=== PATIENT | male | born 1940 | race Caucasian/White ===

== ENCOUNTER → 2016-02-29 | Outpatient (CLI) | payer MEDICARE, BC ==
--- NOTE | 2016-02-29 13:14 | CT ---
EXAMINATION TYPE: CT chest wo con DATE OF EXAM: 02/29/2016 12:52 PM COMPARISON: NONE HISTORY: Patient complains of shortness of breath and unproductive cough. CT DLP: 473.5 mGycm. Automated Exposure Control for Dose Reduction was Utilized. TECHNIQUE: CT scan of the thorax is performed without IV contrast. Comparison: Chest CT February 03, 2012. FINDINGS: LUNGS: There is persistent eventration probable diaphragmatic hernia containing liver and the right l dana. Lungs are grossly clear. No suspicious groundglass opacity or consolidation is seen. No signific ant fibrosis is present. No pleural effusion or pneumothorax is seen. Minimal scarring and/or atelect atic change in both lung bases near diaphragm since still present. There is small punctate nodules 2 mm left mid lung laterally on image 27 felt stable. No concerning greater than 4 mm parenchymal nodul e or mass is present. MEDIASTINUM: Lack of IV contrast is noted to limit evaluation for mediastinal and especially hilar ad enopathy. There are no definitive greater than 1 cm hilar or mediastinal lymph nodes. No cardiomega ly or pericardial effusion is seen. Main pulmonary artery measures 3.3 cm in diameter on axial image 26. CT findings suggesting underlying pulmonary artery hypertension. Findings stable from prior. Stab le mild cardiomegaly is seen. Mild coronary artery calcification is redemonstrated. OTHER: Some bilateral gynecomastia, left worse than right is redemonstrated. Liver is diffusely low d ense consistent with fatty infiltration. Some diverticula are seen in visualized colon. Slight nodula r thickening to left adrenal gland may reflect hyperplasia. Spine is straightened with prominent mult ilevel anterior and lateral spurring redemonstrated. IMPRESSION: No significant acute or chronic pulmonary process identified to account for patient's sym ptoms.
== END | disposition home or self-care (01) ==
LOC: RADCTMAIN 12:34
PROVIDERS: ATTEND Internal Medicine
DX: R06.02 Shortness of breath (principal); R05 Cough
CPT/HCPCS: 71250

== ENCOUNTER → 2016-04-28 | Outpatient (CLI) | payer MEDICARE, BC ==
[2016-04-28 17:18] LABS: CHCM 32.3; HCT 47.4 % (39.0-53.0); HDW 2.72; HGB 15.1 gm/dL (13.0-17.5); MCH 29.6 pg (25.0-35.0); MCHC 31.8 g/dL (31.0-37.0); MCV 93.3 fL (80.0-100.0); RBC 5.09 m/uL (4.30-5.90); RDW 14.1 % (11.5-15.5); WBC 7.6 k/uL (3.8-10.6)
[2016-04-28 17:54] LABS: Calcium 9.8 mg/dL (8.4-10.2); Potassium 4.5 mmol/L (3.5-5.1); Total Bilirubin 0.6 mg/dL (0.2-1.3); Total Protein 7.9 g/dL (6.3-8.2)
== END | disposition home or self-care (01) ==
LOC: LABWHC1 16:38
PROVIDERS: ATTEND Internal Medicine Interventional Cardiology
DX: I10 Essential (primary) hypertension (principal); I48.3 Typical atrial flutter
CPT/HCPCS: 36415; 80053; 84443; 85027

== ENCOUNTER → 2016-05-04 | Outpatient (CLI) | payer MEDICARE, BC ==
--- NOTE | 2016-05-04 22:28 | CT ---
EXAMINATION TYPE: CT abdomen pelvis wo con DATE OF EXAM: 05/04/2016 7:30 PM COMPARISON: 08/08/2013 HISTORY: 75-year-old male abdominal pain and bloating CT DLP: 1223 mGycm. Automated exposure control for dose reduction was used. TECHNIQUE: Contiguous axial scanning of the abdomen and pelvis without IV contrast. Coronal and sagit hawa reconstructions performed. FINDINGS: Heart remains borderline enlarged. There is some mosaic attenuation within the visualized lower lungs that could reflect small airways disease. There is trace right pleural effusion which is new. Slightly diminished attenuation of the hepatic parenchyma and borderline to mild hepatomegaly at 18.2 cm craniocaudal. Noncontrast appearance of the gallbladder, right adrenal gland, kidneys, spleen, and pancreas show no gross abnormality. Mild diffuse thickening of the left adrenal gland increased from prior exam. No d iscrete nodularity. Numerous tiny retroperitoneal lymph nodes. There is a mildly enlarged 1 cm peripancreatic lymph node near the ricardo hepatis and a prominent but not enlarged 1.3 cm portacaval lymph node. Otherwise, no m esenteric lymphadenopathy. Mild diffuse strandy densities throughout the intra-abdominal fat especially in the retroperitoneum t racking down both iliac chains. There is additional dependent edema within the subcutaneous tissues o f the back and mild subcutaneous soft tissue edema along the lower flanks. Focal soft tissue thickening located within the subcutaneous fat of the periumbilical regions probabl y relating to subcutaneous injections. Redemonstrated small fat-containing umbilical hernia. Circumferential bladder wall thickening. Prostate gland enlargement 4.9 cm wide. Redundant sigmoid colon with diffuse colonic diverticulosis. Normal appendix. Mild overall stool robe ining. No abnormal fluid collection in the pelvis. Bones: Mild degenerative changes at the hips. Postsurgical changes of mid to lower lumbar laminectomi es and degenerative changes throughout the lumbar spine. No osseous destructive process. IMPRESSION: 1. Correlate with patient's fluid status as there appears to be mild diffuse anasarca type change an d a new trace right pleural effusion. 2. Mildly enlarged 1 cm ricardo hepatic lymph node probably reactive/post inflammatory. A six-month fo llow-up exam can be considered to reassess. 3. Mild hepatomegaly and slight decreased attenuation of the liver. Findings could reflect mild hepa tic steatosis or hepatitis. Correlate with LFTs, lipid profile, and patient risk factors. 4. Diffuse colonic diverticulosis without acute diverticulitis. 5. Prostatomegaly (4.9 cm wide). Mild circumferential bladder wall thickening could reflect cystitis or bladder wall hypertrophy. 6. Redemonstrated small fatty umbilical hernia.
== END | disposition home or self-care (01) ==
LOC: RADCTMAIN 18:57
PROVIDERS: ATTEND Family Medicine
DX: K42.9 Umbilical hernia without obstruction or gangrene (principal); N40.0 Benign prostatic hyperplasia without lower urinary tract symptoms; K57.30 Diverticulosis of large intestine without perforation or abscess without bleeding; R16.0 Hepatomegaly, not elsewhere classified; R59.0 Localized enlarged lymph nodes; N32.89 Other specified disorders of bladder
CPT/HCPCS: 74176

== ENCOUNTER 2016-07-21 18:04 | Inpatient (IN) | payer MEDICARE, BC ==
--- NOTE | 2016-07-21 18:32 | ED ---
General Adult HPI - General Source: patient, family, RN notes reviewed Mode of arrival: wheelchair Limitations: no limitations <Romulo Ferro - Last Filed: 07/21/16 18:38> <Romulo Yung - Last Filed: 07/21/16 21:06> - General Chief complaint: Shortness of Breath Stated complaint: CHF Time Seen by Provider: 07/21/16 18:10 - History of Present Illness Initial comments: This is a 75-year-old male who presents emergency Department complaining of difficulty breathing. Patient has past medical history significant for congestive heart failure and atrial fibrillation. Patient states difficult to breathing started getting worse over the last few days. 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 Patient denies any chest pain or palpitations. Patient denies any fever chills or cough. Patient states he notes that his abdomen appears to be bigger but his legs aren't any more edematous than normal. Patient states his legs normally don't get any bigger when he has congestive heart failure. Patient denies any lightheadedness or dizziness. Patient denies headache patient denies numbness weakness. (Romulo Ferro) - Related Data Home Medications Medication Instructions Recorded Confirmed Diltiazem HCl 30 mg PO TID 11/19/13 07/21/16 Ferrous Gluconate 325 mg PO DAILY 11/19/13 07/21/16 Furosemide [Lasix] 40 mg PO DAILY 11/19/13 07/21/16 Hydrocodone/Acetaminophen 1 tab PO TID PRN 11/19/13 07/21/16 [Hydrocodon-Acetaminoph 7.5-325] Insulin Aspart [NovoLOG] See Protocol SQ AC-TID 11/19/13 07/21/16 Insulin Glargine [Lantus] 80 unit SQ HS 11/19/13 07/21/16 Levothyroxine Sodium [Synthroid] 100 mcg PO DAILY 11/19/13 07/21/16 Metoprolol Tartrate [Lopressor] 50 mg PO HS 11/19/13 07/21/16 Warfarin [Coumadin] 5 mg PO HS 11/19/13 07/21/16 Atorvastatin [Lipitor] 40 mg PO HS 10/23/15 07/21/16 Digoxin [Lanoxin] 250 mcg PO DAILY 10/23/15 07/21/16 Ergocalciferol (Vitamin D2) 50,000 unit PO AGOSTO 10/23/15 07/21/16 [Drisdol] Magnesium Oxide [Mag-Ox] 500 mg PO BID 10/23/15 07/21/16 [place]-3 Fatty Acids [[place]-3] 2,000 cap PO BID 10/23/15 07/21/16 Allopurinol [Zyloprim] 100 mg PO TID 07/21/16 07/21/16 Aspirin [Children's Aspirin] 81 mg PO DAILY 07/21/16 07/21/16 Enalapril [Vasotec] 10 mg PO DAILY 07/21/16 07/21/16 Flecainide Acetate [Tambocor] 100 mg PO Q12HR 07/21/16 07/21/16 Allergies Allergy/AdvReac Type Severity Reaction Status Date / Time No Known Allergies Allergy Verified 07/21/16 19:00 Review of Systems ROS Other: All systems not noted in ROS Statement are negative. <Romulo Ferro - Last Filed: 07/21/16 18:38> ROS Other: All systems not noted in ROS Statement are negative. <Romulo Yung - Last Filed: 07/21/16 21:06> ROS Statement: Those systems with pertinent positive or pertinent negative responses have been documented in the HPI. 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 ago, occasional cigar smoker only Past Drug Use History: None Reported - Past Family History Father Family Medical History: Congestive Heart Failure (CHF) Mother Family Medical History: Cancer, Hypertension <Romulo Ferro - Last Filed: 07/21/16 18:38> General Exam Limitations: no limitations <Romulo Ferro - Last Filed: 07/21/16 18:38> General appearance: alert, in no apparent distress, anxious Head exam: Present: atraumatic, normocephalic, normal inspection Eye exam: Present: normal appearance, PERRL, EOMI. Absent: scleral icterus, conjunctival injection, periorbital swelling ENT exam: Present: normal exam, mucous membranes moist Neck exam: Present: normal inspection. Absent: tenderness, meningismus, lymphadenopathy Respiratory exam: Present: normal lung sounds bilaterally. Absent: respiratory distress, wheezes, rales, rhonchi, stridor Cardiovascular Exam: Present: regular rate, normal rhythm, normal heart sounds. Absent: systolic murmur, diastolic murmur, rubs, gallop, clicks GI/Abdominal exam: Present: soft, normal bowel sounds. Absent: distended, tenderness, guarding, rebound, rigid Extremities exam: Present: normal inspection, full ROM, normal capillary refill. Absent: tenderness, pedal edema, joint swelling, calf tenderness Back exam: Present: normal inspection Neurological exam: Present: alert, oriented X3, CN II-XII intact Psychiatric exam: Present: normal affect, normal mood Skin exam: Present: warm, dry, intact, normal color. Absent: rash <MerejenaFaviomarge Marx - Last Filed: 07/21/16 21:06> - General Exam Comments Initial Comments: GENERAL: Patient is well-developed and well-nourished. Patient is nontoxic and well- hydrated and is in mild distress. ENT: Neck is soft and supple. No significant lymphadenopathy is noted. Oropharynx is clear. Moist mucous membranes. Neck has full range of motion without eliciting any pain. EYES: The sclera were anicteric and conjunctiva were pink and moist. Extraocular movements were intact and pupils were equal round and reactive to light. Eyelids were unremarkable. PULMONARY: Crackles left base CARDIOVASCULAR: There is a regular rate and rhythm without any murmurs gallops or rubs. ABDOMEN: Soft and nontender with normal bowel sounds. No palpable organomegaly was noted. There is no palpable pulsatile mass. SKIN: Skin is clear with no lesions or rashes and otherwise unremarkable. NEUROLOGIC: Patient is alert and oriented x3. Cranial nerves II through XII are grossly intact. Motor and sensory are also intact. Normal speech, volume and content. Symmetrical smile. MUSCULOSKELETAL: Normal extremities with adequate strength and full range of motion. No lower extremity swelling or edema. No calf tenderness. LYMPHATICS: No significant lymphadenopathy is noted PSYCHIATRIC: Normal psychiatric evaluation. Normal interpersonal interactions appears functionally intact in deals appropriately with others. No signs of depression. No signs of anxiety. (Romulo Ferro) Course <Romulo Ferro - Last Filed: 07/21/16 18:38> <Romulo Yung - Last Filed: 07/21/16 21:06> Vital Signs 07/21/16 07/21/16 07/21/16 18:08 18:50 20:27 Temperature 96.5 F L Pulse Rate 96 72 85 Respiratory 20 20 20 Rate Blood Pressure 129/82 124/74 117/71 O2 Sat by Pulse 94 L 94 L 94 L Oximetry - Reevaluation(s) Reevaluation #1: 07/21/16 21:05 Patient resting, lethargic (Romulo Yung) Medical Decision Making <Romulo Ferro - Last Filed: 07/21/16 18:38> - Lab Data Result diagrams: 07/21/16 18:35 07/21/16 18:35 - Radiology Data Radiology results: report reviewed (Chest x-ray is negative for acute disease), image reviewed <Romulo Yung - Last Filed: 07/21/16 21:06> - Medical Decision Making EKG shows undetermined rhythm at a rate of 91 bpm QRS is 150 QT intervals 454 QTC is 558. Patient appears to the right bundle branch block which was not seen on his previous EKG. Dr. Yung will be taking over the care of this patient at 7 PM (Romulo Ferro) 75 male with documented COPD and CHF exacerbation. Patient coming in with shortness of breath, weight gain. Patient on Lasix with worsening symptoms. Patient will be admitted for neuro nephrology and cardiology evaluation (Romulo Yung) - Lab Data Lab Results 07/21/16 07/21/16 07/21/16 Range/Units 18:35 18:35 18:35 WBC 9.3 (3.8-10.6) k/uL RBC 4.82 (4.30-5.90) m/uL Hgb 14.8 (13.0-17.5) gm/dL Hct 45.9 (39.0-53.0) % MCV 95.1 (80.0-100.0) fL MCH 30.6 (25.0-35.0) pg MCHC 32.2 (31.0-37.0) g/dL RDW 14.6 (11.5-15.5) % Plt Count 249 (150-450) k/uL Neutrophils % 79 % Lymphocytes % 11 % Monocytes % 7 % Eosinophils % 1 % Basophils % 0 % Neutrophils # 7.4 (1.3-7.7) k/uL Lymphocytes # 1.0 (1.0-4.8) k/uL Monocytes # 0.6 (0-1.0) k/uL Eosinophils # 0.1 (0-0.7) k/uL Basophils # 0.0 (0-0.2) k/uL PT (9.0-12.0) sec INR (<1.1) APTT (22.0-30.0) sec Sodium 144 (137-145) mmol/L Potassium 4.0 (3.5-5.1) mmol/L Chloride 96 L (98-107) mmol/L Carbon Dioxide 38 H (22-30) mmol/L Anion Gap 10 mmol/L BUN 71 H (9-20) mg/dL Creatinine 2.26 H (0.66-1.25) mg/dL Est GFR (MDRD) Af Amer 34 (>60 ml/min/1.73 sqM) Est GFR (MDRD) Non-Af 28 (>60 ml/min/1.73 sqM) Glucose 83 (74-99) mg/dL POC Glucose (mg/dL) (75-99) mg/dL POC Glu Field Operations Manager ID Calcium 9.9 (8.4-10.2) mg/dL Magnesium 2.1 (1.6-2.3) mg/dL Total Bilirubin 0.8 (0.2-1.3) mg/dL AST 173 H (17-59) U/L ALT 152 H (21-72) U/L Alkaline Phosphatase 48 (38-126) U/L Total Creatine Kinase 491 H (55-170) U/L CK-MB (CK-2) 4.0 H* (0.0-2.4) ng/mL CK-MB (CK-2) Rel Index 0.8 Troponin I 0.258 H* (0.000-0.034) ng/mL NT-Pro-B Natriuret Pep pg/mL Total Protein 7.8 (6.3-8.2) g/dL Albumin 4.5 (3.5-5.0) g/dL 07/21/16 07/21/16 07/21/16 Range/Units 18:35 18:35 18:41 WBC (3.8-10.6) k/uL RBC (4.30-5.90) m/uL Hgb (13.0-17.5) gm/dL Hct (39.0-53.0) % MCV (80.0-100.0) fL MCH (25.0-35.0) pg MCHC (31.0-37.0) g/dL RDW (11.5-15.5) % Plt Count (150-450) k/uL Neutrophils % % Lymphocytes % % Monocytes % % Eosinophils % % Basophils % % Neutrophils # (1.3-7.7) k/uL Lymphocytes # (1.0-4.8) k/uL Monocytes # (0-1.0) k/uL Eosinophils # (0-0.7) k/uL Basophils # (0-0.2) k/uL PT 43.0 H (9.0-12.0) sec INR 4.4 (<1.1) APTT 30.2 H (22.0-30.0) sec Sodium (137-145) mmol/L Potassium (3.5-5.1) mmol/L Chloride (98-107) mmol/L Carbon Dioxide (22-30) mmol/L Anion Gap mmol/L BUN (9-20) mg/dL Creatinine (0.66-1.25) mg/dL Est GFR (MDRD) Af Amer (>60 ml/min/1.73 sqM) Est GFR (MDRD) Non-Af (>60 ml/min/1.73 sqM) Glucose (74-99) mg/dL POC Glucose (mg/dL) 99 (75-99) mg/dL POC Glu Field Operations Manager ID Laura Ann Calcium (8.4-10.2) mg/dL Magnesium (1.6-2.3) mg/dL Total Bilirubin (0.2-1.3) mg/dL AST (17-59) U/L ALT (21-72) U/L Alkaline Phosphatase (38-126) U/L Total Creatine Kinase (55-170) U/L CK-MB (CK-2) (0.0-2.4) ng/mL CK-MB (CK-2) Rel Index Troponin I (0.000-0.034) ng/mL NT-Pro-B Natriuret Pep 6940 pg/mL Total Protein (6.3-8.2) g/dL Albumin (3.5-5.0) g/dL Disposition <Romulo Ferro - Last Filed: 07/21/16 18:38> <Romulo Yung - Last Filed: 07/21/16 21:06> Clinical Impression: Congestive heart failure, Anasarca, ARF (acute renal failure) Disposition: ADMITTED IP TO THIS HOSP Condition: Fair Referrals: Toshia Bui DO [Primary Care Provider] - 1-2 days
[2016-07-21 18:47] LABS: Basophils % (A) 0 %; CH 30.2; CHCM 31.9; Eosinophils # (A) 0.1 k/uL (0-0.7); Eosinophils % (A) 1 %; HCT 45.9 % (39.0-53.0); HDW 2.45; HGB 14.8 gm/dL (13.0-17.5); Luc # (Auto) 0.22; Luc % (Auto) 2; Lymphocytes % (A) 11 %; MCH 30.6 pg (25.0-35.0); MCHC 32.2 g/dL (31.0-37.0); MCV 95.1 fL (80.0-100.0); Mean Platelet Volume 7.3; Monocytes # (A) 0.6 k/uL (0-1.0); Monocytes % (A) 7 %; Neutrophils # (A) 7.4 k/uL (1.3-7.7); Neutrophils % (A) 79 %; RBC 4.82 m/uL (4.30-5.90); RDW 14.6 % (11.5-15.5); WBC 9.3 k/uL (3.8-10.6); WBC (Perox) 9.44
[2016-07-21 18:49] LABS: Glucose,Whole Blood 99 mg/dL (75-99)
[2016-07-21 18:57] LABS: INR 4.4 (<1.1); Partial Thromboplastin Time 30.2 sec (22.0-30.0)
[2016-07-21 19:00] LABS: Calcium 9.9 mg/dL (8.4-10.2); Magnesium 2.1 mg/dL (1.6-2.3); Total Bilirubin 0.8 mg/dL (0.2-1.3); Total Protein 7.8 g/dL (6.3-8.2)
[2016-07-21 19:21] LABS: Troponin I 0.258 ng/mL (0.000-0.034)
--- NOTE | 2016-07-21 20:02 | XR ---
EXAMINATION TYPE: XR chest 2V DATE OF EXAM: 07/21/2016 COMPARISON: NONE HISTORY: Shortness of breath and abdominal pain . History of CHF. TECHNIQUE: Frontal and lateral views of the chest are obtained. FINDINGS: There is no focal air space opacity, pleural effusion, or pneumothorax seen. Right hemidia phragm demonstrates chronic elevation. The cardiac silhouette size is within normal limits. The os seous structures are intact. Left arthroplasty is noted. IMPRESSION: No acute cardiopulmonary process.
[2016-07-21] MEDS: FUROSEMIDE 10 MG/ML 4 ML VIAL IV SCH (21:22)
[2016-07-21 22:39] LABS: Glucose,Whole Blood 198 mg/dL (75-99)
[2016-07-22 06:26] LABS: Glucose,Whole Blood 140 mg/dL (75-99)
[2016-07-22] MEDS ORDERED: HYDROcodone/APAP 7.5-325MG 1 EACH TAB PO PRN (07:49)
[2016-07-22] MEDS: DILTIAZEM ORAL 30 MG TAB PO SCH ×3 (08:52→21:03)
[2016-07-22] MEDS: FLECAINIDE 50 MG TAB PO SCH (08:52)
[2016-07-22] MEDS: LISINOPRIL 20 MG TAB PO SCH ×2 (08:52→08:58)
[2016-07-22] MEDS: DIGOXIN 250 MCG TAB PO SCH (08:53)
[2016-07-22] MEDS: FUROSEMIDE 10 MG/ML 4 ML VIAL IV SCH ×2 (08:54→21:07)
[2016-07-22 08:55] LABS: INR 3.8 (<1.1); Prothrombin Time 36.7 sec (9.0-12.0)
[2016-07-22] MEDS ORDERED: ALLOPURINOL 100 MG TAB PO SCH (09:00)
[2016-07-22 09:48] LABS: Calcium 9.5 mg/dL (8.4-10.2); Potassium 4.1 mmol/L (3.5-5.1); Total Protein 7.2 g/dL (6.3-8.2)
--- NOTE | 2016-07-22 09:58 | CONS ---
DATE OF CONSULTATION: CHIEF COMPLAINT: Shortness of breath. Jose G is a 75-year-old gentleman with complex medical history including paroxysmal atrial fibrillation, cardiomyopathy, prior systolic heart failure, hypothyroidism, insulin-requiring diabetes who had an appointment at the [place] and complained of abdomen being distended. Came to the ER and subsequently got admitted. He does not have any shortness of breath. There is no leg edema, paroxysmal nocturnal dyspnea or orthopnea. He was found to have renal failure on this admission with BUN 71, creatinine of 2.2. Troponin is in the clarke zone at 0.2, probably related to the renal failure. BNP is elevated at 6940. His EKG shows sinus rhythm with right bundle branch block and left anterior fascicular block and there is intraventricular conduction delay, QRS is 150 ms, it was 92 on a prior EKG. He does not have any sustained palpitations nor did he have any episodes of atrial fibrillation with rapid ventricular rate. The patient had a cardiac catheterization in October of last year that revealed mild nonobstructive CAD. In view of the changes noted on the EKG, I am going to hold the flecainide at this time. I am also going to hold the dig because of the renal failure. The patient's INR is 3.8. We will hold Coumadin and resume Coumadin once the INR comes close to 2.5. I agree with treating the patient for acute exacerbation of chronic systolic heart failure with IV Lasix. Past medical history is significant for chronic systolic heart failure, paroxysmal atrial fibrillation, hypothyroidism, diabetes, dyslipidemia. Current medications include Tambocor 100 b.i.d., digoxin 250 q. daily, Lipitor 40 q. daily, aspirin, Zyloprim, Lasix, iron, Vasotec, Synthroid, insulin, Coumadin, metoprolol and magnesium oxide. ALLERGIES: There are no known drug allergies. Family history is negative for premature coronary artery disease. Social history is negative for smoking, EtOH abuse, or drug abuse. REVIEW OF SYSTEMS: HEENT: Unremarkable. CARDIAC: As described above. RESPIRATORY: Negative. GI: Negative. GENITOURINARY: Negative. SKIN: Negative. MUSCULOSKELETAL: Significant for arthritis. PSYCHOSOCIAL: Negative. ENDOCRINE: Negative. HEMATOLOGIC: Negative. DERMATOLOGY: Negative. CONSTITUTIONAL: Negative. ONCOLOGICAL: Negative. The rest of the system review is not relevant. On exam, patient is comfortable at rest. Vital signs are stable. There is no jugular venous distention. Carotid upstroke is normal. There is no bruit. Chest exam reveals diminished air entry at the bases. Heart exam reveals first and second heart sounds. No gallop. Abdomen is soft, appears somewhat distended. Exam of the extremities did not reveal edema. Peripheral pulses are felt. Labs show a BNP of 6970. Troponin is 0.2. Potassium of 4. Hemoglobin of 14.8. ASSESSMENT: 1. Acute exacerbation of chronic systolic heart failure. 2. Chronic renal failure. 3. Paroxysmal atrial fibrillation. PLAN: We will hold the Lanoxin and flecainide at this time. I reviewed his old records. I will obtain a 2-D echo on him. Hopefully we can discharge him over the next 24 to 48 hours and he will keep his appointment with Dr. Barros, which he was going to for possible A. fib ablation.
--- NOTE | 2016-07-22 11:32 | ECHOF ---
Referral Reason:chf MEASUREMENTS -------- HEIGHT: 180.3 cm WEIGHT: 114.3 kg BP: 125/68 RVIDd: 2.6 cm (< 3.3) IVSd: 1.6 cm (0.6 - 1.1) LVIDd: 5.6 cm (3.9 - 5.3) LVPWd: 1.8 cm (0.6 - 1.1) IVSs: 2.2 cm LVIDs: 4.7 cm LVPWs: 1.9 cm LAESV Index (A-L): 26.19 ml/m IVSd: 1.6 cm (0.6 - 1.1) LVIDd: 5.5 cm (3.9 - 5.3) LVPWd: 1.5 cm (0.6 - 1.1) IVSs: 1.7 cm LVIDs: 4.8 cm LVPWs: 1.7 cm EDV(Teich): 149 ml ESV(Teich): 109 ml EF(Teich): 27 % %FS: 13 % SV(Teich): 40 ml Ao Diam: 3.1 cm (2.0 - 3.7) AV Cusp: 1.2 cm (1.5 - 2.6) LA Diam: 3.5 cm (2.7 - 3.8) MV EXCURSION: 15.662 mm (> 18.000) MV EF SLOPE: 78 mm/s (70 - 150) EPSS: 1.1 cm RAP: 5.00 mmHg RVSP: 19.91 mmHg FINDINGS -------- Atrial fibrillation. This was a technically difficult study with suboptimal views. Unable to use definity due to no IV There is severe concentric left ventricular hypertrophy. Overall left ventricular systolic function is severely impaired with, an EF between 20 - 25 %. The right ventricle is normal in size and function. Normal LA size by volume 22+/-6 ml/m2. The right atrium is normal in size. There is moderate aortic valve sclerosis. There is no evidence of aortic regurgitation. There is no evidence of aortic stenosis. The mitral valve leaflets are mildly thickened. There is trace to mild mitral regurgitation. Trace tricuspid regurgitation present. There is no evidence of pulmonary hypertension. The right ventricular systolic pressure, as measured by Doppler, is 19.91mmHg. The pulmonic valve was not well visualized. The aortic root size is normal. Normal inferior vena cava with normal inspiratory collapse consistent with estimated right atrial pressure of 5 mmHg. There is no pericardial effusion. CONCLUSIONS -------- 1. Atrial fibrillation. 2. Trace tricuspid regurgitation present. 3. There is no evidence of pulmonary hypertension. 4. The right ventricular systolic pressure, as measured by Doppler, is 19.91mmHg. 5. The pulmonic valve was not well visualized. 6. The aortic root size is normal. 7. There is no pericardial effusion. 8. This was a technically difficult study with suboptimal views. 9. Unable to use definity due to no IV 10. There is severe concentric left ventricular hypertrophy. 11. Overall left ventricular systolic function is severely impaired with, an EF between 20 - 25 %. 12. Normal LA size by volume 22+/-6 ml/m2. 13. There is moderate aortic valve sclerosis. 14. The mitral valve leaflets are mildly thickened. 15. There is trace to mild mitral regurgitation. DIPPING MACHINE OPERATOR: Crispin Calderon RDCS
[2016-07-22] MEDS: INSULIN LISPRO (humaLOG) 300 UNIT/3 ML VIAL SQ SCH ×3 (12:22→21:01)
[2016-07-22 12:40] LABS: Glucose,Whole Blood 161 mg/dL (75-99)
--- NOTE | 2016-07-22 12:53 | P.HPIM ---
History of Present Illness H&P Date: 07/22/16 Chief Complaint: Worsening shortness of breath This is a 75-year-old male, patient of Dr. Bui. He has a known past medical history of congestive heart failure, atrial fibrillation, diabetes, chronic kidney disease, hyperlipidemia, hypertension, obstructive sleep apnea and hypothyroidism. Patient presents to emergency room with worsening shortness of breath over the last few days. Patient is unable to lay flat. is at bedside chair reporting that every time patient lays down just for a few minutes he would pop right back up having some shortness of breath. Patient is also noted more distention in his abdomen which she gets when he becomes fluid overloaded. He's had no edema in the legs. He was just seen by Dr. 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 He presented to the emergency room because of the worsening shortness of breath. He was found to have a BNP level elevated at 6940. Chest x-ray was negative. EKG had shown sinus rhythm with sinus arrhythmia with first-degree AV block, a left bundle branch block, left anterior fascicular block. Due to these EKG changes cardiology did discontinue the flecainide. He also discontinued the digoxin due to worsening renal function. Creatinine was at 2.26 and nephrology has been consulted. Patient was started on IV Lasix for an acute CHF exacerbation. Patient denies any chest pain, cough, nausea or vomiting, bowel movement changes, fever, chills or sweats. Patient did reports having a low urine output yesterday. He was able to urinate in the morning they had drove to the [facility] and back to [place] without any urination. This morning patient is urinating appropriately. Nephrology consulted. 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 ago, occasional cigar smoker only Past Drug Use History: None Reported - Past Family History Father Family Medical History: Congestive Heart Failure (CHF) Mother Family Medical History: Cancer, Hypertension Medications and Allergies Home Medications Medication Instructions Recorded Confirmed Type Diltiazem HCl 30 mg PO TID 11/19/13 07/21/16 History Ferrous Gluconate 325 mg PO DAILY 11/19/13 07/21/16 History Furosemide [Lasix] 40 mg PO DAILY 11/19/13 07/21/16 History Hydrocodone/Acetaminophen 1 tab PO TID PRN 11/19/13 07/21/16 History [Hydrocodon-Acetaminoph 7.5-325] Insulin Aspart [NovoLOG] See Protocol SQ AC-TID 11/19/13 07/21/16 History Insulin Glargine [Lantus] 80 unit SQ HS 11/19/13 07/21/16 History Levothyroxine Sodium [Synthroid] 100 mcg PO DAILY 11/19/13 07/21/16 History Metoprolol Tartrate [Lopressor] 50 mg PO HS 11/19/13 07/21/16 History Warfarin [Coumadin] 5 mg PO HS 11/19/13 07/21/16 History Atorvastatin [Lipitor] 40 mg PO HS 10/23/15 07/21/16 History Digoxin [Lanoxin] 250 mcg PO DAILY 10/23/15 07/21/16 History Ergocalciferol (Vitamin D2) 50,000 unit PO AGOSTO 10/23/15 07/21/16 History [Drisdol] Magnesium Oxide [Mag-Ox] 500 mg PO BID 10/23/15 07/21/16 History [place]-3 Fatty Acids [[place]-3] 2,000 cap PO BID 10/23/15 07/21/16 History Allopurinol [Zyloprim] 100 mg PO TID 07/21/16 07/21/16 History Aspirin [Children's Aspirin] 81 mg PO DAILY 07/21/16 07/21/16 History Enalapril [Vasotec] 10 mg PO DAILY 07/21/16 07/21/16 History Flecainide Acetate [Tambocor] 100 mg PO Q12HR 07/21/16 07/21/16 History Allergies Allergy/AdvReac Type Severity Reaction Status Date / Time No Known Allergies Allergy Verified 07/21/16 19:00 Physical Exam Vitals: Vital Signs Temp Pulse Pulse Resp BP BP Pulse Ox 07/22/16 08:15 113/84 07/22/16 08:10 97.2 F L 98 18 91/52 96 07/22/16 04:00 86 18 125/68 91 L 07/22/16 00:00 98.3 F 73 18 143/88 97 07/21/16 20:27 85 20 117/71 94 L 07/21/16 18:50 72 20 124/74 94 L 07/21/16 18:08 96.5 F L 96 20 129/82 94 L Intake and Output 07/21/16 07/22/16 07/22/16 22:59 06:59 14:59 Intake Total 0 0 480 Output Total 600 750 Balance -600 -750 480 Intake: IV 0 0 NS 0 0 Oral 480 Output: Urine 600 750 Other: # Voids 1 1 Weight 114.305 kg 114.5 kg Head normocephalic Neck supple Lungs crackles at bases bilaterally Heart regular rate and rhythm S1-S2, no rub or gallop Abdomen is soft nontender distended positive bowel sounds Extremities no edema Neuro alert and orientated to 3 Results CBC & Chem 7: 07/21/16 18:35 07/22/16 08:04 Labs: Abnormal Lab Results - Last 24 Hours (Table) 07/21/16 07/21/16 07/21/16 Range/Units 18:35 18:35 18:35 PT 43.0 H (9.0-12.0) sec APTT 30.2 H (22.0-30.0) sec Chloride 96 L (98-107) mmol/L Carbon Dioxide 38 H (22-30) mmol/L BUN 71 H (9-20) mg/dL Creatinine 2.26 H (0.66-1.25) mg/dL Glucose (74-99) mg/dL POC Glucose (mg/dL) (75-99) mg/dL AST 173 H (17-59) U/L ALT 152 H (21-72) U/L Total Creatine Kinase 491 H (55-170) U/L CK-MB (CK-2) 4.0 H* (0.0-2.4) ng/mL Troponin I 0.258 H* (0.000-0.034) ng/mL 07/21/16 07/22/16 07/22/16 Range/Units 22:26 06:24 08:04 PT 36.7 H (9.0-12.0) sec APTT (22.0-30.0) sec Chloride (98-107) mmol/L Carbon Dioxide (22-30) mmol/L BUN (9-20) mg/dL Creatinine (0.66-1.25) mg/dL Glucose (74-99) mg/dL POC Glucose (mg/dL) 198 H 140 H (75-99) mg/dL AST (17-59) U/L ALT (21-72) U/L Total Creatine Kinase (55-170) U/L CK-MB (CK-2) (0.0-2.4) ng/mL Troponin I (0.000-0.034) ng/mL 07/22/16 07/22/16 Range/Units 08:04 12:14 PT (9.0-12.0) sec APTT (22.0-30.0) sec Chloride 97 L (98-107) mmol/L Carbon Dioxide 34 H (22-30) mmol/L BUN 71 H (9-20) mg/dL Creatinine 2.07 H (0.66-1.25) mg/dL Glucose 150 H (74-99) mg/dL POC Glucose (mg/dL) 161 H (75-99) mg/dL AST 130 H (17-59) U/L ALT 126 H (21-72) U/L Total Creatine Kinase (55-170) U/L CK-MB (CK-2) (0.0-2.4) ng/mL Troponin I (0.000-0.034) ng/mL Thrombosis Risk Factor Assmnt - Choose All That Apply Any of the Below Risk Factors Present?: Yes Each Factor Represents 1 point: Obesity (BMI >25), Swollen legs (current) Other Risk Factors: Yes Each Risk Factor Represents 3 Points: Age 75 years or older Other congenital or acquired thrombophilia - If yes, enter type in comment: No Thrombosis Risk Factor Assessment Total Risk Factor Score: 5 Thrombosis Risk Factor Assessment Level: High Risk Assessment and Plan Plan: 1. Acute on chronic systolic CHF exacerbation: Echo shows an EF of 20-25%. Patient is currently on IV Lasix 40 every 12 hours. Cardiology consulted and following. BNP level elevated at 6940 2. Paroxysmal atrial fibrillation: Cardiology has adjusted medications held the flecainide due to EKG changes and held the digoxin due to the patient's renal failure. Patient is on Coumadin at home. INR elevated at 3.8. Coumadin will remain on hold. Monitor daily PT INRs. 3. Acute on chronic kidney disease stage IIIB colon nephrology consulted. It appears patient may have had some low urine output yesterday prior to admission. We'll check postvoid residual. Allopurinol discontinued for now 4. Elevated LFTs: No abdominal pain. Possibly related to liver congestion. Liver numbers are trending down. We will hold the statin for now. Repeat labs in a.m. 5. Elevated troponin: Evaluated by cardiology. Likely related to patient's renal failure. 6. Diabetes mellitus: Continue Lantus and sliding scale coverage 7. Essential hypertension: Blood pressures are stable 8. Hypothyroidism continue with the Synthroid GI prophylaxis Pepcid and DVT prophylaxis Coumadin, which is currently held due to INR 3.8 Time with Patient: Greater than 30 (Greater than 50% of the total time spent in counseling and coordination of care.I performed an examination of the patient and discussed their management with the physician Subscription Crew Leader. I have reviewed the Physician Subscription Crew Leader's notes and agree with the documented findings and plan of care)
[2016-07-22 14:02] LABS: Hemoglobin A1C 7.2 % (4.2-6.1)
[2016-07-22 14:38] VITALS: BMI 35.2
[2016-07-22 15:17] LABS: Digoxin <0.4 ng/mL
[2016-07-22 16:45] LABS: Hepatitis B Surface Ag Index 0.06
[2016-07-22 16:50] LABS: Hepatitis B Core IgM Index 0.02
[2016-07-22 16:53] LABS: Glucose,Whole Blood 174 mg/dL (75-99)
[2016-07-22 17:02] LABS: Hepatitis C Virus IgG Ab Negative (Negative); Hepatitis C Virus IgG Index 0.08
--- NOTE | 2016-07-22 18:20 | CONS ---
DATE OF CONSULTATION: 07/22/2016 REASON FOR CONSULTATION: Renal failure. HISTORY OF PRESENT ILLNESS: Patient is a 75-year-old male with a history of coronary artery disease, type 2 diabetes, chronic atrial fibrillation, hypertension, chronic kidney disease, NKF stage III, with baseline creatinine about 1.7 mg/dL as of October of 2015. Patient was admitted to the hospital with complaints of shortness of breath. He had increased lower extremity edema and is currently maintained on IV Lasix. He states he is feeling better. His serum creatinine on admission was 2.2 mg/dL. This morning it is 2.07. Lasix is at 40 mg IV q.12 hours. PAST MEDICAL HISTORY: 1. Type 2 diabetes. 2. Hypertension. 3. Atrial fibrillation. 4. COPD. 5. Obstructive sleep apnea. 6. Hypothyroidism. 7. Hyperlipidemia. 8. 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 PAST SURGICAL HISTORY: 1. Cardiac catheterization. 2. Tonsillectomy. 3. Left shoulder replacement. 4. Bilateral total knee arthroplasty. 5. Colonoscopy. SOCIAL HISTORY: Negative for smoking, drug abuse or alcohol abuse. Medications at home prior to admission included: 1. Diltiazem. 2. Lasix. 3. Iron. 4. Vicodin. 5. Insulin. 6. Synthroid. 7. Lopressor. 8. Coumadin. 9. Lanoxin. 10. Lipitor. 11. Zyloprim. 12. Vasotec. 13. Magnesium oxide. ALLERGIES: NONE. REVIEW OF SYSTEMS: As per HPI. Other systems negative. On examination, patient is comfortable, awake, alert, oriented x3, not in any acute distress. Blood pressure was 91/52 earlier. Today repeat blood pressure was 113/84. Patient is afebrile. EXAMINATION OF THE HEART: S1 and S2. EXAMINATION OF THE LUNGS: Bilateral breath sounds are heard. Basal crackles are heard bilaterally. ABDOMEN: Soft, nontender. Examination of lower extremities shows edema 1+ bilaterally with chronic skin changes. Labs show sodium 142, potassium 4.1, BUN 71, serum creatinine 2.07. Albumin 4.1. UA is not available. Echocardiogram from today shows ejection fraction of only 20% to 25% with moderate aortic valve sclerosis and severe concentric LVH. ASSESSMENT: 1. Chronic kidney disease, NKF stage IIIB, with baseline creatinine of around 1.7 mg/dL as of October of 2015. Will check office records as well. 2. Acute kidney injury, possibly cardiorenal, currently improved slightly. Continue with current dose of Lasix. 3. Hypotension. Hold off on CAROLINA inhibitors. 4. History of gout/hyperuricemia. Decrease Allopurinol to 100 mg daily instead of t.i.d. Patient takes 100 mg daily at home. PLAN: Discontinue lisinopril for now due to hypotension. Repeat labs in a.m. Continue with Lasix. Check urinalysis. Thank you for this consultation. Will continue to follow the patient with you during his hospitalization.
[2016-07-22 20:26] LABS: Glucose,Whole Blood 192 mg/dL (75-99)
[2016-07-22] MEDS: INSULIN GLARGINE 100 UNIT/ML 10 ML VIAL SQ SCH (21:01)
[2016-07-22] MEDS: MAGNESIUM OXIDE 400 MG TAB PO SCH (21:03)
[2016-07-22] MEDS: METOPROLOL TARTRATE 50 MG TAB PO SCH ×2 (21:03→21:07)
[2016-07-23 06:36] LABS: Glucose,Whole Blood 73 mg/dL (75-99)
[2016-07-23] MEDS: INSULIN LISPRO (humaLOG) 300 UNIT/3 ML VIAL SQ SCH ×4 (06:41→20:41)
[2016-07-23] MEDS: LEVOTHYROXINE 100 MCG TAB PO SCH (06:42)
[2016-07-23 06:53] LABS: Basophils % (A) 1 %; CH 30.1; Eosinophils # (A) 0.2 k/uL (0-0.7); Eosinophils % (A) 2 %; HCT 48.6 % (39.0-53.0); HDW 2.49; HGB 15.2 gm/dL (13.0-17.5); Luc # (Auto) 0.27; Luc % (Auto) 4; Lymphocytes # (A) 1.9 k/uL (1.0-4.8); Lymphocytes % (A) 25 %; MCH 29.5 pg (25.0-35.0); MCHC 31.3 g/dL (31.0-37.0); MCV 94.4 fL (80.0-100.0); Mean Platelet Volume 7.4; Monocytes # (A) 0.7 k/uL (0-1.0); Monocytes % (A) 10 %; Neutrophils # (A) 4.5 k/uL (1.3-7.7); Neutrophils % (A) 60 %; RBC 5.15 m/uL (4.30-5.90); RDW 14.4 % (11.5-15.5); WBC 7.6 k/uL (3.8-10.6); WBC (Perox) 7.49
[2016-07-23 07:08] LABS: INR 2.8 (<1.1); Prothrombin Time 26.9 sec (9.0-12.0)
[2016-07-23 07:17] LABS: Calcium 9.5 mg/dL (8.4-10.2); Potassium 3.9 mmol/L (3.5-5.1); Total Protein 7.6 g/dL (6.3-8.2)
--- NOTE | 2016-07-23 08:50 | US ---
EXAMINATION TYPE: US liver DATE OF EXAM: 07/23/2016 COMPARISON: CLINICAL HISTORY: elevated LFTs, possible ascites. Bloating, NPO EXAM MEASUREMENTS: Liver Length: 15.0 cm Gallbladder Wall: 0.3 cm CHD: 0.4 cm Right Kidney: 11.2 x 4.8 x 4.7 cm Pancreas: Echogenic. Enlarged. Possible hypoechoic lesion seen - 0.4 x 0.5 x 0.4 cm. Main pancrea tic duct - 1.5 mm Liver: wnl Gallbladder: wnl Evidence for sonographic Breen's sign: neg CHD: wnl Right Kidney: wnl All four quadrants scanned, no free fluid seen IMPRESSION: 1. Enlarged pancreas with possible lesion. Severe contrast-enhanced CT.
[2016-07-23] MEDS: DILTIAZEM ORAL 30 MG TAB PO SCH ×3 (09:04→20:30)
[2016-07-23] MEDS: ALLOPURINOL 100 MG TAB PO SCH (09:04)
[2016-07-23] MEDS: FUROSEMIDE 10 MG/ML 4 ML VIAL IV SCH ×2 (09:05→20:30)
[2016-07-23] MEDS: MAGNESIUM OXIDE 400 MG TAB PO SCH ×2 (09:05→20:30)
[2016-07-23] MEDS: FAMOTIDINE 20 MG TAB PO SCH (09:05)
--- NOTE | 2016-07-23 11:26 | P.PN ---
Subjective Principal diagnosis: This is a 75-year-old old male seen in consultation because of acute kidney injury secondary to possibly cardiorenal syndrome. Lasix was increased because of worsening edema as an outpatient but did not work therefore he was admitted. He is lost significant amount of weight supposedly per patient since coming in and is subjectively much better. He is less short of breath no dizziness is able to walk with a walker. Edema significantly improved. Appetite is fair and had difficulty sleeping therefore is somewhat tired. No dizziness though. No nausea vomiting diarrhea abdominal pain. Objective - Vital Signs Vital signs: Vital Signs Temp 96.8 F L 07/23/16 08:00 Pulse 49 L 07/23/16 08:00 Resp 17 07/23/16 04:00 BP 101/83 07/23/16 08:00 Pulse Ox 92 L 07/23/16 08:00 Intake & Output 07/22/16 07/23/16 07/23/16 18:59 06:59 18:59 Intake Total 1160 500 0 Output Total 450 500 Balance 710 0 0 Weight 114.5 kg 113.8 kg Intake: IV 20 0 NS 20 0 Oral 1160 480 Output: Urine 450 500 Other: Voiding Method Toilet # Voids 1 On examination is awake alert oriented. HEENT exam JVP is elevated supine. Neck is supple no facial asymmetry Lungs are clear to auscultation percussion good air entry bilaterally. Heart sounds are unremarkable for any murmur rub gallop. Abdomen soft nontender no organomegaly status masses Extremity exam reveals mild edema Neurologically awake alert oriented no focal motor deficit - Labs CBC & Chem 7: 07/23/16 05:46 07/23/16 05:46 Labs: Abnormal Lab Results - Last 24 Hours (Table) 07/22/16 07/22/16 07/22/16 Range/Units 08:04 12:14 16:31 PT (9.0-12.0) sec Chloride (98-107) mmol/L Carbon Dioxide (22-30) mmol/L BUN (9-20) mg/dL Creatinine (0.66-1.25) mg/dL Glucose (74-99) mg/dL POC Glucose (mg/dL) 161 H 174 H (75-99) mg/dL Hemoglobin A1c 7.2 H (4.2-6.1) % AST (17-59) U/L ALT (21-72) U/L 07/22/16 07/23/16 07/23/16 Range/Units 20:16 05:46 05:46 PT 26.9 H (9.0-12.0) sec Chloride 96 L (98-107) mmol/L Carbon Dioxide 38 H (22-30) mmol/L BUN 74 H (9-20) mg/dL Creatinine 2.23 H (0.66-1.25) mg/dL Glucose 69 L (74-99) mg/dL POC Glucose (mg/dL) 192 H (75-99) mg/dL Hemoglobin A1c (4.2-6.1) % AST 107 H (17-59) U/L ALT 111 H (21-72) U/L 07/23/16 Range/Units 06:29 PT (9.0-12.0) sec Chloride (98-107) mmol/L Carbon Dioxide (22-30) mmol/L BUN (9-20) mg/dL Creatinine (0.66-1.25) mg/dL Glucose (74-99) mg/dL POC Glucose (mg/dL) 73 L (75-99) mg/dL Hemoglobin A1c (4.2-6.1) % AST (17-59) U/L ALT (21-72) U/L Assessment and Plan Plan: Impression. 1. Chronic kidney disease with a creatinine of about 1.7. Possibly nephrosclerosis. 2. Acute kidney injury from cardiorenal syndrome. Creatinine is up to 2.23 with diuresis. Off of CAROLINA inhibitor 3. History of atrial fibrillation. Controlled. 4. History of COPD, 5. 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 6. Mild degree of metabolic alkalosis secondary to diuretics bicarb is 38. Recommendation. 1. Check orthostatic changes. 2. Maintain Lasix 40 mg every 12. Readjust based on orthostatic changes. 3. Obtain urinalysis rule out diabetic nephropathy rule out diabetic nephropathy
[2016-07-23 11:47] LABS: Glucose,Whole Blood 249 mg/dL (75-99)
--- NOTE | 2016-07-23 11:57 | P.PN ---
Subjective Principal diagnosis: Worsening shortness of breath This is a 75-year-old male, patient of Dr. Bui. He has a known past medical history of congestive heart failure, atrial fibrillation, diabetes, chronic kidney disease, hyperlipidemia, hypertension, obstructive sleep apnea and hypothyroidism. Patient presents to emergency room with worsening shortness of breath over the last few days. Patient is unable to lay flat. is at bedside chair reporting that every time patient lays down just for a few minutes he would pop right back up having some shortness of breath. Patient is also noted more distention in his abdomen which she gets when he becomes fluid overloaded. He's had no edema in the legs. Ultrasound of the abdomen done and was suspicious for pancreatic lesion. GI consult requested. Objective - Vital Signs Vital signs: Vital Signs Temp 96.8 F L 07/23/16 08:00 Pulse 49 L 07/23/16 08:00 Resp 17 07/23/16 04:00 BP 101/83 07/23/16 08:00 Pulse Ox 92 L 07/23/16 08:00 Intake & Output 07/22/16 07/23/16 07/23/16 18:59 06:59 18:59 Intake Total 1160 500 0 Output Total 450 500 Balance 710 0 0 Weight 114.5 kg 113.8 kg Intake: IV 20 0 NS 20 0 Oral 1160 480 Output: Urine 450 500 Other: Voiding Method Toilet # Voids 1 - Exam In general patient is alert and oriented 3 in no apparent distress HEENT head normocephalic and atraumatic Neck is supple no JVD no goiter no lymphadenopathy Chest exam reveals bilateral coarse crackles no wheezing Cardiac exam reveals regular heart sounds no gallops no murmurs Abdomen is soft distended with mild diffuse tenderness, no organomegaly, with normal bowel sounds Extremity exam reveals no edema no cyanosis or clubbing - Labs CBC & Chem 7: 07/23/16 05:46 07/23/16 05:46 Labs: Abnormal Lab Results - Last 24 Hours (Table) 07/22/16 07/22/16 07/22/16 Range/Units 08:04 12:14 16:31 PT (9.0-12.0) sec Chloride (98-107) mmol/L Carbon Dioxide (22-30) mmol/L BUN (9-20) mg/dL Creatinine (0.66-1.25) mg/dL Glucose (74-99) mg/dL POC Glucose (mg/dL) 161 H 174 H (75-99) mg/dL Hemoglobin A1c 7.2 H (4.2-6.1) % AST (17-59) U/L ALT (21-72) U/L 07/22/16 07/23/16 07/23/16 Range/Units 20:16 05:46 05:46 PT 26.9 H (9.0-12.0) sec Chloride 96 L (98-107) mmol/L Carbon Dioxide 38 H (22-30) mmol/L BUN 74 H (9-20) mg/dL Creatinine 2.23 H (0.66-1.25) mg/dL Glucose 69 L (74-99) mg/dL POC Glucose (mg/dL) 192 H (75-99) mg/dL Hemoglobin A1c (4.2-6.1) % AST 107 H (17-59) U/L ALT 111 H (21-72) U/L 07/23/16 07/23/16 Range/Units 06:29 11:32 PT (9.0-12.0) sec Chloride (98-107) mmol/L Carbon Dioxide (22-30) mmol/L BUN (9-20) mg/dL Creatinine (0.66-1.25) mg/dL Glucose (74-99) mg/dL POC Glucose (mg/dL) 73 L 249 H (75-99) mg/dL Hemoglobin A1c (4.2-6.1) % AST (17-59) U/L ALT (21-72) U/L Assessment and Plan Plan: 1. Acute on chronic systolic CHF exacerbation: Echo shows an EF of 20-25%. Patient is currently on IV Lasix 40 every 12 hours. Cardiology consulted and following. BNP level elevated at 6940 2. Paroxysmal atrial fibrillation: Cardiology has adjusted medications held the flecainide due to EKG changes and held the digoxin due to the patient's renal failure. Patient is on Coumadin at home. INR elevated at 3.8. Coumadin will remain on hold. Monitor daily PT INRs. 3. Acute on chronic kidney disease stage IIIB colon nephrology consulted. It appears patient may have had some low urine output yesterday prior to admission. We'll check postvoid residual. Allopurinol discontinued for now 4. Elevated LFTs: No abdominal pain. Possibly related to liver congestion. Liver numbers are trending down. We will hold the statin for now. Repeat labs in a.m. 5. Elevated troponin: Evaluated by cardiology. Likely related to patient's renal failure. 6. Diabetes mellitus: Continue Lantus and sliding scale coverage 7. Essential hypertension: Blood pressures are stable 8. Hypothyroidism continue with the Synthroid 9. Abnormal abdomen ultrasound with possible pancreatic lesion, GI consult requested
[2016-07-23 12:25] LABS: Amylase 110 U/L (30-110)
[2016-07-23] MEDS: FERROUS SULFATE 325 MG TAB PO SCH (12:44)
--- NOTE | 2016-07-23 13:21 | P.PN ---
Subjective Sleep pleasant 75-year-old gentleman who follows with Dr. Olmstead in the office. He has a complex medical history including paroxysmal atrial fibrillation, cardiomyopathy, chronic systolic heart failure, hypothyroidism, diabetes. He was admitted appointment at the [place] in complaining of abdominal distention and edema. Came to the ER was subsequently admitted and placed on IV diuretics. He has been diuresing well and his weight is down 1 kg. She was also found to be in renal failure. Abdominal ultrasound showed questionable pancreatic lesion and GI has been consulted by primary. Patient's BNP was elevated at 6970. The patient couple days prior to this event he had been eating bologna at home quite frequently. The patient does have an appointment set up to see Dr. Barros in consultation for possible ablation and/or device implant on August 19. Objective - Vital Signs Vital signs: Vital Signs Temp 96.8 F L 07/23/16 08:00 Pulse 49 L 07/23/16 08:00 Resp 17 07/23/16 04:00 BP 101/83 07/23/16 08:00 Pulse Ox 92 L 07/23/16 08:00 Intake & Output 07/22/16 07/23/16 07/23/16 18:59 06:59 18:59 Intake Total 1160 500 0 Output Total 450 500 Balance 710 0 0 Weight 114.5 kg 113.8 kg Intake: IV 20 0 NS 20 0 Oral 1160 480 Output: Urine 450 500 Other: Voiding Method Toilet # Voids 1 - Exam PHYSICAL EXAMINATION: HEENT: Head is atraumatic, normocephalic. Pupils equal, round. Neck is supple. There is no elevated jugular venous pressure. HEART EXAMINATION: Heart sounds regular, S1 and S2 normal. No murmur or gallop heard. CHEST EXAMINATION: Lungs reveal diminished air entry at the bases. No chest wall tenderness is noted on palpation or with deep breathing. ABDOMEN: Soft, nontender, somewhat distended. Bowel sounds are heard. No organomegaly noted. EXTREMITIES: 2+ peripheral pulses with no evidence of peripheral edema and no calf tenderness noted. NEUROLOGIC patient is awake, alert and oriented x3. . - Labs CBC & Chem 7: 07/23/16 05:46 07/23/16 05:46 Labs: Abnormal Lab Results - Last 24 Hours (Table) 07/22/16 07/22/16 07/22/16 Range/Units 08:04 16:31 20:16 PT (9.0-12.0) sec Chloride (98-107) mmol/L Carbon Dioxide (22-30) mmol/L BUN (9-20) mg/dL Creatinine (0.66-1.25) mg/dL Glucose (74-99) mg/dL POC Glucose (mg/dL) 174 H 192 H (75-99) mg/dL Hemoglobin A1c 7.2 H (4.2-6.1) % AST (17-59) U/L ALT (21-72) U/L Lipase (23-300) U/L 07/23/16 07/23/16 07/23/16 Range/Units 05:46 05:46 05:46 PT 26.9 H (9.0-12.0) sec Chloride 96 L (98-107) mmol/L Carbon Dioxide 38 H (22-30) mmol/L BUN 74 H (9-20) mg/dL Creatinine 2.23 H (0.66-1.25) mg/dL Glucose 69 L (74-99) mg/dL POC Glucose (mg/dL) (75-99) mg/dL Hemoglobin A1c (4.2-6.1) % AST 107 H (17-59) U/L ALT 111 H (21-72) U/L Lipase 422 H (23-300) U/L 07/23/16 07/23/16 Range/Units 06:29 11:32 PT (9.0-12.0) sec Chloride (98-107) mmol/L Carbon Dioxide (22-30) mmol/L BUN (9-20) mg/dL Creatinine (0.66-1.25) mg/dL Glucose (74-99) mg/dL POC Glucose (mg/dL) 73 L 249 H (75-99) mg/dL Hemoglobin A1c (4.2-6.1) % AST (17-59) U/L ALT (21-72) U/L Lipase (23-300) U/L Assessment and Plan Plan: Assessment and plan #1 Acute on chronic systolic congestive heart failure, ejection fraction 20-25% #2 chronic renal failure #3 paroxysmal atrial fibrillation From cardiology standpoint, medications were reviewed and will continue the same at this time. Will continue to follow the patient at further recommendations accordingly. The patient will keep the appointment with Dr. Barros on August 19. The above dictated assessment and findings were discussed with signing physician. The impression and plan of care have been directed as dictated. Chary Anaya, Nurse Practitioner, acting as scribe for signing physician.
[2016-07-23 17:32] LABS: Glucose,Whole Blood 131 mg/dL (75-99)
[2016-07-23] MEDS: METOPROLOL TARTRATE 50 MG TAB PO SCH (20:41)
[2016-07-23] MEDS: INSULIN GLARGINE 100 UNIT/ML 10 ML VIAL SQ SCH (20:41)
[2016-07-23 20:48] VITALS: RESP 18
[2016-07-23 20:50] LABS: Glucose,Whole Blood 148 mg/dL (75-99)
[2016-07-24 05:01] LABS: Glucose,Whole Blood 85 mg/dL (75-99)
[2016-07-24 05:27] LABS: Glucose,Whole Blood 125 mg/dL (75-99)
[2016-07-24] MEDS: INSULIN LISPRO (humaLOG) 300 UNIT/3 ML VIAL SQ SCH ×4 (06:14→21:02)
[2016-07-24 06:22] LABS: Calcium 9.8 mg/dL (8.4-10.2); Potassium 3.9 mmol/L (3.5-5.1); Total Bilirubin 0.9 mg/dL (0.2-1.3); Total Protein 7.4 g/dL (6.3-8.2)
[2016-07-24] MEDS: LEVOTHYROXINE 100 MCG TAB PO SCH (06:22)
[2016-07-24 06:23] LABS: INR 2.2 (<1.1); Prothrombin Time 21.2 sec (9.0-12.0)
[2016-07-24 06:24] LABS: Basophils % (A) 0 %; CH 30.5; CHCM 33.2; Eosinophils # (A) 0.2 k/uL (0-0.7); Eosinophils % (A) 2 %; HCT 48.6 % (39.0-53.0); HDW 2.65; Luc # (Auto) 0.31; Luc % (Auto) 4; Lymphocytes # (A) 2.4 k/uL (1.0-4.8); Lymphocytes % (A) 28 %; MCH 30.2 pg (25.0-35.0); MCHC 32.8 g/dL (31.0-37.0); MCV 92.1 fL (80.0-100.0); Mean Platelet Volume 7.1; Monocytes # (A) 0.8 k/uL (0-1.0); Monocytes % (A) 9 %; Neutrophils % (A) 57 %; RBC 5.28 m/uL (4.30-5.90); RDW 14.2 % (11.5-15.5); WBC 8.7 k/uL (3.8-10.6); WBC (Perox) 8.67
[2016-07-24] MEDS: ALLOPURINOL 100 MG TAB PO SCH (09:05)
[2016-07-24] MEDS: MAGNESIUM OXIDE 400 MG TAB PO SCH ×2 (09:05→21:02)
[2016-07-24] MEDS: FAMOTIDINE 20 MG TAB PO SCH (09:05)
[2016-07-24] MEDS: DILTIAZEM ORAL 30 MG TAB PO SCH ×3 (09:05→21:02)
[2016-07-24] MEDS: FUROSEMIDE 10 MG/ML 4 ML VIAL IV SCH (09:05)
--- NOTE | 2016-07-24 09:44 | P.PN ---
Subjective Principal diagnosis: Worsening shortness of breath This is a 75-year-old male, patient of Dr. Bui. He has a known past medical history of congestive heart failure, atrial fibrillation, diabetes, chronic kidney disease, hyperlipidemia, hypertension, obstructive sleep apnea and hypothyroidism. Patient presents to emergency room with worsening shortness of breath over the last few days. Patient is unable to lay flat. is at bedside chair reporting that every time patient lays down just for a few minutes he would pop right back up having some shortness of breath. Patient is also noted more distention in his abdomen which she gets when he becomes fluid overloaded. He's had no edema in the legs. Ultrasound of the abdomen done and was suspicious for pancreatic lesion. GI consult requested. Objective - Vital Signs Vital signs: Vital Signs Temp 97.4 F L 07/24/16 08:00 Pulse 92 07/24/16 08:00 Resp 18 07/24/16 04:00 BP 99/63 07/24/16 08:00 Pulse Ox 94 L 07/24/16 08:00 Intake & Output 07/23/16 07/24/16 07/24/16 18:59 06:59 18:59 Intake Total 400 10 Output Total 950 2 Balance -550 8 Weight 108.7 kg Intake: IV 0 10 NS 0 10 Oral 400 Output: Urine 950 2 Other: Voiding Method Toilet # Voids 1 - Exam In general patient is alert and oriented 3 in no apparent distress HEENT head normocephalic and atraumatic Neck is supple no JVD no goiter no lymphadenopathy Chest exam reveals bilateral coarse crackles no wheezing Cardiac exam reveals regular heart sounds no gallops no murmurs Abdomen is soft distended with mild diffuse tenderness, no organomegaly, with normal bowel sounds Extremity exam reveals no edema no cyanosis or clubbing - Labs CBC & Chem 7: 07/24/16 05:27 07/24/16 05:27 Labs: Abnormal Lab Results - Last 24 Hours (Table) 07/23/16 07/23/16 07/23/16 Range/Units 05:46 11:32 17:17 PT (9.0-12.0) sec Chloride (98-107) mmol/L Carbon Dioxide (22-30) mmol/L BUN (9-20) mg/dL Creatinine (0.66-1.25) mg/dL Glucose (74-99) mg/dL POC Glucose (mg/dL) 249 H 131 H (75-99) mg/dL AST (17-59) U/L ALT (21-72) U/L Lipase 422 H (23-300) U/L 07/23/16 07/24/16 07/24/16 Range/Units 20:32 05:15 05:27 PT 21.2 H (9.0-12.0) sec Chloride (98-107) mmol/L Carbon Dioxide (22-30) mmol/L BUN (9-20) mg/dL Creatinine (0.66-1.25) mg/dL Glucose (74-99) mg/dL POC Glucose (mg/dL) 148 H 125 H (75-99) mg/dL AST (17-59) U/L ALT (21-72) U/L Lipase (23-300) U/L 07/24/16 Range/Units 05:27 PT (9.0-12.0) sec Chloride 95 L (98-107) mmol/L Carbon Dioxide 34 H (22-30) mmol/L BUN 74 H (9-20) mg/dL Creatinine 2.30 H (0.66-1.25) mg/dL Glucose 125 H (74-99) mg/dL POC Glucose (mg/dL) (75-99) mg/dL AST 84 H (17-59) U/L ALT 90 H (21-72) U/L Lipase (23-300) U/L Assessment and Plan Plan: 1. Acute on chronic systolic CHF exacerbation: Echo shows an EF of 20-25%. Patient is currently on IV Lasix 40 every 12 hours. Cardiology consulted and following. BNP level elevated at 6940 2. Paroxysmal atrial fibrillation: Cardiology has adjusted medications held the flecainide due to EKG changes and held the digoxin due to the patient's renal failure. Patient is on Coumadin at home. INR elevated at 3.8. Coumadin will remain on hold. Monitor daily PT INRs. 3. Acute on chronic kidney disease stage IIIB colon nephrology consulted. It appears patient may have had some low urine output yesterday prior to admission. We'll check postvoid residual. Allopurinol discontinued for now 4. Elevated LFTs: No abdominal pain. Possibly related to liver congestion. Liver numbers are trending down. We will hold the statin for now. Repeat labs in a.m. 5. Elevated troponin: Evaluated by cardiology. Likely related to patient's renal failure. 6. Diabetes mellitus: Continue Lantus and sliding scale coverage 7. Essential hypertension: Blood pressures are stable 8. Hypothyroidism continue with the Synthroid 9. Abnormal abdomen ultrasound with possible pancreatic lesion, GI consult requested, oncology consult requested, CT scan of abdomen and pelvis without IV contrast ordered
[2016-07-24] MEDS: IOHEXOL 350 MG/ML 25 ML BOTTLE (ORAL USE) PO PRN ×2 (10:00→11:12)
--- NOTE | 2016-07-24 10:45 | PN ---
Jose G is a 75-year-old gentleman who is admitted to hospital with acute exacerbation of chronic systolic heart failure, paroxysmal atrial fibrillation. He is awaiting A. fib ablation by Dr. Barros. He is doing well, lost weight. Leg edema has resolved, shortness of breath has resolved. During his work-up he was found to have a questionable pancreatic mass for which he is going to stay here for another day or 2. On exam today he is comfortable at rest. Vital signs are stable. There is no jugular venous distention. Carotid upstroke is normal. There is no bruit. Chest exam reveals good air entry bilaterally. Heart exam reveals first and second heart sounds. Systolic murmur at the apex. Abdomen is soft. Exam of the extremities did not reveal edema. Peripheral pulses are felt. Labs show a hemoglobin of 16, platelet count is 221. INR is 2. BUN and creatinine are elevated at 74 and 2.3. ASSESSMENT: 1. Paroxysmal atrial fibrillation. 2. Acute exacerbation of chronic systolic heart failure. 3. Chronic renal insufficiency. 4. Pancreatic mass. The patient is doing very well. I am going to switch his Lasix to p.o. and hopefully be discharged home first thing tomorrow morning.
[2016-07-24] MEDS: FERROUS SULFATE 325 MG TAB PO SCH (11:12)
--- NOTE | 2016-07-24 11:55 | CT ---
EXAMINATION TYPE: CT abdomen pelvis wo con DATE OF EXAM: 07/24/2016 COMPARISON: 05/04/2016 HISTORY: Possible pancreatic lesion CT DLP: 999.70 mGycm Examination of the solid and hollow viscera is limited given the lack of contrast. Unenhanced CT of t he abdomen and pelvis was performed. GI contrast was administered. FINDINGS: LUNG BASES: No evidence for nodule. No evidence for infiltrate. LIVER/GB: The gallbladder is unremarkable. No space-occupying hepatic lesion. PANCREAS: No pancreatic mass identified although the lack of contrast does limit evaluation. No infl ammatory process seen. SPLEEN: No evidence for splenomegaly. No intrasplenic lesions seen. ADRENALS: No adrenal nodules identified. No evidence for thickening. KIDNEYS: No evidence for renal mass. No nephrolithiasis. No hydronephrosis. BOWEL: Appendix has a normal appearance. No evidence of bowel obstruction. No inflammatory process. Lymph nodes: No evidence for adenopathy greater than 1 cm. Abdominal aorta: Atheromatous changes seen. No evidence for aneurysm. Genital organs: No significant abnormality. Other: Fat-containing inguinal hernias. IMPRESSION: 1. NO ACUTE PROCESS SEEN. 2. No discrete pancreatic lesion identified.
--- NOTE | 2016-07-24 11:58 | P.PN ---
Subjective Principal diagnosis: This is a 75-year-old old male seen in consultation because of acute kidney injury secondary to possibly cardiorenal syndrome. Lasix was increased because of worsening edema as an outpatient but did not work therefore he was admitted. He was started on IV Lasix. He is lost significant amount of weight supposedly per patient since coming in and is subjectively much better. He is less short of breath no dizziness is able to walk with a walker. Edema significantly improved and today has no edema at all. Appetite is fair No nausea vomiting diarrhea abdominal pain. He had no postural hypotension, I checked the blood pressures myself 136/81 with a heart rate of 77 sitting in a chair and on standing up was 142/76 with a heart rate of 77. No dizziness was experienced. Patient is feeling much better and has lost supposedly 13 pounds since admission Objective - Vital Signs Vital signs: Vital Signs Temp 97.4 F L 07/24/16 08:00 Pulse 92 07/24/16 08:00 Resp 18 07/24/16 04:00 BP 99/63 07/24/16 08:00 Pulse Ox 94 L 07/24/16 08:00 Intake & Output 07/23/16 07/24/16 07/24/16 18:59 06:59 18:59 Intake Total 400 10 0 Output Total 950 2 Balance -550 8 0 Weight 108.7 kg Intake: IV 0 10 0 NS 0 10 0 Oral 400 Output: Urine 950 2 Other: Voiding Method Toilet # Voids 1 On examination is awake alert oriented comfortable HEENT exam no JVP neck is supple no facial asymmetry Lungs are clear to auscultation percussion good air entry bilaterally Heart sounds are unremarkable no murmur rub gallop Abdomen soft nontender obese protuberant Extremity exam was no edema Neurologically awake alert oriented. Stand up without any difficulty. - Labs CBC & Chem 7: 07/24/16 05:27 07/24/16 05:27 Labs: Abnormal Lab Results - Last 24 Hours (Table) 07/23/16 07/23/16 07/23/16 Range/Units 05:46 17:17 20:32 PT (9.0-12.0) sec Chloride (98-107) mmol/L Carbon Dioxide (22-30) mmol/L BUN (9-20) mg/dL Creatinine (0.66-1.25) mg/dL Glucose (74-99) mg/dL POC Glucose (mg/dL) 131 H 148 H (75-99) mg/dL AST (17-59) U/L ALT (21-72) U/L Lipase 422 H (23-300) U/L 07/24/16 07/24/16 07/24/16 Range/Units 05:15 05:27 05:27 PT 21.2 H (9.0-12.0) sec Chloride 95 L (98-107) mmol/L Carbon Dioxide 34 H (22-30) mmol/L BUN 74 H (9-20) mg/dL Creatinine 2.30 H (0.66-1.25) mg/dL Glucose 125 H (74-99) mg/dL POC Glucose (mg/dL) 125 H (75-99) mg/dL AST 84 H (17-59) U/L ALT 90 H (21-72) U/L Lipase (23-300) U/L Assessment and Plan Plan: Impression. 1. Chronic kidney disease with a creatinine of about 1.7. Possibly nephrosclerosis. 2. Acute kidney injury from cardiorenal syndrome. Creatinine is up to 2.23 with diuresis. Off of CAROLINA inhibitor,Current creatinine is 2.3 today and was 2.07 on 07/22/2016 and was 2.26 prior to that on 07/21/2016 so overall stable 3. History of atrial fibrillation. Controlled. 4. History of COPD, 5. 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 6. Mild degree of metabolic alkalosis secondary to diuretics bicarb is 38. Recommendation. 1. Check orthostatic changes daily. 2. Reduce from Lasix 40 mg every 12, to 40 mg by mouth twice a day. Readjust based on orthostatic changes. 3. Obtain urinalysis rule out diabetic nephropathy rule out diabetic nephropathy
[2016-07-24] MEDS ORDERED: ERGOCALCIFEROL 50,000 UNIT CAP PO SCH (12:00)
[2016-07-24 12:09] LABS: Glucose,Whole Blood 196 mg/dL (75-99)
[2016-07-24 17:16] LABS: Glucose,Whole Blood 167 mg/dL (75-99)
[2016-07-24] MEDS: FUROSEMIDE 40 MG TAB PO SCH (17:25)
--- NOTE | 2016-07-24 18:27 | P.PN ---
Progress Note - Text Medical Oncology Chart reviewed U/S of abdomen revealed possible Pancreatic lesion > CT Scan (More sensitive study) Did not reveal any pancreatic abnormality No formal consult done Discussed negative CT for pancreatic abnormalities with patient > No further imaging studies needed No Oncology follow up needed Thank you
[2016-07-24] MEDS: INSULIN GLARGINE 100 UNIT/ML 10 ML VIAL SQ SCH (21:02)
[2016-07-24 21:09] LABS: Glucose,Whole Blood 151 mg/dL (75-99)
[2016-07-24] MEDS: METOPROLOL TARTRATE 50 MG TAB PO SCH (22:39)
--- NOTE | 2016-07-24 23:46 | P.CONS ---
History of Present Illness - Reason for Consult Consult date: 07/24/16 - History of Present Illness This is a 75-year-old male who presents emergency Department complaining of difficulty breathing. Patient has past medical history significant for congestive heart failure and atrial fibrillation. Patient states difficult to breathing started getting worse over the last few days. 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 Patient denies any chest pain or palpitations. Patient denies any fever chills or cough. Patient states he notes that his abdomen appears to be bigger but his legs aren't any more edematous than normal. Patient states his legs normally don't get any bigger when he has congestive heart failure. Patient denies any lightheadedness or dizziness. Patient denies headache patient denies numbness weakness. An US was performed and raised possibility of pancreatic mass. We were asked to see him. CT was subsequently performed and revealed no mass. Oncology evaluation noted. Did not recommend any further workup or oncology treatment. 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 ago, occasional cigar smoker only Past Drug Use History: None Reported - Past Family History Father Family Medical History: Congestive Heart Failure (CHF) Mother Family Medical History: Cancer, Hypertension Medications and Allergies Home Medications Medication Instructions Recorded Confirmed Type Diltiazem HCl 30 mg PO TID 11/19/13 07/21/16 History Ferrous Gluconate 325 mg PO DAILY 11/19/13 07/21/16 History Furosemide [Lasix] 40 mg PO DAILY 11/19/13 07/21/16 History Hydrocodone/Acetaminophen 1 tab PO TID PRN 11/19/13 07/21/16 History [Hydrocodon-Acetaminoph 7.5-325] Insulin Aspart [NovoLOG] See Protocol SQ AC-TID 11/19/13 07/21/16 History Insulin Glargine [Lantus] 80 unit SQ HS 11/19/13 07/21/16 History Levothyroxine Sodium [Synthroid] 100 mcg PO DAILY 11/19/13 07/21/16 History Metoprolol Tartrate [Lopressor] 50 mg PO HS 11/19/13 07/21/16 History Warfarin [Coumadin] 5 mg PO HS 11/19/13 07/21/16 History Atorvastatin [Lipitor] 40 mg PO HS 10/23/15 07/21/16 History Digoxin [Lanoxin] 250 mcg PO DAILY 10/23/15 07/21/16 History Ergocalciferol (Vitamin D2) 50,000 unit PO AGOSTO 10/23/15 07/21/16 History [Drisdol] Magnesium Oxide [Mag-Ox] 500 mg PO BID 10/23/15 07/21/16 History Lerna-3 Fatty Acids [Lerna-3] 2,000 cap PO BID 10/23/15 07/21/16 History Allopurinol [Zyloprim] 100 mg PO TID 07/21/16 07/21/16 History Aspirin [Children's Aspirin] 81 mg PO DAILY 07/21/16 07/21/16 History Enalapril [Vasotec] 10 mg PO DAILY 07/21/16 07/21/16 History Flecainide Acetate [Tambocor] 100 mg PO Q12HR 07/21/16 07/21/16 History Allergies Allergy/AdvReac Type Severity Reaction Status Date / Time No Known Allergies Allergy Verified 07/21/16 19:00 Physical Exam Vitals: Vital Signs Temp Pulse Resp BP Pulse Ox 07/24/16 20:00 98.1 F 138 H 18 117/81 94 L 07/24/16 16:00 83 116/85 94 L 07/24/16 12:00 89 134/69 93 L 07/24/16 08:00 97.4 F L 92 99/63 94 L 07/24/16 04:00 97.7 F 85 16 132/69 94 L 07/24/16 00:00 98.2 F 84 18 141/85 94 L Intake and Output 06/04/17 06/04/17 06/05/17 14:59 22:59 06:59 Intake Total 380 240 Output Total 1000 600 Balance -620 -360 Intake: IV 0 0 NS 0 0 Oral 380 240 Output: Urine 1000 600 Other: Voiding Method Toilet Results CBC & Chem 7: 07/24/16 05:27 07/24/16 05:27 Labs: Abnormal Lab Results - Last 24 Hours (Table) 07/24/16 07/24/16 07/24/16 Range/Units 05:15 05:27 05:27 PT 21.2 H (9.0-12.0) sec Chloride 95 L (98-107) mmol/L Carbon Dioxide 34 H (22-30) mmol/L BUN 74 H (9-20) mg/dL Creatinine 2.30 H (0.66-1.25) mg/dL Glucose 125 H (74-99) mg/dL POC Glucose (mg/dL) 125 H (75-99) mg/dL AST 84 H (17-59) U/L ALT 90 H (21-72) U/L 07/24/16 07/24/16 07/24/16 Range/Units 11:55 17:07 20:36 PT (9.0-12.0) sec Chloride (98-107) mmol/L Carbon Dioxide (22-30) mmol/L BUN (9-20) mg/dL Creatinine (0.66-1.25) mg/dL Glucose (74-99) mg/dL POC Glucose (mg/dL) 196 H 167 H 151 H (75-99) mg/dL AST (17-59) U/L ALT (21-72) U/L Assessment and Plan Plan: 75-yeaar old male with abnormal finding on US not confirmed on CT. Agree with oncology assessment. No indication for MRI or EUS at this time. Will keep as a contingency based on his course.
[2016-07-25 06:23] LABS: Basophils # (A) 0.1 k/uL (0-0.2); Basophils % (A) 1 %; CH 30.1; CHCM 31.8; Eosinophils # (A) 0.1 k/uL (0-0.7); Eosinophils % (A) 2 %; HCT 52.3 % (39.0-53.0); HDW 2.48; Luc # (Auto) 0.31; Luc % (Auto) 4; Lymphocytes # (A) 1.9 k/uL (1.0-4.8); Lymphocytes % (A) 26 %; MCH 30.8 pg (25.0-35.0); MCHC 32.4 g/dL (31.0-37.0); MCV 95.1 fL (80.0-100.0); Mean Platelet Volume 7.2; Monocytes # (A) 0.7 k/uL (0-1.0); Monocytes % (A) 10 %; Neutrophils # (A) 4.1 k/uL (1.3-7.7); Neutrophils % (A) 57 %; RDW 14.3 % (11.5-15.5); WBC 7.1 k/uL (3.8-10.6)
[2016-07-25 06:26] LABS: Glucose,Whole Blood 87 mg/dL (75-99)
[2016-07-25 06:30] LABS: INR 1.8 (<1.1); Prothrombin Time 17.4 sec (9.0-12.0)
[2016-07-25] MEDS: LEVOTHYROXINE 100 MCG TAB PO SCH (06:39)
[2016-07-25] MEDS: INSULIN LISPRO (humaLOG) 300 UNIT/3 ML VIAL SQ SCH ×2 (06:39→12:14)
[2016-07-25 06:50] LABS: Calcium 9.6 mg/dL (8.4-10.2); Potassium 3.9 mmol/L (3.5-5.1); Total Bilirubin 1.1 mg/dL (0.2-1.3); Total Protein 7.7 g/dL (6.3-8.2)
[2016-07-25] MEDS: DIGOXIN 250 MCG TAB PO SCH (10:02)
[2016-07-25] MEDS: ALLOPURINOL 100 MG TAB PO SCH (10:03)
[2016-07-25] MEDS: DILTIAZEM ORAL 30 MG TAB PO SCH (10:03)
[2016-07-25] MEDS: FUROSEMIDE 40 MG TAB PO SCH (10:03)
[2016-07-25] MEDS: MAGNESIUM OXIDE 400 MG TAB PO SCH (10:04)
[2016-07-25] MEDS: FAMOTIDINE 20 MG TAB PO SCH (10:04)
[2016-07-25] MEDS: FERROUS SULFATE 325 MG TAB PO SCH (10:04)
[2016-07-25] MEDS: FLECAINIDE 50 MG TAB PO SCH (10:08)
[2016-07-25 11:53] LABS: Glucose,Whole Blood 115 mg/dL (75-99)
[2016-07-25 12:51] VITALS: BP 112/68; PULSE 94; TEMP 97.9
--- NOTE | 2016-07-25 13:43 | P.DS ---
Providers Date of admission: 07/21/16 20:56 Expected date of discharge: 07/25/16 Attending physician: Renan Cobb Consults: 07/21/16 20:56 Consult Physician Routine Consulting Provider: Deandre Humphrey Consult Reason/Comments: chf Do you want consulting provider notified?: Yes Consult Physician Routine Consulting Provider: Catalina Lagunas Consult Reason/Comments: chf Do you want consulting provider notified?: Yes 07/23/16 11:43 Consult Physician Routine Consulting Provider: Zahra Mooney Consult Reason/Comments: abnormal ultrasound Do you want consulting provider notified?: Yes 07/24/16 09:45 Consult Physician Routine Consulting Provider: Ryan Pablo Consult Reason/Comments: possible pancreatic lesion Do you want consulting provider notified?: Yes Primary care physician: Toshia Bui [facility] Course: Discharge diagnosis 1. Acute on chronic systolic CHF exacerbation: Echo shows an EF of 20-25%. Patient is currently on IV Lasix 40 every 12 hours. Cardiology consulted and following. BNP level elevated at 6940 2. Paroxysmal atrial fibrillation: Cardiology has adjusted medications held the flecainide due to EKG changes and held the digoxin due to the patient's renal failure. Patient is on Coumadin at home. 3. Acute on chronic kidney disease stage IIIB nephrology consulted. 4. Elevated LFTs: No abdominal pain. Possibly related to liver congestion. Liver numbers are trending down. We will hold the statin for now. Repeat labs in a.m. 5. Elevated troponin: Evaluated by cardiology. Likely related to patient's renal failure. 6. Diabetes mellitus: Continue Lantus and sliding scale coverage 7. Essential hypertension: Blood pressures are stable 8. Hypothyroidism continue with the Synthroid 9. Abnormal abdomen ultrasound with possible pancreatic lesion. Patient had a noncontrast computed tomography scan of the abdomen which did not reveal any pancreatic lesion. Case discussed with oncology they are recommending an MRI of the liver to be completed with contrast Hospital course This is a 75-year-old male, patient of Dr. Bui. He has a known past medical history of congestive heart failure, atrial fibrillation, diabetes, chronic kidney disease, hyperlipidemia, hypertension, obstructive sleep apnea and hypothyroidism. Patient presents to emergency room with worsening shortness of breath over the last few days. Patient is unable to lay flat. is at bedside chair reporting that every time patient lays down just for a few minutes he would pop right back up having some shortness of breath. Patient is also noted more distention in his abdomen which she gets when he becomes fluid overloaded. He's had no edema in the legs. Ultrasound of the abdomen done and was suspicious for pancreatic lesion. GI and oncology consult requested. Patient had a computed tomography scan of the abdomen completed with no IV contrast did not reveal a pancreatic lesion. However after discussion with Dr. Pablo he is recommending an MRI with contrast when patient's kidney functions improved. This will be done outpatient. We'll have patient follow-up with Dr. Pablo in 1 week. Patient was given IV Lasix for CHF exacerbation he lost about 12 pounds. He had improvement in his shortness of breath and distention in his abdomen. His acute kidney injury is being followed by nephrology. They have cleared him for discharge. Patient will follow up with nephrology outpatient. Case discussed with Dr. Lagunas and she agreed with the Lasix 40 mg by mouth twice a day. Recommended that the allopurinol only be at 100 mg daily. She recommended discontinuing the CAROLINA inhibitor until she sees him in the office. Also due to the elevated LFTs the statin will remain on hold the patient sees his PCP and has repeat blood work drawn. Patient's symptoms have improved he is medically stable for discharge. He'll follow up with consulting physicians in the office. INR on admission was elevated. We'll decrease his Coumadin dose to 3 mg by mouth daily. Patient Condition at Discharge: Stable Plan - Discharge Summary New Discharge Prescriptions: New Furosemide [Lasix] 40 mg PO BID@0900,1600 #60 tab Warfarin Sodium [Coumadin] 3 mg PO DAILY #30 tab Continue Levothyroxine Sodium [Synthroid] 100 mcg PO DAILY Metoprolol Tartrate [Lopressor] 50 mg PO HS Insulin Glargine [Lantus] 80 unit SQ HS Insulin Aspart [NovoLOG] See Protocol SQ AC-TID Hydrocodone/Acetaminophen [Hydrocodon-Acetaminoph 7.5-325] 1 tab PO TID PRN PRN Reason: Pain Ferrous Gluconate 325 mg PO DAILY Diltiazem HCl 30 mg PO TID Magnesium Oxide [Mag-Ox] 500 mg PO BID Ergocalciferol (Vitamin D2) [Drisdol] 50,000 unit PO AGOSTO Digoxin [Lanoxin] 250 mcg PO DAILY Flecainide Acetate [Tambocor] 100 mg PO Q12HR Aspirin [Children's Aspirin] 81 mg PO DAILY Allopurinol [Zyloprim] 100 mg PO DAILY Discontinued Warfarin [Coumadin] 5 mg PO HS Furosemide [Lasix] 40 mg PO DAILY Waterman-3 Fatty Acids [Waterman-3] 2,000 cap PO BID Atorvastatin [Lipitor] 40 mg PO HS Enalapril [Vasotec] 10 mg PO DAILY Discharge Medication List Diltiazem HCl 30 mg PO TID 11/19/13 [History] Ferrous Gluconate 325 mg PO DAILY 11/19/13 [History] Hydrocodone/Acetaminophen [Hydrocodon-Acetaminoph 7.5-325] 1 tab PO TID PRN [History] Insulin Aspart [NovoLOG] See Protocol SQ AC-TID 11/19/13 [History] Insulin Glargine [Lantus] 80 unit SQ HS 11/19/13 [History] Levothyroxine Sodium [Synthroid] 100 mcg PO DAILY 11/19/13 [History] Metoprolol Tartrate [Lopressor] 50 mg PO HS 11/19/13 [History] Digoxin [Lanoxin] 250 mcg PO DAILY 10/23/15 [History] Ergocalciferol (Vitamin D2) [Drisdol] 50,000 unit PO AGOSTO 10/23/15 [History] Magnesium Oxide [Mag-Ox] 500 mg PO BID 10/23/15 [History] Allopurinol [Zyloprim] 100 mg PO DAILY 07/21/16 [History] Aspirin [Children's Aspirin] 81 mg PO DAILY 07/21/16 [History] Flecainide Acetate [Tambocor] 100 mg PO Q12HR 07/21/16 [History] Furosemide [Lasix] 40 mg PO BID@0900,1600 #60 tab 07/25/16 [Rx] Warfarin Sodium [Coumadin] 3 mg PO DAILY #30 tab 07/25/16 [Rx] Follow up Appointment(s)/Referral(s): Toshia Bui DO [Primary Care Provider] - 1 Week Catalina Lagunas MD [STAFF PHYSICIAN] - 1 Week Dar Mooney MD [STAFF PHYSICIAN] - 1 Week Ryan Pablo MD [STAFF PHYSICIAN] - 1 Week Activity/Diet/Wound Care/Special Instructions: [facility] [phone] Diet: cardiac Activity: as tolerated Discharge Disposition: HOME WITH HOME HEALTH SERVICES
--- NOTE | 2016-07-25 14:20 | P.PN ---
Subjective Principal diagnosis: CHF This 75-year-old gentleman admitted to the hospital with acute exacerbation of chronic systolic congestive heart failure, patient also has known history of paroxysmal atrial fibrillation and is awaiting an ablation by Dr. Barros. He diuresed well on IV Lasix, leg edema has resolved, denies any shortness of breath or palpitations today. Echocardiogram with Doppler study revealed an ejection fraction of 20-25%. The patient is currently on by mouth Lasix 40 mg by mouth twice a day. BUN today 75, creatinine 2.2. Potassium 3.9. INR 1.8. Objective - Vital Signs Vital signs: Vital Signs Temp 97.9 F 07/25/16 12:00 Pulse 94 07/25/16 12:00 Resp 18 07/25/16 12:00 BP 112/68 07/25/16 12:00 Pulse Ox 96 07/25/16 12:00 Intake & Output 07/24/16 07/25/16 07/25/16 18:59 06:59 18:59 Intake Total 620 500 Output Total 1600 Balance -980 500 Weight 109 kg Intake: IV 0 20 NS 0 20 Oral 620 480 Output: Urine 1600 Other: Voiding Method Toilet # Voids 2 - Exam PHYSICAL EXAMINATION: HEENT: Head is atraumatic, normocephalic. Pupils equal, round. Neck is supple. There is no elevated jugular venous pressure. HEART EXAMINATION: Heart sounds regular, S1 and S2 normal. No murmur or gallop heard. CHEST EXAMINATION: Lungs reveal diminished air entry at the bases. No chest wall tenderness is noted on palpation or with deep breathing. ABDOMEN: Soft, nontender, somewhat distended. Bowel sounds are heard. No organomegaly noted. EXTREMITIES: 2+ peripheral pulses with no evidence of peripheral edema and no calf tenderness noted. NEUROLOGIC patient is awake, alert and oriented x3. - Labs CBC & Chem 7: 07/25/16 05:33 07/25/16 05:33 Labs: Abnormal Lab Results - Last 24 Hours (Table) 07/24/16 07/24/16 07/25/16 Range/Units 17:07 20:36 05:33 PT 17.4 H (9.0-12.0) sec Chloride (98-107) mmol/L Carbon Dioxide (22-30) mmol/L BUN (9-20) mg/dL Creatinine (0.66-1.25) mg/dL Glucose (74-99) mg/dL POC Glucose (mg/dL) 167 H 151 H (75-99) mg/dL AST (17-59) U/L ALT (21-72) U/L 07/25/16 07/25/16 Range/Units 05:33 11:49 PT (9.0-12.0) sec Chloride 96 L (98-107) mmol/L Carbon Dioxide 35 H (22-30) mmol/L BUN 75 H (9-20) mg/dL Creatinine 2.29 H (0.66-1.25) mg/dL Glucose 108 H (74-99) mg/dL POC Glucose (mg/dL) 115 H (75-99) mg/dL AST 82 H (17-59) U/L ALT 78 H (21-72) U/L Assessment and Plan (1) Systolic and diastolic CHF, acute on chronic Status: Acute (2) Chronic renal failure Status: Acute (3) Paroxysmal a-fib Status: Acute (4) Diabetes Status: Acute (5) HTN (hypertension) Status: Acute (6) Hypothyroid Status: Acute Plan: Patient may be able to be discharged home from cardiology's perspective. We will make him a follow-up appointment with Dr. Olmstead in the office. Check lytes BUN creatinine PT INR on Monday. DNP note has been reviewed, I agree with a documented findings and plan of care. Patient was seen and examined.
[2016-07-25] MEDS ORDERED: DILTIAZEM ORAL 60 MG TAB PO SCH (16:00)
[2016-07-25] MEDS ORDERED: WARFARIN 5 MG TAB PO ONE (18:00)
== END 2016-07-25 18:19 | disposition home health service (06) | DRG 291 ==
LOC: EC 18:04 → 6SEL 20:56
PROVIDERS: ADMIT Internal Medicine; ATTEND Internal Medicine
DX: I13.0 Hypertensive heart and chronic kidney disease with heart failure and stage 1 through stage 4 chronic kidney disease, or unspecified chronic kidney disease (principal); I50.23 Acute on chronic systolic (congestive) heart failure; N17.9 Acute kidney failure, unspecified; E87.3 Alkalosis; I42.9 Cardiomyopathy, unspecified; I45.2 Bifascicular block; E11.22 Type 2 diabetes mellitus with diabetic chronic kidney disease; J44.9 Chronic obstructive pulmonary disease, unspecified; I48.0 Paroxysmal atrial fibrillation; I35.0 Nonrheumatic aortic (valve) stenosis; I44.7 Left bundle-branch block, unspecified; N18.3 Chronic kidney disease, stage 3 (moderate); I69.398 Other sequelae of cerebral infarction; E03.9 Hypothyroidism, unspecified; G47.33 Obstructive sleep apnea (adult) (pediatric); E78.5 Hyperlipidemia, unspecified; I44.0 Atrioventricular block, first degree; I25.10 Atherosclerotic heart disease of native coronary artery without angina pectoris; M19.91 Primary osteoarthritis, unspecified site; H53.9 Unspecified visual disturbance; Z96.653 Presence of artificial knee joint, bilateral; Z96.612 Presence of left artificial shoulder joint; Z82.49 Family history of ischemic heart disease and other diseases of the circulatory system; M10.9 Gout, unspecified; K86.9 Disease of pancreas, unspecified; Z79.01 Long term (current) use of anticoagulants; Z79.4 Long term (current) use of insulin; Z79.82 Long term (current) use of aspirin; Z79.899 Other long term (current) drug therapy
CPT/HCPCS: 36415; 71020; 74176; 76705; 80053; 80074; 80162; 82150; 82550; 82553; 83036; 83690; 83735; 83880; 84484; 85025; 85610; 85730; 93005; 93306; 96374; 99285

== ENCOUNTER 2016-12-28 09:31 | Inpatient (IN) | payer MEDICARE, BC ==
[2016-12-28] MEDS ORDERED: MORPHINE SULFATE 10 MG/ML SYRINGE IV STA (10:04)
[2016-12-28] MEDS ORDERED: ONDANSETRON 4 MG/2 ML VIAL IVP STA (10:04)
--- NOTE | 2016-12-28 10:07 | ED ---
General Adult HPI - General Source: patient, RN notes reviewed Mode of arrival: wheelchair Limitations: physical limitation <Jass Barron - Last Filed: 12/28/16 11:48> <Denis Brady - Last Filed: 12/28/16 12:13> - General Chief complaint: Fall Stated complaint: Fell/ chest/shoulder injury Time Seen by Provider: 12/28/16 09:57 - History of Present Illness Initial comments: Patient 76-year-old male who presents emergency room today with a chief complaint of a fall that occurred 4 days ago. Patient does admit that he tripped while getting the mail fallen forward onto our stretcher. He states he had pain in his chest radiograph round to the left side of the back. Patient does admit that the pain seems to be worse over the last few days. It is worse with certain movements when he tries to down to sit up. He feels like he needs to hold his breath. Patient does admit that the pain was more severe this morning. He did take some of medication [place] at home as helped currently a . Patient denies any other complaints or symptoms. Patient denies any recent fever, chills, shortness of breath, abdominal pain, nausea or vomiting, numbness or tingling, dysuria or hematuria, constipation or diarrhea, headaches or visual changes, or any other complaints. (Jass Barron) - Related Data Home Medications Medication Instructions Recorded Confirmed Hydrocodone/Acetaminophen 1 tab PO TID PRN 11/19/13 12/28/16 [Hydrocodon-Acetaminoph 7.5-325] Insulin Aspart [NovoLOG] See Protocol SQ AC-TID 11/19/13 12/28/16 Insulin Glargine [Lantus] 80 unit SQ HS 11/19/13 12/28/16 Levothyroxine Sodium [Synthroid] 100 mcg PO DAILY 11/19/13 12/28/16 Ergocalciferol (Vitamin D2) 50,000 unit PO AGOSTO 10/23/15 12/28/16 [Drisdol] Magnesium Oxide [Mag-Ox] 250 mg PO BID 10/23/15 12/28/16 Allopurinol [Zyloprim] 100 mg PO DAILY 07/21/16 12/28/16 Amiodarone [Cordarone] 400 mg PO DAILY 12/16/16 12/28/16 Metolazone [Zaroxolyn] 5 mg PO MO 12/16/16 12/28/16 Warfarin Sodium [Coumadin] 5 mg PO SUTUWETHFRSA 12/16/16 12/28/16 Warfarin [Coumadin] 7.5 mg PO MO 12/16/16 12/28/16 Potassium Chloride ER [K-Dur 10] 10 meq PO BID 12/28/16 12/28/16 Previous Rx's Medication Instructions Recorded Furosemide [Lasix] 40 mg PO BID@0900,1600 #60 tab 07/25/16 Allergies Allergy/AdvReac Type Severity Reaction Status Date / Time No Known Allergies Allergy Verified 12/28/16 10:40 Review of Systems ROS Other: All systems not noted in ROS Statement are negative. <Jass Barron - Last Filed: 12/28/16 11:48> ROS Other: All systems not noted in ROS Statement are negative. <Denis Brady - Last Filed: 12/28/16 12:13> ROS Statement: Those systems with pertinent positive or pertinent negative responses have been documented in the HPI. 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,skin cancer -left ear History of Any Multi-Drug Resistant Organisms: None Reported Past Surgical History: Back Surgery, Heart Catheterization, Joint Replacement, Tonsillectomy Additional Past Surgical History / Comment(s): BILATERAL TOTAL KNEE , LT SHOULDER REPLACEMENT, COLONOSCOPY Past Anesthesia/Blood Transfusion Reactions: No Reported Reaction Past Psychological History: No Psychological Hx Reported Smoking Status: Never smoker Past Alcohol Use History: None Reported Past Drug Use History: None Reported - Past Family History Father Family Medical History: Congestive Heart Failure (CHF) Mother Family Medical History: Cancer, Hypertension <Jass Barron - Last Filed: 12/28/16 11:48> General Exam Limitations: physical limitation <Jass Barron - Last Filed: 12/28/16 11:48> <Denis Brady - Last Filed: 12/28/16 12:13> - General Exam Comments Initial Comments: General: The patient is awake and alert, in no distress, and does not appear acutely ill. Eye: Pupils are equal, round and reactive to light, extra-ocular movements are intact. No nystagmus. There is normal conjunctiva bilaterally. No signs of icterus. Ears, nose, mouth and throat: There are moist mucous membranes and no oral lesions. Neck: The neck is supple, there is no tenderness or JVD. Cardiovascular: There is a regular rate and rhythm. No murmur, rub or gallop is appreciated. Respiratory: Lungs are clear to auscultation, respirations are non-labored, breath sounds are equal. No wheezes, stridor, rales, or rhonchi. Gastrointestinal: Soft, non-distended, non-tender abdomen without masses or organomegaly noted. There is no rebound or guarding present. No CVA tenderness. Bowel sounds are unremarkable. Musculoskeletal: Normal ROM. Mild tenderness to left side of the chest wall and lateral ribs. No step-offs or deformities. No tenderness in cervical, thoracic, lumbar spine. There is some paravertebral tenderness to the left side of the thoracic spine approximately T3 to T5. Strength 5/5. Sensation intact. Pulses equal bilaterally 2+. Neurological: A&O x 3. CN II-XII intact, There are no obvious motor or sensory deficits. Coordination appears grossly intact. Speech is normal. Skin: Skin is warm and dry and no rashes or lesions are noted. Psychiatric: Cooperative, appropriate mood & affect, normal judgment. (Jass Barron) Course <Jass Barron - Last Filed: 12/28/16 11:48> <Denis Brady - Last Filed: 12/28/16 12:13> Vital Signs 12/28/16 12/28/16 09:40 11:53 Temperature 97.5 F L 97.3 F L Pulse Rate 74 89 Respiratory 20 17 Rate Blood Pressure 117/73 131/60 O2 Sat by Pulse 98 94 L Oximetry - Reevaluation(s) Reevaluation #1: 12/28/16 12:12 Patient reexamined and resting comfortably in bed. Patient updated on results and plan. Cause of elevated troponin is unclear at this time. Patient is anticoagulated with an INR 3.5. Patient will need more evaluation by cardiology and echo. It is unclear if troponin elevation is related with renal failure versus trauma versus cardiac event. Case was discussed in detail with Dr. Cobb, who will admit for Dr. Mack. (Denis Brady) EKG Findings - EKG Comments: EKG Findings:: EKG performed at 1041: Shows A. fib with RVR at 102 bpm. QRS 148. QT/QTc 460/599. No acute ST changes. <Jass Barron - Last Filed: 12/28/16 11:48> Medical Decision Making - Lab Data Result diagrams: 12/28/16 10:20 12/28/16 10:20 <Jass Barron - Last Filed: 12/28/16 11:48> - Lab Data Result diagrams: 12/28/16 10:20 12/28/16 10:20 <Denis Brady - Last Filed: 12/28/16 12:13> - Medical Decision Making Patient's labs been reviewed. Does show elevation of his troponin. Patient's INR 3.5. Patient's. Creatinine show mild elevation from previous. Patient does admit to some improvement after pain medication given here in the emergency room. Patient will be admitted with consult to cardiology and nephrology. Case discussed and seen byl with attending physician Dr. Brady. X- rays reviewed and are negative for any acute abnormality. (Jass Barron) - Lab Data Lab Results 12/28/16 12/28/16 12/28/16 Range/Units 10:20 10:20 10:20 WBC 7.3 (3.8-10.6) k/uL RBC 5.03 (4.30-5.90) m/uL Hgb 15.4 (13.0-17.5) gm/dL Hct 45.7 (39.0-53.0) % MCV 90.9 (80.0-100.0) fL MCH 30.7 (25.0-35.0) pg MCHC 33.8 (31.0-37.0) g/dL RDW 15.6 H (11.5-15.5) % Plt Count 194 (150-450) k/uL Neutrophils % 71 % Lymphocytes % 15 % Monocytes % 8 % Eosinophils % 2 % Basophils % 1 % Neutrophils # 5.2 (1.3-7.7) k/uL Lymphocytes # 1.1 (1.0-4.8) k/uL Monocytes # 0.6 (0-1.0) k/uL Eosinophils # 0.1 (0-0.7) k/uL Basophils # 0.0 (0-0.2) k/uL PT (9.0-12.0) sec INR (<1.2) APTT (22.0-30.0) sec Sodium 136 L (137-145) mmol/L Potassium 3.7 (3.5-5.1) mmol/L Chloride 87 L (98-107) mmol/L Carbon Dioxide 34 H (22-30) mmol/L Anion Gap 15 mmol/L BUN 112 H* (9-20) mg/dL Creatinine 2.70 H (0.66-1.25) mg/dL Est GFR (MDRD) Af Amer 28 (>60 ml/min/1.73 sqM) Est GFR (MDRD) Non-Af 23 (>60 ml/min/1.73 sqM) Glucose 136 H (74-99) mg/dL Calcium 9.8 (8.4-10.2) mg/dL Magnesium 2.2 (1.6-2.3) mg/dL Total Bilirubin 0.8 (0.2-1.3) mg/dL AST 58 (17-59) U/L ALT 55 (21-72) U/L Alkaline Phosphatase 61 (38-126) U/L Total Creatine Kinase 232 H (55-170) U/L CK-MB (CK-2) 3.3 H* (0.0-2.4) ng/mL CK-MB (CK-2) Rel Index 1.4 Troponin I 0.219 H* (0.000-0.034) ng/mL Total Protein 8.0 (6.3-8.2) g/dL Albumin 4.5 (3.5-5.0) g/dL 12/28/16 Range/Units 10:20 WBC (3.8-10.6) k/uL RBC (4.30-5.90) m/uL Hgb (13.0-17.5) gm/dL Hct (39.0-53.0) % MCV (80.0-100.0) fL MCH (25.0-35.0) pg MCHC (31.0-37.0) g/dL RDW (11.5-15.5) % Plt Count (150-450) k/uL Neutrophils % % Lymphocytes % % Monocytes % % Eosinophils % % Basophils % % Neutrophils # (1.3-7.7) k/uL Lymphocytes # (1.0-4.8) k/uL Monocytes # (0-1.0) k/uL Eosinophils # (0-0.7) k/uL Basophils # (0-0.2) k/uL PT 34.3 H (9.0-12.0) sec INR 3.5 H (<1.2) APTT 32.3 H (22.0-30.0) sec Sodium (137-145) mmol/L Potassium (3.5-5.1) mmol/L Chloride (98-107) mmol/L Carbon Dioxide (22-30) mmol/L Anion Gap mmol/L BUN (9-20) mg/dL Creatinine (0.66-1.25) mg/dL Est GFR (MDRD) Af Amer (>60 ml/min/1.73 sqM) Est GFR (MDRD) Non-Af (>60 ml/min/1.73 sqM) Glucose (74-99) mg/dL Calcium (8.4-10.2) mg/dL Magnesium (1.6-2.3) mg/dL Total Bilirubin (0.2-1.3) mg/dL AST (17-59) U/L ALT (21-72) U/L Alkaline Phosphatase (38-126) U/L Total Creatine Kinase (55-170) U/L CK-MB (CK-2) (0.0-2.4) ng/mL CK-MB (CK-2) Rel Index Troponin I (0.000-0.034) ng/mL Total Protein (6.3-8.2) g/dL Albumin (3.5-5.0) g/dL Disposition Time of Disposition: 11:51 <Jass Barron - Last Filed: 12/28/16 11:48> <Denis Brady - Last Filed: 12/28/16 12:13> Clinical Impression: Fall, Elevated troponin, 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 Disposition: ADMITTED IP TO THIS [facility] Condition: Stable Referrals: Arpita Mack DO [Primary Care Provider] - 1-2 days
[2016-12-28 10:37] LABS: Basophils % (A) 1 %; CH 29.9; CHCM 33.1; Eosinophils # (A) 0.1 k/uL (0-0.7); Eosinophils % (A) 2 %; HCT 45.7 % (39.0-53.0); HDW 2.44; HGB 15.4 gm/dL (13.0-17.5); Luc # (Auto) 0.22; Luc % (Auto) 3; Lymphocytes # (A) 1.1 k/uL (1.0-4.8); Lymphocytes % (A) 15 %; MCH 30.7 pg (25.0-35.0); MCHC 33.8 g/dL (31.0-37.0); MCV 90.9 fL (80.0-100.0); Mean Platelet Volume 8.1; Monocytes # (A) 0.6 k/uL (0-1.0); Monocytes % (A) 8 %; Neutrophils # (A) 5.2 k/uL (1.3-7.7); Neutrophils % (A) 71 %; RBC 5.03 m/uL (4.30-5.90); RDW 15.6 % (11.5-15.5); WBC 7.3 k/uL (3.8-10.6); WBC (Perox) 7.34
[2016-12-28 10:47] LABS: INR 3.5 (<1.2); Partial Thromboplastin Time 32.3 sec (22.0-30.0); Prothrombin Time 34.3 sec (9.0-12.0)
[2016-12-28 10:55] LABS: Calcium 9.8 mg/dL (8.4-10.2); Magnesium 2.2 mg/dL (1.6-2.3); Potassium 3.7 mmol/L (3.5-5.1); Total Bilirubin 0.8 mg/dL (0.2-1.3)
--- NOTE | 2016-12-28 11:04 | XR ---
EXAMINATION TYPE: XR chest 2V DATE OF EXAM: 12/28/2016 COMPARISON: NONE HISTORY: Shortness of breath TECHNIQUE: Frontal and lateral views of the chest are obtained. FINDINGS: Scattered senescent parenchymal changes noted. Hyperinflation compatible with COPD. No evidence for infiltrate. No evidence for atelectasis. Heart size is stable. Mediastinal structures are stable and grossly unremarkable. No evidence for hilar prominence. Degenerative changes dorsal spine. IMPRESSION: 1. No evidence for acute pulmonary disease.
--- NOTE | 2016-12-28 11:05 | XR ---
EXAMINATION TYPE: XR ribs LT DATE OF EXAM: 12/28/2016 COMPARISON: NONE HISTORY: Pain from fall 4 days ago TECHNIQUE: Frontal and lateral radiograph of the left ribs were obtained. FINDINGS: Left humeral arthroplasty with extensive surrounding heterotopic ossification of the humeru s and glenoid are seen and large ossific body in the subcoracoid recess. Severe left acromio clavicul ar arthropathy is also identified. Visual is portion of the left lung are clear without evidence of pneumothorax. No acute or displaced rib fracture is identified of the left ribs. IMPRESSION: No displaced left rib fracture.
[2016-12-28 11:41] LABS: Creatine Kinase MB 3.3 ng/mL (0.0-2.4); Troponin I 0.219 ng/mL (0.000-0.034)
[2016-12-28] MEDS ORDERED: SODIUM CHLORIDE 0.9% 1,000 ML IV ONE (12:04)
[2016-12-28] MEDS ORDERED: NITROGLYCERIN SL TABS 0.4 MG TAB SUBLINGUAL PRN (12:04)
[2016-12-28 16:32] LABS: Glucose,Whole Blood 237 mg/dL (75-99)
[2016-12-28] MEDS: FUROSEMIDE 40 MG TAB PO SCH (16:52)
[2016-12-28] MEDS: INSULIN ASPART 100 UNIT/ML 1 ML 10 ML VIAL SQ SCH ×2 (17:03→21:14)
[2016-12-28 17:52] LABS: Creatine Kinase MB 3.1 ng/mL (0.0-2.4)
[2016-12-28 17:53] LABS: Troponin I 0.219 ng/mL (0.000-0.034)
[2016-12-28 20:59] LABS: Glucose,Whole Blood 174 mg/dL (75-99)
[2016-12-28] MEDS: MAGNESIUM OXIDE 400 MG TAB PO SCH (21:15)
[2016-12-28] MEDS: INSULIN DETEMIR 100 UNIT/ML 10 ML VIAL SQ SCH (21:15)
[2016-12-28] MEDS: POTASSIUM CHLORIDE ER 10 MEQ TAB.ER.PRT PO SCH (21:15)
[2016-12-28 22:27] LABS: Cholesterol 238 mg/dL (<200); HDL Cholesterol 49 mg/dL (40-60)
[2016-12-28 23:16] LABS: Troponin I 0.217 ng/mL (0.000-0.034)
[2016-12-29] MEDS: HYDROcodone/APAP 7.5-325MG 1 EACH TAB PO PRN ×3 (02:01→19:08)
[2016-12-29 06:05] LABS: Glucose,Whole Blood 160 mg/dL (75-99)
[2016-12-29] MEDS: INSULIN ASPART 100 UNIT/ML 1 ML 10 ML VIAL SQ SCH ×4 (06:20→21:49)
[2016-12-29] MEDS: LEVOTHYROXINE 100 MCG TAB PO SCH (06:20)
[2016-12-29] MEDS: AMIODARONE 200 MG TAB PO SCH (08:08)
[2016-12-29] MEDS: ASPIRIN 325 MG TAB PO SCH (08:08)
[2016-12-29] MEDS: MAGNESIUM OXIDE 400 MG TAB PO SCH ×2 (08:08→21:50)
[2016-12-29] MEDS: ALLOPURINOL 100 MG TAB PO SCH (08:08)
[2016-12-29] MEDS: FUROSEMIDE 40 MG TAB PO SCH (08:08)
[2016-12-29] MEDS: POTASSIUM CHLORIDE ER 10 MEQ TAB.ER.PRT PO SCH ×2 (08:08→21:49)
[2016-12-29 09:09] LABS: Basophils % (A) 0 %; CH 30.8; CHCM 32.7; Eosinophils # (A) 0.1 k/uL (0-0.7); Eosinophils % (A) 2 %; HCT 45.2 % (39.0-53.0); HDW 2.52; HGB 14.4 gm/dL (13.0-17.5); INR 3.5 (<1.2); Luc # (Auto) 0.25; Luc % (Auto) 4; Lymphocytes % (A) 17 %; MCH 30.1 pg (25.0-35.0); MCHC 31.8 g/dL (31.0-37.0); MCV 94.6 fL (80.0-100.0); Mean Platelet Volume 7.8; Monocytes # (A) 0.6 k/uL (0-1.0); Monocytes % (A) 10 %; Neutrophils # (A) 3.9 k/uL (1.3-7.7); Neutrophils % (A) 66 %; Prothrombin Time 34.4 sec (9.0-12.0); RBC 4.78 m/uL (4.30-5.90); RDW 14.3 % (11.5-15.5); WBC 5.9 k/uL (3.8-10.6); WBC (Perox) 5.75
[2016-12-29 09:17] LABS: Calcium 9.5 mg/dL (8.4-10.2); Potassium 3.5 mmol/L (3.5-5.1); Total Bilirubin 0.7 mg/dL (0.2-1.3); Total Protein 7.8 g/dL (6.3-8.2)
--- NOTE | 2016-12-29 09:49 | P.HPIM ---
History of Present Illness H&P Date: 12/29/16 Chief Complaint: Chest pain This is a 76-year-old male, patient of [facility]. He has a known past medical history of chronic systolic congestive heart failure with an EF of 20-25%, atrial fibrillation, diabetes mellitus, hyperlipidemia, hypertension, hypothyroidism, shortness of Anemia and chronic kidney disease. Patient is anticoagulated with Coumadin for his atrial fibrillation. Patient reports about 4 days ago he was walking out to his mailbox when he tripped and fell. He fell with outstretched arms. Neighbors came out to help him. Patient reports no loss of consciousness or hitting his head. He was able to walk back home. However, he reports that his made him come into the hospital for evaluation because of chest pains. Patient reports that there is been pain on the left side of his chest that wraps around to his back. In the pains were sharp at times. In the emergency room he was found to have atrial fibrillation with a heart rate of 102. He was also found have troponins elevated at 0.219, 0.219 and 0.217. INR was therapeutic at 3.5. Cardiology has been consulted for further evaluation of these troponins. Nephrology is also been consulted for the chronic kidney disease. Creatinine is slightly more elevated than his baseline. Creatinine on admission 2.70. Chest x-ray was negative. Rib x-ray shows no evidence of fractures. Patient is tender with palpation of the left side of the thoracic vertebral muscles. Patient denies any nausea or vomiting. Denies any shortness of breath. Denies any cough fever chills or sweats. Denies any bowel movement changes or urinary symptoms. Patient reports last stress test was about a year ago and was told it was negative. Results aren't available to me. In the computer does show a heart catheterization in November 2015 which revealed mild obstructive disease involving the first diagonal branch. Cardiology recommended medical therapy at that time. Review of Systems Please refer to HPI otherwise unremarkable Past Medical History Past Medical History: Atrial Fibrillation, Asthma, Coronary Artery Disease (CAD) , Cancer, Heart Failure, Diabetes Mellitus, Eye Disorder, Hyperlipidemia, Hypertension, Osteoarthritis (OA), Prostate Disorder, Renal Disease, Sleep Apnea /CPAP/BIPAP, Thyroid Disorder Additional Past Medical History / Comment(s): IDDM type II, cardiomyopathy, bronchitis, O2 2l/nc prn, SOB with exertion, CKD , anemia, L ocular stroke- vision affected, chronic back pain, spinal stenosis, BPH, umbilical hernia. History of Any Multi-Drug Resistant Organisms: None Reported Past Surgical History: Back Surgery, Heart Catheterization, Joint Replacement, Orthopedic Surgery, Tonsillectomy Additional Past Surgical History / Comment(s): BILATERAL TOTAL KNEE , LT SHOULDER REPLACEMENT, COLONOSCOPY,SKIN CANCER REMOVALS, COLONOSCOPY, BILATERAL CARPAL TUNNEL RELEASES, CARDIAC CATHS X2, 12/21/16 [place]-BLOOD CLOT IN HEART. Past Anesthesia/Blood Transfusion Reactions: No Reported Reaction Smoking Status: Former smoker - Past Family History Father Family Medical History: Congestive Heart Failure (CHF) Mother Family Medical History: Cancer, Hypertension Additional Family Medical History / Comment(s): Mother had esophageal cancer. Medications and Allergies Home Medications Medication Instructions Recorded Confirmed Type Hydrocodone/Acetaminophen 1 tab PO TID PRN 11/19/13 12/28/16 History [Hydrocodon-Acetaminoph 7.5-325] Insulin Aspart [NovoLOG] See Protocol SQ AC-TID 11/19/13 12/28/16 History Insulin Glargine [Lantus] 80 unit SQ HS 11/19/13 12/28/16 History Levothyroxine Sodium [Synthroid] 100 mcg PO DAILY 11/19/13 12/28/16 History Ergocalciferol (Vitamin D2) 50,000 unit PO AGOSTO 10/23/15 12/28/16 History [Drisdol] Magnesium Oxide [Mag-Ox] 250 mg PO BID 10/23/15 12/28/16 History Allopurinol [Zyloprim] 100 mg PO DAILY 07/21/16 12/28/16 History Furosemide [Lasix] 40 mg PO BID@0900,1600 #60 tab 07/25/16 12/28/16 Rx Amiodarone [Cordarone] 400 mg PO DAILY 12/16/16 12/28/16 History Metolazone [Zaroxolyn] 5 mg PO MO 12/16/16 12/28/16 History Warfarin Sodium [Coumadin] 5 mg PO SUTUWETHFRSA 12/16/16 12/28/16 History Warfarin [Coumadin] 7.5 mg PO MO 12/16/16 12/28/16 History Potassium Chloride ER [K-Dur 10] 10 meq PO BID 12/28/16 12/28/16 History Allergies Allergy/AdvReac Type Severity Reaction Status Date / Time No Known Allergies Allergy Verified 12/28/16 10:40 Physical Exam Vitals: Vital Signs Temp Pulse Pulse Resp BP BP Pulse Ox 12/29/16 08:00 97 F L 88 18 114/75 99 12/29/16 04:00 97.6 F 74 18 104/67 100 12/28/16 23:19 97.1 F L 78 16 98/60 97 12/28/16 20:00 98.1 F 97 16 111/68 97 12/28/16 16:17 98.2 F 102 H 16 124/86 92 L 12/28/16 14:13 97.0 F L 65 16 114/78 12/28/16 13:35 97 F L 65 18 114/78 92 L 12/28/16 13:21 97.6 F 78 17 107/64 93 L 12/28/16 12:59 97.6 F 78 17 107/64 93 L 12/28/16 11:53 97.3 F L 89 17 131/60 94 L 12/28/16 09:40 97.5 F L 74 20 117/73 98 Intake and Output 12/28/16 12/29/16 12/29/16 22:59 06:59 14:59 Intake Total 600 Balance 600 Intake: Oral 600 Other: Voiding Method Toilet # Voids 1 2 # Bowel Movements 0 Weight 109.5 kg Head normocephalic Neck supple Lungs clear to auscultation bilaterally no wheezing or crackles Heart regular rate and rhythm S1-S2, no rub or gallop Abdomen is soft nontender nondistended positive bowel sounds no hepatosplenomegaly Extremities no edema Neuro alert and orientated to 3 Musculoskeletal tenderness with palpation of the left thoracic paravertebral muscles. No bruising, skin abrasions or lesion noted. No tenderness to palpation of the spine Results CBC & Chem 7: 12/29/16 08:43 12/28/16 10:20 Labs: Abnormal Lab Results - Last 24 Hours (Table) 12/28/16 12/28/16 12/28/16 Range/Units 10:20 10:20 10:20 RDW 15.6 H (11.5-15.5) % PT (9.0-12.0) sec INR (<1.2) APTT (22.0-30.0) sec Sodium 136 L (137-145) mmol/L Chloride 87 L (98-107) mmol/L Carbon Dioxide 34 H (22-30) mmol/L BUN 112 H* (9-20) mg/dL Creatinine 2.70 H (0.66-1.25) mg/dL Glucose 136 H (74-99) mg/dL POC Glucose (mg/dL) (75-99) mg/dL Total Creatine Kinase 232 H (55-170) U/L CK-MB (CK-2) 3.3 H* (0.0-2.4) ng/mL Troponin I 0.219 H* (0.000-0.034) ng/mL Triglycerides (<150) mg/dL Cholesterol (<200) mg/dL LDL Cholesterol, Calc (0-99) mg/dL 12/28/16 12/28/16 12/28/16 Range/Units 10:20 10:20 16:29 RDW (11.5-15.5) % PT 34.3 H (9.0-12.0) sec INR 3.5 H (<1.2) APTT 32.3 H (22.0-30.0) sec Sodium (137-145) mmol/L Chloride (98-107) mmol/L Carbon Dioxide (22-30) mmol/L BUN (9-20) mg/dL Creatinine (0.66-1.25) mg/dL Glucose (74-99) mg/dL POC Glucose (mg/dL) 237 H (75-99) mg/dL Total Creatine Kinase (55-170) U/L CK-MB (CK-2) (0.0-2.4) ng/mL Troponin I (0.000-0.034) ng/mL Triglycerides 226 H (<150) mg/dL Cholesterol 238 H (<200) mg/dL LDL Cholesterol, Calc 144 H (0-99) mg/dL 12/28/16 12/28/16 12/28/16 Range/Units 16:49 20:56 22:22 RDW (11.5-15.5) % PT (9.0-12.0) sec INR (<1.2) APTT (22.0-30.0) sec Sodium (137-145) mmol/L Chloride (98-107) mmol/L Carbon Dioxide (22-30) mmol/L BUN (9-20) mg/dL Creatinine (0.66-1.25) mg/dL Glucose (74-99) mg/dL POC Glucose (mg/dL) 174 H (75-99) mg/dL Total Creatine Kinase 232 H 225 H (55-170) U/L CK-MB (CK-2) 3.1 H* 3.0 H* (0.0-2.4) ng/mL Troponin I 0.219 H* 0.217 H* (0.000-0.034) ng/mL Triglycerides (<150) mg/dL Cholesterol (<200) mg/dL LDL Cholesterol, Calc (0-99) mg/dL 12/29/16 12/29/16 Range/Units 06:03 08:43 RDW (11.5-15.5) % PT 34.4 H (9.0-12.0) sec INR 3.5 H (<1.2) APTT (22.0-30.0) sec Sodium (137-145) mmol/L Chloride (98-107) mmol/L Carbon Dioxide (22-30) mmol/L BUN (9-20) mg/dL Creatinine (0.66-1.25) mg/dL Glucose (74-99) mg/dL POC Glucose (mg/dL) 160 H (75-99) mg/dL Total Creatine Kinase (55-170) U/L CK-MB (CK-2) (0.0-2.4) ng/mL Troponin I (0.000-0.034) ng/mL Triglycerides (<150) mg/dL Cholesterol (<200) mg/dL LDL Cholesterol, Calc (0-99) mg/dL Thrombosis Risk Factor Assmnt - Choose All That Apply Any of the Below Risk Factors Present?: Yes Each Factor Represents 1 point: Obesity (BMI >25) Other Risk Factors: Yes Each Risk Factor Represents 2 Points: Malignancy Each Risk Factor Represents 3 Points: Age 75 years or older Other congenital or acquired thrombophilia - If yes, enter type in comment: No Thrombosis Risk Factor Assessment Total Risk Factor Score: 6 Thrombosis Risk Factor Assessment Level: High Risk Assessment and Plan Assessment: 1. Chest pain and back pain after a fall. Possibly all musculoskeletal related. Continue with pain medication. However, troponins are elevated. This may be related to patient's kidney disease. Patient will be seen evaluated by cardiology. EKG shows atrial fibrillation with rapid ventricular response with a heart rate of 102. Patient has been on telemetry A. fib with heart rate in the 90s. Chest x-ray negative. Rib x-ray negative for fractures 2. Acute on chronic kidney disease stage IIIB. Patient will be seen evaluated by nephrology. Patient did receive IV fluids in the emergency room. Repeated BUN and creatinine. Awaiting results. Creatinine on admission 2.70 3. History of cardiomyopathy with an EF of 20 to 25% noted on echo in July 2016 4. Chronic atrial fibrillation: Patient on Coumadin for anticoagulation. INR 3.5. Hold Coumadin today. Check PT/INR in a.m. Continue the amiodarone 5. Chronic systolic congestive heart failure. No evidence of exacerbation 6. Diabetes mellitus, insulin-dependent: Continue Levemir and sliding scale coverage. Check hemoglobin A1c 7. Hyperlipidemia 8. Hypothyroidism continue Synthroid 100 g daily GI prophylaxis Pepcid and DVT prophylaxis Coumadin Time with Patient: Greater than 30 (Greater than 50% of the total time spent in counseling and coordination of care. I performed an examination of the patient and discussed their management with the physician Technical Information Specialist. I have reviewed the Physician Technical Information Specialist's notes and agree with the documented findings and plan of care)
--- NOTE | 2016-12-29 10:19 | P.NPCON ---
History of Present Illness - Reason for Consult acute renal failure, chronic renal failure - History of Present Illness Reason for consultation: Acute kidney injury on chronic kidney disease History of present illness: Patient is a 76-year-old male seen in renal consultation for acute kidney injury on chronic kidney disease. Patient has chronic kidney disease stage IV with creatinine recently in the range of 2-2.5. Etiology is nephrosclerosis and cardiorenal syndrome. Patient does have systolic CHF with ejection fraction of 25%. Patient states he's been taking Lasix 40 mg twice daily. Patient presented to the hospital after sustaining a fall 4 days ago. Patient denies hitting his head. Patient's denies losing any consciousness. States he tripped and sustained a fall. Denies use of NSAIDs. Denies any vomiting or diarrhea. Oral intake is fair. Blood pressures have been on the lower side in the systolic 90s to low 100s. He admits to good urine output. Denies any hematuria or dysuria. According to the nurse his mentation waxes and wanes at times and he tends to get confused. Vital signs are stable. General: The patient appeared well nourished and normally developed. HEENT: Head exam is unremarkable. Neck is without jugular venous distension. LUNGS: Lungs are clear to auscultation and percussion. Breath sounds decreased. HEART: Rate and Rhythm are regular. First and second heart sounds normal. No murmurs, rubs or gallops. ABDOMEN: Abdominal exam reveals normal bowel sounds. Non-tender and non- distended. No evidence of peritonitis. EXTREMITITES: No clubbing, cyanosis, or edema. Past Medical History Past Medical History: Atrial Fibrillation, Asthma, Coronary Artery Disease (CAD) , Cancer, Heart Failure, Diabetes Mellitus, Eye Disorder, Hyperlipidemia, Hypertension, Osteoarthritis (OA), Prostate Disorder, Renal Disease, Sleep Apnea /CPAP/BIPAP, Thyroid Disorder Additional Past Medical History / Comment(s): IDDM type II, cardiomyopathy, bronchitis, O2 2l/nc prn, SOB with exertion, CKD , anemia, L ocular stroke- vision affected, chronic back pain, spinal stenosis, BPH, umbilical hernia. History of Any Multi-Drug Resistant Organisms: None Reported Past Surgical History: Back Surgery, Heart Catheterization, Joint Replacement, Orthopedic Surgery, Tonsillectomy Additional Past Surgical History / Comment(s): BILATERAL TOTAL KNEE , LT SHOULDER REPLACEMENT, COLONOSCOPY,SKIN CANCER REMOVALS, COLONOSCOPY, BILATERAL CARPAL TUNNEL RELEASES, CARDIAC CATHS X2, 12/21/16 KAYLEY-BLOOD CLOT IN HEART. Past Anesthesia/Blood Transfusion Reactions: No Reported Reaction Smoking Status: Former smoker - Past Family History Father Family Medical History: Congestive Heart Failure (CHF) Mother Family Medical History: Cancer, Hypertension Additional Family Medical History / Comment(s): Mother had esophageal cancer. Medications and Allergies Home Medications Medication Instructions Recorded Confirmed Type Hydrocodone/Acetaminophen 1 tab PO TID PRN 11/19/13 12/28/16 History [Hydrocodon-Acetaminoph 7.5-325] Insulin Aspart [NovoLOG] See Protocol SQ AC-TID 11/19/13 12/28/16 History Insulin Glargine [Lantus] 80 unit SQ HS 11/19/13 12/28/16 History Levothyroxine Sodium [Synthroid] 100 mcg PO DAILY 11/19/13 12/28/16 History Ergocalciferol (Vitamin D2) 50,000 unit PO AGOSTO 10/23/15 12/28/16 History [Drisdol] Magnesium Oxide [Mag-Ox] 250 mg PO BID 10/23/15 12/28/16 History Allopurinol [Zyloprim] 100 mg PO DAILY 07/21/16 12/28/16 History Furosemide [Lasix] 40 mg PO BID@0900,1600 #60 tab 07/25/16 12/28/16 Rx Amiodarone [Cordarone] 400 mg PO DAILY 12/16/16 12/28/16 History Metolazone [Zaroxolyn] 5 mg PO MO 12/16/16 12/28/16 History Warfarin Sodium [Coumadin] 5 mg PO SUTUWETHFRSA 12/16/16 12/28/16 History Warfarin [Coumadin] 7.5 mg PO MO 12/16/16 12/28/16 History Potassium Chloride ER [K-Dur 10] 10 meq PO BID 12/28/16 12/28/16 History Allergies Allergy/AdvReac Type Severity Reaction Status Date / Time No Known Allergies Allergy Verified 12/28/16 10:40 Physical Exam Vitals: Vital Signs Temp Pulse Pulse Resp BP BP Pulse Ox 12/29/16 08:00 97 F L 88 18 114/75 99 12/29/16 04:00 97.6 F 74 18 104/67 100 12/28/16 23:19 97.1 F L 78 16 98/60 97 12/28/16 20:00 98.1 F 97 16 111/68 97 12/28/16 16:17 98.2 F 102 H 16 124/86 92 L 12/28/16 14:13 97.0 F L 65 16 114/78 12/28/16 13:35 97 F L 65 18 114/78 92 L 12/28/16 13:21 97.6 F 78 17 107/64 93 L 12/28/16 12:59 97.6 F 78 17 107/64 93 L 12/28/16 11:53 97.3 F L 89 17 131/60 94 L Intake and Output 12/28/16 12/29/16 12/29/16 22:59 06:59 14:59 Intake Total 600 Balance 600 Intake: Oral 600 Other: Voiding Method Toilet # Voids 1 2 0 # Bowel Movements 0 Weight 109.5 kg Results - Lab Results Most recent lab results Calcium 9.5 mg/dL (8.4-10.2) 12/29/16 08:43 Magnesium 2.2 mg/dL (1.6-2.3) 12/28/16 10:20 12/29/16 08:43 12/29/16 08:43 Assessment and Plan Plan: Assessment: #1. Nonoliguric acute kidney injury secondary to ischemic ATN secondary to hemodynamic instability and diuresis. Creatinine up to 2.83 today. Rule out urinary retention. BUN disproportionately elevated which again is likely due to prerenal state. There is no evidence of GI bleed. He is not on any steroids. #2. Chronic kidney disease stage IV secondary to nephrosclerosis and cardiorenal syndrome with baseline creatinine in the range of 2-2.5. His prior UA has been benign. #3. Systolic CHF with ejection fraction of 25%. Compensated. #4. Status post fall. #5. Diabetes mellitus. Plan: Hold diuretics for now. Check urinalysis. Check renal ultrasound. Check postvoid residual to rule out urinary retention. Check CT of the brain due to intermittent confusion according to the nurse. Avoid nephrotoxic agents and hypotensive episodes. Repeat electrolytes in the morning. No urgent need for renal replacement therapy at this time. Continue to monitor his mentation closely. Electrolytes stable. Thank you for the consultation. I will continue to follow the patient with you during his hospital stay.
[2016-12-29 10:34] LABS: Glucose,Whole Blood 198 mg/dL (75-99)
--- NOTE | 2016-12-29 10:46 | CT ---
EXAMINATION TYPE: CT brain wo con DATE OF EXAM: 12/29/2016 COMPARISON: NONE HISTORY: 76-year-old male with mild confusion TECHNIQUE: Examination was done in axial plane without intravenous contrast. Coronal and sagittal r econstructions performed. CT DLP: 1075.20 mGycm Automated exposure control for dose reduction was used. FINDINGS: There is no evidence of acute intracranial hemorrhage, acute ischemic changes, mass, mass-effect, or extra-axial fluid collection. There is no effacement of cerebral sulci or basal subarachnoid cister ns. There is no hydrocephalus. There is no midline shift. Patrick-white matter distinction is preserv ed. Mild generalized supratentorial volume loss. Mild patchy and confluent white matter hypodensities in both cerebral hemispheres. Paranasal sinuses and mastoid air cells well pneumatized. Slight rightward nasal septal deviation. Pa tient's gaze is divergent suggesting underlying strabismus. IMPRESSION: No acute intracranial abnormality seen. Mild atrophy and changes of chronic small vessel ischemic dis ease.
--- NOTE | 2016-12-29 10:47 | P.CRDCN ---
History of Present Illness Consult date: 12/29/16 Chief complaint: Fall History of present illness: This is a pleasant 76-year-old gentleman who sees Dr. Olmstead in the office as an outpatient with a known history of severe nonischemic cardiomyopathy, mild nonobstructive coronary artery disease on recent heart catheterization in 2016, paroxysmal atrial fibrillation, and chronic kidney disease, presented to the hospital after he fell at home. The patient was in his usual state of health were he was walking to his mailbox when he picked up the pace a bit more than normal and then he felt. The patient did not lose his consciousness. Did not have any symptoms of dizziness or lightheadedness. No chest pain and no chest discomfort. No difficulty breathing. He does have chronic dyspnea it seems to be unchanged compared to before. When he presented to the hospital, the EKG showed atrial fibrillation with heart rate around 100 beats per minutes. He does have nonspecific ST and T wave abnormalities but nothing concerning for ischemia. The cardiac enzymes were checked and came in to be slightly abnormal but the patient creatinine was 2.5. He underwent a heart catheterization in 2016 and that revealed mild nonobstructive coronary artery disease. Clinically the patient seems to be euvolemic. He is able to lay flat in bed without being short of breath. He is not experiencing any chest pain or chest discomfort. Past Medical History Past Medical History: Atrial Fibrillation, Asthma, Coronary Artery Disease (CAD) , Cancer, Heart Failure, Diabetes Mellitus, Eye Disorder, Hyperlipidemia, Hypertension, Osteoarthritis (OA), Prostate Disorder, Renal Disease, Sleep Apnea /CPAP/BIPAP, Thyroid Disorder Additional Past Medical History / Comment(s): IDDM type II, cardiomyopathy, bronchitis, O2 2l/nc prn, SOB with exertion, CKD , anemia, L ocular stroke- vision affected, chronic back pain, spinal stenosis, BPH, umbilical hernia. History of Any Multi-Drug Resistant Organisms: None Reported Past Surgical History: Back Surgery, Heart Catheterization, Joint Replacement, Orthopedic Surgery, Tonsillectomy Additional Past Surgical History / Comment(s): BILATERAL TOTAL KNEE , LT SHOULDER REPLACEMENT, COLONOSCOPY,SKIN CANCER REMOVALS, COLONOSCOPY, BILATERAL CARPAL TUNNEL RELEASES, CARDIAC CATHS X2, 12/21/16 KAYLEY-BLOOD CLOT IN HEART. Past Anesthesia/Blood Transfusion Reactions: No Reported Reaction Smoking Status: Former smoker - Past Family History Father Family Medical History: Congestive Heart Failure (CHF) Mother Family Medical History: Cancer, Hypertension Additional Family Medical History / Comment(s): Mother had esophageal cancer. Medications and Allergies Home Medications Medication Instructions Recorded Confirmed Type Hydrocodone/Acetaminophen 1 tab PO TID PRN 11/19/13 12/28/16 History [Hydrocodon-Acetaminoph 7.5-325] Insulin Aspart [NovoLOG] See Protocol SQ AC-TID 11/19/13 12/28/16 History Insulin Glargine [Lantus] 80 unit SQ HS 11/19/13 12/28/16 History Levothyroxine Sodium [Synthroid] 100 mcg PO DAILY 11/19/13 12/28/16 History Ergocalciferol (Vitamin D2) 50,000 unit PO STUART 10/23/15 12/28/16 History [Drisdol] Magnesium Oxide [Mag-Ox] 250 mg PO BID 10/23/15 12/28/16 History Allopurinol [Zyloprim] 100 mg PO DAILY 07/21/16 12/28/16 History Furosemide [Lasix] 40 mg PO BID@0900,1600 #60 tab 07/25/16 12/28/16 Rx Amiodarone [Cordarone] 400 mg PO DAILY 12/16/16 12/28/16 History Metolazone [Zaroxolyn] 5 mg PO MO 12/16/16 12/28/16 History Warfarin Sodium [Coumadin] 5 mg PO SUTUWETHFRSA 12/16/16 12/28/16 History Warfarin [Coumadin] 7.5 mg PO MO 12/16/16 12/28/16 History Potassium Chloride ER [K-Dur 10] 10 meq PO BID 12/28/16 12/28/16 History Allergies Allergy/AdvReac Type Severity Reaction Status Date / Time No Known Allergies Allergy Verified 12/28/16 10:40 Physical Exam Vitals: Vital Signs Temp Pulse Pulse Resp BP BP Pulse Ox 12/29/16 08:00 97 F L 88 18 114/75 99 12/29/16 04:00 97.6 F 74 18 104/67 100 12/28/16 23:19 97.1 F L 78 16 98/60 97 12/28/16 20:00 98.1 F 97 16 111/68 97 12/28/16 16:17 98.2 F 102 H 16 124/86 92 L 12/28/16 14:13 97.0 F L 65 16 114/78 12/28/16 13:35 97 F L 65 18 114/78 92 L 12/28/16 13:21 97.6 F 78 17 107/64 93 L 12/28/16 12:59 97.6 F 78 17 107/64 93 L 12/28/16 11:53 97.3 F L 89 17 131/60 94 L Intake and Output 12/28/16 12/29/16 12/29/16 22:59 06:59 14:59 Intake Total 600 Balance 600 Intake: Oral 600 Other: Voiding Method Toilet # Voids 1 2 0 # Bowel Movements 0 Weight 109.5 kg - Constitutional General appearance: no acute distress - Respiratory Respiratory: bilateral: CTA - Cardiovascular Rhythm: irregularly irregular Heart sounds: normal: S1, S2 Abnormal Heart Sounds: systolic murmur Results 12/29/16 08:43 12/29/16 08:43 Cardiac Enzymes 12/28/16 12/28/16 12/28/16 Range/Units 10:20 10:20 16:49 AST 58 (17-59) U/L CK-MB (CK-2) 3.3 H* 3.1 H* (0.0-2.4) ng/mL Troponin I 0.219 H* 0.219 H* (0.000-0.034) ng/mL 12/28/16 12/29/16 Range/Units 22:22 08:43 AST 53 (17-59) U/L CK-MB (CK-2) 3.0 H* (0.0-2.4) ng/mL Troponin I 0.217 H* (0.000-0.034) ng/mL Coagulation 12/28/16 12/29/16 Range/Units 10:20 08:43 PT 34.3 H 34.4 H (9.0-12.0) sec APTT 32.3 H (22.0-30.0) sec Lipids 12/28/16 Range/Units 10:20 Triglycerides 226 H (<150) mg/dL Cholesterol 238 H (<200) mg/dL HDL Cholesterol 49 (40-60) mg/dL CBC 12/29/16 Range/Units 08:43 WBC 5.9 (3.8-10.6) k/uL RBC 4.78 (4.30-5.90) m/uL Hgb 14.4 (13.0-17.5) gm/dL Hct 45.2 (39.0-53.0) % Plt Count 169 (150-450) k/uL Comprehensive Metabolic Panel 12/28/16 12/29/16 Range/Units 10:20 08:43 Sodium 136 L 137 (137-145) mmol/L Potassium 3.7 3.5 (3.5-5.1) mmol/L Chloride 87 L 87 L (98-107) mmol/L Carbon Dioxide 34 H 39 H (22-30) mmol/L BUN 112 H* 112 H* (9-20) mg/dL Creatinine 2.70 H 2.83 H (0.66-1.25) mg/dL Glucose 136 H 155 H (74-99) mg/dL Calcium 9.8 9.5 (8.4-10.2) mg/dL AST 58 53 (17-59) U/L ALT 55 48 (21-72) U/L Alkaline Phosphatase 61 59 (38-126) U/L Total Protein 8.0 7.8 (6.3-8.2) g/dL Albumin 4.5 4.2 (3.5-5.0) g/dL Current Medications Generic Name Dose Route Start Last Admin Trade Name Freq PRN Reason Stop Dose Admin Hydrocodone Bitart/Acetaminophen 1 each 12/28/16 14:00 12/29/16 02:01 [place] 7.5-325 PO 1 each TID PRN Administration Pain Allopurinol 100 mg 12/29/16 09:00 12/29/16 08:08 Zyloprim PO 100 mg DAILY [facility] Administration Amiodarone HCl 400 mg 12/29/16 09:00 12/29/16 08:08 Cordarone PO 400 mg DAILY [facility] Administration Aspirin 325 mg 12/29/16 09:00 12/29/16 08:08 Aspirin PO 325 mg DAILY [facility] Administration Ergocalciferol 50,000 unit 01/01/17 12:00 Vitamin D2 PO Stuart@1200 [facility] Famotidine 20 mg 12/30/16 09:00 Pepcid PO DAILY [facility] Sodium Chloride 1,000 mls @ 20 mls/hr 12/28/16 12:04 12/28/16 15:55 Saline 0.9% IV 12/29/16 12:03 Not Given .Q24H ONE Insulin Aspart 0 unit 12/28/16 17:30 12/29/16 06:20 Novolog SQ 1 unit ACHS [facility] Administration Protocol Insulin Detemir 80 unit 12/28/16 21:00 12/28/16 21:15 Levemir SQ 40 unit HS [facility] Administration Levothyroxine Sodium 100 mcg 12/29/16 06:30 12/29/16 06:20 Synthroid PO 100 mcg DAILY@0630 [facility] Administration Magnesium Oxide 400 mg 12/28/16 21:00 12/29/16 08:08 Mag-Ox PO 400 mg BID [facility] Administration Nitroglycerin 0.4 mg 12/28/16 12:04 Nitrostat SUBLINGUAL Q5M PRN Chest Pain Potassium Chloride 10 meq 12/28/16 21:00 12/29/16 08:08 K-Dur 10 PO 10 meq BID [facility] Administration Intake and Output 12/28/16 12/29/16 12/29/16 22:59 06:59 14:59 Intake Total 600 Balance 600 Intake: Oral 600 Other: Voiding Method Toilet # Voids 1 2 0 # Bowel Movements 0 Weight 109.5 kg 12/29/16 08:43 12/29/16 08:43 Assessment and Plan Assessment: This is a pleasant 76-year-old gentleman was known mild CAD, cardiomyopathy which is nonischemic, and paroxysmal A. fib, was admitted to the hospital after he fell. He did not lose his consciousness. He is asymptomatic from the cardiac standpoint at this point. The abnormal cardiac enzymes is related to the chronic kidney disease and cardiomyopathy. The patient is not having any chest pain or discomfort and no ischemic ST changes. At this point we recommend continue the current medical treatment. We'll obtain the previous medical records from the office.
[2016-12-29 11:53] LABS: Glucose,Whole Blood 241 mg/dL (75-99)
--- NOTE | 2016-12-29 13:36 | US ---
EXAMINATION TYPE: US kidneys/renal and bladder DATE OF EXAM: 12/29/2016 COMPARISON: CT 2017 CLINICAL HISTORY: [email or web address]. MALISSA EXAM MEASUREMENTS: Right Kidney: 11.6 x 5.6 x 6.3 cm Left Kidney: 10.7 x 6.2 x 5.8 cm Right Kidney: no hydro or masses seen Left Kidney: no hydro or masses seen Bladder: wnl Bilateral Jets seen: yes Cortical medullary differentiation is maintained bilaterally.. IMPRESSION: No significant abnormalities evident.
[2016-12-29 16:50] LABS: Glucose,Whole Blood 143 mg/dL (75-99)
[2016-12-29 21:07] LABS: Glucose,Whole Blood 172 mg/dL (75-99)
[2016-12-29] MEDS: INSULIN DETEMIR 100 UNIT/ML 10 ML VIAL SQ SCH (21:49)
[2016-12-29 22:04] LABS: Appearance,Urine Clear (Clear); Bilirubin,Urine Negative (Negative); Glucose,Urine (UA) Negative (Negative); Ketones,Urine Negative (Negative); Leukocyte Esterase,Urine Negative (Negative); Nitrite,Urine Negative (Negative); Protein,Urine Negative (Negative); Specific Gravity,Urine 1.009 (1.001-1.035); UA Billing (MACRO vs. MICRO) CHEM; Urobilinogen,Urine <2.0 mg/dL (<2.0)
[2016-12-30] MEDS: HYDROcodone/APAP 7.5-325MG 1 EACH TAB PO PRN ×2 (03:03→12:00)
[2016-12-30 05:37] VITALS: RESP 18
[2016-12-30 06:21] LABS: Glucose,Whole Blood 70 mg/dL (75-99)
[2016-12-30] MEDS: INSULIN ASPART 100 UNIT/ML 1 ML 10 ML VIAL SQ SCH (06:23)
[2016-12-30] MEDS: LEVOTHYROXINE 100 MCG TAB PO SCH (06:23)
[2016-12-30 06:25] LABS: Anisocytosis Slight; Aty Lym Flag Slight; CH 30.5; CHCM 32.3; HCT 46.5 % (39.0-53.0); HDW 2.36; HGB 14.6 gm/dL (13.0-17.5); MCH 29.7 pg (25.0-35.0); MCHC 31.3 g/dL (31.0-37.0); MCV 94.8 fL (80.0-100.0); Mean Platelet Volume 8.2; RBC 4.91 m/uL (4.30-5.90); RDW 16.3 % (11.5-15.5); WBC 5.9 k/uL (3.8-10.6); WBC (Perox) 5.76
[2016-12-30 06:34] LABS: INR 2.8 (<1.2); Prothrombin Time 27.1 sec (9.0-12.0)
[2016-12-30 06:37] LABS: Calcium 9.8 mg/dL (8.4-10.2); Magnesium 2.1 mg/dL (1.6-2.3); Potassium 3.7 mmol/L (3.5-5.1); Total Bilirubin 0.7 mg/dL (0.2-1.3); Total Protein 7.9 g/dL (6.3-8.2)
[2016-12-30 06:50] LABS: Add Differential Manual Differential
[2016-12-30 06:52] LABS: Manual Review Performed; Nucleated Red Blood Cells 0 /100 WBC (0-0); Total Cells Counted 100
[2016-12-30 06:53] LABS: Reactive Lymphocytes Present
[2016-12-30] MEDS: POTASSIUM CHLORIDE ER 10 MEQ TAB.ER.PRT PO SCH (07:54)
[2016-12-30] MEDS: AMIODARONE 200 MG TAB PO SCH (07:55)
[2016-12-30] MEDS: ASPIRIN 325 MG TAB PO SCH (07:55)
[2016-12-30] MEDS: ALLOPURINOL 100 MG TAB PO SCH (07:55)
[2016-12-30] MEDS: MAGNESIUM OXIDE 400 MG TAB PO SCH (07:55)
[2016-12-30] MEDS ORDERED: FAMOTIDINE 20 MG TAB PO SCH (09:00)
[2016-12-30 09:45] VITALS: BP 105/66; PULSE 109; TEMP 97.6
--- NOTE | 2016-12-30 10:18 | P.DS ---
Providers Date of admission: 12/28/16 12:13 Expected date of discharge: 12/30/16 Attending physician: Renan Cobb Consults: 12/28/16 12:04 Consult Physician Stat Consulting Provider: [facility] Consult Reason/Comments: Elevated troponin Do you want consulting provider notified?: Yes Consult Physician Stat Consulting Provider: Catalina Lagunas Consult Reason/Comments: Renal failure Do you want consulting provider notified?: Yes Primary care physician: Arpita [facility] Course: Discharge diagnosis 1. Chest pain and back pain after a fall. Possibly all musculoskeletal related. Continue with pain medication. Patient had elevated troponins on admission and was evaluated by cardiology. They felt that the troponin elevation was related to his chronic kidney disease and cardiomyopathy. EKG shows atrial fibrillation with rapid ventricular response with a heart rate of 102. Patient has been on telemetry A. fib with heart rate in the 90s. Chest x- ray negative. Rib x-ray negative for fractures 2. Acute on chronic kidney disease stage IIIB. Evaluated by nephrology. Acute kidney injury secondary to ischemic ATN due to hemodynamic instability and diuresis. Diuretics placed on hold. Renal ultrasound was negative. No evidence of urinary retention with postvoid check. Urinalysis negative. Case discussed with nephrology. The recommending Lasix 40 mg daily 1 week and then to increase back to 40 mg twice a day. He is to follow up with nephrology in 2 weeks 3. History of nonischemic cardiomyopathy with an EF of 20 to 25% noted on echo in July 2016 4. Chronic atrial fibrillation: Patient on Coumadin for anticoagulation. INR 3.5. Hold Coumadin today. Check PT/INR in a.m. Continue the amiodarone. Cardiology has switched patient over to Eliquis. This will be started on Monday. Coumadin will be discontinued. INR at discharge was 2.8 5. Chronic systolic congestive heart failure. No evidence of exacerbation 6. Diabetes mellitus, insulin-dependent: Continue Levemir and sliding scale coverage. Hemoglobin A1c 6.7 7. Hyperlipidemia 8. Hypothyroidism continue Synthroid 100 g daily 9. Mechanical fall Hospital course This is a 76-year-old male, patient of [facility]. He has a known past medical history of chronic systolic congestive heart failure with an EF of 20-25%, atrial fibrillation, diabetes mellitus, hyperlipidemia, hypertension, hypothyroidism, shortness of Anemia and chronic kidney disease. Patient is anticoagulated with Coumadin for his atrial fibrillation. Patient reports about 4 days ago he was walking out to his mailbox when he tripped and fell. He fell with outstretched arms. Neighbors came out to help him. Patient reports no loss of consciousness or hitting his head. He was able to walk back home. However, he reports that his made him come into the hospital for evaluation because of chest pains. Patient reports that there is been pain on the left side of his chest that wraps around to his back. In the pains were sharp at times. In the emergency room he was found to have atrial fibrillation with a heart rate of 102. He was also found have troponins elevated at 0.219, 0.219 and 0.217. INR was therapeutic at 3.5. Cardiology has been consulted for further evaluation of these troponins. Nephrology is also been consulted for the chronic kidney disease. Creatinine is slightly more elevated than his baseline. Creatinine on admission 2.70. Chest x-ray was negative. Rib x-ray shows no evidence of fractures. Patient is tender with palpation of the left side of the thoracic vertebral muscles. Patient denies any nausea or vomiting. Denies any shortness of breath. Denies any cough fever chills or sweats. Denies any bowel movement changes or urinary symptoms. Patient reports last stress test was about a year ago and was told it was negative. Results aren't available to me. In the computer does show a heart catheterization in November 2015 which revealed mild obstructive disease involving the first diagonal branch. Cardiology recommended medical therapy at that time. Patient's symptoms have improved. It is felt likely that his elevated troponins were related to his chronic kidney disease and cardiomyopathy. Cardiology had no further workup to completed. They did recommend switching patient over to Eliqius for his atrial fibrillation and discontinuing the Coumadin. The Eliquis will be started on Monday. Kidney function has shown improvement with holding the diuretics. Nephrology is recommending discontinuing the Zaroxolyn and decreasing the Lasix to 40 mg by mouth daily x1 week and then increase back to 40mg BID. While patient follow-up with nephrology in 2 weeks and his PCP in 1 week. I performed an examination of the patient and discussed their management with the physician Casting Technician. I have reviewed the Physician Casting Technician's notes and agree with the documented findings and plan of care Patient Condition at Discharge: Stable Plan - Discharge Summary Discharge Rx Participant: No New Discharge Prescriptions: Continue Levothyroxine Sodium [Synthroid] 100 mcg PO DAILY Insulin Glargine [Lantus] 80 unit SQ HS Insulin Aspart [NovoLOG (formulary)] See Protocol SQ AC-TID Hydrocodone/Acetaminophen [Hydrocodon-Acetaminoph 7.5-325] 1 tab PO TID PRN PRN Reason: Pain Magnesium Oxide [Mag-Ox] 250 mg PO BID Ergocalciferol (Vitamin D2) [Drisdol] 50,000 unit PO AGOSTO Allopurinol [Zyloprim] 100 mg PO DAILY Amiodarone [Cordarone] 400 mg PO DAILY Potassium Chloride ER [K-Dur 10] 10 meq PO BID Discontinued Warfarin [Coumadin] 7.5 mg PO MO Warfarin Sodium [Coumadin] 5 mg PO SUTUWETHFRSA Metolazone [Zaroxolyn] 5 mg PO MO No Action Furosemide [Lasix] 40 mg PO BID@0900,1600 #60 tab Discharge Medication List Hydrocodone/Acetaminophen [Hydrocodon-Acetaminoph 7.5-325] 1 tab PO TID PRN [History] Insulin Aspart [NovoLOG (formulary)] See Protocol SQ AC-TID 11/19/13 [History] Insulin Glargine [Lantus] 80 unit SQ HS 11/19/13 [History] Levothyroxine Sodium [Synthroid] 100 mcg PO DAILY 11/19/13 [History] Ergocalciferol (Vitamin D2) [Drisdol] 50,000 unit PO AGOSTO 10/23/15 [History] Magnesium Oxide [Mag-Ox] 250 mg PO BID 10/23/15 [History] Allopurinol [Zyloprim] 100 mg PO DAILY 07/21/16 [History] Furosemide [Lasix] 40 mg PO BID@0900,1600 #60 tab 07/25/16 [Rx] Amiodarone [Cordarone] 400 mg PO DAILY 12/16/16 [History] Potassium Chloride ER [K-Dur 10] 10 meq PO BID 12/28/16 [History] Follow up Appointment(s)/Referral(s): Arpita Mack DO [Primary Care Provider] - 1 Week Activity/Diet/Wound Care/Special Instructions: Diet: cardiac, diabetic Activity: as tolerated Start Eliquis on Monday Discharge Disposition: HOME SELF-CARE
[2016-12-30 11:30] LABS: Glucose,Whole Blood 161 mg/dL (75-99)
--- NOTE | 2016-12-30 11:54 | PN ---
PROGRESS NOTE Patient is seen for followup for acute kidney injury. His renal function has been improving. Patient is sitting up in bed. He is comfortable. He is not in any acute distress. States he wants to go once to go home. His diuretics were decreased on admission. He did have a fall at home prior to admission. PHYSICAL EXAMINATION: Blood pressure is 111/70, heart rate 101 per minute. Patient is afebrile. Examination of the heart S1, S2. Examination lungs, bilateral breath sounds are heard. Abdomen is soft, nontender. Exam of the lower extremities showed no significant edema. LABS: Sodium 137, potassium 3.7, BUN 11, chloride 98, serum creatinine 2.54, hemoglobin 14.6 g/dL. ASSESSMENT: 1. Acute kidney injury, prerenal, currently improved. 2. Chronic kidney disease NKF stage 3B to 4 with the baseline creatinine about 2.3 to 2.2 mg/dL. 3. Cardiomyopathy with ejection fraction of about 25%. PLAN: Patient is stable for discharge. We will decrease the diuretics upon discharge to Lasix 40 mg daily for a week and then resume back to b.i.d. In the meantime, patient can hold off on a Zaroxolyn and follow up as outpatient for evaluation of volume status and adjustment of diuretics. MMODL / IJN: [id number] /
--- NOTE | 2016-12-30 12:38 | P.PN ---
Subjective Progress Note Date: 12/30/16 This is a 76-year-old gentleman who follows with Dr. Olmstead in the office as an outpatient. He has known history of severe nonischemic cardiomyopathy, mild nonobstructive coronary artery disease on recent heart catheterization in 2016, paroxysmal atrial fibrillation, and chronic kidney disease. He presented to the hospital after experiencing a fall at home. When he presented to the emergency room EKG showed atrial fibrillation with heart rate around 100 bpm. He was also noted to have nonspecific ST and T wave abnormalities but nothing concerning for ischemia. Cardiac enzymes were slightly abnormal, not consistent with acute coronary syndrome likely secondary to abnormal renal function. Creatinine was 2.5. Patient continues to be in atrial fibrillation, heart rate in the 80s to 90s today. Arrangements are being made for him to be discharged home. Patient has been changed over to Eliquis for his atrial fibrillation and the Coumadin was discontinued. He will be initiated on Eliquis 2-1/2 mg one tablet by mouth twice a day which will be started on Monday. INR 2.8 today. Nephrology recommended discontinuing the Zaroxolyn and decreasing Lasix to 40 mg by mouth daily for one week then increasing back to 40 twice a day. We will make the patient a follow-up appointment in the office with Dr. Olmstead post discharge. Objective - Vital Signs Vital signs: Vital Signs Temp 97.6 F 12/30/16 08:00 Pulse 109 H 12/30/16 08:00 Resp 18 12/30/16 08:00 BP 105/66 12/30/16 08:00 Pulse Ox 98 12/30/16 08:00 Intake & Output 12/29/16 12/30/16 12/30/16 18:59 06:59 18:59 Intake Total 120 30 240 Output Total 1350 200 Balance 120 -1320 40 Weight 109 kg Intake: Intake, IV Titration 30 Amount Sodium Chloride 0.9% 1, 30 000 ml @ 20 mls/hr IV . Q24H ONE Rx#:[id number] Oral 120 240 Output: Urine 1350 200 Other: Voiding Method Toilet Urinal # Voids 3 2 # Bowel Movements 0 0 - Exam PHYSICAL EXAMINATION: HEENT: Head is atraumatic, normocephalic. Pupils equal, round. Neck is supple. There is no elevated jugular venous pressure. HEART EXAMINATION: Heart S1, S2 normal. No murmur or gallop heard. CHEST EXAMINATION: Lungs are clear to auscultation and precussion. No chest wall tenderness is noted on palpation or with deep breathing. ABDOMEN: Soft, nontender. Bowel sounds are heard. No organomegaly noted. EXTREMITIES: 2+ peripheral pulses with no evidence of peripheral edema and no calf tenderness noted. NEUROLOGIC patient is awake, alert and oriented -3. . - Labs CBC & Chem 7: 12/30/16 06:00 12/30/16 06:00 Labs: Abnormal Lab Results - Last 24 Hours (Table) 12/28/16 12/29/16 12/29/16 Range/Units 10:20 16:48 21:05 RDW (11.5-15.5) % Monocytes # (Manual) (0-1.0) k/uL PT (9.0-12.0) sec INR (<1.2) Chloride (98-107) mmol/L Carbon Dioxide (22-30) mmol/L BUN (9-20) mg/dL Creatinine (0.66-1.25) mg/dL Glucose (74-99) mg/dL POC Glucose (mg/dL) 143 H 172 H (75-99) mg/dL Hemoglobin A1c 6.7 H (4.0-6.0) % 12/30/16 12/30/16 12/30/16 Range/Units 06:00 06:00 06:00 RDW 16.3 H (11.5-15.5) % Monocytes # (Manual) 1.12 H (0-1.0) k/uL PT 27.1 H (9.0-12.0) sec INR 2.8 H (<1.2) Chloride 90 L (98-107) mmol/L Carbon Dioxide 36 H (22-30) mmol/L BUN 107 H* (9-20) mg/dL Creatinine 2.54 H (0.66-1.25) mg/dL Glucose 69 L (74-99) mg/dL POC Glucose (mg/dL) (75-99) mg/dL Hemoglobin A1c (4.0-6.0) % 12/30/16 12/30/16 Range/Units 06:19 11:24 RDW (11.5-15.5) % Monocytes # (Manual) (0-1.0) k/uL PT (9.0-12.0) sec INR (<1.2) Chloride (98-107) mmol/L Carbon Dioxide (22-30) mmol/L BUN (9-20) mg/dL Creatinine (0.66-1.25) mg/dL Glucose (74-99) mg/dL POC Glucose (mg/dL) 70 L 161 H (75-99) mg/dL Hemoglobin A1c (4.0-6.0) % Assessment and Plan Plan: Assessment and plan #1 fall with atypical chest discomfort, cardiac catheterization performed in January of last year revealed mild nonobstructive coronary artery disease #2 acute on chronic kidney disease stage III #3 severe nonischemic cardiomyopathy #4 paroxysmal atrial fibrillation #5 diabetes #6 sleep apnea #7 hypothyroidism Plan Patient will be discharged home today, his Coumadin has been discontinued and he was started on Eliquis 2-1/2 mg one tablet by mouth twice a day for Monday we will make a follow-up appointment the patient to see Dr. Olmstead in the office post discharge. DNP note has been reviewed, I agree with a documented findings and plan of care. Patient was seen and examined.
[2017-01-01] MEDS ORDERED: ERGOCALCIFEROL 50,000 UNIT CAP PO SCH (12:00)
[2017-01-02] MEDS ORDERED: METOLAZONE 5 MG TAB PO SCH (09:00)
== END 2016-12-30 12:07 | disposition home or self-care (01) | DRG 683 ==
LOC: EC 09:31 → 6SEL 12:13
PROVIDERS: ADMIT Internal Medicine; ATTEND Internal Medicine
DX: N17.0 Acute kidney failure with tubular necrosis (principal); I13.0 Hypertensive heart and chronic kidney disease with heart failure and stage 1 through stage 4 chronic kidney disease, or unspecified chronic kidney disease; I42.9 Cardiomyopathy, unspecified; I50.22 Chronic systolic (congestive) heart failure; R07.89 Other chest pain; I25.10 Atherosclerotic heart disease of native coronary artery without angina pectoris; N18.4 Chronic kidney disease, stage 4 (severe); E11.22 Type 2 diabetes mellitus with diabetic chronic kidney disease; D63.1 Anemia in chronic kidney disease; I69.998 Other sequelae following unspecified cerebrovascular disease; I48.0 Paroxysmal atrial fibrillation; I48.2 Chronic atrial fibrillation; H53.8 Other visual disturbances; J45.909 Unspecified asthma, uncomplicated; E03.9 Hypothyroidism, unspecified; E78.5 Hyperlipidemia, unspecified; G47.30 Sleep apnea, unspecified; N40.0 Benign prostatic hyperplasia without lower urinary tract symptoms; G89.29 Other chronic pain; K42.9 Umbilical hernia without obstruction or gangrene; M19.90 Unspecified osteoarthritis, unspecified site; M48.00 Spinal stenosis, site unspecified; R74.8 Abnormal levels of other serum enzymes; M54.9 Dorsalgia, unspecified; Z79.01 Long term (current) use of anticoagulants; Z79.4 Long term (current) use of insulin; Z79.899 Other long term (current) drug therapy; Z96.612 Presence of left artificial shoulder joint; Z87.891 Personal history of nicotine dependence; Z85.828 Personal history of other malignant neoplasm of skin; Z96.653 Presence of artificial knee joint, bilateral; Z82.49 Family history of ischemic heart disease and other diseases of the circulatory system; W01.0XXA Fall on same level from slipping, tripping and stumbling without subsequent striking against object, initial encounter; Y92.009 Unspecified place in unspecified non-institutional (private) residence as the place of occurrence of the external cause; Y93.01 Activity, walking, marching and hiking
CPT/HCPCS: 36415; 70450; 71020; 76770; 80053; 80061; 81003; 82550; 82553; 83036; 83735; 84484; 85025; 85610; 85730; 93005; 96374; 96375; 99284

== ENCOUNTER 2017-04-17 08:04 | Day surgery (SDC) | payer MEDICARE, BC ==
[2017-04-12 15:51] VITALS: BMI 31.4
[~2017-04-17 08:04] MED LIST: LACTATED RINGERS 1,000 ML IV SCH; SODIUM CHLORIDE 0.9% 1,000 ML IV SCH
[2017-04-17 08:29] VITALS: TEMP 98.2
[2017-04-17 08:36] LABS: Glucose,Whole Blood 161 mg/dL (75-99)
[2017-04-17 08:42] LABS: Anisocytosis Slight; HCT 39.7 % (39.0-53.0); HGB 12.7 gm/dL (13.0-17.5); MCH 30.8 pg (25.0-35.0); MCHC 32.1 g/dL (31.0-37.0); MCV 96.1 fL (80.0-100.0); Mean Platelet Volume 7.4; Platelet Count 177 k/uL (150-450); RBC 4.13 m/uL (4.30-5.90); RDW 16.2 % (11.5-15.5); WBC 7.1 k/uL (3.8-10.6)
[2017-04-17 08:53] LABS: Prothrombin Time 26.5 sec (9.0-12.0)
[2017-04-17 08:57] LABS: Potassium 4.5 mmol/L (3.5-5.1)
[2017-04-17] MEDS ORDERED: KETAMINE 10 MG/ML 20 ML VIAL ONE (09:01)
[2017-04-17] MEDS ORDERED: LIDOCAINE 1% INJ 10MG/ML (20 ML MDV) ONE (09:01)
[2017-04-17] MEDS ORDERED: MIDAZOLAM 2 MG/2 ML VIAL ONE (09:01)
[2017-04-17] MEDS ORDERED: BENZOCAINE SPRAY 1 SPRAY CAN MUCOUS MEM ONE (09:01)
[2017-04-17 09:04] LABS: Eosinophils # (M) 0.14 k/uL (0-0.7); Lymphocytes # (M) 1.28 k/uL (1.0-4.8); Monocytes # (M) 0.71 k/uL (0-1.0); Neutrophils # (M) 4.97 k/uL (1.3-7.7); Neutrophils % (M) 70 %; Nucleated Red Blood Cells 0 /100 WBC (0-0); Total Cells Counted 100
[2017-04-17 09:05] LABS: Poikilocytosis (M) Present
[2017-04-17] MEDS ORDERED: ONDANSETRON 4 MG TAB PO PRN (09:19)
[2017-04-17] MEDS ORDERED: HYDROcodone/APAP 7.5-325MG 1 EACH TAB PO PRN (09:19)
[2017-04-17] MEDS ORDERED: WARFARIN 3 MG TAB PO SCH (09:30)
[2017-04-17] MEDS ORDERED: SODIUM CHLORIDE 0.9% 1,000 ML IV SCH (09:30)
--- NOTE | 2017-04-17 09:49 | ECHOT ---
TRANSESOPHAGEAL ECHOCARDIOGRAM INDICATION: Evaluation of left atrial appendage. PROCEDURE: I explained the procedure to the patient, risks and the complications, blood pressure, heart rate, O2 saturation was monitored. The throat was sprayed with Cetacaine. He received sedation per anesthesia department. The probe was reintroduced into the esophagus without difficulty. Images were obtained. Following that, the probe was removed. There was no immediate complications. FINDINGS: Left atrial size is dilated. Spontaneous contrast was noted. Left atrial appendage revealed no evidence of thrombus. The left ventricular size is dilated with severe global hypokinesis. The estimated ejection fraction 20%. 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 Mitral valve and tricuspid valve appears to be normal. Descending thoracic aorta appears to be normal. No pericardial effusion was noted. The wire was noted in the right ventricle. Contrast bubble study revealed no shunting across the interatrial septum. Doppler pulse wave obtained revealed mild to moderate mitral and tricuspid regurgitation. The estimated right ventricular systolic pressure was 40 mmHg. Trace aortic regurgitation was noted. No shunting was noted by color Doppler study. CONCLUSION: 1. Dilated left atrium with spontaneous contrast and normal appearance in left atrial appendage. 2. The left ventricle with severe global hypokinesis. 3. Mild to moderate mitral and tricuspid regurgitation with mild pulmonary hypertension. 4. Mild sclerosis of the aortic valve. 5. No shunting across the interatrial septum. MMODL / IJN: [id number] /
--- NOTE | 2017-04-17 10:34 | CE ---
CARDIAC ELECTROPHYSIOLOGY REPORT CARDIOVERSION PROCEDURE NOTE INDICATION: Atrial fibrillation. PROCEDURE: After explaining the procedure to the patient as well as risks and complications, his blood pressure, heart rate and O2 saturation was monitored after obtaining sedated state per the anesthesia department and performing transesophageal echocardiogram. A synchronized 200 joule, 325 and 300 joule cardioversion was performed without success in restoring sinus mechanism. There was no immediate complication. SVITLANA / EMELYN: [id number] /
[2017-04-17 10:42] VITALS: RESP 18
[2017-04-17 10:55] VITALS: BP 99/58; PULSE 72
[2017-04-17] MEDS ORDERED: ALLOPURINOL 100 MG TAB PO SCH (21:00)
[2017-04-17] MEDS ORDERED: DOCUSATE 100 MG CAP PO SCH (21:00)
[2017-04-17] MEDS ORDERED: METOPROLOL SUCCINATE (ER) 25 MG TAB.ER.24H PO SCH (21:00)
[2017-04-17] MEDS ORDERED: NON-FORMULARY DRUG (Magnesium Oxide 500 MG) PO SCH (21:00)
[2017-04-17] MEDS ORDERED: INSULIN GLARGINE 35 UNIT SQ SCH (21:00)
[2017-04-17] MEDS ORDERED: POTASSIUM CHLORIDE ER 10 MEQ TAB.ER.PRT PO SCH (21:00)
[2017-04-18] MEDS ORDERED: LEVOTHYROXINE 100 MCG TAB PO SCH (09:00)
[2017-04-18] MEDS ORDERED: NON-FORMULARY DRUG (Bumetanide [Bumex] 2 MG) PO SCH (09:00)
[2017-04-18] MEDS ORDERED: METOLAZONE 5 MG TAB PO SCH (09:00)
[2017-04-18] MEDS ORDERED: FERROUS SULFATE 325 MG TAB PO SCH (09:00)
[2017-04-23] MEDS ORDERED: ERGOCALCIFEROL 50,000 UNIT CAP PO SCH (09:19)
== END 2017-04-17 11:07 | disposition home or self-care (01) ==
LOC: CATHCVL 08:04
PROVIDERS: ATTEND Internal Medicine Interventional Cardiology
DX: I48.1 Persistent atrial fibrillation (principal); I08.3 Combined rheumatic disorders of mitral, aortic and tricuspid valves; I27.20 Pulmonary hypertension, unspecified; I13.0 Hypertensive heart and chronic kidney disease with heart failure and stage 1 through stage 4 chronic kidney disease, or unspecified chronic kidney disease; I50.9 Heart failure, unspecified; E11.22 Type 2 diabetes mellitus with diabetic chronic kidney disease; N18.9 Chronic kidney disease, unspecified; I42.9 Cardiomyopathy, unspecified; I25.10 Atherosclerotic heart disease of native coronary artery without angina pectoris; E78.2 Mixed hyperlipidemia; Z95.810 Presence of automatic (implantable) cardiac defibrillator; J44.9 Chronic obstructive pulmonary disease, unspecified; G47.33 Obstructive sleep apnea (adult) (pediatric); E07.9 Disorder of thyroid, unspecified; M10.9 Gout, unspecified; N40.0 Benign prostatic hyperplasia without lower urinary tract symptoms; E66.01 Morbid (severe) obesity due to excess calories; Z68.31 Body mass index [BMI] 31.0-31.9, adult; Z86.73 Personal history of transient ischemic attack (TIA), and cerebral infarction without residual deficits; Z82.49 Family history of ischemic heart disease and other diseases of the circulatory system; Z79.01 Long term (current) use of anticoagulants; Z79.4 Long term (current) use of insulin; Z79.899 Other long term (current) drug therapy; Z79.890 Hormone replacement therapy
CPT/HCPCS: 93312; 93320; 93325; 92960; 80051; 85025; 85610; J2250; J2001; 93005

== ENCOUNTER 2017-05-09 13:04 | Inpatient (IN) | payer MEDICARE, BC ==
--- NOTE | 2017-05-09 13:47 | ED ---
General Adult HPI - General Chief complaint: Arrhythmia/Palpitations Stated complaint: pacemaker/abdominal pain/oxygen Time Seen by Provider: 05/09/17 13:05 Source: patient, RN notes reviewed Mode of arrival: ambulatory Limitations: no limitations - History of Present Illness Initial comments: This a 76-year-old male who presents to the emergency department because early this morning his home health care nurse noted that he was in atrial fibrillation and was tachycardic. According to the patient's understanding he was to come in if he were to go back into A. fib so the patient came in. Patient states he has a little upset stomach but that's gone now other than that he was asymptomatic. Patient denies any chest pain difficulty breathing or shortness of breath. Patient denies any recent fever chills or cough. Patient denies any abdominal pain patient denies any nausea vomiting diarrhea - Related Data Home Medications Medication Instructions Recorded Confirmed Levothyroxine Sodium [Synthroid] 100 mcg PO QAM 11/19/13 05/09/17 Ergocalciferol (Vitamin D2) 50,000 unit PO AGOSTO 10/23/15 05/09/17 [Drisdol] Magnesium Oxide [Mag-Ox] 500 mg PO BID 10/23/15 05/09/17 Allopurinol [Zyloprim] 100 mg PO BID 07/21/16 05/09/17 Bumetanide [BUMEX] 2 mg PO QAM 04/12/17 05/09/17 Ferrous Sulfate [Iron (65 MG 325 mg PO DAILY 04/12/17 05/09/17 Elemental)] Insulin Aspart [NovoLOG] See Protocol SQ ACHS 04/12/17 05/09/17 Insulin Glargine [Lantus] 40 unit SQ HS 04/12/17 05/09/17 Metolazone [Zaroxolyn] 5 mg PO AGOSTO 04/12/17 05/09/17 Metoprolol Succinate (ER) [Toprol 25 mg PO HS 04/12/17 05/09/17 XL] Potassium Chloride ER [K-Dur 10] 10 meq PO BID 04/12/17 05/09/17 Warfarin [Coumadin] 3.75 mg PO W/SUPPER 04/12/17 05/09/17 Allergies Allergy/AdvReac Type Severity Reaction Status Date / Time No Known Allergies Allergy Verified 05/09/17 13:32 Review of Systems ROS Statement: Those systems with pertinent positive or pertinent negative responses have been documented in the HPI. ROS Other: All systems not noted in ROS Statement are negative. Past Medical History Past Medical History: Atrial Fibrillation, Asthma, Coronary Artery Disease (CAD) , Cancer, Heart Failure, Diabetes Mellitus, Eye Disorder, Hyperlipidemia, Hypertension, Osteoarthritis (OA), Prostate Disorder, Pulmonary Embolus (PE), Renal Disease, Thyroid Disorder Additional Past Medical History / Comment(s): cardiomyopathy,O2 2l/nc prn, SOB with exertion, CKD , anemia, L ocular stroke-vision affected, chronic back pain , spinal stenosis, BPH, umbilical hernia,skin cancer ear, PIC line right arm; See Dr Barros's H&P History of Any Multi-Drug Resistant Organisms: None Reported Past Surgical History: Back Surgery, Heart Catheterization, Joint Replacement, Orthopedic Surgery, Pacemaker, Tonsillectomy Additional Past Surgical History / Comment(s): BILATERAL TOTAL KNEE , LT SHOULDER REPLACEMENT, COLONOSCOPY,SKIN CANCER REMOVALS,BILATERAL CARPAL TUNNEL RELEASES, CARDIAC CATHS X2, 12/21/16 KAYLEY-BLOOD CLOT IN HEART. PIC line right arm , pacemaker ( [facility]) 01/2017 Past Anesthesia/Blood Transfusion Reactions: No Reported Reaction Type of Cardiac Device: Permanent Pacemaker Device Placement Date:: 01/2017 Past Psychological History: No Psychological Hx Reported Smoking Status: Former smoker - Past Family History Father Family Medical History: Congestive Heart Failure (CHF) Mother Family Medical History: Cancer, Hypertension Additional Family Medical History / Comment(s): Mother had esophageal cancer. General Exam - General Exam Comments Initial Comments: GENERAL: Patient is well-developed and well-nourished. Patient is nontoxic and well- hydrated and is in no acute distress. ENT: Neck is soft and supple. No significant lymphadenopathy is noted. Oropharynx is clear. Moist mucous membranes. Neck has full range of motion without eliciting any pain. EYES: The sclera were anicteric and conjunctiva were pink and moist. Extraocular movements were intact and pupils were equal round and reactive to light. Eyelids were unremarkable. PULMONARY: Unlabored respirations. Good breath sounds bilaterally. No audible rales rhonchi or wheezing was noted. CARDIOVASCULAR: Patient has a heart rate of about 100 with occasional extrasystole otherwise sounds regular ABDOMEN: Soft and nontender with normal bowel sounds. No palpable organomegaly was noted. There is no palpable pulsatile mass. SKIN: Skin is clear with no lesions or rashes and otherwise unremarkable. NEUROLOGIC: Patient is alert and oriented x3. Cranial nerves II through XII are grossly intact. Motor and sensory are also intact. Normal speech, volume and content. Symmetrical smile. MUSCULOSKELETAL: Normal extremities with adequate strength and full range of motion. No lower extremity swelling or edema. No calf tenderness. LYMPHATICS: No significant lymphadenopathy is noted PSYCHIATRIC: Normal psychiatric evaluation. Limitations: no limitations Course Vital Signs 05/09/17 05/09/17 13:09 14:53 Temperature 97.9 F Pulse Rate 55 L 101 H Respiratory 20 18 Rate Blood Pressure 116/60 135/65 O2 Sat by Pulse 93 L 98 Oximetry Medical Decision Making - Medical Decision Making EKG shows ventricular paced rhythm at 100 bpm QRS 122 QT interval 408 QTC is 526. Patient was in a paced rhythm throughout the ED stay however because he was sent in for being in atrial fibrillation at home we decided to keep the patient because Dr. Rodriguez supposed to be doing some procedure on him in the future according to the family. Chest x-ray is normal. Spoke with Dr. Cobb he agreed to admit the patient admitted the patient I consult to cardiology - Lab Data Result diagrams: 05/09/17 14:00 05/09/17 14:00 Lab Results 05/09/17 05/09/17 05/09/17 Range/Units 14:00 14:00 14:00 WBC 5.7 (3.8-10.6) k/uL RBC 4.22 L (4.30-5.90) m/uL Hgb 12.8 L (13.0-17.5) gm/dL Hct 38.6 L (39.0-53.0) % MCV 91.4 (80.0-100.0) fL MCH 30.4 (25.0-35.0) pg MCHC 33.3 (31.0-37.0) g/dL RDW 15.5 (11.5-15.5) % Plt Count 165 (150-450) k/uL Neutrophils % (Manual) 63 % Lymphocytes % (Manual) 26 % Monocytes % (Manual) 10 % Eosinophils % (Manual) 1 % Neutrophils # (Manual) 3.59 (1.3-7.7) k/uL Lymphocytes # (Manual) 1.48 (1.0-4.8) k/uL Monocytes # (Manual) 0.57 (0-1.0) k/uL Eosinophils # (Manual) 0.06 (0-0.7) k/uL Nucleated RBCs 0 (0-0) /100 WBC Manual Slide Review Performed PT (9.0-12.0) sec INR (<1.2) APTT (22.0-30.0) sec Sodium 137 (137-145) mmol/L Potassium 4.0 (3.5-5.1) mmol/L Chloride 86 L (98-107) mmol/L Carbon Dioxide 40 H* (22-30) mmol/L Anion Gap 11 mmol/L BUN 84 H* (9-20) mg/dL Creatinine 2.71 H (0.66-1.25) mg/dL Est GFR (CKD-EPI)AfAm 25 (>60 ml/min/1.73 sqM) Est GFR (CKD-EPI)NonAf 22 (>60 ml/min/1.73 sqM) Glucose 89 (74-99) mg/dL Calcium 10.0 (8.4-10.2) mg/dL Magnesium 2.3 (1.6-2.3) mg/dL Total Bilirubin 0.8 (0.2-1.3) mg/dL AST 44 (17-59) U/L ALT 36 (21-72) U/L Alkaline Phosphatase 104 (38-126) U/L Total Creatine Kinase 81 (55-170) U/L CK-MB (CK-2) 1.5 (0.0-2.4) ng/mL CK-MB (CK-2) Rel Index 1.9 Troponin I 0.148 H* (0.000-0.034) ng/mL NT-Pro-B Natriuret Pep pg/mL Total Protein 7.3 (6.3-8.2) g/dL Albumin 4.0 (3.5-5.0) g/dL 05/09/17 05/09/17 Range/Units 14:00 14:00 WBC (3.8-10.6) k/uL RBC (4.30-5.90) m/uL Hgb (13.0-17.5) gm/dL Hct (39.0-53.0) % MCV (80.0-100.0) fL MCH (25.0-35.0) pg MCHC (31.0-37.0) g/dL RDW (11.5-15.5) % Plt Count (150-450) k/uL Neutrophils % (Manual) % Lymphocytes % (Manual) % Monocytes % (Manual) % Eosinophils % (Manual) % Neutrophils # (Manual) (1.3-7.7) k/uL Lymphocytes # (Manual) (1.0-4.8) k/uL Monocytes # (Manual) (0-1.0) k/uL Eosinophils # (Manual) (0-0.7) k/uL Nucleated RBCs (0-0) /100 WBC Manual Slide Review PT 18.0 H (9.0-12.0) sec INR 2.0 H (<1.2) APTT 26.9 (22.0-30.0) sec Sodium (137-145) mmol/L Potassium (3.5-5.1) mmol/L Chloride (98-107) mmol/L Carbon Dioxide (22-30) mmol/L Anion Gap mmol/L BUN (9-20) mg/dL Creatinine (0.66-1.25) mg/dL Est GFR (CKD-EPI)AfAm (>60 ml/min/1.73 sqM) Est GFR (CKD-EPI)NonAf (>60 ml/min/1.73 sqM) Glucose (74-99) mg/dL Calcium (8.4-10.2) mg/dL Magnesium (1.6-2.3) mg/dL Total Bilirubin (0.2-1.3) mg/dL AST (17-59) U/L ALT (21-72) U/L Alkaline Phosphatase (38-126) U/L Total Creatine Kinase (55-170) U/L CK-MB (CK-2) (0.0-2.4) ng/mL CK-MB (CK-2) Rel Index Troponin I (0.000-0.034) ng/mL NT-Pro-B Natriuret Pep 7190 pg/mL Total Protein (6.3-8.2) g/dL Albumin (3.5-5.0) g/dL Disposition Clinical Impression: Atrial fibrillation Disposition: ADMITTED IP TO THIS HOSP Referrals: Arpita Mack DO [Primary Care Provider] - 1-2 days Time of Disposition: 15:12
[2017-05-09 14:26] LABS: Magnesium 2.3 mg/dL (1.6-2.3); Total Bilirubin 0.8 mg/dL (0.2-1.3); Total Protein 7.3 g/dL (6.3-8.2)
[2017-05-09 14:29] LABS: HCT 38.6 % (39.0-53.0); HGB 12.8 gm/dL (13.0-17.5); MCH 30.4 pg (25.0-35.0); MCHC 33.3 g/dL (31.0-37.0); MCV 91.4 fL (80.0-100.0); Mean Platelet Volume 7.4; Platelet Count 165 k/uL (150-450); RBC 4.22 m/uL (4.30-5.90); RDW 15.5 % (11.5-15.5); WBC 5.7 k/uL (3.8-10.6)
[2017-05-09 14:32] LABS: Partial Thromboplastin Time 26.9 sec (22.0-30.0)
--- NOTE | 2017-05-09 14:46 | XR ---
EXAMINATION TYPE: XR chest 2V DATE OF EXAM: 05/09/2017 COMPARISON: Chest x-ray February 06, 2017 HISTORY: History of atrial fibrillation presents with tachycardia and chest pain today. TECHNIQUE: Frontal and lateral views of the chest are obtained. FINDINGS: There is new right-sided PICC line with tip in SVC. There is chronic parenchymal change wi thout suspicious new focal air space opacity, pleural effusion, or pneumothorax seen. There is cardio megaly with multi lead pacemaker/AICD redemonstrated. There is minimal visualization of surgical ojeda ge left shoulder. IMPRESSION: Chronic changes and cardiomegaly without suspicious new acute pulmonary process.
[2017-05-09 14:48] LABS: Creatine Kinase MB 1.5 ng/mL (0.0-2.4)
[2017-05-09 14:50] LABS: Troponin I 0.148 ng/mL (0.000-0.034)
[2017-05-09 15:05] LABS: Eosinophils # (M) 0.06 k/uL (0-0.7); Lymphocytes # (M) 1.48 k/uL (1.0-4.8); Monocytes # (M) 0.57 k/uL (0-1.0); Neutrophils # (M) 3.59 k/uL (1.3-7.7); Neutrophils % (M) 63 %; Nucleated Red Blood Cells 0 /100 WBC (0-0); Total Cells Counted 100
[2017-05-09] MEDS ORDERED: NITROGLYCERIN SL TABS 0.4 MG TAB SUBLINGUAL PRN (15:13)
[2017-05-09 17:08] LABS: Glucose,Whole Blood 103 mg/dL (75-99)
[2017-05-09] MEDS ORDERED: WARFARIN 7.5 MG TAB PO SCH ×2 (18:00→21:00)
[2017-05-09] MEDS: MAGNESIUM OXIDE 400 MG TAB PO SCH (20:46)
[2017-05-09] MEDS: ALLOPURINOL 100 MG TAB PO SCH (20:46)
[2017-05-09] MEDS: POTASSIUM CHLORIDE ER 10 MEQ TAB.ER.PRT PO SCH (20:46)
[2017-05-09] MEDS ORDERED: METOPROLOL SUCCINATE (ER) 25 MG TAB.ER.24H PO SCH (21:00)
[2017-05-09] MEDS ORDERED: INSULIN DETEMIR 100 UNIT/ML 10 ML VIAL SQ SCH (21:00)
[2017-05-09 21:03] LABS: Glucose,Whole Blood 218 mg/dL (75-99)
[2017-05-09 21:35] LABS: Creatine Kinase MB 1.6 ng/mL (0.0-2.4)
[2017-05-09 21:36] LABS: Troponin I 0.164 ng/mL (0.000-0.034)
[2017-05-09] MEDS: INSULIN ASPART 100 UNIT/ML 1 ML 10 ML VIAL SQ SCH (21:47)
[2017-05-09 22:03] VITALS: RESP 17
[2017-05-09] MEDS: HYDROcodone/APAP 7.5-325MG 1 EACH TAB PO PRN (22:27)
[2017-05-10 02:11] LABS: Creatine Kinase MB 1.3 ng/mL (0.0-2.4)
[2017-05-10 02:20] LABS: Troponin I 0.157 ng/mL (0.000-0.034)
[2017-05-10 03:07] LABS: Cholesterol 158 mg/dL (<200); HDL Cholesterol 52 mg/dL (40-60); LDL Cholesterol,Calculated 81 mg/dL (0-99); Triglycerides 124 mg/dL (<150)
[2017-05-10 03:48] VITALS: PULSE 89
[2017-05-10 05:56] LABS: Glucose,Whole Blood 123 mg/dL (75-99)
[2017-05-10] MEDS ORDERED: LEVOTHYROXINE 100 MCG TAB PO SCH (06:30)
[2017-05-10] MEDS: INSULIN ASPART 100 UNIT/ML 1 ML 10 ML VIAL SQ SCH (06:33)
[2017-05-10 06:53] LABS: Prothrombin Time 18.1 sec (9.0-12.0)
[2017-05-10 06:58] LABS: HCT 38.2 % (39.0-53.0); HGB 12.7 gm/dL (13.0-17.5); MCH 30.7 pg (25.0-35.0); MCHC 33.3 g/dL (31.0-37.0); MCV 92.1 fL (80.0-100.0); Mean Platelet Volume 7.4; Platelet Count 166 k/uL (150-450); RBC 4.15 m/uL (4.30-5.90); RDW 15.6 % (11.5-15.5); WBC 5.7 k/uL (3.8-10.6)
[2017-05-10 07:06] LABS: Calcium 9.9 mg/dL (8.4-10.2); Potassium 3.7 mmol/L (3.5-5.1)
[2017-05-10] MEDS ORDERED: ASPIRIN 325 MG TAB PO SCH (09:00)
[2017-05-10] MEDS ORDERED: BUMETANIDE 1 MG TAB PO SCH (09:00)
[2017-05-10] MEDS: MAGNESIUM OXIDE 400 MG TAB PO SCH (09:46)
[2017-05-10] MEDS: ALLOPURINOL 100 MG TAB PO SCH (09:46)
[2017-05-10] MEDS: POTASSIUM CHLORIDE ER 10 MEQ TAB.ER.PRT PO SCH (09:46)
[2017-05-10] MEDS: HYDROcodone/APAP 7.5-325MG 1 EACH TAB PO PRN (09:51)
--- NOTE | 2017-05-10 10:45 | CONS ---
CONSULTATION CHIEF COMPLAINT: Irregular heart rhythm. This is a 76-year-old gentleman with history of atrial fibrillation, cardiomyopathy with congestive heart failure, history of a pacemaker, prior cardiac catheterizations, status post prior unsuccessful cardioversion who is currently on Milrinone from [facility]. Presented to [facility] Emergency Room because the visiting nurse felt that he was in atrial fibrillation and somewhat hypotensive. When he came to the ER, he was in paced rhythm and not particularly hypotensive and really does not have any other symptoms. He has a paced rhythm at 104 beats per minute, which is where he was on his prior admissions too. He denies chest pain, difficulty in breathing, palpitations, dizziness or syncope. There is no history of leg edema. PAST MEDICAL HISTORY: Significant for dilated cardiomyopathy, severe LV systolic dysfunction, status post permanent pacemaker, chronic refractory heart failure, dilated cardiomyopathy status post ICD, recent KAYLEY and cardioversion where his ejection fraction was found to be 20%. He underwent cardioversion a month ago, but that was unsuccessful. MEDICATIONS: At home included Coumadin, K-Dur, Toprol, Zaroxolyn, Synthroid, insulin, Bumex, and Zyloprim. ALLERGIES: There are no known drug allergies. FAMILY HISTORY: Negative for premature coronary artery disease. SOCIAL HISTORY: Negative for current smoking, EtOH abuse or drug abuse. REVIEW OF SYSTEMS: HEENT is unremarkable. CARDIAC: As described above. RESPIRATORY: Negative. GI: Negative. GENITOURINARY: Negative. MUSCULOSKELETAL: Significant for arthritis. PSYCHOSOCIAL: Negative. ENDOCRINE: Negative. DERMATOLOGICAL: Negative. CONSTITUTIONAL: Negative. ONCOLOGICAL: Negative. Rest of the systems review is not relevant. On exam, he is comfortable at rest. Heart rate is 69 with a blood pressure 117/80, respiratory rate is 18, O2 sat is 95% on 2 L. There is no jugular venous distention. Carotid upstroke is normal. There is no bruit. Chest exam reveals good air entry bilaterally. Heart exam reveals first and second heart sounds. No gallop. No murmur. No rub. Abdomen is soft, nontender. Exam of the extremities did not reveal edema. Peripheral pulses are felt. LABS: Show that the creatinine is at 0.1, which is where it had been on previous admissions. INR is therapeutic at 2. Potassium is 3.7, BUN is 85, creatinine is 2.7, and his creatinine has been in the same range on previous admissions. If anything, the creatinine is better. His BUN is 85. On previous admissions, it was at 100. ASSESSMENT: 1. Chronic atrial fibrillation. 2. Chronic class 4 congestive heart failure, on Milrinone. 3. Dilated cardiomyopathy, status post AICD. PLAN: Patient is doing well on the current medical therapy. Please continue the Toprol, Coumadin, K-Dur, Zaroxolyn and Bumex that he is currently on. He may be discharged home and outpatient followup arranged through Dr. Olmstead. SVITLANA / URMILA: [id number] /
[2017-05-10 11:16] VITALS: BP 102/65; TEMP 97.6
--- NOTE | 2017-05-10 11:22 | P.HPIM ---
History of Present Illness H&P Date: 05/10/17 Jose G Polk is a 76-year-old male who presents to [facility] emergency department because his visiting nurse noted that he was in atrial fibrillation and was tachycardic. According to the patient's understanding he was to come in if he were to go back into A. fib so the patient came in. Patient states that he had upset [place] otherwise no complaints, there was no fever or chills no headache or dizziness, he denies any chest pain or shortness of breath no palpitation no cough no nausea or vomiting no abdominal pain no diarrhea and no urinary symptoms. Patient has known history of congestive heart failure with cardiomyopathy with history of pacemaker placement and history of unsuccessful cardioversion 1 month ago. currently maintained on milrinone from [facility]. Past Medical History Past Medical History: Atrial Fibrillation, Asthma, Coronary Artery Disease (CAD) , Cancer, Heart Failure, Diabetes Mellitus, Eye Disorder, Hyperlipidemia, Hypertension, Osteoarthritis (OA), Prostate Disorder, Pulmonary Embolus (PE), Renal Disease, Thyroid Disorder Additional Past Medical History / Comment(s): cardiomyopathy,HAS PICC LINE RT ARM AND MEDI PUMP WITH MILRINONE STATED BAG WAS CHANGED TODAY AND BATTERIES ALSO, BUT DRESSING TO PICC LINE DID'NT GET CHANGED TODAY AND WAS DUE FOR CHANGE) .O2 2l/nc prn, SOB with exertion, CKD , anemia, L ocular stroke- vision affected, chronic back pain, spinal stenosis, BPH, umbilical hernia,skin cancer ear, See Dr Barros's H&P History of Any Multi-Drug Resistant Organisms: None Reported Past Surgical History: Back Surgery, Heart Catheterization, Joint Replacement, Orthopedic Surgery, Pacemaker, Tonsillectomy Additional Past Surgical History / Comment(s): BILATERAL TOTAL KNEE , LT SHOULDER REPLACEMENT, COLONOSCOPY,SKIN CANCER REMOVALS,BILATERAL CARPAL TUNNEL RELEASES, CARDIAC CATHS X2, 12/21/16 KAYLEY-BLOOD CLOT IN HEART. PIC line right arm , pacemaker ( [employer]) 01/2017, CARDIOVERSION Past Anesthesia/Blood Transfusion Reactions: No Reported Reaction Type of Cardiac Device: Permanent Pacemaker Device Placement Date:: 01/2017 Smoking Status: Never smoker - Past Family History Father Family Medical History: Congestive Heart Failure (CHF) Mother Family Medical History: Cancer, Hypertension Additional Family Medical History / Comment(s): Mother had esophageal cancer. Medications and Allergies Home Medications Medication Instructions Recorded Confirmed Type Levothyroxine Sodium [Synthroid] 100 mcg PO QAM 11/19/13 05/09/17 History Ergocalciferol (Vitamin D2) 50,000 unit PO AGOSTO 10/23/15 05/09/17 History [Drisdol] Magnesium Oxide [Mag-Ox] 500 mg PO BID 10/23/15 05/09/17 History Allopurinol [Zyloprim] 100 mg PO BID 07/21/16 05/09/17 History Bumetanide [BUMEX] 2 mg PO QAM 04/12/17 05/09/17 History Ferrous Sulfate [Iron (65 MG 325 mg PO DAILY 04/12/17 05/09/17 History Elemental)] Insulin Aspart [NovoLOG] See Protocol SQ ACHS 04/12/17 05/09/17 History Insulin Glargine [Lantus] 40 unit SQ HS 04/12/17 05/09/17 History Metolazone [Zaroxolyn] 5 mg PO AGOSTO 04/12/17 05/09/17 History Metoprolol Succinate (ER) [Toprol 25 mg PO HS 04/12/17 05/09/17 History XL] Potassium Chloride ER [K-Dur 10] 10 meq PO BID 04/12/17 05/09/17 History Warfarin [Coumadin] 3.75 mg PO W/SUPPER 04/12/17 05/09/17 History Allergies Allergy/AdvReac Type Severity Reaction Status Date / Time No Known Allergies Allergy Verified 05/09/17 13:32 Physical Exam Vitals: Vital Signs Temp Pulse Pulse Resp BP BP BP 05/10/17 08:27 97.7 F 69 16 117/80 05/10/17 03:49 89 17 05/10/17 03:46 98.1 F 89 17 110/65 05/09/17 23:56 90 17 05/09/17 23:52 98.1 F 90 17 109/63 05/09/17 20:00 97.4 F L 84 17 118/66 05/09/17 17:48 97.1 F L 60 16 108/57 05/09/17 16:00 97.0 F L 95 20 107/62 05/09/17 14:53 101 H 18 135/65 05/09/17 13:09 97.9 F 55 L 20 116/60 Pulse Ox 05/10/17 08:27 95 05/10/17 03:49 05/10/17 03:46 96 05/09/17 23:56 05/09/17 23:52 97 05/09/17 20:00 95 05/09/17 17:48 96 05/09/17 16:00 96 05/09/17 14:53 98 05/09/17 13:09 93 L Intake and Output 05/09/17 05/10/17 05/10/17 22:59 06:59 14:59 Intake Total 260 200 Output Total 300 Balance -40 200 Intake: Oral 260 200 Output: Urine 300 Other: Voiding Method Toilet Toilet Toilet # Voids 1 Weight 105.1 kg In general patient is alert and oriented 3 in no apparent distress HEENT head normocephalic and atraumatic Neck is supple no JVD no goiter no lymphadenopathy Chest exam reveals a few scattered rhonchi no wheezing Cardiac exam reveals irregular heart sounds no gallops no murmurs Abdomen is soft nontender no organomegaly with normal bowel sounds Extremity exam reveals no edema no cyanosis or clubbing Neurological examination reveals no gross focal deficit Results CBC & Chem 7: 05/10/17 06:20 05/10/17 06:20 Labs: Abnormal Lab Results - Last 24 Hours (Table) 05/09/17 05/09/17 05/09/17 Range/Units 14:00 14:00 14:00 RBC 4.22 L (4.30-5.90) m/uL Hgb 12.8 L (13.0-17.5) gm/dL Hct 38.6 L (39.0-53.0) % RDW (11.5-15.5) % PT (9.0-12.0) sec INR (<1.2) Chloride 86 L (98-107) mmol/L Carbon Dioxide 40 H* (22-30) mmol/L BUN 84 H* (9-20) mg/dL Creatinine 2.71 H (0.66-1.25) mg/dL POC Glucose (mg/dL) (75-99) mg/dL Troponin I 0.148 H* (0.000-0.034) ng/mL 05/09/17 05/09/17 05/09/17 Range/Units 14:00 16:52 20:17 RBC (4.30-5.90) m/uL Hgb (13.0-17.5) gm/dL Hct (39.0-53.0) % RDW (11.5-15.5) % PT 18.0 H (9.0-12.0) sec INR 2.0 H (<1.2) Chloride (98-107) mmol/L Carbon Dioxide (22-30) mmol/L BUN (9-20) mg/dL Creatinine (0.66-1.25) mg/dL POC Glucose (mg/dL) 103 H (75-99) mg/dL Troponin I 0.164 H* (0.000-0.034) ng/mL 05/09/17 05/10/17 05/10/17 Range/Units 20:47 01:16 05:50 RBC (4.30-5.90) m/uL Hgb (13.0-17.5) gm/dL Hct (39.0-53.0) % RDW (11.5-15.5) % PT (9.0-12.0) sec INR (<1.2) Chloride (98-107) mmol/L Carbon Dioxide (22-30) mmol/L BUN (9-20) mg/dL Creatinine (0.66-1.25) mg/dL POC Glucose (mg/dL) 218 H 123 H (75-99) mg/dL Troponin I 0.157 H* (0.000-0.034) ng/mL 05/10/17 05/10/17 05/10/17 Range/Units 06:20 06:20 06:20 RBC 4.15 L (4.30-5.90) m/uL Hgb 12.7 L (13.0-17.5) gm/dL Hct 38.2 L (39.0-53.0) % RDW 15.6 H (11.5-15.5) % PT 18.1 H (9.0-12.0) sec INR 2.0 H (<1.2) Chloride 88 L (98-107) mmol/L Carbon Dioxide 42 H* (22-30) mmol/L BUN 85 H* (9-20) mg/dL Creatinine 2.77 H (0.66-1.25) mg/dL POC Glucose (mg/dL) (75-99) mg/dL Troponin I (0.000-0.034) ng/mL Thrombosis Risk Factor Assmnt - Choose All That Apply Any of the Below Risk Factors Present?: Yes Each Factor Represents 1 point: Obesity (BMI >25) Other Risk Factors: Yes Each Risk Factor Represents 2 Points: Malignancy Each Risk Factor Represents 3 Points: Age 75 years or older, History of DVT/PE Other congenital or acquired thrombophilia - If yes, enter type in comment: No Thrombosis Risk Factor Assessment Total Risk Factor Score: 9 Thrombosis Risk Factor Assessment Level: High Risk Assessment and Plan Plan: #1 atrial fibrillation, chronic with failed cardioversion 1 month ago #2 chronic systolic congestive heart failure stage IV on milrinone #3 underlying history of diabetes mellitus #4 underlying history of hypertension #5 underlying history of hyperlipidemia #6 underlying history of coronary artery disease At this time patient is admitted to telemetry floor he is in atrial fibrillation heart rate and blood pressure are within normal limits Will discuss with cardiology further treatment.
[2017-05-10 11:30] LABS: Eosinophils # (M) 0.11 k/uL (0-0.7); Lymphocytes # (M) 1.54 k/uL (1.0-4.8); Monocytes # (M) 0.91 k/uL (0-1.0); Neutrophils # (M) 3.14 k/uL (1.3-7.7); Neutrophils % (M) 55 %; Nucleated Red Blood Cells 0 /100 WBC (0-0); Total Cells Counted 100
[2017-05-10 11:51] LABS: Glucose,Whole Blood 236 mg/dL (75-99)
[2017-05-10] MEDS ORDERED: FERROUS SULFATE 325 MG TAB PO SCH (12:00)
[2017-05-10] MEDS ORDERED: INSULIN ASPART 100 UNIT/ML 1 ML 10 ML VIAL SQ SCH (21:00)
[2017-05-14] MEDS ORDERED: ERGOCALCIFEROL 50,000 UNIT CAP PO SCH (12:00)
[2017-05-14] MEDS ORDERED: METOLAZONE 5 MG TAB PO SCH (12:00)
== END 2017-05-10 12:15 | disposition home or self-care (01) | DRG 309 ==
LOC: EC 13:04 → 6SEL 15:13
PROVIDERS: ADMIT Internal Medicine; ATTEND Internal Medicine
DX: I48.2 Chronic atrial fibrillation (principal); I13.0 Hypertensive heart and chronic kidney disease with heart failure and stage 1 through stage 4 chronic kidney disease, or unspecified chronic kidney disease; E11.22 Type 2 diabetes mellitus with diabetic chronic kidney disease; I42.0 Dilated cardiomyopathy; I50.22 Chronic systolic (congestive) heart failure; N18.9 Chronic kidney disease, unspecified; E78.5 Hyperlipidemia, unspecified; M19.90 Unspecified osteoarthritis, unspecified site; M48.00 Spinal stenosis, site unspecified; N40.0 Benign prostatic hyperplasia without lower urinary tract symptoms; I25.10 Atherosclerotic heart disease of native coronary artery without angina pectoris; H53.9 Unspecified visual disturbance; R00.0 Tachycardia, unspecified; Z96.612 Presence of left artificial shoulder joint; Z96.653 Presence of artificial knee joint, bilateral; Z79.4 Long term (current) use of insulin; Z79.899 Other long term (current) drug therapy; Z79.01 Long term (current) use of anticoagulants; Z82.49 Family history of ischemic heart disease and other diseases of the circulatory system; Z80.0 Family history of malignant neoplasm of digestive organs; Z85.828 Personal history of other malignant neoplasm of skin; Z90.89 Acquired absence of other organs; Z87.19 Personal history of other diseases of the digestive system; Z86.711 Personal history of pulmonary embolism; Z95.810 Presence of automatic (implantable) cardiac defibrillator; Z86.69 Personal history of other diseases of the nervous system and sense organs; Z87.891 Personal history of nicotine dependence; I69.398 Other sequelae of cerebral infarction
CPT/HCPCS: 36415; 71046; 80048; 80053; 80061; 82550; 82553; 83735; 83880; 84484; 85025; 85610; 85730; 93005; 99285

== ENCOUNTER 2017-05-25 10:52 | Day surgery (SDC) | payer MEDICARE, BC ==
[2017-05-19 09:32] VITALS: BMI 31.4
[2017-05-25 11:28] LABS: Glucose,Whole Blood 178 mg/dL (75-99)
[2017-05-25] MEDS ORDERED: ceFAZolin IN SWFI 2 GM/20 ML SYRINGE IVP ONE (11:45)
[2017-05-25 12:09] LABS: INR 2.5 (<1.2); Prothrombin Time 22.1 sec (9.0-12.0)
[2017-05-25 12:22] LABS: HCT 41.8 % (39.0-53.0); HGB 13.5 gm/dL (13.0-17.5); MCH 30.2 pg (25.0-35.0); MCHC 32.3 g/dL (31.0-37.0); MCV 93.5 fL (80.0-100.0); Mean Platelet Volume 7.8; Platelet Count 165 k/uL (150-450); RBC 4.46 m/uL (4.30-5.90); RDW 15.5 % (11.5-15.5); WBC 7.4 k/uL (3.8-10.6)
[2017-05-25] MEDS ORDERED: MIDAZOLAM 2 MG/2 ML VIAL ONE (12:26)
[2017-05-25] MEDS ORDERED: fentaNYL (PF) 50 MCG/ML 2 ML AMP ONE (12:26)
[2017-05-25] MEDS ORDERED: ATROPINE SULFATE 0.1 MG/ML 10ML SYRINGE ONE (12:26)
[2017-05-25 12:45] LABS: Calcium 10.1 mg/dL (8.4-10.2); Potassium 3.5 mmol/L (3.5-5.1)
[2017-05-25 12:51] LABS: Basophils # (M) 0.07 k/uL (0-0.2); Eosinophils # (M) 0.07 k/uL (0-0.7); Lymphocytes # (M) 1.55 k/uL (1.0-4.8); Monocytes # (M) 1.33 k/uL (0-1.0); Neutrophils # (M) 4.37 k/uL (1.3-7.7); Neutrophils % (M) 59 %; Nucleated Red Blood Cells 0 /100 WBC (0-0); Total Cells Counted 100
[2017-05-25] MEDS ORDERED: LIDOCAINE 2% INJ 20 MG/ML SQ ONE ×2 (12:57→12:59)
[2017-05-25] MEDS ORDERED: MILRINONE IV SCH ×2 (13:45→19:30)
[2017-05-25 13:53] VITALS: TEMP 97.5
--- NOTE | 2017-05-25 13:57 | P.PCN ---
Preoperative Diagnosis: Biventricular ICD interrogation with reprogramming ICD was interrogated. Tachycardia therapies were turned off. Pacing was reprogrammed to VVI 40 BPM AV junction modification IV antibiotics administered Cinefluoroscopy of the leads to document baseline lead position Long sheath placed in the right heart Irrigated tip RF catheter placed His bundle mapped RF ablation applied just proximal and a little inferior to that site resulting in appearance of junctional rhythm narrow QRS at 52 bpm regular Repeat ablation for 30 seconds before resulted in a IVR 48 beats a minute regular IV atropine given Underlying rhythm remains stable with intermittent ventricular pacing After waiting for about 15 minutes the device was reprogrammed Cinefluoroscopy of the leads 1 revealed stable position of the atrial RV and LV leads post ablation Biventricular ICD interrogation with reprogramming, post ablation Atrial sensing 5 mV atrial pacing impedance 460 ohms RV pacing threshold 0.7 V at 0.5 ms, R waves 19.8 mV pacing impedance 510 ohms LV pacing threshold 3 V at 1 ms, M2-RV coil, pacing impedance 610 ohms High-voltage impedance RV to can equals 78 ohms Device reprogrammed to VVT are 90 PPM upgrade 1:30 VT 1 zone detection intervals reprogrammed to 45 beats Tachycardia therapies turned on Patient tolerated the procedure well without any acute complications Plan Next week reduce the basal rate to 80 beats a minute After 2 weeks reduce the rate to 60 bpm If in the next 1-2 months there is improvement in his heart failure status, consideration should be given to reduction in the dose of metoprolol and possibly even turning it off
[2017-05-25] MEDS ORDERED: ACETAMINOPHEN TAB 325 MG TAB PO PRN (14:04)
[2017-05-25] MEDS ORDERED: ACETAMINOPHEN IV (For NPO) 1,000 MG in EMPTY BAG 1 BAG IVPB ONE (14:04)
--- NOTE | 2017-05-25 14:06 | P.DS ---
Providers Attending physician: Kapil Barros Primary care physician: Arpita [facility] Course: Patient underwent AV node modification and Bi V ICD interrogation and reprogramming before and after the procedure. He was monitored for 6 hours and the discharge home no change in medications. We will see him in the office in 3 -4 days. Device is been programmed to the VVTR 90-130 Patient Condition at Discharge: Stable Plan - Discharge Summary Discharge Rx Participant: Yes New Discharge Prescriptions: Continue Magnesium Oxide [Mag-Ox] 500 mg PO QAM Ergocalciferol (Vitamin D2) [Drisdol] 50,000 unit PO AGOSTO Allopurinol [Zyloprim] 100 mg PO BID PRN PRN Reason: gout Potassium Chloride ER [K-Dur 10] 10 meq PO BID Insulin Aspart [NovoLOG] See Protocol SQ ACHS Metolazone [Zaroxolyn] 5 mg PO AGOSTO Ferrous Sulfate [Iron (65 MG Elemental)] 325 mg PO BID Bumetanide [BUMEX] 2 mg PO QAM Insulin Glargine [Lantus] 40 unit SQ HS Nitroglycerin Sl Tabs [Nitrostat] 0.4 mg SUBLINGUAL Q5M PRN tab PRN Reason: Chest Pain Warfarin [Coumadin] 3.75 mg PO HS Levothyroxine Sodium [Synthroid] 88 mcg PO DAILY Milrinone Drip 1 applicate IV DIRECTED Discharge Medication List Ergocalciferol (Vitamin D2) [Drisdol] 50,000 unit PO AGOSTO 10/23/15 [History] Magnesium Oxide [Mag-Ox] 500 mg PO QAM 10/23/15 [History] Allopurinol [Zyloprim] 100 mg PO BID PRN 07/21/16 [History] Bumetanide [BUMEX] 2 mg PO QAM 04/12/17 [History] Ferrous Sulfate [Iron (65 MG Elemental)] 325 mg PO BID 04/12/17 [History] Insulin Aspart [NovoLOG] See Protocol SQ ACHS 04/12/17 [History] Insulin Glargine [Lantus] 40 unit SQ HS 04/12/17 [History] Metolazone [Zaroxolyn] 5 mg PO AGOSTO 04/12/17 [History] Potassium Chloride ER [K-Dur 10] 10 meq PO BID 04/12/17 [History] Nitroglycerin Sl Tabs [Nitrostat] 0.4 mg SUBLINGUAL Q5M PRN tab 05/10/17 [Rx] Levothyroxine Sodium [Synthroid] 88 mcg PO DAILY 05/19/17 [History] Milrinone Drip 1 applicate IV DIRECTED 05/19/17 [History] Warfarin [Coumadin] 3.75 mg PO HS 05/19/17 [History] Follow up Appointment(s)/Referral(s): Hailey Olmstead MD [STAFF PHYSICIAN] - 6 Weeks Activity/Diet/Wound Care/Special Instructions: Post EP study - Ablation instructions 1. Keep access sites dry for 2 days. 2. No heavy lifting or straining for 2 days. 3. Avoid bending the hips repeatedly for 2 days. 4. You may go up and down stairs slowly Call if the following is noted 1. Bleeding, increasing swelling or pain at the access sites. 2. Increasing chest discomfort, especially upon taking a deep breath. 3. Increasing shortness of breath, at rest or with exertion. 4. Undue cough / phlegm 5. Difficulty or pain while swallowing. 6. Pain or change in color in the extremities. 7. Fever, chills, rigors. 8. Increasing headache or neurologic symptoms. 9. Dizziness, fainting, palpitations May go home today no Change in medications Follow-up in the device clinic on Monday Groin check Monday Discharge Disposition: HOME SELF-CARE
[2017-05-25 14:46] LABS: Glucose,Whole Blood 153 mg/dL (75-99)
[2017-05-25 15:32] VITALS: RESP 17
[2017-05-25 19:09] VITALS: BP 115/80; PULSE 59
[2017-05-25] MEDS ORDERED: WARFARIN 7.5 MG TAB PO SCH (21:00)
[2017-05-25] MEDS ORDERED: INSULIN DETEMIR 100 UNIT/ML 10 ML VIAL SQ SCH (21:00)
[2017-05-25] MEDS ORDERED: POTASSIUM CHLORIDE ER 10 MEQ TAB.ER.PRT PO SCH (21:00)
[2017-05-25 21:03] LABS: Glucose,Whole Blood 207 mg/dL (75-99)
[2017-05-26] MEDS ORDERED: LEVOTHYROXINE 88 MCG TAB PO SCH (06:30)
[2017-05-26] MEDS ORDERED: MAGNESIUM OXIDE 400 MG TAB PO SCH (09:00)
[2017-05-26] MEDS ORDERED: BUMETANIDE 1 MG TAB PO SCH (09:00)
[2017-05-28] MEDS ORDERED: METOLAZONE 5 MG TAB PO SCH (09:00)
== END 2017-05-25 21:01 | disposition home or self-care (01) ==
LOC: CATHEP 10:52 → 3OBS 14:56 → CATHEP 19:21
PROVIDERS: ATTEND Internal Medicine Clinical Cardiac Electrophysiology
DX: I42.8 Other cardiomyopathies (principal); Z45.02 Encounter for adjustment and management of automatic implantable cardiac defibrillator; I48.1 Persistent atrial fibrillation; Z79.01 Long term (current) use of anticoagulants; I25.119 Atherosclerotic heart disease of native coronary artery with unspecified angina pectoris; I13.0 Hypertensive heart and chronic kidney disease with heart failure and stage 1 through stage 4 chronic kidney disease, or unspecified chronic kidney disease; E11.22 Type 2 diabetes mellitus with diabetic chronic kidney disease; N18.9 Chronic kidney disease, unspecified; I50.23 Acute on chronic systolic (congestive) heart failure; Z87.891 Personal history of nicotine dependence; Z79.4 Long term (current) use of insulin; E78.2 Mixed hyperlipidemia; Z82.49 Family history of ischemic heart disease and other diseases of the circulatory system; J45.909 Unspecified asthma, uncomplicated; N40.0 Benign prostatic hyperplasia without lower urinary tract symptoms; E07.9 Disorder of thyroid, unspecified; M10.9 Gout, unspecified; M19.90 Unspecified osteoarthritis, unspecified site; Z79.899 Other long term (current) drug therapy
CPT/HCPCS: 93650; 80048; 85025; 85610; C1894; C1769 ×2; C1893; C1732; J2001; J2250; J0461; J3010; J0131; J0690; 93623

== ENCOUNTER 2017-11-15 08:06 | Day surgery (SDC) | payer MEDICARE, BC ==
[2017-11-15 08:30] VITALS: RESP 18; TEMP 98.1
[2017-11-15] MEDS ORDERED: LIDOCAINE 1% INJ 10MG/ML (20 ML MDV) ONE ×2 (09:42→14:18)
[2017-11-15] MEDS ORDERED: SODIUM CHLORIDE 0.9% 500 ML IV ONE (10:30)
--- NOTE | 2017-11-15 13:02 | IR ---
PICC line exchange HISTORY: Malfunctioning PICC line Maximal barrier technique was utilized. Ultrasound was used to sterile technique. Indwelling PICC line was evaluated under real-time fluoroscopy. Catheter was partially withdrawn and cut and cannulated with a 0.018 inch wire. Catheter was exchanged over the wire for a PICC line and t ailored to length. Catheter could not be advanced centrally to the subclavian vein despite being able to pass the 0.018 inch angle Glidewire centrally. Catheter was exchanged for a single lumen catheter and subsequently withdrawn under fluoroscopy but could not be aspirated and flushed until within the basilic vein. Catheter was fixed in place. Hemostasis achieved. No immediate complication. IMPRESSION: There may be central occlusion, stenosis. Patient is not a candidate for a PICC line from the right upper extremity.
[2017-11-15 13:05] LABS: Glucose,Whole Blood 112 mg/dL (75-99)
[2017-11-15] MEDS ORDERED: MIDAZOLAM 2 MG/2 ML VIAL ONE (14:27)
[2017-11-15] MEDS ORDERED: MIDAZOLAM 2 MG/2 ML VIAL IVP ONE (14:33)
[2017-11-15] MEDS ORDERED: LIDOCAINE 1% (PF) 10MG/ML VIAL SQ ONE (14:35)
[2017-11-15 15:09] VITALS: BP 139/70; PULSE 64
--- NOTE | 2017-11-15 15:21 | IR ---
Fluoroscopy HISTORY: PICC line placement 1.6 minutes fluoroscopy time supplied to the referring clinician. 300 intraoperative C-arm images do cument the procedure. See dictated report from vascular surgery.
--- NOTE | 2017-11-15 15:37 | XR ---
EXAMINATION TYPE: XR chest 1V portable DATE OF EXAM: 11/15/2017 COMPARISON: Prior chest x-ray 05/09/2017 HISTORY: Status post sigmoid catheter placement TECHNIQUE: Single frontal view of the chest is obtained. FINDINGS: Right-sided Chiu catheter via jugular approach shows the distal tip overlying superior vena cava. No pneumothorax. Heart is enlarged. Intracardiac defibrillator leads are present in the co ronary sinus, right ventricle. No sizable effusion. Arthropathy noted shoulder on the right, postop c hange the left shoulder. There are overlying cardiac leads. No pleural effusion. IMPRESSION: No evident complication status post venous catheter placement. Cardiomegaly is chronic.
--- NOTE | 2017-11-15 17:03 | CONS ---
DATE OF CONSULTATION: 11/15/2017 This is a 76-year-old gentleman who came for placement of PICC line and could not exchange the PICC line. I was consulted for placement of the long-term Chiu catheter for infusion of medication for his heart. Patient has history of atrial fibrillation, asthma, coronary artery disease, history of congestive heart failure, hyperlipidemia, hypertension, cardiomyopathy. PHYSICAL EXAMINATION: Patient was seen. NECK: Supple. Patient has a pacemaker on the left side. CHEST: Clear on auscultation. ABDOMEN: Soft. Brachial, radial and femoral pulses are present. PLAN: Placement of Medcomp 5-Indian PICC line, ultrasound-guided. MMJAHL / IJN: [id number] / [id number]
--- NOTE | 2017-11-15 19:09 | PCN ---
PROCEDURE NOTE PROCEDURE: Ultrasound-guided 5-English Medcomp dialysis catheter placed, right internal jugular approach. DESCRIPTION OF PROCEDURE: The patient was seen in the laborer/grade check. Right side of the neck and chest was prepped and drapes applied in usual sterile manner. 1% lidocaine was infiltrated in the neck and chest area. Ultrasound-guided micropuncture introduced right jugular vein. Micropuncture guide was passed. Checked under the C-arm, it was in the superior vena cava. After that, a small incision was made in the chest wall and through the tunnel, we brought 5-English Medcomp catheter in the neck incision area. After that, we placed a sheath on the top of the guidewire. Through the sheath, we introduced the catheter. Tip of the catheter in superior vena cava and atrium and flushed with heparin saline. Incision was closed with Vicryl and secured with 3-0 nylon. Dressing applied. Patient tolerated the procedure well. MMODL / IJN: [id number] /
== END 2017-11-15 15:58 | disposition home or self-care (01) ==
LOC: CATHCVL 08:06
PROVIDERS: ATTEND Radiology Diagnostic Radiology
DX: T82.514A Breakdown (mechanical) of infusion catheter, initial encounter (principal); I42.9 Cardiomyopathy, unspecified; I48.91 Unspecified atrial fibrillation; J45.909 Unspecified asthma, uncomplicated; I25.10 Atherosclerotic heart disease of native coronary artery without angina pectoris; I11.0 Hypertensive heart disease with heart failure; I50.9 Heart failure, unspecified; E78.5 Hyperlipidemia, unspecified
CPT/HCPCS: 36558; 36584; 76937; 77001; 71045; C1751 ×3; C1769 ×4; J2250; J2001; 36556; 36569

== ENCOUNTER 2018-08-01 13:04 | Inpatient (IN) | payer MEDICARE, BC ==
--- NOTE | 2018-08-01 13:58 | ED ---
General Adult HPI - General Chief complaint: Shortness of Breath Stated complaint: SOB Time Seen by Provider: 08/01/18 13:11 Source: patient, family, EMS, RN notes reviewed, old records reviewed (Reviewed report from the [facility]) Mode of arrival: EMS Limitations: no limitations - History of Present Illness Initial comments: Patient is a pleasant 77-year-old male transferred from [facility]. Patient went there with complaints of dyspnea. Patient has history of similar symptoms previously associated with congestive heart failure. Patient was diagnosed with congestive heart failure and transferred. Patient does see cardiology here. Patient is on a milrinone drip. Patient states dyspnea is minimal at rest. No chest pain. Dyspnea increases with exertion and lying down. Patient is on Coumadin. - Related Data Home Medications Medication Instructions Recorded Confirmed Ergocalciferol (Vitamin D2) 50,000 unit PO TUTH 10/23/15 08/01/18 [Drisdol] Magnesium Oxide [Mag-Ox] 500 mg PO BID 10/23/15 08/01/18 Allopurinol [Zyloprim] 100 mg PO DAILY 07/21/16 08/01/18 Bumetanide [BUMEX] 2 mg PO DAILY 04/12/17 08/01/18 Ferrous Sulfate [Iron (65 MG 325 mg PO BID 04/12/17 08/01/18 Elemental)] Insulin Aspart [NovoLOG] 30 units SQ ACHS 04/12/17 08/01/18 Insulin Glargine [Lantus] 60 unit SQ HS 04/12/17 08/01/18 Metolazone [Zaroxolyn] 5 mg PO AGOSTO 04/12/17 08/01/18 Levothyroxine Sodium [Synthroid] 88 mcg PO DAILY 05/19/17 08/01/18 Milrinone Drip 1 applicate IV DIRECTED 05/19/17 08/01/18 Warfarin [Coumadin] 5 mg PO HS 11/15/17 08/01/18 Atorvastatin [Lipitor] 80 mg PO HS 08/01/18 08/01/18 Escitalopram [Lexapro] 2.5 mg PO DAILY 08/01/18 08/01/18 Fenofibrate Nanocrystallized 145 mg PO DAILY 08/01/18 08/01/18 [Fenofibrate] Furosemide [Lasix] 40 mg PO DAILY 08/01/18 08/01/18 HYDROcodone/APAP 7.5-325MG [[place] 1 tab PO TID PRN 08/01/18 08/01/18 7.5-325] Potassium Chloride ER [K-Dur 20] 40 meq PO BID 08/01/18 08/01/18 Allergies Allergy/AdvReac Type Severity Reaction Status Date / Time No Known Allergies Allergy Verified 08/01/18 13:50 Review of Systems ROS Statement: Those systems with pertinent positive or pertinent negative responses have been documented in the HPI. ROS Other: All systems not noted in ROS Statement are negative. Constitutional: Denies: fever Eyes: Denies: eye pain ENT: Denies: ear pain Respiratory: Reports: dyspnea. Denies: cough Cardiovascular: Denies: palpitations Endocrine: Reports: fatigue Gastrointestinal: Denies: abdominal pain Genitourinary: Denies: dysuria Musculoskeletal: Denies: back pain Skin: Denies: rash Neurological: Denies: weakness Past Medical History Past Medical History: Atrial Fibrillation, Asthma, Coronary Artery Disease (CAD), Cancer, Heart Failure, Diabetes Mellitus, Eye Disorder, Hyperlipidemia, Hypertension, Osteoarthritis (OA), Prostate Disorder, Pulmonary Embolus (PE), Renal Disease, Thyroid Disorder Additional Past Medical History / Comment(s): cardiomyopathy,HAS PICC LINE RT ARM AND MEDI PUMP WITH MILRINONE STATED BAG WAS CHANGED TODAY AND BATTERIES ALSO, BUT DRESSING TO PICC LINE DID'NT GET CHANGED TODAY AND WAS DUE FOR CHANGE) .O2 2l/nc prn, SOB with exertion, CKD , anemia, L ocular stroke-vision affected, chronic back pain, spinal stenosis, BPH, umbilical hernia,skin cancer ear, See Dr Barros's H&P, Milrione infusion in place History of Any Multi-Drug Resistant Organisms: None Reported Past Surgical History: Back Surgery, Heart Catheterization, Joint Replacement, Orthopedic Surgery, Pacemaker, Tonsillectomy Additional Past Surgical History / Comment(s): BILATERAL TOTAL KNEE , LT SHOULDER REPLACEMENT, COLONOSCOPY,SKIN CANCER REMOVALS,BILATERAL CARPAL TUNNEL RELEASES, CARDIAC CATHS X2, 12/21/16 KAYLEY-BLOOD CLOT IN HEART. PIC line right arm, pacemaker ( [facility] [employer]) 01/2017, CARDIOVERSION Past Anesthesia/Blood Transfusion Reactions: No Reported Reaction Additional Past Anesthesia/Blood Transfusion Reaction / Comment(s): "I came out feeling like I was in another world'-with last cardiac procedure Type of Cardiac Device: Permanent Pacemaker Device Placement Date:: 01/2017 Past Psychological History: No Psychological Hx Reported Smoking Status: Never smoker Past Alcohol Use History: None Reported Past Drug Use History: None Reported - Past Family History Father Family Medical History: Congestive Heart Failure (CHF) Mother Family Medical History: Cancer Additional Family Medical History / Comment(s): Mother had esophageal cancer. General Exam Limitations: no limitations General appearance: alert Head exam: Present: atraumatic, normocephalic Eye exam: Present: normal appearance, PERRL ENT exam: Present: normal oropharynx Neck exam: Present: normal inspection Respiratory exam: Present: normal lung sounds bilaterally Cardiovascular Exam: Present: tachycardia, irregular rhythm GI/Abdominal exam: Present: soft. Absent: tenderness Extremities exam: Present: pedal edema (Trace bilateral). Absent: calf tenderness Neurological exam: Present: alert Psychiatric exam: Present: normal affect, normal mood Skin exam: Present: normal color Course Vital Signs 08/01/18 08/01/18 13:06 13:14 Temperature 98.6 F Pulse Rate 140 H Pulse Rate [ 157 H Apical] Respiratory 18 Rate Blood Pressure 120/74 O2 Sat by Pulse 91 L Oximetry - Reevaluation(s) Reevaluation #1: 08/01/18 14:08 Case was discussed with practitioner Nevaeh bardales, who will come evaluate mireille hancock. Case was also discussed with Dr. Cobb, who will admit covering for Dr. Cosme. Patient and family are aware of plan. EKG Findings - EKG Comments: EKG Findings:: Pacemaker spikes are present. Underlying atrial fibrillation present. Rate is inappropriately red by the EKG. [place] indeterminate. QT 182. QTC 309. Poor R-wave progression. Nonspecific T waves. Disposition Clinical Impression: CHF (congestive heart failure) Disposition: ADMITTED IP TO THIS HOSP Is patient prescribed a controlled substance at d/c from ED?: No Referrals: Toshia Bui DO [Primary Care Provider] - 1-2 days Decision Time: 14:09
[2018-08-01] MEDS ORDERED: ASPIRIN 325 MG TAB PO STA (14:09)
--- NOTE | 2018-08-01 14:30 | XR ---
EXAMINATION TYPE: XR chest 1V portable DATE OF EXAM: 08/01/2018 COMPARISON: 08/01/2018 HISTORY: Shortness of breath, dysrhythmia TECHNIQUE: Single frontal view of the chest is obtained. FINDINGS: Cardiac device appears stable and there is a right-sided central venous catheter. Heart is enlarged there subsegmental basilar changes. No pneumothorax. Postsurgical change left shoulder and arthropathy IMPRESSION: 1. Cardiomegaly with basilar atelectasis or infiltrate correlate clinically.
[2018-08-01 14:40] LABS: Basophils % (A) 0 %; Eosinophils % (A) 0 %; HCT 44.1 % (39.0-53.0); HGB 14.1 gm/dL (13.0-17.5); Lymphocytes # (A) 1.1 k/uL (1.0-4.8); Lymphocytes % (A) 12 %; MCH 31.3 pg (25.0-35.0); Mean Platelet Volume 7.5; Monocytes # (A) 0.8 k/uL (0-1.0); Monocytes % (A) 8 %; Neutrophils # (A) 7.8 k/uL (1.3-7.7); Neutrophils % (A) 78 %; Platelet Count 190 k/uL (150-450); RDW 14.8 % (11.5-15.5)
[2018-08-01 14:49] LABS: Partial Thromboplastin Time 33.8 sec (22.0-30.0); Prothrombin Time 28.6 sec (9.0-12.0)
[2018-08-01 14:53] LABS: Albumin 4.3 g/dL (3.5-5.0); Calcium 9.3 mg/dL (8.4-10.2); Magnesium 2.1 mg/dL (1.6-2.3); Potassium 4.5 mmol/L (3.5-5.1); Total Bilirubin 1.4 mg/dL (0.2-1.3); Total Protein 7.5 g/dL (6.3-8.2)
[2018-08-01 15:10] LABS: T4, Free (Free Thyroxine) 1.63 ng/dL (0.78-2.19)
[2018-08-01] MEDS ORDERED: HYDROcodone/APAP 7.5-325MG 1 EACH TAB PO PRN (15:45)
--- NOTE | 2018-08-01 16:01 | P.HPIM ---
History of Present Illness H&P Date: 08/01/18 This is of 77-year-old male patient of Dr. Bui. Patient presented as a transfer from [facility]. Patient presented to the hospital with complaints of increased shortness of breath related to his congestive heart failure. Patient was transferred to be seen by cardiology services. Patient is maintained on milrinone drip that patient states is managed by cardiology services. Patient reports that has had increased shortness of breath along with increased fluid retention and abdomen and legs. Patient has past medical history of atrial fibrillation which she is maintained on Coumadin, asthma, coronary artery disease, cancer, heart failure, diabetes mellitus, high disorde r, hyperlipidemia, hypertension, osteoarthritis, prostate disorder, pulmonary embolism, renal disease, hypothyroidism, cardiomyopathy, PICC line with milironine fusion managed by cardiology, chronic kidney disease, BPH and pacemaker placement. Chest x-ray completed showing cardiomegaly with basilar atelectasis and infiltrate correlate clinically. Patient started on IV Lasix. Pulmonary and cardiology services have been consulted. At this time patient is resting comfortably in chair. Patient does complain of increased shortness of breath. Patient denies chest pain. Patient denies nausea vomiting or diarrhea. Patient denies any urinary burning or frequency. Review of Systems please refer to HPI otherwise unremarkable Past Medical History Past Medical History: Atrial Fibrillation, Asthma, Coronary Artery Disease (CA D), Cancer, Heart Failure, Diabetes Mellitus, Eye Disorder, Hyperlipidemia, Hypertension, Osteoarthritis (OA), Prostate Disorder, Pulmonary Embolus (PE), Renal Disease, Thyroid Disorder Additional Past Medical History / Comment(s): cardiomyopathy,HAS PICC LINE RT ARM AND MEDI PUMP WITH MILRINONE STATED BAG WAS CHANGED TODAY AND BATTERIES ALSO, BUT DRESSING TO PICC LINE DID'NT GET CHANGED TODAY AND WAS DUE FOR CHANGE) .O2 2l/nc prn, SOB with exertion, CKD , anemia, L ocular stroke-vision affected, chronic back pain, spinal stenosis, BPH, umbilical hernia,skin cancer ear, See Dr Barros's H&P, Milrione infusion in place History of Any Multi-Drug Resistant Organisms: None Reported Past Surgical History: Back Surgery, Heart Catheterization, Joint Replacement, Orthopedic Surgery, Pacemaker, Tonsillectomy Additional Past Surgical History / Comment(s): BILATERAL TOTAL KNEE , LT SHOULDER REPLACEMENT, COLONOSCOPY,SKIN CANCER REMOVALS,BILATERAL CARPAL TUNNEL RELEASES, CARDIAC CATHS X2, 12/21/16 [place]-BLOOD CLOT IN HEART. PIC line right arm, pacemaker ( [employer]) 01/2017, CARDIOVERSION Past Anesthesia/Blood Transfusion Reactions: No Reported Reaction Additional Past Anesthesia/Blood Transfusion Reaction / Comment(s): "I came out feeling like I was in another world'-with last cardiac procedure Type of Cardiac Device: Permanent Pacemaker Device Placement Date:: 01/2017 Past Psychological History: No Psychological Hx Reported Smoking Status: Never smoker Past Alcohol Use History: None Reported Past Drug Use History: None Reported - Past Family History Father Family Medical History: Congestive Heart Failure (CHF) Mother Family Medical History: Cancer Additional Family Medical History / Comment(s): Mother had esophageal cancer. Medications and Allergies Home Medications Medication Instructions Recorded Confirmed Type Ergocalciferol (Vitamin D2) 50,000 unit PO TUTH 10/23/15 08/01/18 History [Drisdol] Magnesium Oxide [Mag-Ox] 500 mg PO BID 10/23/15 08/01/18 History Allopurinol [Zyloprim] 100 mg PO DAILY 07/21/16 08/01/18 History Bumetanide [BUMEX] 2 mg PO DAILY 04/12/17 08/01/18 History Ferrous Sulfate [Iron (65 MG 325 mg PO BID 04/12/17 08/01/18 History Elemental)] Insulin Aspart [NovoLOG] 30 units SQ ACHS 04/12/17 08/01/18 History Insulin Glargine [Lantus] 60 unit SQ HS 04/12/17 08/01/18 History Metolazone [Zaroxolyn] 5 mg PO AGOSTO 04/12/17 08/01/18 History Levothyroxine Sodium [Synthroid] 88 mcg PO DAILY 05/19/17 08/01/18 History Milrinone Drip 1 applicate IV DIRECTED 05/19/17 08/01/18 History Warfarin [Coumadin] 5 mg PO HS 11/15/17 08/01/18 History Atorvastatin [Lipitor] 80 mg PO HS 08/01/18 08/01/18 History Escitalopram [Lexapro] 2.5 mg PO DAILY 08/01/18 08/01/18 History Fenofibrate Nanocrystallized 145 mg PO DAILY 08/01/18 08/01/18 History [Fenofibrate] Furosemide [Lasix] 40 mg PO DAILY 08/01/18 08/01/18 History HYDROcodone/APAP 7.5-325MG [[place] 1 tab PO TID PRN 08/01/18 08/01/18 History 7.5-325] Potassium Chloride ER [K-Dur 20] 40 meq PO BID 08/01/18 08/01/18 History Allergies Allergy/AdvReac Type Severity Reaction Status Date / Time No Known Allergies Allergy Verified 08/01/18 13:50 Physical Exam Vitals: Vital Signs Temp Pulse Pulse Resp BP Pulse Ox 08/01/18 13:40 106 H 37 H 120/74 97 08/01/18 13:30 86 18 120/74 97 08/01/18 13:20 89 18 95 08/01/18 13:14 157 H 08/01/18 13:10 92 L 08/01/18 13:06 98.6 F 140 H 18 120/74 91 L Intake and Output 08/01/18 08/01/18 08/01/18 06:59 14:59 22:59 Other: Weight 104.326 kg Head normocephalic Neck supple Lungs diminished bilaterally Heart regular rate and rhythm S1-S2, no rub or gallop Abdomen is soft nontender nondistended positive bowel sounds no hepatosplenomegaly Extremities +1 lower extremity edema increased abdominal edema Neuro alert and orientated to 3 Results CBC & Chem 7: 08/01/18 14:13 08/01/18 14:13 Labs: Abnormal Lab Results - Last 24 Hours (Table) 08/01/18 08/01/18 08/01/18 Range/Units 14:13 14:13 14:13 Neutrophils # 7.8 H (1.3-7.7) k/uL PT 28.6 H (9.0-12.0) sec INR 3.0 H (<1.2) APTT 33.8 H (22.0-30.0) sec Chloride 96 L (98-107) mmol/L Carbon Dioxide 36 H (22-30) mmol/L BUN 71 H (9-20) mg/dL Creatinine 1.57 H (0.66-1.25) mg/dL Glucose 150 H (74-99) mg/dL Total Bilirubin 1.4 H (0.2-1.3) mg/dL Troponin I (0.000-0.034) ng/mL Free T3 pg/mL 2.5 L (2.8-5.3) pg/ml 08/01/18 Range/Units 14:13 Neutrophils # (1.3-7.7) k/uL PT (9.0-12.0) sec INR (<1.2) APTT (22.0-30.0) sec Chloride (98-107) mmol/L Carbon Dioxide (22-30) mmol/L BUN (9-20) mg/dL Creatinine (0.66-1.25) mg/dL Glucose (74-99) mg/dL Total Bilirubin (0.2-1.3) mg/dL Troponin I 0.260 H* (0.000-0.034) ng/mL Free T3 pg/mL (2.8-5.3) pg/ml Assessment and Plan Assessment: 1. Dyspnea related to Acute on chronic systolic congestive heart failure. P atient is maintained on milrinone drip managed by cardiology. BNP elevated at 11,600 IV Lasix has been added. Cardiology consult placed 2. Possible pneumonia. Chest x-ray completed showing cardiomegaly with basilar atelectasis or infiltrate correlate clinically. On a services have been consul richie. Patient is afebrile with blood cell within normal limits 3. Chronic persistent Atrial fibrillation. Patient maintained on Coumadin. INR 3.0 home dose of Coumadin ordered for tomorrow. Daily PT/INRs ordered 4. History of diabetes mellitus type 2. Home medications have been ordered 5. History of essential hypertension 6. History of hyperlipidemia 7. Acute on chronic renal disease. Nephrology services have been consulted due to patient being on multiple diuretics. We'll continue to monitor 8. Underlying history of coronary artery disease 9. History of asthma 10. History of BPH 11. History of hypothyroidism. Home dose of Synthroid reordered 12. 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 Elevated ammonia level. Patient's reports that patient had elevated ammonia level outpatient was treated with lactulose repeat level has been ordered for a.m. DVT prophylaxis Coumadin. GI prophylaxis Protonix Cardiology, nephrology and pulmonary services have been consulted Time with Patient: Greater than 30 (Greater than 60% of the total time spent in counseling and coordination of care. I performed an examination of the patient and discussed their management with the Nurse Practitioner. I have reviewed the Nurse Practitioner's notes and agree with the documented findings and plan of care)
[2018-08-01 16:17] LABS: Glucose,Whole Blood 181 mg/dL (75-99)
[2018-08-01] MEDS: FUROSEMIDE 10 MG/ML 4 ML VIAL IV SCH ×2 (17:26→23:15)
[2018-08-01] MEDS: INSULIN ASPART (NovoLOG) 100 UNIT/ML VIAL SQ SCH ×2 (17:26→20:11)
[2018-08-01] MEDS: NITROGLYCERIN OINT 1 INCH/GM PACKET TOPICAL SCH ×2 (17:27→21:29)
[2018-08-01] MEDS: MILRINONE IV SCH (20:04)
[2018-08-01] MEDS: FERROUS SULFATE 325 MG TAB PO SCH (20:21)
[2018-08-01] MEDS: MAGNESIUM OXIDE 400 MG TAB PO SCH (20:21)
[2018-08-01] MEDS: ATORVASTATIN 80 MG TAB PO SCH (20:21)
[2018-08-01 21:08] LABS: Glucose,Whole Blood 147 mg/dL (75-99)
[2018-08-01] MEDS: INSULIN DETEMIR (LEVEMIR) 100 UNIT/ML SYR SQ SCH (21:26)
[2018-08-02 05:21] LABS: Glucose,Whole Blood 96 mg/dL (75-99)
[2018-08-02] MEDS: LEVOTHYROXINE 88 MCG TAB PO SCH (05:59)
[2018-08-02] MEDS: FUROSEMIDE 10 MG/ML 4 ML VIAL IV SCH (05:59)
[2018-08-02] MEDS: PANTOPRAZOLE 40 MG TABLET PO SCH (05:59)
[2018-08-02 06:28] LABS: Glucose,Whole Blood 153 mg/dL (75-99)
[2018-08-02] MEDS: INSULIN ASPART (NovoLOG) 100 UNIT/ML VIAL SQ SCH ×4 (07:10→20:31)
[2018-08-02 07:33] LABS: INR 2.6 (<1.2); Prothrombin Time 25.3 sec (9.0-12.0)
[2018-08-02 07:50] LABS: Albumin 4.6 g/dL (3.5-5.0); Calcium 9.5 mg/dL (8.4-10.2); Potassium 4.4 mmol/L (3.5-5.1); Total Bilirubin 1.8 mg/dL (0.2-1.3)
[2018-08-02 08:15] LABS: Anisocytosis Slight; Basophils % (A) 0 %; Eosinophils % (A) 0 %; HCT 47.6 % (39.0-53.0); HGB 14.9 gm/dL (13.0-17.5); Lymphocytes # (A) 1.5 k/uL (1.0-4.8); Lymphocytes % (A) 15 %; MCH 30.9 pg (25.0-35.0); MCHC 31.3 g/dL (31.0-37.0); MCV 98.6 fL (80.0-100.0); Macrocytosis Slight; Mean Platelet Volume 8.2; Monocytes # (A) 0.7 k/uL (0-1.0); Monocytes % (A) 7 %; Neutrophils # (A) 8.1 k/uL (1.3-7.7); Neutrophils % (A) 77 %; Platelet Count 180 k/uL (150-450); RBC 4.83 m/uL (4.30-5.90); RDW 16.4 % (11.5-15.5); WBC 10.6 k/uL (3.8-10.6)
--- NOTE | 2018-08-02 08:54 | P.CRDCN ---
History of Present Illness Consult date: 08/02/18 Requesting physician: Renan Cobb Consult reason: congestive heart failure Chief complaint: Shortness of breath History of present illness: This is a 77-year-old gentleman who follows regularly with Dr. Olmstead in the office. He has history of hyperlipidemia, hypertension, diabetes, family history of premature coronary artery disease, and has undergone 2 heart catheterizations in the past, one in 2011 which revealed normal coronary arteries and again in 2016 which revealed a 20% mid LAD lesion. Patient also has nonischemic cardiomyopathy, persistent atrial fibrillation, prior pulmonary embolism, hypothyroidism, he also currently has a PICC line in place with a continuous milrinone infusion initiated at [facility] heart failure clinic, prior AICD implantation, chronic kidney disease. Most of the history was obtained from the as the patient is quite sleepy this morning. According to her, couple of weeks ago patient had been starting to get extremely tired, sleepy and weak. She did go to see Dr. Bajwa primary doctor, some lab tests were obtained, his ammonia level came back quite elevated. He was started on some medication to improve the ammonia level, and he was also weaned off his [place] which she has been taking for over 30 years. Subsequent to that the p atient became short of breath, and started to notice swelling in his abdomen and ultimately in his lower extremities. Patient felt that the symptoms were likely related to coming off [place] and refused to go to the hospital. He went to [facility] to have some lab draws obtained, and nurse assessed him there and found the patient to be in congestive heart failure, hence the patient was transferred here for further evaluation and treatment. S x-ray on arrival here showed cardiomegaly with basilar atelectasis. EKG shows a paced rhythm with underlying atrial flutter. Blood pressure on arrival here 120/70, heart rate 140, 91% on room air. Blood pressure this morning 148/70 with a heart rate in the 60s, temperature 98.6 he is 97% on 2 L of oxygen. White blood cell count 10.6, hemoglobin 14.9, platelet count 180, ProTime 25.3 with an INR of 2.6. Sodium 144, potassium 4.4, BUN 83 and creatinine 1.9, BUN yesterday was 71 and the creatinine was 1.5. BNP level on admission here 11,600, TSH 1.9, troponin 0.26 at the time of my examination this morning, patient is very sleepy, he does state that his breathing has significantly improved since arrival here. He was initiated on IV Lasix in the emergency room and his weight today is down 3 kg from admission. Past Medical History Past Medical History: Atrial Fibrillation, Asthma, Coronary Artery Disease (CAD), Cancer, Heart Failure, Diabetes Mellitus, Eye Disorder, Hyperlipidemia, Hypertension, Osteoarthritis (OA), Prostate Disorder, Pulmonary Embolus (PE), Renal Disease, Thyroid Disorder Additional Past Medical History / Comment(s): cardiomyopathy,HAS PICC LINE RT ARM AND MEDI PUMP WITH MILRINONE STATED BAG WAS CHANGED TODAY AND BATTERIES ALSO, BUT DRESSING TO PICC LINE DID'NT GET CHANGED TODAY AND WAS DUE FOR CHANGE) .O2 2l/nc prn, SOB with exertion, CKD , anemia, L ocular stroke-vision affected, chronic back pain, spinal stenosis, BPH, umbilical hernia,skin cancer ear, See Dr Barros's H&P, Milrione infusion in place History of Any Multi-Drug Resistant Organisms: None Reported Past Surgical History: Back Surgery, Heart Catheterization, Joint Replacement, Orthopedic Surgery, Pacemaker, Tonsillectomy Additional Past Surgical History / Comment(s): BILATERAL TOTAL KNEE , LT SHOULDER REPLACEMENT, COLONOSCOPY,SKIN CANCER REMOVALS,BILATERAL CARPAL TUNNEL RELEASES, CARDIAC CATHS X2, 12/21/16 [place]-BLOOD CLOT IN HEART. PIC line right arm, pacemaker ( [employer]) 01/2017, CARDIOVERSION Past Anesthesia/Blood Transfusion Reactions: No Reported Reaction Additional Past Anesthesia/Blood Transfusion Reaction / Comment(s): "I came out feeling like I was in another world'-with last cardiac procedure Type of Cardiac Device: Permanent Pacemaker Device Placement Date:: 01/2017 Past Psychological History: No Psychological Hx Reported Smoking Status: Never smoker Past Alcohol Use History: None Reported Past Drug Use History: None Reported - Past Family History Father Family Medical History: Congestive Heart Failure (CHF) Mother Family Medical History: Cancer Additional Family Medical History / Comment(s): Mother had esophageal cancer. Medications and Allergies Home Medications Medication Instructions Recorded Confirmed Type Ergocalciferol (Vitamin D2) 50,000 unit PO TUTH 10/23/15 08/01/18 History [Drisdol] Magnesium Oxide [Mag-Ox] 500 mg PO BID 10/23/15 08/01/18 History Allopurinol [Zyloprim] 100 mg PO DAILY 07/21/16 08/01/18 History Bumetanide [BUMEX] 2 mg PO DAILY 04/12/17 08/01/18 History Ferrous Sulfate [Iron (65 MG 325 mg PO BID 04/12/17 08/01/18 History Elemental)] Insulin Aspart [NovoLOG] 30 units SQ ACHS 04/12/17 08/01/18 History Insulin Glargine [Lantus] 60 unit SQ HS 04/12/17 08/01/18 History Metolazone [Zaroxolyn] 5 mg PO AGOSTO 04/12/17 08/01/18 History Levothyroxine Sodium [Synthroid] 88 mcg PO DAILY 05/19/17 08/01/18 History Milrinone Drip 1 applicate IV DIRECTED 05/19/17 08/01/18 History Warfarin [Coumadin] 5 mg PO HS 11/15/17 08/01/18 History Atorvastatin [Lipitor] 80 mg PO HS 08/01/18 08/01/18 History Escitalopram [Lexapro] 2.5 mg PO DAILY 08/01/18 08/01/18 History Fenofibrate Nanocrystallized 145 mg PO DAILY 08/01/18 08/01/18 History [Fenofibrate] Furosemide [Lasix] 40 mg PO DAILY 08/01/18 08/01/18 History HYDROcodone/APAP 7.5-325MG [[place] 1 tab PO TID PRN 08/01/18 08/01/18 History 7.5-325] Potassium Chloride ER [K-Dur 20] 40 meq PO BID 08/01/18 08/01/18 History Allergies Allergy/AdvReac Type Severity Reaction Status Date / Time No Known Allergies Allergy Verified 08/01/18 13:50 Physical Exam Vitals: Vital Signs Temp Pulse Pulse Resp BP BP Pulse Ox 08/02/18 03:48 60 18 08/02/18 03:42 98.6 F 60 18 148/79 97 08/02/18 00:00 61 17 133/82 96 08/01/18 20:39 96 08/01/18 20:00 98.2 F 60 17 127/64 95 08/01/18 18:00 98.5 F 60 18 127/66 93 L 08/01/18 13:40 106 H 37 H 120/74 97 08/01/18 13:30 86 18 120/74 97 08/01/18 13:20 89 18 95 08/01/18 13:14 157 H 08/01/18 13:10 92 L 08/01/18 13:06 98.6 F 140 H 18 120/74 91 L Intake and Output 08/01/18 08/02/18 08/02/18 22:59 06:59 14:59 Intake Total 320 540 Output Total 400 800 Balance -80 -260 Intake: IV 20 40 Invasive Line 1 10 20 Invasive Line 2 10 20 Oral 300 500 Output: Urine 400 800 Other: Voiding Method Urinal Toilet Urinal # Bowel Movements 1 Weight 101.5 kg PHYSICAL EXAMINATION: GENERAL: 77-year-old gentleman in no acute distress at the time of my examination HEENT: Head is atraumatic, normocephalic. Pupils equal, round. Sclera anicteric. Conjunctiva are clear. Mucous membranes of the mouth are moist. Neck is supple. There is elevated jugular venous pressure. No carotid bruit is heard. HEART EXAMINATION: Heart S1 and S2 irregularly irregular a systolic ejection murmur is heard at the apex CHEST EXAMINATION: Lungs reveal diminished air entry to bilateral bases ABDOMEN: [ Soft, obese, nontender. Bowel sounds are heard. Positive hepatomegaly EXTREMITIES: 2+ peripheral pulses with 1+ evidence of peripheral edema and no calf tenderness noted. NEUROLOGIC patient is awake, alert and oriented 3 . Results 08/02/18 07:11 08/02/18 07:11 Cardiac Enzymes 08/01/18 08/01/18 08/02/18 Range/Units 14:13 14:13 07:11 AST 50 45 (17-59) U/L Troponin I 0.260 H* (0.000-0.034) ng/mL Coagulation 08/01/18 08/02/18 Range/Units 14:13 07:11 PT 28.6 H 25.3 H (9.0-12.0) sec APTT 33.8 H (22.0-30.0) sec CBC 08/01/18 08/02/18 Range/Units 14:13 07:11 WBC 10.0 10.6 (3.8-10.6) k/uL RBC 4.50 4.83 (4.30-5.90) m/uL Hgb 14.1 14.9 (13.0-17.5) gm/dL Hct 44.1 47.6 (39.0-53.0) % Plt Count 190 180 (150-450) k/uL Comprehensive Metabolic Panel 08/01/18 08/02/18 Range/Units 14:13 07:11 Sodium 140 144 (137-145) mmol/L Potassium 4.5 4.4 (3.5-5.1) mmol/L Chloride 96 L 94 L (98-107) mmol/L Carbon Dioxide 36 H 40 H (22-30) mmol/L BUN 71 H 83 H (9-20) mg/dL Creatinine 1.57 H 1.93 H (0.66-1.25) mg/dL Glucose 150 H 118 H (74-99) mg/dL Calcium 9.3 9.5 (8.4-10.2) mg/dL AST 50 45 (17-59) U/L ALT 28 24 (21-72) U/L Alkaline Phosphatase 62 69 (38-126) U/L Total Protein 7.5 8.0 (6.3-8.2) g/dL Albumin 4.3 4.6 (3.5-5.0) g/dL Current Medications Generic Name Dose Route Start Last Admin Trade Name Freq PRN Reason Stop Dose Admin Hydrocodone Bitart/Acetaminophen 1 each 08/01/18 15:45 [place] 7.5-325 PO TID PRN MODERATE Pain Allopurinol 100 mg 08/02/18 09:00 Zyloprim PO DAILY [facility] Aspirin 325 mg 08/02/18 12:00 Aspirin PO DAILY [facility] Atorvastatin Calcium 80 mg 08/01/18 21:00 08/01/18 20:21 Lipitor PO Not Given HS [facility] Ergocalciferol 50,000 unit 08/02/18 09:00 Vitamin D2 PO TUTH [facility] Escitalopram Oxalate 2.5 mg 08/02/18 09:00 Lexapro PO DAILY [facility] Fenofibrate 160 mg 08/02/18 09:00 Lofibra PO DAILY [facility] Ferrous Sulfate 325 mg 08/01/18 21:00 08/01/18 20:21 Feosol PO 325 mg BID [facility] Administration Furosemide 40 mg 08/01/18 15:00 08/02/18 05:59 Lasix IV 40 mg Q8H [facility] Administration Insulin Aspart 30 unit 08/01/18 17:30 08/02/18 07:10 Novolog SQ 10 unit ACHS [facility] Administration Insulin Detemir 60 unit 08/01/18 21:00 08/01/18 21:26 Levemir SQ 40 unit HS [facility] Administration Levothyroxine Sodium 88 mcg 08/02/18 06:30 08/02/18 05:59 Synthroid PO 88 mcg DAILY@0630 [facility] Administration Magnesium Oxide 400 mg 08/01/18 21:00 08/01/18 20:21 Mag-Ox PO 400 mg BID [facility] Administration Metolazone 5 mg 08/05/18 09:00 Zaroxolyn PO AGOSTO [facility] Nitroglycerin 1 inch 08/01/18 18:00 08/01/18 21:29 Nitro-Bid Oint TOPICAL 1 inch QID [facility] Administration Patient's Own ( 1 applicate 08/01/18 17:00 08/01/18 20:04 Milrinone Drip 1 IV Not Given Applicate) DIRECTED [facility] Pantoprazole Sodium 40 mg 08/02/18 07:30 08/02/18 05:59 Protonix PO 40 mg [id number] [facility] Administration Sodium Chloride 10 ml 08/01/18 21:00 08/01/18 20:21 Saline Flush IV 10 ml BID [facility] Administration Warfarin Sodium 5 mg 08/02/18 18:00 Coumadin PO 1800 [facility] Intake and Output 08/01/18 08/02/18 08/02/18 22:59 06:59 14:59 Intake Total 320 540 Output Total 400 800 Balance -80 -260 Intake: IV 20 40 Invasive Line 1 10 20 Invasive Line 2 10 20 Oral 300 500 Output: Urine 400 800 Other: Voiding Method Urinal Toilet Urinal # Bowel Movements 1 Weight 101.5 kg 08/02/18 07:11 08/02/18 07:11 EKG Interpretations (text) EKG shows a paced rhythm with underlying atrial flutter, typical Assessment and Plan Plan: Assessment and plan #1 systolic congestive heart failure acute on chronic, on chronic milrinone infusion #2 nonischemic cardiomyopathy with prior AICD implantation #3 hypertension #4 diabetes #5 hyperlipidemia #6 hypothyroidism #7 acute on chronic kidney disease #8 abnormal troponin, likely secondary to kidney disease #9 prior PE #10 chronic persistent atrial fibrillation/flutter, on Coumadin for anticoagulation, INR 2.6 Plan We will obtain an echocardiogram with Doppler study. Discontinue aspirin. Continue Coumadin, Lipitor, IV Lasix, monitoring intake and output, lytes BUN and creatinine daily, continue Zaroxolyn once every week. Further recommendations to follow. DNP note has been reviewed, I agree with a documented findings and plan of care. Patient was seen and examined.
[2018-08-02] MEDS ORDERED: BUMETANIDE 1 MG TAB PO SCH (09:00)
[2018-08-02] MEDS ORDERED: ERGOCALCIFEROL 50,000 UNIT CAP PO SCH (09:00)
[2018-08-02] MEDS: MAGNESIUM OXIDE 400 MG TAB PO SCH ×2 (10:03→20:30)
[2018-08-02] MEDS: FENOFIBRATE 160 MG TAB PO SCH (10:03)
[2018-08-02] MEDS: FERROUS SULFATE 325 MG TAB PO SCH ×2 (10:03→20:30)
[2018-08-02] MEDS: ESCITALOPRAM 5 MG TAB PO SCH ×2 (10:03→10:09)
[2018-08-02] MEDS: ALLOPURINOL 100 MG TAB PO SCH (10:03)
[2018-08-02] MEDS: NITROGLYCERIN OINT 1 INCH/GM PACKET TOPICAL SCH ×4 (10:04→20:31)
[2018-08-02] MEDS ORDERED: BUMETANIDE 10 MG in DEXTROSE 5% IN WATER 100 ML IV SCH ×4 (11:00)
[2018-08-02 11:15] LABS: Glucose,Whole Blood 79 mg/dL (75-99)
--- NOTE | 2018-08-02 11:38 | P.PN ---
Subjective Progress Note Date: 08/02/18 This is of 77-year-old male patient of Dr. Bui. Patient presented as a transfer from [facility]. Patient presented to the hospital with complaints of increased shortness of breath related to his congestive heart failure. Patient was transferred to be seen by cardiology services. Patient is maintained on milrinone drip that patient states is managed by cardiology services. Patient reports that has had increased shortness of breath along with increased fluid retention and abdomen and legs. Patient has past medical history of atrial fibrillation which she is maintained on Coumadin, asthma, coronary artery disease, cancer, heart failure, diabetes mellitus, high disorder, hyperlipidemia, hypertension, osteoarthritis, prostate disorder, pulmonary embolism, renal disease, hypothyroidism, cardiomyopathy, PICC line with milironine fusion managed by cardiology, chronic kidney disease, BPH and pacemaker placement. Chest x-ray completed showing cardiomegaly with basilar atelectasis and infiltrate correlate clinically. Patient started on IV Lasix. Pulmonary and cardiology services have been consulted. At this time patient is resting comfortably in chair. Patient does complain of increased shortness of breath. Patient denies chest pain. Patient denies nausea vomiting or diarrhea. Patient denies any urinary burning or frequency. On 08/02/2018 patient is alert and oriented 3. at bedside. Patient currently receiving 2-D echo. Patient has had a significant weight loss since yesterday. Patient remains on IV Lasix. Discussed with cardiology services h ome meds of Lasix and Bumex along with milirone drip. Patient's INR 2.60 continue Coumadin at home dose. Creatinine increasing to 1.93 but 83. At this time patient denies chest pain. Soreness breath is improving. Patient denies nausea vomiting or diarrhea. Patient denies any urinary burning or frequency. Objective - Vital Signs Vital signs: Vital Signs Temp 97.8 F 08/02/18 09:40 Pulse 60 08/02/18 09:40 Resp 16 08/02/18 09:40 BP 114/70 08/02/18 09:40 Pulse Ox 94 L 08/02/18 09:40 Intake & Output 08/01/18 08/02/18 08/02/18 18:59 06:59 18:59 Intake Total 860 240 Output Total 1200 Balance -340 240 Weight 104.326 kg 101.5 kg Intake: IV 60 Invasive Line 1 30 Invasive Line 2 30 Oral 800 240 Output: Urine 1200 Other: Voiding Method Toilet Urinal # Bowel Movements 1 - Exam Head normocephalic Neck supple Lungs diminished bilaterally Heart regular rate and rhythm S1-S2, no rub or gallop Abdomen is soft nontender nondistended positive bowel sounds no hepatosplenomegaly Extremities +1 lower extremity edema increased abdominal edema Neuro alert and orientated to 3 - Labs CBC & Chem 7: 08/02/18 07:11 08/02/18 07:11 Labs: Abnormal Lab Results - Last 24 Hours (Table) 08/01/18 08/01/18 08/01/18 Range/Units 14:13 14:13 14:13 RDW (11.5-15.5) % Neutrophils # 7.8 H (1.3-7.7) k/uL PT 28.6 H (9.0-12.0) sec INR 3.0 H (<1.2) APTT 33.8 H (22.0-30.0) sec Chloride 96 L (98-107) mmol/L Carbon Dioxide 36 H (22-30) mmol/L BUN 71 H (9-20) mg/dL Creatinine 1.57 H (0.66-1.25) mg/dL Glucose 150 H (74-99) mg/dL POC Glucose (mg/dL) (75-99) mg/dL Total Bilirubin 1.4 H (0.2-1.3) mg/dL Troponin I (0.000-0.034) ng/mL Free T3 pg/mL 2.5 L (2.8-5.3) pg/ml 08/01/18 08/01/18 08/01/18 Range/Units 14:13 16:15 21:06 RDW (11.5-15.5) % Neutrophils # (1.3-7.7) k/uL PT (9.0-12.0) sec INR (<1.2) APTT (22.0-30.0) sec Chloride (98-107) mmol/L Carbon Dioxide (22-30) mmol/L BUN (9-20) mg/dL Creatinine (0.66-1.25) mg/dL Glucose (74-99) mg/dL POC Glucose (mg/dL) 181 H 147 H (75-99) mg/dL Total Bilirubin (0.2-1.3) mg/dL Troponin I 0.260 H* (0.000-0.034) ng/mL Free T3 pg/mL (2.8-5.3) pg/ml 08/02/18 08/02/18 08/02/18 Range/Units 06:26 07:11 07:11 RDW 16.4 H (11.5-15.5) % Neutrophils # 8.1 H (1.3-7.7) k/uL PT (9.0-12.0) sec INR (<1.2) APTT (22.0-30.0) sec Chloride 94 L (98-107) mmol/L Carbon Dioxide 40 H (22-30) mmol/L BUN 83 H (9-20) mg/dL Creatinine 1.93 H (0.66-1.25) mg/dL Glucose 118 H (74-99) mg/dL POC Glucose (mg/dL) 153 H (75-99) mg/dL Total Bilirubin 1.8 H (0.2-1.3) mg/dL Troponin I (0.000-0.034) ng/mL Free T3 pg/mL (2.8-5.3) pg/ml 08/02/18 Range/Units 07:11 RDW (11.5-15.5) % Neutrophils # (1.3-7.7) k/uL PT 25.3 H (9.0-12.0) sec INR 2.6 H (<1.2) APTT (22.0-30.0) sec Chloride (98-107) mmol/L Carbon Dioxide (22-30) mmol/L BUN (9-20) mg/dL Creatinine (0.66-1.25) mg/dL Glucose (74-99) mg/dL POC Glucose (mg/dL) (75-99) mg/dL Total Bilirubin (0.2-1.3) mg/dL Troponin I (0.000-0.034) ng/mL Free T3 pg/mL (2.8-5.3) pg/ml Assessment and Plan Assessment: 1. Dyspnea related to Acute on chronic systolic congestive heart failure. Patient is maintained on milrinone drip managed by cardiology. BNP elevated at 11,600 IV Lasix has been added. Cardiology consult placed 2. Possible pneumonia. Chest x-ray completed showing cardiomegaly with basilar atelectasis or infiltrate correlate clinically. On a services have been consulted. Patient is afebrile with blood cell within normal limits 3. Chronic persistent Atrial fibrillation. Patient maintained on Coumadin. INR 3.0 home dose of Coumadin ordered for tomorrow. Daily PT/INRs ordered 4. History of diabetes mellitus type 2. Home medications have been ordered 5. History of essential hypertension 6. History of hyperlipidemia 7. Acute on chronic renal disease. Nephrology services have been consulted due to patient being on multiple diuretics. We'll continue to monitor 8. Underlying history of coronary artery disease 9. History of asthma 10. History of BPH 11. History of hypothyroidism. Home dose of Synthroid reordered 12. 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 Elevated ammonia level. Patient's reports that patient had elevated ammonia level outpatient was treated with lactulose repeat level has been ordered for a.m. ammonia level 23 14. Elevated troponin. Per cardiology likely secondary to kidney disease DVT prophylaxis Coumadin. GI prophylaxis Protonix Cardiology, nephrology and pulmonary services have been consulted I performed an examination of the patient and discussed their management with the Nurse Practitioner. I have reviewed the Nurse Practitioner's notes and agree with the documented findings and plan of care
[2018-08-02] MEDS ORDERED: ASPIRIN 325 MG TAB PO SCH (12:00)
--- NOTE | 2018-08-02 13:04 | ECHOF ---
Referral Reason:chf MEASUREMENTS -------- HEIGHT: 180.3 cm WEIGHT: 101.2 kg BP: 148/79 RVIDd: 3.0 cm (< 3.3) IVSd: 1.5 cm (0.6 - 1.1) LVIDd: 6.2 cm (3.9 - 5.3) LVPWd: 1.2 cm (0.6 - 1.1) IVSs: 1.9 cm LVIDs: 5.1 cm LVPWs: 1.4 cm Ao Diam: 3.9 cm (2.0 - 3.7) AV Cusp: 1.3 cm (1.5 - 2.6) LA Diam: 4.7 cm (2.7 - 3.8) EPSS: 1.3 cm RAP: 5.00 mmHg RVSP: 57.53 mmHg MV EF SLOPE: 72.11 mm/s (70 - 150) MV EXCURSION: 1.27 cm (> 18.000) FINDINGS -------- Atrial fibrillation. Pacerwire seen in RV and RA. This was a technically difficult study with suboptimal views. The left ventricle is severely dilated. There is moderate concentric left ventricular hypertrophy. There is severe global hypokinesis of LV . Overall left ventricular systolic function is severely impaired with, an EF between 20 - 25 %. The right ventricular systolic function is mildly impaired. The left atrium is moderately dilated. The right atrial size is normal. Lumason used Interatrial and interventricular septum intact. There is moderate aortic valve sclerosis. Mild mitral annular calcification present. Mild mitral regurgitation is present. Moderate tricuspid regurgitation present. There is moderate pulmonary hypertension. The right gabriel tricular systolic pressure, as measured by Doppler, is 57.53mmHg. The pulmonic valve was not well visualized. There is no pulmonic regurgitation present. The aortic root size is normal. Not visualized There is a small, generalized pericardial effusion present. CONCLUSIONS -------- 1. Atrial fibrillation. 2. Pacerwire seen in RV and RA. 3. This was a technically difficult study with suboptimal views. 4. There is moderate concentric left ventricular hypertrophy. 5. There is severe global hypokinesis of LV . 6. The right ventricular systolic function is mildly impaired. 7. The left atrium is moderately dilated. 8. Lumason used 9. Interatrial and interventricular septum intact. 10. There is moderate aortic valve sclerosis. 11. Mild mitral annular calcification present. 12. Mild mitral regurgitation is present. 13. Moderate tricuspid regurgitation present. 14. There is moderate pulmonary hypertension. 15. The pulmonic valve was not well visualized. 16. The aortic root size is normal. 17. There is a small, generalized pericardial effusion present. THREADING MACHINE TENDER: Mindi Sue RDCS
--- NOTE | 2018-08-02 13:21 | CDI ---
Documentation Clarification Form Date: 08/02/2018 12:57:48 PM From: Sandy Manzo RN, CCDS Admit Date: 08/01/2018 2:09:00 PM Patient Name: Jose G Polk Visit Number: [id number] Discharge Date: ATTENTION: The Clinical Documentation Specialists (CDI) and [facility] Coding Staff appreciate your assistance in clarifying documentation. Please respond to the clarification below the line at the bottom and electronically sign. The CDI & [facility] Coding staff will review the response and follow-up if needed. Please note: Queries are made part of the Legal Health Record. If you have any questions, please contact the author of this message via ITS. Dr. Isauro Cleaning Atrial Flutter is documented in the cardiology consult on 08/02/18 and further clarification is needed. History/Risk factors: Chronic Persistent Atrial Fibrillation, Coronary artery disease, Heart Failure, Systolic, Diabetes mellitus, Renal Disease/CKD, Clinical Indicators: 77-year old male with complaints of dyspnea that increases with exertion and lying down. Patient was diagnosed with congestive heart failure. Vital signs on admission: 120/74 140 18 98.6 91 % RA EKG/telemetry: Pacemaker spikes are present. [place] atrial fibrillation. 08/02/18 EKG shows a paced rhythm with underlying atrial flutter per your documentation Treatment: Telemetry Monitoring Coumadin PO per orders, monitor PT/INR ECHO with Doppler study In your professional opinion, in order to capture the severity of condition; can you please clarify the type of Atrial Flutter if known? Typical/Type I Atypical/Type II Other, please specify Unable to determine (Last Revision: May 2017) MTDD
[2018-08-02 14:39] VITALS: BMI 31.1
--- NOTE | 2018-08-02 15:24 | CONS ---
CONSULTATION REASON FOR CONSULT: Renal failure. HISTORY OF PRESENT ILLNESS: Patient is a 77-year-old male who has a history of CKD stage IV secondary to nephrosclerosis. Patient was last seen at our office in 2016 at which time his creatinine was about 2.5 and GFR of about 25 mL/minute. He did have an element of acute kidney injury as well at that time. On this admission, it appears that the patient was admitted with complaints off weakness, shortness of breath, increased lower extremity edema. He initially presented to [facility] and was subsequently transferred to [place]. It appears that he had exacerbation of CHF and was also maintained on Milrinone drip. Patient denies any significant change in his urine output. His creatinine was 1.57 on initial admission. It is at 1.3 now. Review of previous labs shows a serum creatinine of 2.4 in May of 2017. Patient has been voiding on his own. Blood pressure has not been low since admission and review of home medications does not reveal any nonsteroidal anti-inflammatory agents. The patient does get the Milrinone drip as outpatient. He is maintained on Bumex. He is currently maintained on IV Lasix which has been switched to Bumex drip. Patient's bilirubin is mildly elevated at 1.8. PAST MEDICAL HISTORY: Significant for severe cardiomyopathy, atrial fibrillation, coronary artery disease, type 2 diabetes, hyperlipidemia, hypertension, osteoarthritis, CKD stage IV, spinal stenosis, skin cancer, umbilical hernia. PAST SURGICAL HISTORY: Back surgery, cardiac catheterization, bilateral total knee arthroplasty, left shoulder replacement, cardioversion, pacemaker placement, PICC line placement, cardiac cath, pacemaker placement. SOCIAL HISTORY: Negative for smoking, drug abuse or alcohol abuse. MEDICATIONS: At home prior to admission included magnesium, Zyloprim, Bumex, iron, insulin, Zaroxolyn, Synthroid, Milrinone drip, Coumadin, vitamin D, Lipitor, Lasix, fenofibrate, [place], potassium. ALLERGIES: None. PHYSICAL EXAMINATION: On examination, patient is currently comfortable, awake. He is not in any acute distress. He is having an echocardiogram done. Blood pressure was 114/70, heart rate 60 per minute. He is afebrile. Examination of the heart, S1, S2. Examination of the lungs, bilateral breath sounds are heard. Abdomen is soft, nontender. Examination of the lower extremities shows edema 2+ bilaterally. CALL CENTER DISPATCHER exam is grossly intact. LABS: Show sodium 140, potassium 4.4, BUN 83, serum creatinine 1.93, CO2 is at 40. ASSESSMENT: 1. Acute kidney injury, cardiorenal with underlying significant chronic kidney disease. Patient's renal function seems to be slightly better than last year. He has been maintained on Milrinone drip as outpatient, which has definitely helped his renal function as well. At this time, I will continue to diurese him. Patient has been switched over to Bumex drip. He does have evidence of metabolic alkalosis. Therefore, I will give him a dose of Diamox and we will repeat labs in a.m. 2. Severe cardiomyopathy. 3. Congestive heart failure, acute on top of chronic, mainly systolic. 4. History of atrial fibrillation. 5. Hyperammonemia prior to admission. However, the current level is sort elevated, it is at 23. 6. Metabolic alkalosis secondary to diuresis. PLAN: Add 1 dose of Diamox. Repeat labs in a.m. Checked urine analysis. May continue with the diuresis. Thank you for this consultation. Will continue to follow the patient with you during his hospitalization. MMODL / IJN: [id number] /
--- NOTE | 2018-08-02 15:34 | P.CNPUL ---
History of Present Illness Consult date: 08/02/18 Requesting physician: Renan Cobb Reason for consult: dyspnea Chief complaint: Dyspnea, lower extremity edema History of present illness: 77 year male patient of Dr. Bui, with past medical history of coronary artery disease, diabetes mellitus type 2, nonischemic cardiomyopathy and history of AICD implantation, atrial fibrillation, chronic congestive heart failure with systolic dysfunction, hypertension, hyperlipidemia, previous episode of pulmonary embolism. Patient follows with Dr. Olmstead, and he is on a continuous infusion of milrinone through a PICC line. Patient is a lifetime nonsmoker. Patient presented to the hospital 08/01/2018 with complaints of shortness of breath, and increasing lower extremity edema and increasing edema around his abdomen. He denied any fever or chills, denied any chest pain. Denied any cough or congestion, no wheezing, no tenderness, no hemoptysis. Chest x-ray was completed showing cardiomegaly with basilar atelectasis and infiltrates. Labs were negative for leukocytosis, white blood was 10.0, hemoglobin is 14.1, INR is 3.0, sodium is 140, potassium is 4.5, chloride is 96, CO2 36, B1 is 71, creatinine is 1.57. he does have chronic kidney disease. There was a troponin elevation at 0.260, and proBNP was 11,600. EKG showed paced rhythm. Patient has had 2 heart catheterizations in the past 1 and 2011 showing normal coronary arteries, and one in 2016 which revealed a 20% mid LAD lesion. he was started on IV Bumex, he is diuresing, echocardiogram was completed, showing severe global hypokinesis of the left ventricle, severely impaired left ventricular systolic function with an EF of 20-25%, moderate aortic valve sclerosis, mild mitral regurgitation, moderate pulmonary hypertension, with right-sided pressures of 57.5 mmHg, and moderate tricuspid regurgitation. His weight is down 2.8 kg since admission, he is maintaining negative fluid balance, today's labs have been reviewed, he is on chronic anticoagulation the form of warfarin. Serum sodium is 144, potassium is 4.4, chloride is 94, CO2 is 40, BUN is 83, creatinine is 1.93. Nephrology following, and patient was given a dose of IV Diamox for metabolic alkalosis related to recess Review of Systems All systems: negative Constitutional: Denies chills, Denies fever Eyes: denies blurred vision, denies pain Ears, nose, mouth and throat: Denies headache, Denies sore throat Cardiovascular: Reports dyspnea on exertion, Reports edema, Reports shortness of breath, Denies chest pain Respiratory: Reports dyspnea, Denies cough Gastrointestinal: Denies abdominal pain, Denies diarrhea, Denies nausea, Denies vomiting Musculoskeletal: Denies myalgias Integumentary: Denies pruritus, Denies rash Neurological: Denies numbness, Denies weakness Psychiatric: Denies anxiety, Denies depression Endocrine: Denies fatigue, Denies weight change Past Medical History Past Medical History: Atrial Fibrillation, Asthma, Coronary Artery Disease (CAD), Cancer, Heart Failure, Diabetes Mellitus, Eye Disorder, Hyperlipidemia, Hypertension, Osteoarthritis (OA), Prostate Disorder, Pulmonary Embolus (PE), Renal Disease, Thyroid Disorder Additional Past Medical History / Comment(s): cardiomyopathy,HAS PICC LINE RT ARM AND MEDI PUMP WITH MILRINONE STATED BAG WAS CHANGED TODAY AND BATTERIES ALSO, BUT DRESSING TO PICC LINE DID'NT GET CHANGED TODAY AND WAS DUE FOR CHANGE) .O2 2l/nc prn, SOB with exertion, CKD , anemia, L ocular stroke-vision affected, chronic back pain, spinal stenosis, BPH, umbilical hernia,skin cancer ear, See Dr Barros's H&P, Milrione infusion in place History of Any Multi-Drug Resistant Organisms: None Reported Past Surgical History: Back Surgery, Heart Catheterization, Joint Replacement, Orthopedic Surgery, Pacemaker, Tonsillectomy Additional Past Surgical History / Comment(s): BILATERAL TOTAL KNEE , LT SHOULDER REPLACEMENT, COLONOSCOPY,SKIN CANCER REMOVALS,BILATERAL CARPAL TUNNEL RELEASES, CARDIAC CATHS X2, 12/21/16 [place]-BLOOD CLOT IN HEART. PIC line right arm, pacemaker ( [facility]) 01/2017, CARDIOVERSION Past Anesthesia/Blood Transfusion Reactions: No Reported Reaction Additional Past Anesthesia/Blood Transfusion Reaction / Comment(s): "I came out feeling like I was in another world'-with last cardiac procedure Type of Cardiac Device: Permanent Pacemaker Device Placement Date:: 01/2017 Past Psychological History: No Psychological Hx Reported Smoking Status: Never smoker Past Alcohol Use History: None Reported Past Drug Use History: None Reported - Past Family History Father Family Medical History: Congestive Heart Failure (CHF) Mother Family Medical History: Cancer Additional Family Medical History / Comment(s): Mother had esophageal cancer. Medications and Allergies Home Medications Medication Instructions Recorded Confirmed Type Ergocalciferol (Vitamin D2) 50,000 unit PO TUTH 10/23/15 08/01/18 History [Drisdol] Magnesium Oxide [Mag-Ox] 500 mg PO BID 10/23/15 08/01/18 History Allopurinol [Zyloprim] 100 mg PO DAILY 07/21/16 08/01/18 History Bumetanide [BUMEX] 2 mg PO DAILY 04/12/17 08/01/18 History Ferrous Sulfate [Iron (65 MG 325 mg PO BID 04/12/17 08/01/18 History Elemental)] Insulin Aspart [NovoLOG] 30 units SQ ACHS 04/12/17 08/01/18 History Insulin Glargine [Lantus] 60 unit SQ HS 04/12/17 08/01/18 History Metolazone [Zaroxolyn] 5 mg PO AGOSTO 04/12/17 08/01/18 History Levothyroxine Sodium [Synthroid] 88 mcg PO DAILY 05/19/17 08/01/18 History Milrinone Drip 1 applicate IV DIRECTED 05/19/17 08/01/18 History Warfarin [Coumadin] 5 mg PO HS 11/15/17 08/01/18 History Atorvastatin [Lipitor] 80 mg PO HS 08/01/18 08/01/18 History Escitalopram [Lexapro] 2.5 mg PO DAILY 08/01/18 08/01/18 History Fenofibrate Nanocrystallized 145 mg PO DAILY 08/01/18 08/01/18 History [Fenofibrate] Furosemide [Lasix] 40 mg PO DAILY 08/01/18 08/01/18 History HYDROcodone/APAP 7.5-325MG [[place] 1 tab PO TID PRN 08/01/18 08/01/18 History 7.5-325] Potassium Chloride ER [K-Dur 20] 40 meq PO BID 08/01/18 08/01/18 History Allergies Allergy/AdvReac Type Severity Reaction Status Date / Time No Known Allergies Allergy Verified 08/01/18 13:50 Physical Exam Vitals: Vital Signs Temp Pulse Resp BP Pulse Ox 08/02/18 09:40 97.8 F 60 16 114/70 94 L 08/02/18 03:48 60 18 08/02/18 03:42 98.6 F 60 18 148/79 97 08/02/18 00:00 61 17 133/82 96 08/01/18 20:39 96 08/01/18 20:00 98.2 F 60 17 127/64 95 08/01/18 18:00 98.5 F 60 18 127/66 93 L Intake and Output 08/02/18 08/02/18 08/02/18 06:59 14:59 22:59 Intake Total 540 400 Output Total 800 Balance -260 400 Intake: IV 40 Invasive Line 1 20 Invasive Line 2 20 Oral 500 400 Output: Urine 800 Other: Voiding Method Toilet Urinal # Voids 1 # Bowel Movements 1 Weight 101.5 kg 101.5 kg GENERAL EXAM: Alert, pleasant, 77-year-old white male, on room air, with a pulse ox of 94%, resting on the couch comfortable in no apparent distress. HEAD: Normocephalic/atraumatic. EYES: Normal reaction of pupils, equal size. Conjunctiva pink, sclera white. NOSE: Clear with pink turbinates. THROAT: No erythema or exudates. NECK: No masses, no JVD, no thyroid enlargement, no adenopathy. CHEST: No chest wall deformity. Symmetrical expansion. LUNGS: Equal air entry with no crackles, wheeze, rhonchi or dullness. Diminished breath sounds at the bases CVS: Regular rate and rhythm, normal S1 and S2, no gallops, no murmurs, no rubs ABDOMEN: Soft, nontender. No hepatosplenomegaly, normal bowel sounds, no guarding or rigidity. EXTREMITIES: No clubbing, 1+ lower extremity edema edema, no cyanosis, 2+ pulses and upper and lower extremities. MUSCULOSKELETAL: Muscle strength and tone normal. SPINE: No scoliosis or deformity SKIN: No rashes CENTRAL NERVOUS SYSTEM: Alert and oriented -3. No focal deficits, tone is normal in all 4 extremities. PSYCHIATRIC: Alert and oriented -3. Appropriate affect. Intact judgment and insight. Results - Laboratory Findings CBC and BMP: 08/02/18 07:11 08/02/18 07:11 PT/INR, D-dimer PT 25.3 sec (9.0-12.0) H 08/02/18 07:11 INR 2.6 (<1.2) H 08/02/18 07:11 Abnormal lab findings: Abnormal Labs 08/01/18 08/01/18 08/01/18 14:13 14:13 14:13 RDW Neutrophils # 7.8 H PT 28.6 H INR 3.0 H APTT 33.8 H Chloride 96 L Carbon Dioxide 36 H BUN 71 H Creatinine 1.57 H Glucose 150 H POC Glucose (mg/dL) Total Bilirubin 1.4 H Troponin I Free T3 pg/mL 2.5 L 08/01/18 08/01/18 08/01/18 14:13 16:15 21:06 RDW Neutrophils # PT INR APTT Chloride Carbon Dioxide BUN Creatinine Glucose POC Glucose (mg/dL) 181 H 147 H Total Bilirubin Troponin I 0.260 H* Free T3 pg/mL 08/02/18 08/02/18 08/02/18 06:26 07:11 07:11 RDW 16.4 H Neutrophils # 8.1 H PT INR APTT Chloride 94 L Carbon Dioxide 40 H BUN 83 H Creatinine 1.93 H Glucose 118 H POC Glucose (mg/dL) 153 H Total Bilirubin 1.8 H Troponin I Free T3 pg/mL 08/02/18 07:11 RDW Neutrophils # PT 25.3 H INR 2.6 H APTT Chloride Carbon Dioxide BUN Creatinine Glucose POC Glucose (mg/dL) Total Bilirubin Troponin I Free T3 pg/mL - Diagnostic Findings Chest x-ray: report reviewed, image reviewed Additional studies: Cardiogram results reviewed Assessment and Plan Plan: Assessment: #1. Acute exacerbation of congestive heart failure, acute on chronic, with systolic dysfunction, on chronic milrinone infusion. Echocardiogram showed severely impaired left ventricular systolic function with EF of 20-25% #2. Doubt underlying pneumonia #3. Nonischemic cardiomyopathy with history of AICD implantation #4. Hypertension #5. Diabetes mellitus #6. Hyperlipidemia #7. Hypothyroidism #8. Chronic kidney disease #9. Metabolic alkalosis likely related to diuresis #10. Acute persistent atrial fibrillation/flutter, on chronic anticoagulation form of warfarin, with therapeutic INR of 2.6 #11. History of prior pulmonary embolism #12. Moderately severe pulmonary hypertension with right-sided pressures of 57.5 mmHg and moderate tricuspid regurgitation #13. History of chronic bronchial asthma, unspecified, stable #14. Lifetime nonsmoker #15. Troponin leak, with no acute ST T-wave abnormalities Plan: Continue the diuresis cardiology and nephrology recommendations. Chest x-ray has been reviewed by Dr. Palacio, showing mildly, and basilar atelectasis/infil trates. Possibility of pneumonia is doubtful. No fever or chills, no cough or congestion, no leukocytosis. We will obtain follow-up chest x-ray tomorrow, oxygenation is stable. Echocardiogram results have been reviewed. Follow-up chest x-ray in the morning, acute INR is, daily weights, daily labs. We'll continue to follow I performed a history & physical examination of the patient and discussed their management with my nurse practitioner, Caridad Bird. I reviewed the nurse practitioner's note and agree with the documented findings and plan of care. Lung sounds are positive for diminished breath sounds. The findings and the impression was discussed with the patient. I attest to the documentation by the nurse practitioner. Time with Patient: Greater than 30
[2018-08-02 16:39] LABS: Glucose,Whole Blood 160 mg/dL (75-99)
[2018-08-02] MEDS: WARFARIN 5 MG TAB PO SCH (17:33)
[2018-08-02] MEDS: MILRINONE IV SCH (17:38)
[2018-08-02 20:19] LABS: Glucose,Whole Blood 125 mg/dL (75-99)
[2018-08-02] MEDS: ATORVASTATIN 80 MG TAB PO SCH (20:30)
[2018-08-02] MEDS: INSULIN DETEMIR (LEVEMIR) 100 UNIT/ML SYR SQ SCH (20:30)
[2018-08-03 03:24] LABS: Glucose,Whole Blood 163 mg/dL (75-99)
[2018-08-03] MEDS ORDERED: BUMETANIDE 10 MG in DEXTROSE 5% IN WATER 60 ML IV SCH ×2 (04:31)
[2018-08-03] MEDS: LEVOTHYROXINE 88 MCG TAB PO SCH (05:47)
[2018-08-03 06:49] LABS: Glucose,Whole Blood 121 mg/dL (75-99)
[2018-08-03] MEDS: INSULIN ASPART (NovoLOG) 100 UNIT/ML VIAL SQ SCH ×4 (06:56→21:04)
[2018-08-03 07:26] LABS: Basophils % (A) 0 %; Eosinophils % (A) 0 %; HCT 48.1 % (39.0-53.0); HGB 15.3 gm/dL (13.0-17.5); Lymphocytes # (A) 1.6 k/uL (1.0-4.8); Lymphocytes % (A) 17 %; MCH 31.5 pg (25.0-35.0); MCHC 31.7 g/dL (31.0-37.0); MCV 99.2 fL (80.0-100.0); Macrocytosis Slight; Mean Platelet Volume 7.6; Monocytes # (A) 0.7 k/uL (0-1.0); Monocytes % (A) 7 %; Neutrophils % (A) 73 %; Platelet Count 212 k/uL (150-450); RBC 4.85 m/uL (4.30-5.90); RDW 14.6 % (11.5-15.5); WBC 9.6 k/uL (3.8-10.6)
[2018-08-03 07:39] LABS: INR 2.2 (<1.2); Prothrombin Time 21.3 sec (9.0-12.0)
[2018-08-03 08:05] LABS: Albumin 4.4 g/dL (3.5-5.0); Calcium 9.6 mg/dL (8.4-10.2); Potassium 3.6 mmol/L (3.5-5.1); Total Bilirubin 1.9 mg/dL (0.2-1.3); Total Protein 7.8 g/dL (6.3-8.2)
[2018-08-03] MEDS: ESCITALOPRAM 5 MG TAB PO SCH (08:31)
[2018-08-03] MEDS: PANTOPRAZOLE 40 MG TABLET PO SCH (08:31)
[2018-08-03] MEDS: ALLOPURINOL 100 MG TAB PO SCH (08:31)
[2018-08-03] MEDS: MAGNESIUM OXIDE 400 MG TAB PO SCH ×2 (08:32→20:16)
[2018-08-03] MEDS: FERROUS SULFATE 325 MG TAB PO SCH ×2 (08:32→20:16)
[2018-08-03] MEDS: FENOFIBRATE 160 MG TAB PO SCH (08:32)
[2018-08-03] MEDS: NITROGLYCERIN OINT 1 INCH/GM PACKET TOPICAL SCH ×4 (08:32→20:16)
--- NOTE | 2018-08-03 09:17 | PN ---
PROGRESS NOTE Patient is seen for followup for chronic kidney disease. He was admitted to the hospital with volume overload for which he is maintained on . Patient has been receiving Milrinone as outpatient for his nonischemic cardiomyopathy. On examination, blood pressure this morning was 113/72, heart rate 57 per minute. He is afebrile. Examination of the heart, S1, S2. Examination of the lungs, bilateral breath sounds are heard. Abdomen is soft, nontender. Examination of the lower extremities shows trace edema bilaterally. OPERATIONS EXAMINER exam grossly intact. LABS: Show sodium 141, potassium 3.6, BUN 90, serum creatinine 2.3, hemoglobin 15.3 g/dL. ASSESSMENT: 1. Chronic kidney disease, NKF stage IV secondary to nephrosclerosis. Baseline creatinine around 2 to 2.5 mg/dL. It appears that patient's renal function is improved since he has been on Milrinone. infusions on and off as outpatient. He did have a component of acute kidney injury, which is mainly cardiorenal. The patient is maintained on Lasix drip. His volume status is significantly improved. We can switch him to IV push Lasix today. 2. Severe cardiomyopathy, nonischemic, being followed by Cardiology. 3. History of atrial fibrillation. 4. Congestive heart failure, acute on top of chronic, mainly systolic. 5. Metabolic alkalosis secondary to diuresis, status post Diamox. PLAN: Change Bumex to IV push Bumex. Volume status is significantly improved. Possible discharge by tomorrow. Patient is encouraged to follow up. He is advised that he can be seen at the [facility] as the [facility] is quite far for him. MMODL / IJN: [id number] /
--- NOTE | 2018-08-03 09:51 | XR ---
EXAMINATION TYPE: XR chest 2V DATE OF EXAM: 08/03/2018 COMPARISON: Prior chest x-ray 08/01/2018 HISTORY: Basilar infiltrates, abnormal chest x-ray TECHNIQUE: Frontal and lateral views of the chest are obtained. FINDINGS: Right jugular central venous catheter is present, distal tip likely overlying the superior vena cava. There is a generator in the left pectoral region, intracardiac defibrillator leads are ag ain noted. No evident pneumothorax. Heart size is stable. No evident airspace disease. IMPRESSION: Cardiomegaly. Lungs are clear.
[2018-08-03 11:44] LABS: Glucose,Whole Blood 159 mg/dL (75-99)
--- NOTE | 2018-08-03 11:46 | P.PN ---
Subjective Progress Note Date: 08/03/18 This is of 77-year-old male patient of Dr. Bui. Patient presented as a transfer from [facility]. Patient presented to the hospital with complaints of increased shortness of breath related to his congestive heart failure. Patient was transferred to be seen by cardiology services. Patient is maintained on milrinone drip that patient states is managed by cardiology services. Patient reports that has had increased shortness of breath along with increased fluid retention and abdomen and legs. Patient has past medical history of atrial fibrillation which she is maintained on Coumadin, asthma, coronary artery disease, cancer, heart failure, diabetes mellitus, high disorder, hyperlipidemia, hypertension, osteoarthritis, prostate disorder, pulmonary embolism, renal disease, hypothyroidism, cardiomyopathy, PICC line with milironine fusion managed by cardiology, chronic kidney disease, BPH and pacemaker placement. Chest x-ray completed showing cardiomegaly with basilar atelectasis and infiltrate correlate clinically. Patient started on IV Lasix. Pulmonary and cardiology services have been consulted. At this time patient is resting comfortably in chair. Patient does complain of increased shortness of breath. Patient denies chest pain. Patient denies nausea vomiting or diarrhea. Patient denies any urinary burning or frequency. On 08/02/2018 patient is alert and oriented 3. at bedside. Patient currently receiving 2-D echo. Patient has had a significant weight loss since yesterday. Patient remains on IV Lasix. Discussed with cardiology services h ome meds of Lasix and Bumex along with milirone drip. Patient's INR 2.60 continue Coumadin at home dose. Creatinine increasing to 1.93 but 83. At this time patient denies chest pain. Soreness breath is improving. Patient denies nausea vomiting or diarrhea. Patient denies any urinary burning or frequency. On 08/03/2018 patient is alert and oriented 3. Patient down from 101.5 kg to 97.4 kg. Patient remains on Bumex drip per cardiology and nephrology services. Creatinine increasing to 2.30 and bun 90. Nephrology services are following. She still having some shortness of breath while lying flat. Patient denies chest pain. Patient denies nausea vomiting or diarrhea. Patient denies any urinary burning or frequency Objective - Vital Signs Vital signs: Vital Signs Temp 98.2 F 08/03/18 08:00 Pulse 64 08/03/18 11:07 Resp 16 08/03/18 11:07 BP 129/67 08/03/18 11:07 Pulse Ox 97 08/03/18 11:07 Intake & Output 08/02/18 08/03/18 08/03/18 18:59 06:59 18:59 Intake Total 660 20 160 Output Total 385 Balance 660 -365 160 Weight 101.5 kg 97.4 kg Intake: IV 60 20 Invasive Line 1 30 10 Invasive Line 2 30 10 Oral 600 160 Output: Post Void Residual 385 Other: Voiding Method Toilet Toilet Urinal Urinal # Voids 1 - Exam Head normocephalic Neck supple Lungs diminished bilaterally Heart regular rate and rhythm S1-S2, no rub or gallop Abdomen is soft nontender nondistended positive bowel sounds no hepatosplenomegaly Extremities +1 lower extremity edema increased abdominal edema Neuro alert and orientated to 3 - Labs CBC & Chem 7: 08/03/18 07:03 08/03/18 07:03 Labs: Abnormal Lab Results - Last 24 Hours (Table) 08/02/18 08/02/18 08/02/18 Range/Units 07:11 16:38 20:17 PT (9.0-12.0) sec INR (<1.2) Chloride (98-107) mmol/L Carbon Dioxide (22-30) mmol/L BUN (9-20) mg/dL Creatinine (0.66-1.25) mg/dL Glucose (74-99) mg/dL POC Glucose (mg/dL) 160 H 125 H (75-99) mg/dL Total Bilirubin (0.2-1.3) mg/dL Ammonia (<30) umol/L Procalcitonin 0.14 H (0.02-0.09) ng/mL 08/03/18 08/03/18 08/03/18 Range/Units 03:22 06:39 07:03 PT (9.0-12.0) sec INR (<1.2) Chloride 91 L (98-107) mmol/L Carbon Dioxide 38 H (22-30) mmol/L BUN 90 H (9-20) mg/dL Creatinine 2.30 H (0.66-1.25) mg/dL Glucose 127 H (74-99) mg/dL POC Glucose (mg/dL) 163 H 121 H (75-99) mg/dL Total Bilirubin 1.9 H (0.2-1.3) mg/dL Ammonia (<30) umol/L Procalcitonin (0.02-0.09) ng/mL 08/03/18 08/03/18 Range/Units 07:03 07:03 PT 21.3 H (9.0-12.0) sec INR 2.2 H (<1.2) Chloride (98-107) mmol/L Carbon Dioxide (22-30) mmol/L BUN (9-20) mg/dL Creatinine (0.66-1.25) mg/dL Glucose (74-99) mg/dL POC Glucose (mg/dL) (75-99) mg/dL Total Bilirubin (0.2-1.3) mg/dL Ammonia 35 H (<30) umol/L Procalcitonin (0.02-0.09) ng/mL Assessment and Plan Assessment: 1. Dyspnea related to Acute on chronic systolic congestive heart failure. Patient is maintained on milrinone drip managed by cardiology. BNP elevated at 11,600. 2-D echo completed showing EF of 20-25%. Patient is on Bumex drip per cardiology and nephrology services 2. Possible pneumonia. Chest x-ray completed showing cardiomegaly with basilar atelectasis or infiltrate correlate clinically. Per pulmonary outflow pneumonia repeat chest x-ray ordered 3. Chronic persistent Atrial fibrillation. Patient maintained on Coumadin. INR 3.0 home dose of Coumadin ordered for tomorrow. Daily PT/INRs ordered 4. History of diabetes mellitus type 2. Home medications have been ordered. Sliding scale insulin ordered 5. History of essential hypertension 6. History of hyperlipidemia 7. Acute on chronic renal disease. Nephrology services have been consulted due to patient being on multiple diuretics. We'll continue to monitor. Creatinine increasing to 2.30. Nephrology services are following. 8. Underlying history of coronary artery disease 9. History of asthma 10. History of BPH 11. History of hypothyroidism. Home dose of Synthroid reordered 12. Nonischemic cardiomyopathy with AICD placement 13. Elevated ammonia level. Patient's reports that patient had elevated ammonia level outpatient was treated with lactulose repeat level has been ordered for a.m. ammonia level 23 14. Elevated troponin. Per cardiology likely secondary to kidney disease 15. Metabolic alkalosis. She received 1 dose Diamox per nephrology services DVT prophylaxis Coumadin. GI prophylaxis Protonix Cardiology, nephrology and pulmonary services have been consulted I performed an examination of the patient and discussed their management with the Nurse Practitioner. I have reviewed the Nurse Practitioner's notes and agree with the documented findings and plan of care
--- NOTE | 2018-08-03 12:30 | P.PN ---
Subjective Progress Note Date: 08/03/18 Principal diagnosis: Acute on chronic systolic congestive heart failure 77 [address] male patient of Dr. Bui, with past medical history of coronary artery disease, diabetes mellitus type 2, nonischemic cardiomyopathy and history of AICD implantation, atrial fibrillation, chronic congestive heart failure with systolic dysfunction, hypertension, hyperlipidemia, previous episode of pulmonary embolism. Patient follows with Dr. Olmstead, and he is on a continuous infusion of milrinone through a PICC line. Patient is a lifetime nonsmoker. Patient presented to the hospital 08/01/2018 with complaints of shortness of breath, and increasing lower extremity edema and increasing edema around his abdomen. He denied any fever or chills, denied any chest pain. Denied any cough or congestion, no wheezing, no tenderness, no hemoptysis. Chest x-ray was completed showing cardiomegaly with basilar atelectasis and infiltrates. Labs were negative for leukocytosis, white blood was 10.0, hemoglobin is 14.1, INR is 3.0, sodium is 140, potassium is 4.5, chloride is 96, CO2 36, B1 is 71, creatinine is 1.57. he does have chronic kidney disease. There was a troponin elevation at 0.260, and proBNP was 11,600. EKG showed paced rhythm. Patient has had 2 heart catheterizations in the past 1 and 2011 showing normal coronary arteries, and one in 2016 which revealed a 20% mid LAD lesion. he was started on IV Bumex, he is diuresing, echocardiogram was completed, showing severe glob al hypokinesis of the left ventricle, severely impaired left ventricular systolic function with an EF of 20-25%, moderate aortic valve sclerosis, mild mitral regurgitation, moderate pulmonary hypertension, with right-sided pressures of 57.5 mmHg, and moderate tricuspid regurgitation. His weight is down 2.8 kg since admission, he is maintaining negative fluid balance, today's labs have been reviewed, he is on chronic anticoagulation the form of warfarin. Serum sodium is 144, potassium is 4.4, chloride is 94, CO2 is 40, BUN is 83, creatinine is 1.93. Nephrology following, and patient was given a dose of IV Diamox for metabolic alkalosis related to recess Patient is seen today 08/03/2018 in follow-up on the selective care unit. He is currently sitting up in a chair at the bedside. Awake and alert in no acute distress. Breathing a bit easier today as compared to yesterday. He is down another 4 kg today. He remains on milrinone, Bumex, Zaroxolyn. Creatinine 2.3. Sodium 141. White count 9.6. INR 2.2. Objective - Vital Signs Vital signs: Vital Signs Temp 98.2 F 08/03/18 08:00 Pulse 64 08/03/18 11:56 Resp 16 08/03/18 11:07 BP 129/67 08/03/18 11:07 Pulse Ox 97 08/03/18 11:07 Intake & Output 08/02/18 08/03/18 08/03/18 18:59 06:59 18:59 Intake Total 660 20 160 Output Total 385 Balance 660 -365 160 Weight 101.5 kg 97.4 kg Intake: IV 60 20 Invasive Line 1 30 10 Invasive Line 2 30 10 Oral 600 160 Output: Post Void Residual 385 Other: Voiding Method Toilet Toilet Urinal Urinal # Voids 1 - Exam GENERAL EXAM: Alert, pleasant, 77-year-old male, on room air, with a pulse ox of 95%, up in a chair at the bedside, comfortable in no apparent distress. HEAD: Normocephalic/atraumatic. EYES: Normal reaction of pupils, equal size. Conjunctiva pink, sclera white. NOSE: Clear with pink turbinates. THROAT: No erythema or exudates. NECK: No masses, no JVD, no thyroid enlargement, no adenopathy. CHEST: No chest wall deformity. Symmetrical expansion. LUNGS: Equal air entry with no crackles, wheeze, rhonchi or dullness. Diminished breath sounds at the bases CVS: Regular rate and rhythm, normal S1 and S2, no gallops, no murmurs, no rubs ABDOMEN: Soft, nontender. No hepatosplenomegaly, normal bowel sounds, no guarding or rigidity. EXTREMITIES: No clubbing, 1+ lower extremity edema edema, no cyanosis, 2+ pulses and upper and lower extremities. MUSCULOSKELETAL: Muscle strength and tone normal. SPINE: No scoliosis or deformity SKIN: No rashes CENTRAL NERVOUS SYSTEM: Alert and oriented -3. No focal deficits, tone is normal in all 4 extremities. PSYCHIATRIC: Alert and oriented -3. Appropriate affect. Intact judgment and insight. - Labs CBC & Chem 7: 08/03/18 07:03 08/03/18 07:03 Labs: Abnormal Lab Results - Last 24 Hours (Table) 08/02/18 08/02/18 08/02/18 Range/Units 07:11 16:38 20:17 PT (9.0-12.0) sec INR (<1.2) Chloride (98-107) mmol/L Carbon Dioxide (22-30) mmol/L BUN (9-20) mg/dL Creatinine (0.66-1.25) mg/dL Glucose (74-99) mg/dL POC Glucose (mg/dL) 160 H 125 H (75-99) mg/dL Total Bilirubin (0.2-1.3) mg/dL Ammonia (<30) umol/L Procalcitonin 0.14 H (0.02-0.09) ng/mL 08/03/18 08/03/18 08/03/18 Range/Units 03:22 06:39 07:03 PT (9.0-12.0) sec INR (<1.2) Chloride 91 L (98-107) mmol/L Carbon Dioxide 38 H (22-30) mmol/L BUN 90 H (9-20) mg/dL Creatinine 2.30 H (0.66-1.25) mg/dL Glucose 127 H (74-99) mg/dL POC Glucose (mg/dL) 163 H 121 H (75-99) mg/dL Total Bilirubin 1.9 H (0.2-1.3) mg/dL Ammonia (<30) umol/L Procalcitonin (0.02-0.09) ng/mL 08/03/18 08/03/18 08/03/18 Range/Units 07:03 07:03 11:42 PT 21.3 H (9.0-12.0) sec INR 2.2 H (<1.2) Chloride (98-107) mmol/L Carbon Dioxide (22-30) mmol/L BUN (9-20) mg/dL Creatinine (0.66-1.25) mg/dL Glucose (74-99) mg/dL POC Glucose (mg/dL) 159 H (75-99) mg/dL Total Bilirubin (0.2-1.3) mg/dL Ammonia 35 H (<30) umol/L Procalcitonin (0.02-0.09) ng/mL Assessment and Plan Assessment: Assessment: #1. Acute exacerbation of congestive heart failure, acute on chronic, with systolic dysfunction, on chronic milrinone infusion. Echocardiogram showed severely impaired left ventricular systolic function with EF of 20-25% #2. Doubt underlying pneumonia #3. Nonischemic cardiomyopathy with history of AICD implantation #4. Hypertension #5. Diabetes mellitus #6. Hyperlipidemia #7. Hypothyroidism #8. Chronic kidney disease #9. Metabolic alkalosis likely related to diuresis #10. Acute persistent atrial fibrillation/flutter, on chronic anticoagulation form of warfarin, with therapeutic INR of 2.6 #11. History of prior pulmonary embolism #12. Moderately severe pulmonary hypertension with right-sided pressures of 57. 5 mmHg and moderate tricuspid regurgitation #13. History of chronic bronchial asthma, unspecified, stable #14. Lifetime nonsmoker #15. Troponin leak, with no acute ST T-wave abnormalities Plan: The patient was seen and evaluated by Dr. Palacio. He is currently stable from the pulmonary standpoint. Continues to diurese well. No worsening shortness of breath, cough or congestion. Diuretics per cardiology. We will increase his activity as tolerated. We'll continue to follow. I, the cosigning physician, performed a history & physical examination of the patient. Lungs sounds with crackles in the bilateral posterior bases Maintaining good O2 saturations in the 90s on room air. I discussed the assessment and plan of care with my nurse practitioner, Agnes Lowe. I attest to the above note as dictated by her.
--- NOTE | 2018-08-03 16:42 | P.PN ---
Subjective Progress Note Date: 08/03/18 This is a 77-year-old gentleman with history of hyperlipidemia, hypertension, diabetes, and also nonischemic cardiomyopathy and congestive heart failure. He is also being followed by [facility]. He is on milrinone drip. He is admitted now to the hospital with increasing shortness of breath and fluid overload. Patient was started on IV Bumex. Patient is well. Feeling better. Being followed by nephrology also. Lab values showed a creatinine of 2.3 and B and of 90. Potassium was 3.68 IV Bumex drip is discontinued and patient is going to get bolus of IV Bumex. Possible discharge in the morning. Long-term prognosis is guarded Objective - Vital Signs Vital signs: Vital Signs Temp 97.3 F L 08/03/18 15:49 Pulse 55 L 08/03/18 16:00 Resp 16 08/03/18 15:49 BP 135/59 08/03/18 15:49 Pulse Ox 96 08/03/18 15:49 Intake & Output 08/02/18 08/03/18 08/03/18 18:59 06:59 18:59 Intake Total 660 20 160 Output Total 385 Balance 660 -365 160 Weight 101.5 kg 97.4 kg Intake: IV 60 20 Invasive Line 1 30 10 Invasive Line 2 30 10 Oral 600 160 Output: Post Void Residual 385 Other: Voiding Method Toilet Toilet Urinal Urinal # Voids 1 1 - Exam GENERAL EXAM: Patient is alert and oriented and doesn't appear to be in any acute distress HEENT: Normocephalic. Normal reaction of pupils, equal size, normal range of extraocular motion. No erythema or exudates in the throat. NECK: No masses, no nuchal rigidity. CHEST: No chest wall deformity. LUNGS: Diminished breath sounds HEART: S1 and S2 normal with no audible mumurs or gallops. Regular rhythm ABDOMEN: No hepatosplenomegaly, normal bowel sounds, no guarding or rigidity. SKIN: No rashes CENTRAL NERVOUS SYSTEM: No focal deficits. EXTREMITIES: Resolving edema - Labs CBC & Chem 7: 08/03/18 07:03 08/03/18 07:03 Labs: Abnormal Lab Results - Last 24 Hours (Table) 08/02/18 08/02/18 08/02/18 Range/Units 07:11 16:38 20:17 PT (9.0-12.0) sec INR (<1.2) Chloride (98-107) mmol/L Carbon Dioxide (22-30) mmol/L BUN (9-20) mg/dL Creatinine (0.66-1.25) mg/dL Glucose (74-99) mg/dL POC Glucose (mg/dL) 160 H 125 H (75-99) mg/dL Total Bilirubin (0.2-1.3) mg/dL Ammonia (<30) umol/L Procalcitonin 0.14 H (0.02-0.09) ng/mL 08/03/18 08/03/18 08/03/18 Range/Units 03:22 06:39 07:03 PT (9.0-12.0) sec INR (<1.2) Chloride 91 L (98-107) mmol/L Carbon Dioxide 38 H (22-30) mmol/L BUN 90 H (9-20) mg/dL Creatinine 2.30 H (0.66-1.25) mg/dL Glucose 127 H (74-99) mg/dL POC Glucose (mg/dL) 163 H 121 H (75-99) mg/dL Total Bilirubin 1.9 H (0.2-1.3) mg/dL Ammonia (<30) umol/L Procalcitonin (0.02-0.09) ng/mL 08/03/18 08/03/18 08/03/18 Range/Units 07:03 07:03 11:42 PT 21.3 H (9.0-12.0) sec INR 2.2 H (<1.2) Chloride (98-107) mmol/L Carbon Dioxide (22-30) mmol/L BUN (9-20) mg/dL Creatinine (0.66-1.25) mg/dL Glucose (74-99) mg/dL POC Glucose (mg/dL) 159 H (75-99) mg/dL Total Bilirubin (0.2-1.3) mg/dL Ammonia 35 H (<30) umol/L Procalcitonin (0.02-0.09) ng/mL Assessment and Plan (1) Acute on chronic systolic CHF (congestive heart failure) Current Visit: Yes Status: Acute Code(s): I50.23 - ACUTE ON CHRONIC SYSTOLIC (CONGESTIVE) HEART FAILURE SNOMED Code(s): 284311463 (2) Chronic renal failure Current Visit: No Status: Chronic Code(s): N18.9 - CHRONIC KIDNEY DISEASE, UNSPECIFIED SNOMED Code(s): 80453429 (3) Nonischemic cardiomyopathy Current Visit: Yes Status: Acute Code(s): I42.8 - OTHER CARDIOMYOPATHIES SNOMED Code(s): 29593110 Plan: IV Bumex drip is discontinued. Patient is going to have bolus of Bumex. Lon shah is also on Zaroxolyn. Possible discharge within next 24 hours
[2018-08-03] MEDS: MILRINONE IV SCH (16:45)
[2018-08-03 16:50] LABS: Glucose,Whole Blood 175 mg/dL (75-99)
[2018-08-03] MEDS: WARFARIN 5 MG TAB PO SCH (17:09)
[2018-08-03 19:27] VITALS: RESP 18
[2018-08-03] MEDS: ATORVASTATIN 80 MG TAB PO SCH (19:58)
[2018-08-03] MEDS ORDERED: POTASSIUM CHLORIDE ER 20 MEQ TAB.ER PO STA (20:10)
[2018-08-03] MEDS: FUROSEMIDE 10 MG/ML 10 ML VIAL IV SCH (20:17)
[2018-08-03 20:59] LABS: Glucose,Whole Blood 195 mg/dL (75-99)
[2018-08-03] MEDS: INSULIN DETEMIR (LEVEMIR) 100 UNIT/ML SYR SQ SCH (21:04)
[2018-08-04] MEDS ORDERED: FUROSEMIDE 10 MG/ML 10 ML VIAL IV SCH
[2018-08-04 06:06] LABS: Glucose,Whole Blood 165 mg/dL (75-99)
[2018-08-04] MEDS: INSULIN ASPART (NovoLOG) 100 UNIT/ML VIAL SQ SCH ×4 (06:22→20:52)
[2018-08-04] MEDS: LEVOTHYROXINE 88 MCG TAB PO SCH (06:22)
[2018-08-04 07:18] LABS: Basophils % (A) 0 %; Eosinophils % (A) 0 %; HCT 50.9 % (39.0-53.0); HGB 16.2 gm/dL (13.0-17.5); Lymphocytes # (A) 1.8 k/uL (1.0-4.8); Lymphocytes % (A) 19 %; MCH 31.5 pg (25.0-35.0); MCHC 31.9 g/dL (31.0-37.0); MCV 98.8 fL (80.0-100.0); Mean Platelet Volume 7.5; Monocytes # (A) 0.8 k/uL (0-1.0); Monocytes % (A) 8 %; Neutrophils # (A) 6.6 k/uL (1.3-7.7); Neutrophils % (A) 70 %; Platelet Count 236 k/uL (150-450); RBC 5.15 m/uL (4.30-5.90); RDW 14.7 % (11.5-15.5); WBC 9.4 k/uL (3.8-10.6)
[2018-08-04 07:29] LABS: INR 2.4 (<1.2); Prothrombin Time 23.3 sec (9.0-12.0)
[2018-08-04 07:32] LABS: Albumin 4.6 g/dL (3.5-5.0); Calcium 9.5 mg/dL (8.4-10.2); Potassium 4.3 mmol/L (3.5-5.1); Total Bilirubin 1.5 mg/dL (0.2-1.3); Total Protein 8.1 g/dL (6.3-8.2)
[2018-08-04] MEDS: NITROGLYCERIN OINT 1 INCH/GM PACKET TOPICAL SCH ×4 (08:35→20:53)
[2018-08-04] MEDS: PANTOPRAZOLE 40 MG TABLET PO SCH (08:35)
[2018-08-04] MEDS: MAGNESIUM OXIDE 400 MG TAB PO SCH ×2 (08:35→20:52)
[2018-08-04] MEDS: FERROUS SULFATE 325 MG TAB PO SCH ×2 (08:35→20:52)
[2018-08-04] MEDS: ALLOPURINOL 100 MG TAB PO SCH (08:35)
[2018-08-04] MEDS: FUROSEMIDE 10 MG/ML 10 ML VIAL IV SCH (08:35)
[2018-08-04] MEDS: FENOFIBRATE 160 MG TAB PO SCH (08:35)
[2018-08-04] MEDS: ESCITALOPRAM 5 MG TAB PO SCH (08:52)
--- NOTE | 2018-08-04 10:47 | P.PN ---
Subjective Progress Note Date: 08/04/18 Principal diagnosis: This is a 77-year-old male who is seen because cause of acute kidney injury from cardiorenal syndrome. He has chronic heart failure and has had milrinone as w ell as IV Bumex drip. Yesterday a change it to IV Lasix 80 mg every 8 late last night we can come off of IV drip. He is known with atrial fibrillation diabetes mellitus hypertension history of pulmonary embolism severe cardiomyopathy requiring milrinone infusion chronically for the last 1-1/2 years via a central line. In recent echocardiogram dated 08/02/2018 showed an ejection fraction of 20-25%, severely dilated left ventricle. Currently his blood pressure is stable in the 110s to 120 range, is afebrile. Her 24-hour intake is documented at 680 output is 385 mL of urine. He says that he made more urine than that and actually is feeling fairly well and wants to go home. He denies any dizziness shortness of breath nausea vomiting but does feel fatigued and tired. Will to walk. His off of oxygen Objective - Vital Signs Vital signs: Vital Signs Temp 97.8 F 08/04/18 08:00 Pulse 61 08/04/18 08:00 Resp 18 08/04/18 08:00 BP 120/71 08/04/18 08:00 Pulse Ox 98 08/04/18 08:00 Intake & Output 08/03/18 08/04/18 08/04/18 18:59 06:59 18:59 Intake Total 520 Balance 520 Weight 97.4 kg 97.1 kg Intake: Oral 520 Other: Voiding Method Toilet Urinal # Voids 1 3 On examination is awake alert oriented comfortable. HEENT exam no JVP neck is supple no facial asymmetry Lungs are clear to auscultation good air entry bilaterally Heart sounds are unremarkable for any murmur rub gallop is in atrial fibrillation. Abdomen soft nontender no organomegaly no hepatosplenomegaly Extremity exam was no edema Neurologically awake alert oriented. Extremities are warm to touch. - Labs CBC & Chem 7: 08/04/18 06:52 08/04/18 06:52 Labs: Abnormal Lab Results - Last 24 Hours (Table) 08/03/18 08/03/18 08/03/18 Range/Units 11:42 16:47 20:57 PT (9.0-12.0) sec INR (<1.2) Chloride (98-107) mmol/L Carbon Dioxide (22-30) mmol/L BUN (9-20) mg/dL Creatinine (0.66-1.25) mg/dL Glucose (74-99) mg/dL POC Glucose (mg/dL) 159 H 175 H 195 H (75-99) mg/dL Total Bilirubin (0.2-1.3) mg/dL Ammonia (<30) umol/L 08/04/18 08/04/18 08/04/18 Range/Units 06:04 06:16 06:52 PT (9.0-12.0) sec INR (<1.2) Chloride 90 L (98-107) mmol/L Carbon Dioxide 37 H (22-30) mmol/L BUN 111 H* (9-20) mg/dL Creatinine 2.81 H (0.66-1.25) mg/dL Glucose 151 H (74-99) mg/dL POC Glucose (mg/dL) 165 H (75-99) mg/dL Total Bilirubin 1.5 H (0.2-1.3) mg/dL Ammonia 45 H (<30) umol/L 08/04/18 Range/Units 06:52 PT 23.3 H (9.0-12.0) sec INR 2.4 H (<1.2) Chloride (98-107) mmol/L Carbon Dioxide (22-30) mmol/L BUN (9-20) mg/dL Creatinine (0.66-1.25) mg/dL Glucose (74-99) mg/dL POC Glucose (mg/dL) (75-99) mg/dL Total Bilirubin (0.2-1.3) mg/dL Ammonia (<30) umol/L Assessment and Plan Plan: Impression 1. Cardiorenal syndrome with acute kidney injury. Admitted with volume overload. Improved on IV Bumex drip that was converted to IV Lasix 80 mg every 8 yesterday late. Urine output is more than what is documented. Creatinine went up to 22.81 from 2.3 yesterday and 1.57 on 08/01/2018 2. Chronic kidney disease creatinine has very between 2.71 on 05/09/2017 a year ago to 1.57 on 08/01/2018. Etiology is nephrosclerosis from low perfusion from cardiomyopathy. 3. Chronically milrinone dependent for one half years. Has echocardiogram showing ejection fraction of 20-25%. 4. Metabolic alkalosis on Diamox improving. Recommendation 1. Discontinue IV Lasix. 2. Start Bumex 2 mg twice a day. At home he was on 2 mg a day and had worsening edema and fluid overload. 3. Monitor labs very frequently about twice a week. 4. He needs to be followed up in discharge within 24-48 hours of discharge. 5. 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 He needs be followed up in the nephrology office within the week if discharged. 7. Maintain Diamox for right now, may need for a 1-2 days
[2018-08-04 11:40] LABS: Glucose,Whole Blood 217 mg/dL (75-99)
--- NOTE | 2018-08-04 15:39 | P.PN ---
Subjective Progress Note Date: 08/04/18 This is of 77-year-old male patient of Dr. Bui. Patient presented as a transfer from [facility]. Patient presented to the hospital with complaints of increased shortness of breath related to his congestive heart failure. Patient was transferred to be seen by cardiology services. Patient is maintained on milrinone drip that patient states is managed by cardiology services. Patient reports that has had increased shortness of breath along with increased fluid retention and abdomen and legs. Patient has past medical history of atrial fibrillation which she is maintained on Coumadin, asthma, coronary artery disease, cancer, heart failure, diabetes mellitus, high disorder, hyperlipidemia, hypertension, osteoarthritis, prostate disorder, pulmonary embolism, renal disease, hypothyroidism, cardiomyopathy, PICC line with milironine fusion managed by cardiology, chronic kidney disease, BPH and pacemaker placement. Chest x-ray completed showing cardiomegaly with basilar atelectasis and infiltrate correlate clinically. Patient started on IV Lasix. Pulmonary and cardiology services have been consulted. At this time patient is resting comfortably in chair. Patient does complain of increased shortness of breath. Patient denies chest pain. Patient denies nausea vomiting or diarrhea. Patient denies any urinary burning or frequency. On 08/02/2018 patient is alert and oriented 3. at bedside. Patient currently receiving 2-D echo. Patient has had a significant weight loss since yesterday. Patient remains on IV Lasix. Discussed with cardiology services home meds of Lasix and Bumex along with milirone drip. Patient's INR 2.60 continue Coumadin at home dose. Creatinine increasing to 1.93 but 83. At this time patient denies chest pain. Soreness breath is improving. Patient denies nausea vomiting or diarrhea. Patient denies any urinary burning or frequency. On 08/03/2018 patient is alert and oriented 3. Patient down from 101.5 kg to 97.4 kg. Patient remains on Bumex drip per cardiology and nephrology services. Creatinine increasing to 2.30 and bun 90. Nephrology services are following. She still having some shortness of breath while lying flat. Patient denies chest pain. Patient denies nausea vomiting or diarrhea. Patient denies any urinary burning or frequency On 08/04/2018 patient is alert and oriented 3 in no apparent distress he is still complaining of shortness of breath he is complaining of fatigue otherwise he denies any complaints there is no fever or chills no headache or dizziness no chest pain no shortness of breath no cough no nausea or vomiting no abdominal pain no diarrhea and no urinary symptoms Objective - Vital Signs Vital signs: Vital Signs Temp 97.8 F 08/04/18 12:00 Pulse 60 08/04/18 12:00 Resp 18 08/04/18 12:00 BP 129/61 08/04/18 12:00 Pulse Ox 94 L 08/04/18 12:00 Intake & Output 08/03/18 08/04/18 08/04/18 18:59 06:59 18:59 Intake Total 520 430 Output Total 400 Balance 520 30 Weight 97.4 kg 97.1 kg Intake: Oral 520 430 Output: Urine 400 Other: Voiding Method Toilet Toilet Urinal Urinal # Voids 1 3 1 - Exam In general patient is alert and oriented 3 in no apparent distress Head normocephalic and atraumatic Neck supple no JVD no goiter Lungs diminished bilaterally Heart regular rate and rhythm S1-S2, no rub or gallop Abdomen is soft nontender nondistended positive bowel sounds no hepatosplenomegaly Extremities +1 lower extremity edema increased abdominal edema Neuro no gross focal neurological deficit - Labs CBC & Chem 7: 08/04/18 06:52 08/04/18 06:52 Labs: Abnormal Lab Results - Last 24 Hours (Table) 08/03/18 08/03/18 08/04/18 Range/Units 16:47 20:57 06:04 PT (9.0-12.0) sec INR (<1.2) Chloride (98-107) mmol/L Carbon Dioxide (22-30) mmol/L BUN (9-20) mg/dL Creatinine (0.66-1.25) mg/dL Glucose (74-99) mg/dL POC Glucose (mg/dL) 175 H 195 H 165 H (75-99) mg/dL Total Bilirubin (0.2-1.3) mg/dL Ammonia (<30) umol/L 08/04/18 08/04/18 08/04/18 Range/Units 06:16 06:52 06:52 PT 23.3 H (9.0-12.0) sec INR 2.4 H (<1.2) Chloride 90 L (98-107) mmol/L Carbon Dioxide 37 H (22-30) mmol/L BUN 111 H* (9-20) mg/dL Creatinine 2.81 H (0.66-1.25) mg/dL Glucose 151 H (74-99) mg/dL POC Glucose (mg/dL) (75-99) mg/dL Total Bilirubin 1.5 H (0.2-1.3) mg/dL Ammonia 45 H (<30) umol/L 08/04/18 Range/Units 11:20 PT (9.0-12.0) sec INR (<1.2) Chloride (98-107) mmol/L Carbon Dioxide (22-30) mmol/L BUN (9-20) mg/dL Creatinine (0.66-1.25) mg/dL Glucose (74-99) mg/dL POC Glucose (mg/dL) 217 H (75-99) mg/dL Total Bilirubin (0.2-1.3) mg/dL Ammonia (<30) umol/L Assessment and Plan Plan: 1. Dyspnea related to Acute on chronic systolic congestive heart failure. Patient is maintained on milrinone drip managed by cardiology. BNP elevated at 11,600. 2-D echo completed showing EF of 20-25%. Patient is on Bumex drip per cardiology and nephrology services 2. Possible pneumonia. Chest x-ray completed showing cardiomegaly with basilar atelectasis or infiltrate correlate clinically. Per pulmonary outflow pneumonia repeat chest x-ray ordered 3. Chronic persistent Atrial fibrillation. Patient maintained on Coumadin. INR 3.0 home dose of Coumadin ordered for tomorrow. Daily PT/INRs ordered 4. History of diabetes mellitus type 2. Home medications have been ordered. Sliding scale insulin ordered 5. History of essential hypertension 6. History of hyperlipidemia 7. Acute on chronic renal disease. Nephrology services have been consulted due to patient being on multiple diuretics. We'll continue to monitor. Creatinine increasing to 2.30. Nephrology services are following. 8. Underlying history of coronary artery disease 9. History of asthma 10. History of BPH 11. History of hypothyroidism. Home dose of Synthroid reordered 12. Nonischemic cardiomyopathy with AICD placement 13. Elevated ammonia level. Patient's reports that patient had elevated ammonia level outpatient was treated with lactulose repeat level has been ordered for a.m. ammonia level 23 14. Elevated troponin. Per cardiology likely secondary to kidney disease 15. Metabolic alkalosis. She received 1 dose Diamox per nephrology services DVT prophylaxis Coumadin. GI prophylaxis Protonix Cardiology, nephrology and pulmonary services have been consulted
[2018-08-04 15:53] LABS: Glucose,Whole Blood 141 mg/dL (75-99)
--- NOTE | 2018-08-04 16:47 | P.PN ---
Subjective Progress Note Date: 08/04/18 This is a 77-year-old gentleman with history of hyperlipidemia, hypertension, diabetes, and also nonischemic cardiomyopathy and congestive heart failure. He is also being followed by [facility]. He is on milrinone drip. He is admitted now to the hospital with increasing shortness of breath and fluid overload. Patient was started on IV Bumex. Patient is well. Feeling better. Being followed by nephrology also. Lab values showed a creatinine of 2.3 and B and of 90. Potassium was 3.68 IV Bumex drip is discontinued and patient is going to get bolus of IV Bumex. Possible discharge in the morning. Long-term prognosis is guarded. 08/04/2018: This 77-year-old gentleman is admitted to the hospital with worsening CHF. Patient has a nonischemic heart myopathy. He responded well to IV Bumex. Yesterday patient was switched to IV Lasix bolus. Seen by nephrology and patient was put on Bumex instead of Lasix. His creatinine has gone up. We'll continue monitor his BMP. Increase activity as tolerated Objective - Vital Signs Vital signs: Vital Signs Temp 97.5 F L 08/04/18 16:00 Pulse 60 08/04/18 16:00 Resp 18 08/04/18 16:00 BP 119/63 08/04/18 16:00 Pulse Ox 94 L 08/04/18 16:00 Intake & Output 08/03/18 08/04/18 08/04/18 18:59 06:59 18:59 Intake Total 520 430 Output Total 400 Balance 520 30 Weight 97.4 kg 97.1 kg Intake: Oral 520 430 Output: Urine 400 Other: Voiding Method Toilet Toilet Urinal Urinal # Voids 1 3 1 - Exam GENERAL EXAM: Patient is alert and oriented and doesn't appear to be in any acute distress HEENT: Normocephalic. Normal reaction of pupils, equal size, normal range of extraocular motion. No erythema or exudates in the throat. NECK: No masses, no nuchal rigidity. CHEST: No chest wall deformity. LUNGS: Diminished breath sounds HEART: S1 and S2 normal with no audible mumurs or gallops. Regular rhythm ABDOMEN: No hepatosplenomegaly, normal bowel sounds, no guarding or rigidity. SKIN: No rashes CENTRAL NERVOUS SYSTEM: No focal deficits. EXTREMITIES: Resolving edema - Labs CBC & Chem 7: 08/04/18 06:52 08/04/18 06:52 Labs: Abnormal Lab Results - Last 24 Hours (Table) 08/03/18 08/03/18 08/04/18 Range/Units 16:47 20:57 06:04 PT (9.0-12.0) sec INR (<1.2) Chloride (98-107) mmol/L Carbon Dioxide (22-30) mmol/L BUN (9-20) mg/dL Creatinine (0.66-1.25) mg/dL Glucose (74-99) mg/dL POC Glucose (mg/dL) 175 H 195 H 165 H (75-99) mg/dL Total Bilirubin (0.2-1.3) mg/dL Ammonia (<30) umol/L 08/04/18 08/04/18 08/04/18 Range/Units 06:16 06:52 06:52 PT 23.3 H (9.0-12.0) sec INR 2.4 H (<1.2) Chloride 90 L (98-107) mmol/L Carbon Dioxide 37 H (22-30) mmol/L BUN 111 H* (9-20) mg/dL Creatinine 2.81 H (0.66-1.25) mg/dL Glucose 151 H (74-99) mg/dL POC Glucose (mg/dL) (75-99) mg/dL Total Bilirubin 1.5 H (0.2-1.3) mg/dL Ammonia 45 H (<30) umol/L 08/04/18 08/04/18 Range/Units 11:20 15:52 PT (9.0-12.0) sec INR (<1.2) Chloride (98-107) mmol/L Carbon Dioxide (22-30) mmol/L BUN (9-20) mg/dL Creatinine (0.66-1.25) mg/dL Glucose (74-99) mg/dL POC Glucose (mg/dL) 217 H 141 H (75-99) mg/dL Total Bilirubin (0.2-1.3) mg/dL Ammonia (<30) umol/L Assessment and Plan (1) Acute on chronic systolic CHF (congestive heart failure) Current Visit: Yes Status: Acute Code(s): I50.23 - ACUTE ON CHRONIC SYSTOLIC (CONGESTIVE) HEART FAILURE SNOMED Code(s): 046486163 (2) Chronic renal failure Current Visit: No Status: Chronic Code(s): N18.9 - CHRONIC KIDNEY DISEASE, UNSPECIFIED SNOMED Code(s): 11979105 (3) Nonischemic cardiomyopathy Current Visit: Yes Status: Acute Code(s): I42.8 - OTHER CARDIOMYOPATHIES SNOMED Code(s): 35025073 Plan: Patient seemed to be feeling better. Wall of status improved. Patient is being changed to by mouth Bumex . Increase activity as tolerated. Possible discharge within next 24 hours
[2018-08-04 16:56] LABS: Glucose,Whole Blood 122 mg/dL (75-99)
[2018-08-04] MEDS: WARFARIN 5 MG TAB PO SCH (18:04)
[2018-08-04] MEDS: MILRINONE IV SCH (18:05)
[2018-08-04 20:47] LABS: Glucose,Whole Blood 181 mg/dL (75-99)
[2018-08-04] MEDS: INSULIN DETEMIR (LEVEMIR) 100 UNIT/ML SYR SQ SCH (20:52)
[2018-08-04] MEDS: BUMETANIDE 1 MG TAB PO SCH (20:52)
[2018-08-04] MEDS: ATORVASTATIN 80 MG TAB PO SCH (20:53)
[2018-08-05 06:12] LABS: Glucose,Whole Blood 145 mg/dL (75-99)
[2018-08-05] MEDS: INSULIN ASPART (NovoLOG) 100 UNIT/ML VIAL SQ SCH ×2 (06:36→12:32)
[2018-08-05] MEDS: LEVOTHYROXINE 88 MCG TAB PO SCH (06:36)
[2018-08-05 07:09] LABS: Basophils % (A) 0 %; Eosinophils # (A) 0.1 k/uL (0-0.7); Eosinophils % (A) 0 %; HCT 49.1 % (39.0-53.0); HGB 15.6 gm/dL (13.0-17.5); Lymphocytes # (A) 1.8 k/uL (1.0-4.8); Lymphocytes % (A) 14 %; MCH 30.9 pg (25.0-35.0); MCHC 31.8 g/dL (31.0-37.0); MCV 97.3 fL (80.0-100.0); Mean Platelet Volume 7.5; Monocytes # (A) 0.9 k/uL (0-1.0); Monocytes % (A) 7 %; Neutrophils # (A) 9.6 k/uL (1.3-7.7); Neutrophils % (A) 75 %; Platelet Count 192 k/uL (150-450); RBC 5.04 m/uL (4.30-5.90); RDW 14.6 % (11.5-15.5); WBC 12.9 k/uL (3.8-10.6)
[2018-08-05 07:20] LABS: Albumin 4.3 g/dL (3.5-5.0); Calcium 9.6 mg/dL (8.4-10.2); Potassium 3.5 mmol/L (3.5-5.1); Total Bilirubin 1.6 mg/dL (0.2-1.3); Total Protein 7.6 g/dL (6.3-8.2)
[2018-08-05] MEDS: BUMETANIDE 1 MG TAB PO SCH (08:19)
[2018-08-05] MEDS: ALLOPURINOL 100 MG TAB PO SCH (08:19)
[2018-08-05] MEDS: MAGNESIUM OXIDE 400 MG TAB PO SCH (08:19)
[2018-08-05] MEDS: ESCITALOPRAM 5 MG TAB PO SCH (08:19)
[2018-08-05] MEDS: PANTOPRAZOLE 40 MG TABLET PO SCH (08:19)
[2018-08-05] MEDS: FERROUS SULFATE 325 MG TAB PO SCH (08:19)
[2018-08-05] MEDS: NITROGLYCERIN OINT 1 INCH/GM PACKET TOPICAL SCH ×2 (08:19→12:03)
[2018-08-05] MEDS: FENOFIBRATE 160 MG TAB PO SCH (08:19)
[2018-08-05] MEDS ORDERED: METOLAZONE 5 MG TAB PO SCH (09:00)
--- NOTE | 2018-08-05 09:10 | P.PN ---
Subjective Progress Note Date: 08/05/18 Principal diagnosis: This is a 77-year-old male who is seen because cause of acute kidney injury from cardiorenal syndrome. He is maintained on a milrinone drip at home 24 7 for the last 1-1/2 years approximately. He was continued on milrinone and was on IV Bumex drip. This was changed to by mouth Bumex yesterday 08/04/2018. Continues to do well denies any shortness of breath at rest. He is on room air. He is able to walk with a walker. Otherwise he denies any new complaints He is known with atrial fibrillation diabetes mellitus hypertension history of pulmonary embolism severe cardiomyopathy requiring milrinone infusion chronically for the last 1-1/2 years via a central line. In recent echocardiogram dated 08/02/2018 showed an ejection fraction of 20-25%, severely dilated left ventricle. Currently his blood pressure is stable in the 110s to 120 range, is afebrile. Her 24-hour intake is documented at 680 output is 385 mL of urine. He says that he made more urine than that and actually is feeling fairly well and wants to go home. He denies any dizziness shortness of breath nausea vomiting but does feel fatigued and tired. Will to walk. His off of oxygen Objective - Vital Signs Vital signs: Vital Signs Temp 97.8 F 08/05/18 08:00 Pulse 62 08/05/18 08:00 Resp 18 08/05/18 08:00 BP 119/63 08/05/18 08:00 Pulse Ox 96 08/05/18 08:00 Intake & Output 08/04/18 08/05/18 08/05/18 18:59 06:59 18:59 Intake Total 430 222 Output Total 400 Balance 30 222 Weight 96.3 kg Intake: Oral 430 222 Output: Urine 400 Other: Voiding Method Toilet Toilet Urinal Urinal # Voids 1 On examination is awake alert oriented comfortable HEENT exam no JVP neck is supple no facial asymmetry Lungs are clear to auscultation good air entry bilaterally Heart sounds are unremarkable for any murmur rub gallop Abdomen soft nontender Extremity examination was no edema Warm to touch Neurologically awake alert oriented - Labs CBC & Chem 7: 08/05/18 06:18 08/05/18 06:18 Labs: Abnormal Lab Results - Last 24 Hours (Table) 08/04/18 08/04/18 08/04/18 Range/Units 11:20 15:52 16:41 WBC (3.8-10.6) k/uL Neutrophils # (1.3-7.7) k/uL Chloride (98-107) mmol/L Carbon Dioxide (22-30) mmol/L BUN (9-20) mg/dL Creatinine (0.66-1.25) mg/dL Glucose (74-99) mg/dL POC Glucose (mg/dL) 217 H 141 H 122 H (75-99) mg/dL Total Bilirubin (0.2-1.3) mg/dL 08/04/18 08/05/18 08/05/18 Range/Units 20:46 06:01 06:18 WBC 12.9 H (3.8-10.6) k/uL Neutrophils # 9.6 H (1.3-7.7) k/uL Chloride (98-107) mmol/L Carbon Dioxide (22-30) mmol/L BUN (9-20) mg/dL Creatinine (0.66-1.25) mg/dL Glucose (74-99) mg/dL POC Glucose (mg/dL) 181 H 145 H (75-99) mg/dL Total Bilirubin (0.2-1.3) mg/dL 08/05/18 Range/Units 06:18 WBC (3.8-10.6) k/uL Neutrophils # (1.3-7.7) k/uL Chloride 92 L (98-107) mmol/L Carbon Dioxide 37 H (22-30) mmol/L BUN 115 H* (9-20) mg/dL Creatinine 2.72 H (0.66-1.25) mg/dL Glucose 157 H (74-99) mg/dL POC Glucose (mg/dL) (75-99) mg/dL Total Bilirubin 1.6 H (0.2-1.3) mg/dL Assessment and Plan Plan: Impression 1. Cardiorenal syndrome with acute kidney injury. Admitted with volume overload. Improved on IV Bumex drip that was converted to IV Lasix 80 mg every 8 day before yesterday late and, further was changed to Bumex 2 mg twice a day as of yesterday 08/04/2018. Urine output is more than what is documented. Creatinine went up from 1.57, to a peak of 2.81 yesterday 08/04/2018, is down to 2.72 with readjustment of his diuretics down somewhat therefore there is an element of volume depletion possibly 2. Chronic kidney disease creatinine has very between 2.71 on 05/09/2017 a year ago to 1.57 on 08/01/2018. Etiology is nephrosclerosis from low perfusion from cardiomyopathy. 3. Chronically milrinone dependent for one half years. Has echocardiogram showing ejection fraction of 20-25%. 4. Metabolic alkalosis on Diamox improving, bicarb is 37 for the last 2 days. Recommendation 1. Continue Bumex 2 mg twice a day. At home he was on 2 mg a day and had worsening edema and fluid overload. 3. Monitor labs very frequently about twice a week. 4. He needs to be followed up in discharge within 24-48 hours of discharge. 5. 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 He needs be followed up in the nephrology office within the week if discharged. 7. Maintain Diamox for right now, may need for a 1-2 days
--- NOTE | 2018-08-05 10:34 | P.PN ---
Subjective Progress Note Date: 08/05/18 This is a 77-year-old gentleman with history of hyperlipidemia, hypertension, diabetes, and also nonischemic cardiomyopathy and congestive heart failure. He is also being followed by [facility]. He is on milrinone drip. He is admitted now to the hospital with increasing shortness of breath and fluid overload. Patient was started on IV Bumex. Patient is well. Feeling better. Being followed by nephrology also. Lab values showed a creatinine of 2.3 and B and of 90. Potassium was 3.68 IV Bumex drip is discontinued and patient is going to get bolus of IV Bumex. Possible discharge in the morning. Long-term prognosis is guarded. 08/05/2018: This 77-year-old gentleman is admitted to the hospital with worsening CHF. Patient has a nonischemic heart myopathy. He responded well to IV Bumex. Yesterday patient was switched to IV Lasix. Seen by nephrology and patient was put on Bumex instead of Lasix. Repeat BUN 115 and creatinine 2.72. Patient has been cleared for discharge by nephrology with her medications continue current dose of Lasix. Patient is cleared from cardiology for discharge with plan for follow-up with Dr. Olmstead in one week. Objective - Vital Signs Vital signs: Vital Signs Temp 97.8 F 08/05/18 08:00 Pulse 62 08/05/18 08:00 Resp 18 08/05/18 08:00 BP 119/63 08/05/18 08:00 Pulse Ox 96 08/05/18 08:00 Intake & Output 08/04/18 08/05/18 08/05/18 18:59 06:59 18:59 Intake Total 430 222 Output Total 400 Balance 30 222 Weight 96.3 kg Intake: Oral 430 222 Output: Urine 400 Other: Voiding Method Toilet Toilet Toilet Urinal Urinal Urinal # Voids 1 - Exam GENERAL EXAM: Patient is alert and oriented in no acute distress HEENT: Normocephalic. Normal reaction of pupils, equal size, normal range of extraocular motion. No erythema or exudates in the throat. NECK: No masses, no nuchal rigidity. CHEST: No chest wall deformity. LUNGS: Diminished breath sounds HEART: S1 and S2 normal with no audible mumurs or gallops. Regular rhythm ABDOMEN: No hepatosplenomegaly, normal bowel sounds, no guarding or rigidity. SKIN: No rashes CENTRAL NERVOUS SYSTEM: No focal deficits. EXTREMITIES: Resolving edema - Labs CBC & Chem 7: 08/05/18 06:18 08/05/18 06:18 Labs: Abnormal Lab Results - Last 24 Hours (Table) 08/04/18 08/04/18 08/04/18 Range/Units 11:20 15:52 16:41 WBC (3.8-10.6) k/uL Neutrophils # (1.3-7.7) k/uL Chloride (98-107) mmol/L Carbon Dioxide (22-30) mmol/L BUN (9-20) mg/dL Creatinine (0.66-1.25) mg/dL Glucose (74-99) mg/dL POC Glucose (mg/dL) 217 H 141 H 122 H (75-99) mg/dL Total Bilirubin (0.2-1.3) mg/dL 08/04/18 08/05/18 08/05/18 Range/Units 20:46 06:01 06:18 WBC 12.9 H (3.8-10.6) k/uL Neutrophils # 9.6 H (1.3-7.7) k/uL Chloride (98-107) mmol/L Carbon Dioxide (22-30) mmol/L BUN (9-20) mg/dL Creatinine (0.66-1.25) mg/dL Glucose (74-99) mg/dL POC Glucose (mg/dL) 181 H 145 H (75-99) mg/dL Total Bilirubin (0.2-1.3) mg/dL 08/05/18 Range/Units 06:18 WBC (3.8-10.6) k/uL Neutrophils # (1.3-7.7) k/uL Chloride 92 L (98-107) mmol/L Carbon Dioxide 37 H (22-30) mmol/L BUN 115 H* (9-20) mg/dL Creatinine 2.72 H (0.66-1.25) mg/dL Glucose 157 H (74-99) mg/dL POC Glucose (mg/dL) (75-99) mg/dL Total Bilirubin 1.6 H (0.2-1.3) mg/dL Assessment and Plan Plan: (1) Acute on chronic systolic CHF (congestive heart failure) Current Visit: Yes Status: Acute Code(s): I50.23 - ACUTE ON CHRONIC SYSTOLIC (CONGESTIVE) HEART FAILURE SNOMED Code(s): 969831298 (2) Chronic renal failure Current Visit: No Status: Chronic Code(s): N18.9 - CHRONIC KIDNEY DISEASE, UNSPECIFIED SNOMED Code(s): 82378625 (3) Nonischemic cardiomyopathy Current Visit: Yes Status: Acute Code(s): I42.8 - OTHER CARDIOMYOPATHIES SNOMED Code(s): 26948495 Plan: Patient seemed to be feeling better. Wall of status improved. Patient has been changed to oral Bumex. Dr. Mancuso is recommended Bumex 2 mg twice daily at home which is double his normal home dose. Patient is cleared from cardiology for discharge home with planned follow-up with Dr. Olmstead in one week. Nurse practitioner note has been reviewed, I agree with the documented findings and plan of care. Patient was seen and examined.
[2018-08-05 11:36] LABS: Glucose,Whole Blood 171 mg/dL (75-99)
[2018-08-05 12:08] VITALS: BP 112/79; PULSE 59; TEMP 97.4
--- NOTE | 2018-08-05 12:39 | P.DS ---
Providers Date of admission: 08/01/18 14:09 Expected date of discharge: 08/05/18 Attending physician: Renan Cobb Consults: 08/01/18 14:09 Consult Physician Stat Consulting Provider: Isauro Cleaning Consult Reason/Comments: chf Do you want consulting provider notified?: Already Contacted 08/01/18 15:47 Consult Physician Routine Consulting Provider: Catalina Lagunas Consult Reason/Comments: Chronic kidney disease, on Bumex and Lasix Do you want consulting provider notified?: Yes 08/01/18 15:52 Consult Physician Routine Consulting Provider: Javier Palacio Consult Reason/Comments: possible pneumonia Do you want consulting provider notified?: Yes Primary care physician: Toshia Bui [facility] Course: Diagnoses on discharge: 1. Dyspnea related to Acute on chronic systolic congestive heart failure. Patient is maintained on milrinone drip managed by cardiology. BNP elevated at 11,600. 2-D echo completed showing EF of 20-25%. Patient is on Bumex drip per cardiology and nephrology services 2. Possible pneumonia. Chest x-ray completed showing cardiomegaly with basilar atelectasis or infiltrate correlate clinically. Per pulmonary outflow pneumonia repeat chest x-ray ordered 3. Chronic persistent Atrial fibrillation. Patient maintained on Coumadin. INR 3.0 home dose of Coumadin ordered for tomorrow. Daily PT/INRs ordered 4. History of diabetes mellitus type 2. Home medications have been ordered. Sliding scale insulin ordered 5. History of essential hypertension 6. History of hyperlipidemia 7. Acute on chronic renal disease. Nephrology services have been consulted due to patient being on multiple diuretics. We'll continue to monitor. Creatinine increasing to 2.30. Nephrology services are following. 8. Underlying history of coronary artery disease 9. History of asthma 10. History of BPH 11. History of hypothyroidism. Home dose of Synthroid reordered 12. Nonischemic cardiomyopathy with AICD placement 13. Elevated ammonia level. Patient's reports that patient had elevated ammonia level outpatient was treated with lactulose repeat level has been ordered for a.m. ammonia level 23 14. Elevated troponin. Per cardiology likely secondary to kidney disease 15. Metabolic alkalosis. She received 1 dose Diamox per nephrology services Hospital Course: This is of 77-year-old male patient of Dr. Bui. Patient presented as a transfer from [facility]. Patient presented to the hospital with complaints of increased shortness of breath related to his congestive heart failure. Patient was transferred to be seen by cardiology services. Patient is maintained on milrinone drip that patient states is managed by cardiology services. Patient reports that has had increased shortness of breath along with increased fluid retention and abdomen and legs. Patient has past medical history of atrial fibrillation which she is maintained on Coumadin, asthma, coronary artery disease, cancer, heart failure, diabetes mellitus, high disorder, hyperlipidemia, hypertension, osteoarthritis, prostate disorder, pulmonary embolism, renal disease, hypothyroidism, cardiomyopathy, PICC line with milironine fusion managed by cardiology, chronic kidney disease, BPH and pacemaker placement. Chest x-ray completed showing cardiomegaly with basilar atelectasis and infiltrate correlate clinically. Patient started on IV Lasix. Pulmonary and cardiology services have been consulted. At this time patient is resting comfortably in chair. Patient does complain of increased shortness of breath. Patient denies chest pain. Patient denies nausea vomiting or diarrhea. Patient denies any urinary burning or frequency. On 08/02/2018 patient is alert and oriented 3. at bedside. Patient currently receiving 2-D echo. Patient has had a significant weight loss since yesterday. Patient remains on IV Lasix. Discussed with cardiology services home meds of Lasix and Bumex along with milirone drip. Patient's INR 2.60 continue Coumadin at home dose. Creatinine increasing to 1.93 but 83. At this time patient denies chest pain. Soreness breath is improving. Patient denies nausea vomiting or diarrhea. Patient denies any urinary burning or frequency. On 08/03/2018 patient is alert and oriented 3. Patient down from 101.5 kg to 97.4 kg. Patient remains on Bumex drip per cardiology and nephrology services. Creatinine increasing to 2.30 and bun 90. Nephrology services are following. She still having some shortness of breath while lying flat. Patient denies chest pain. Patient denies nausea vomiting or diarrhea. Patient denies any urinary burning or frequency On 08/04/2018 patient is alert and oriented 3 in no apparent distress he is still complaining of shortness of breath he is complaining of fatigue otherwise he denies any complaints there is no fever or chills no headache or dizziness no chest pain no shortness of breath no cough no nausea or vomiting no abdominal pain no diarrhea and no urinary symptoms On 08/05/2018 patient is seen and examined on the medical floor he is alert and oriented 3 he is feeling better shortness of breath has improved he lost a total of 8 kg since admission, he was evaluated by cardiology and nephrology and was cleared for discharge dose of Bumex was increased to 2 mg twice a day by mouth, patient should be followed closely by his primary care, cardiology, and nephrology within the next 7 days he should have labs drawn twice a week Plan - Discharge Summary Discharge Rx Participant: Yes New Discharge Prescriptions: New Bumetanide [BUMEX] 2 mg PO BID tab Fenofibrate [Lofibra] 160 mg PO DAILY tab Continue Magnesium Oxide [Mag-Ox] 500 mg PO BID Ergocalciferol (Vitamin D2) [Drisdol] 50,000 unit PO TUTH Allopurinol [Zyloprim] 100 mg PO DAILY Insulin Aspart [NovoLOG] 30 units SQ ACHS Metolazone [Zaroxolyn] 5 mg PO AGOSTO Ferrous Sulfate [Iron (65 MG Elemental)] 325 mg PO BID Insulin Glargine [Lantus] 60 unit SQ HS Levothyroxine Sodium [Synthroid] 88 mcg PO DAILY Milrinone Drip 1 applicate IV DIRECTED Warfarin [Coumadin] 5 mg PO HS Atorvastatin [Lipitor] 80 mg PO HS Potassium Chloride ER [K-Dur 20] 40 meq PO BID HYDROcodone/APAP 7.5-325MG [Edmond 7.5-325] 1 tab PO TID PRN PRN Reason: Pain Escitalopram [Lexapro] 2.5 mg PO DAILY Discontinued Bumetanide [BUMEX] 2 mg PO DAILY Furosemide [Lasix] 40 mg PO DAILY Discharge Medication List Ergocalciferol (Vitamin D2) [Drisdol] 50,000 unit PO TUTH 10/23/15 [History] Magnesium Oxide [Mag-Ox] 500 mg PO BID 10/23/15 [History] Allopurinol [Zyloprim] 100 mg PO DAILY 07/21/16 [History] Ferrous Sulfate [Iron (65 MG Elemental)] 325 mg PO BID 04/12/17 [History] Insulin Aspart [NovoLOG] 30 units SQ ACHS 04/12/17 [History] Insulin Glargine [Lantus] 60 unit SQ HS 04/12/17 [History] Metolazone [Zaroxolyn] 5 mg PO AGOSTO 04/12/17 [History] Levothyroxine Sodium [Synthroid] 88 mcg PO DAILY 05/19/17 [History] Milrinone Drip 1 applicate IV DIRECTED 05/19/17 [History] Warfarin [Coumadin] 5 mg PO HS 11/15/17 [History] Atorvastatin [Lipitor] 80 mg PO HS 08/01/18 [History] Escitalopram [Lexapro] 2.5 mg PO DAILY 08/01/18 [History] HYDROcodone/APAP 7.5-325MG [Edmond 7.5-325] 1 tab PO TID PRN 08/01/18 [History] Potassium Chloride ER [K-Dur 20] 40 meq PO BID 08/01/18 [History] Bumetanide [BUMEX] 2 mg PO BID tab 08/05/18 [Rx] Fenofibrate [Lofibra] 160 mg PO DAILY tab 08/05/18 [Rx] Follow up Appointment(s)/Referral(s): Hailey Olmstead MD [STAFF PHYSICIAN] - 1 Week Toshia Bui DO [Primary Care Provider] - 1-2 days Victorino Mancuso MD [STAFF PHYSICIAN] - 1 Week Activity/Diet/Wound Care/Special Instructions: cleared by cardiology and nephrology
--- NOTE | 2018-08-09 09:20 | P.PN ---
Progress Note - Text Progress Note Date: 08/09/18 This is an addendum to the cardiology progress note dictated. Patient has a typical atrial flutter.
== END 2018-08-05 14:26 | disposition home or self-care (01) | DRG 291 ==
LOC: EC 13:04 → 3SCARD 14:09
PROVIDERS: ADMIT Internal Medicine; ATTEND Internal Medicine
DX: I13.0 Hypertensive heart and chronic kidney disease with heart failure and stage 1 through stage 4 chronic kidney disease, or unspecified chronic kidney disease (principal); I50.23 Acute on chronic systolic (congestive) heart failure; J18.9 Pneumonia, unspecified organism; I48.1 Persistent atrial fibrillation; J98.11 Atelectasis; N18.4 Chronic kidney disease, stage 4 (severe); N17.9 Acute kidney failure, unspecified; E87.3 Alkalosis; E72.20 Disorder of urea cycle metabolism, unspecified; I48.4 Atypical atrial flutter; E11.22 Type 2 diabetes mellitus with diabetic chronic kidney disease; I27.20 Pulmonary hypertension, unspecified; I42.8 Other cardiomyopathies; E86.9 Volume depletion, unspecified; I49.5 Sick sinus syndrome; I08.3 Combined rheumatic disorders of mitral, aortic and tricuspid valves; I69.398 Other sequelae of cerebral infarction; E78.5 Hyperlipidemia, unspecified; J45.909 Unspecified asthma, uncomplicated; I25.10 Atherosclerotic heart disease of native coronary artery without angina pectoris; M19.90 Unspecified osteoarthritis, unspecified site; H53.9 Unspecified visual disturbance; R40.2363 Coma scale, best motor response, obeys commands, at hospital admission; R40.2143 Coma scale, eyes open, spontaneous, at hospital admission; R40.2253 Coma scale, best verbal response, oriented, at hospital admission; E03.9 Hypothyroidism, unspecified; G89.29 Other chronic pain; M54.9 Dorsalgia, unspecified; M48.00 Spinal stenosis, site unspecified; N40.0 Benign prostatic hyperplasia without lower urinary tract symptoms; T50.2X5A Adverse effect of carbonic-anhydrase inhibitors, benzothiadiazides and other diuretics, initial encounter; K42.9 Umbilical hernia without obstruction or gangrene; R77.8 Other specified abnormalities of plasma proteins; Z79.4 Long term (current) use of insulin; Z79.01 Long term (current) use of anticoagulants; Z79.890 Hormone replacement therapy; Z79.899 Other long term (current) drug therapy; Z86.711 Personal history of pulmonary embolism; Z96.653 Presence of artificial knee joint, bilateral; Z96.612 Presence of left artificial shoulder joint; Z85.828 Personal history of other malignant neoplasm of skin; Z86.2 Personal history of diseases of the blood and blood-forming organs and certain disorders involving the immune mechanism; Z95.810 Presence of automatic (implantable) cardiac defibrillator; Z98.890 Other specified postprocedural states; Z82.49 Family history of ischemic heart disease and other diseases of the circulatory system; Z80.0 Family history of malignant neoplasm of digestive organs
CPT/HCPCS: 36415; 71045; 71046; 80053; 82140; 83735; 83880; 84145; 84439; 84443; 84481; 84484; 85025; 85610; 85730; 93005; 93306; 94760; 96374; 99285

== ENCOUNTER 2018-11-12 05:26 | Inpatient (IN) | payer MEDICARE, BC ==
--- NOTE | 2018-11-12 06:12 | ED ---
SOB HPI - General Chief Complaint: Shortness of Breath Stated Complaint: SOB HxCHF Time Seen by Provider: 11/12/18 05:52 Source: patient, RN notes reviewed, old records reviewed Mode of arrival: wheelchair Limitations: no limitations - History of Present Illness Initial Comments: Patient is a 77-year-old male with a long-standing history of CHF. He currently has a PICC line which is receiving mironone through this for past 2 years. He presents today with worsening shortness of breath. Patient states that he was increased on his Lasix by his outdoor studies director this past week. He states that he also was started on a potassium pill. Patient reports that he feels like he may have high potassium. He looked up symptoms and states that he has been short of breath, feels that his legs are weak and can't eat well. Patient reports that they have questioned Patient would need to start dialysis due to the history of chronic fluid overload. Patient reports that he has not been urinating as much despite using increased Lasix. Patient states that he's had no fevers or chills. Denies a significant coughing. Patient reports he is short of breath when he lays back. - Related Data Home Medications Medication Instructions Recorded Confirmed Ergocalciferol (Vitamin D2) 50,000 unit PO TUTH 10/23/15 11/12/18 [Drisdol] Magnesium Oxide [Mag-Ox] 500 mg PO BID 10/23/15 11/12/18 Allopurinol [Zyloprim] 100 mg PO TID 07/21/16 11/12/18 Ferrous Sulfate [Iron (65 MG 325 mg PO BID 04/12/17 11/12/18 Elemental)] Insulin Aspart [NovoLOG] 30 units SQ ACHS PRN 04/12/17 11/12/18 Insulin Glargine [Lantus] 60 unit SQ HS PRN 04/12/17 11/12/18 Metolazone [Zaroxolyn] 5 mg PO AGOSTO 04/12/17 11/12/18 Levothyroxine Sodium [Synthroid] 88 mcg PO DAILY 05/19/17 11/12/18 Milrinone Drip 1 applicate IV DIRECTED 05/19/17 11/12/18 Warfarin [Coumadin] 5 mg PO HS 11/15/17 11/12/18 Escitalopram [Lexapro] 2.5 mg PO DAILY 08/01/18 11/12/18 Potassium Chloride ER [K-Dur 20] 40 meq PO BID 08/01/18 11/12/18 Previous Rx's Medication Instructions Recorded Bumetanide [BUMEX] 2 mg PO BID tab 08/05/18 Allergies Allergy/AdvReac Type Severity Reaction Status Date / Time No Known Allergies Allergy Verified 11/12/18 07:40 Review of Systems ROS Statement: Those systems with pertinent positive or pertinent negative responses have been documented in the HPI. ROS Other: All systems not noted in ROS Statement are negative. Past Medical History Past Medical History: Atrial Fibrillation, Asthma, Coronary Artery Disease (CAD), Cancer, Heart Failure, Diabetes Mellitus, Eye Disorder, Hyperlipidemia, Hypertension, Osteoarthritis (OA), Prostate Disorder, Pulmonary Embolus (PE), Renal Disease, Thyroid Disorder Additional Past Medical History / Comment(s): cardiomyopathy,HAS PICC LINE RT ARM AND MEDI PUMP WITH MILRINONE STATED BAG WAS CHANGED TODAY AND BATTERIES ALSO, BUT DRESSING TO PICC LINE DID'NT GET CHANGED TODAY AND WAS DUE FOR CHANGE) .O2 2l/nc prn, SOB with exertion, CKD , anemia, L ocular stroke-vision affected, chronic back pain, spinal stenosis, BPH, umbilical hernia,skin cancer ear, See Dr Barros's H&P, Milrione infusion in place History of Any Multi-Drug Resistant Organisms: None Reported Past Surgical History: Back Surgery, Heart Catheterization, Joint Replacement, Orthopedic Surgery, Pacemaker, Tonsillectomy Additional Past Surgical History / Comment(s): BILATERAL TOTAL KNEE , LT SHOULDER REPLACEMENT, COLONOSCOPY,SKIN CANCER REMOVALS,BILATERAL CARPAL TUNNEL RELEASES, CARDIAC CATHS X2, 12/21/16 KAYLEY-BLOOD CLOT IN HEART. PIC line right arm, pacemaker ( [employer]) 01/2017, CARDIOVERSION Past Anesthesia/Blood Transfusion Reactions: No Reported Reaction Additional Past Anesthesia/Blood Transfusion Reaction / Comment(s): "I came out feeling like I was in another world'-with last cardiac procedure Type of Cardiac Device: Permanent Pacemaker Device Placement Date:: 01/2017 Past Psychological History: No Psychological Hx Reported Smoking Status: Never smoker Past Alcohol Use History: None Reported Past Drug Use History: None Reported - Past Family History Father Family Medical History: Congestive Heart Failure (CHF) Mother Family Medical History: Cancer Additional Family Medical History / Comment(s): Mother had esophageal cancer. General Exam - General Exam Comments Initial Comments: 77-year-old male. Alert and oriented 3. Limitations: no limitations General appearance: alert, in no apparent distress Head exam: Present: atraumatic, normocephalic, normal inspection Eye exam: Present: normal appearance, PERRL, EOMI. Absent: scleral icterus, conjunctival injection, periorbital swelling ENT exam: Present: normal exam, mucous membranes moist Neck exam: Present: normal inspection. Absent: tenderness, meningismus, lymphadenopathy Respiratory exam: Present: decreased breath sounds. Absent: normal lung sounds bilaterally, respiratory distress, wheezes, rales, rhonchi, stridor Cardiovascular Exam: Present: regular rate, normal rhythm, normal heart sounds, other. Absent: systolic murmur (Patient has a PICC line.), diastolic murmur, rubs, gallop, clicks GI/Abdominal exam: Present: soft, normal bowel sounds. Absent: distended, tenderness, guarding, rebound, rigid Extremities exam: Present: full ROM, normal capillary refill, pedal edema (2 plus). Absent: normal inspection, tenderness, joint swelling, calf tenderness Back exam: Present: normal inspection Neurological exam: Present: alert, oriented X3, CN II-XII intact Psychiatric exam: Present: normal affect, normal mood Skin exam: Present: warm, dry, intact, normal color. Absent: rash Course Vital Signs 11/12/18 11/12/18 05:29 07:22 Temperature 98.0 F Pulse Rate 61 78 Respiratory 20 18 Rate Blood Pressure 130/78 118/71 O2 Sat by Pulse 94 L 96 Oximetry Medical Decision Making - Medical Decision Making Patient is a 37-year-old male with a history of CHF. He presents today with generalized weakness, complaint of dyspnea. He recently has Lasix increased 100 mg daily and also placed on potassium pill. He states he is concerned that his potassium was high. Patient was given an IV and lab work was obtained. Patient's lab work does show evidence of elevated BNP. Patient kidney function is quite compromised. But this is not significantly changed from his prior. T roponin has increased this time 0.369. He denies any specific chest pain. Is likely a reflection from CHF and chronic kidney disease. Patient's chest x-ray shows evidence of acute CHF and questions overlying exudate or atelectasis. Patient has no clinical signs of pneumonia with no fever or productive cough. Patient case disucssed with Dr. Bui, requests to add Bumex 2mg IVP TID. Patient and family understand treatment plan. - Lab Data Result diagrams: 11/12/18 06:05 11/12/18 06:05 Lab Results 11/12/18 11/12/18 11/12/18 Range/Units 06:05 06:05 06:05 WBC 8.2 (3.8-10.6) k/uL RBC 4.59 (4.30-5.90) m/uL Hgb 14.3 (13.0-17.5) gm/dL Hct 45.2 (39.0-53.0) % MCV 98.5 (80.0-100.0) fL MCH 31.1 (25.0-35.0) pg MCHC 31.6 (31.0-37.0) g/dL RDW 15.7 H (11.5-15.5) % Plt Count 192 (150-450) k/uL Neutrophils % 64 % Lymphocytes % 20 % Monocytes % 9 % Eosinophils % 1 % Basophils % 2 % Neutrophils # 5.3 (1.3-7.7) k/uL Lymphocytes # 1.7 (1.0-4.8) k/uL Monocytes # 0.7 (0-1.0) k/uL Eosinophils # 0.1 (0-0.7) k/uL Basophils # 0.2 (0-0.2) k/uL Macrocytosis Slight PT (9.0-12.0) sec INR (<1.2) APTT (22.0-30.0) sec Sodium 137 (137-145) mmol/L Potassium 3.8 (3.5-5.1) mmol/L Chloride 88 L (98-107) mmol/L Carbon Dioxide 37 H (22-30) mmol/L Anion Gap 12 mmol/L BUN 88 H (9-20) mg/dL Creatinine 1.93 H (0.66-1.25) mg/dL Est GFR (CKD-EPI)AfAm 38 (>60 ml/min/1.73 sqM) Est GFR (CKD-EPI)NonAf 33 (>60 ml/min/1.73 sqM) Glucose 115 H (74-99) mg/dL Calcium 9.8 (8.4-10.2) mg/dL Total Bilirubin 1.5 H (0.2-1.3) mg/dL AST 45 (17-59) U/L ALT 21 (21-72) U/L Alkaline Phosphatase 68 (38-126) U/L Troponin I (0.000-0.034) ng/mL NT-Pro-B Natriuret Pep 7250 pg/mL Total Protein 7.2 (6.3-8.2) g/dL Albumin 4.0 (3.5-5.0) g/dL 11/12/18 11/12/18 Range/Units 06:05 06:05 WBC (3.8-10.6) k/uL RBC (4.30-5.90) m/uL Hgb (13.0-17.5) gm/dL Hct (39.0-53.0) % MCV (80.0-100.0) fL MCH (25.0-35.0) pg MCHC (31.0-37.0) g/dL RDW (11.5-15.5) % Plt Count (150-450) k/uL Neutrophils % % Lymphocytes % % Monocytes % % Eosinophils % % Basophils % % Neutrophils # (1.3-7.7) k/uL Lymphocytes # (1.0-4.8) k/uL Monocytes # (0-1.0) k/uL Eosinophils # (0-0.7) k/uL Basophils # (0-0.2) k/uL Macrocytosis PT 21.0 H (9.0-12.0) sec INR 2.2 H (<1.2) APTT 30.3 H (22.0-30.0) sec Sodium (137-145) mmol/L Potassium (3.5-5.1) mmol/L Chloride (98-107) mmol/L Carbon Dioxide (22-30) mmol/L Anion Gap mmol/L BUN (9-20) mg/dL Creatinine (0.66-1.25) mg/dL Est GFR (CKD-EPI)AfAm (>60 ml/min/1.73 sqM) Est GFR (CKD-EPI)NonAf (>60 ml/min/1.73 sqM) Glucose (74-99) mg/dL Calcium (8.4-10.2) mg/dL Total Bilirubin (0.2-1.3) mg/dL AST (17-59) U/L ALT (21-72) U/L Alkaline Phosphatase (38-126) U/L Troponin I 0.362 H* (0.000-0.034) ng/mL NT-Pro-B Natriuret Pep pg/mL Total Protein (6.3-8.2) g/dL Albumin (3.5-5.0) g/dL 11/12/18 06:33 EKG performed at 5:45 AM shows suspect unspecified pacemaker failure, undetermined rhythm, right bundle branch block noted. Ventricular rate of 60 bpm. : Intact. Care instruction 120 ms. QT QTc is 266/375 ms. - Radiology Data Radiology results: report reviewed Disposition Clinical Impression: CHF (congestive heart failure), Chronic renal failure, Weakness, Elevated troponin, Dyspnea Disposition: ADMITTED IP TO THIS [facility] Condition: Stable Is patient prescribed a controlled substance at d/c from ED?: No Referrals: Toshia Bui DO [Primary Care Provider] - 1-2 days Time of Disposition: 08:06
--- NOTE | 2018-11-12 06:29 | XR ---
EXAMINATION TYPE: XR chest 2V DATE OF EXAM: 11/12/2018 COMPARISON: Prior chest x-ray August 03, 2018. HISTORY: Difficulty in breathing. TECHNIQUE: Frontal and lateral views of the chest are obtained. FINDINGS: Stable right internal jugular Mediport catheter. Persistent cardiomegaly with multilead pa cemaker/AICD and atherosclerotic aorta. Mild central vascular congestion. New left basilar opacity si lhouetting left hemidiaphragm. No pleural effusion or pneumothorax. Metallic hardware from left shoul teri surgery partially imaged. Advanced degenerative change right glenohumeral joint again seen. IMPRESSION: Correlate for CHF exacerbations there is cardiomegaly with suspected new mild central va scular congestion however in addition there is new left basilar opacity worrisome for acute infiltrat e and/or atelectasis. Correlate clinically. Consider follow-up chest x-ray.
[2018-11-12 06:35] LABS: Basophils # (A) 0.2 k/uL (0-0.2); Basophils % (A) 2 %; Eosinophils # (A) 0.1 k/uL (0-0.7); Eosinophils % (A) 1 %; HCT 45.2 % (39.0-53.0); HGB 14.3 gm/dL (13.0-17.5); Lymphocytes # (A) 1.7 k/uL (1.0-4.8); Lymphocytes % (A) 20 %; MCH 31.1 pg (25.0-35.0); MCHC 31.6 g/dL (31.0-37.0); MCV 98.5 fL (80.0-100.0); Macrocytosis Slight; Mean Platelet Volume 7.4; Monocytes # (A) 0.7 k/uL (0-1.0); Monocytes % (A) 9 %; Neutrophils # (A) 5.3 k/uL (1.3-7.7); Neutrophils % (A) 64 %; Platelet Count 192 k/uL (150-450); RBC 4.59 m/uL (4.30-5.90); RDW 15.7 % (11.5-15.5); WBC 8.2 k/uL (3.8-10.6)
[2018-11-12 06:57] LABS: Calcium 9.8 mg/dL (8.4-10.2); INR 2.2 (<1.2); Partial Thromboplastin Time 30.3 sec (22.0-30.0); Potassium 3.8 mmol/L (3.5-5.1); Total Bilirubin 1.5 mg/dL (0.2-1.3); Total Protein 7.2 g/dL (6.3-8.2)
[2018-11-12] MEDS ORDERED: FUROSEMIDE 10 MG/ML 4 ML VIAL IV SCH (07:00)
[2018-11-12] MEDS ORDERED: ASPIRIN 325 MG TAB PO STA (08:06)
[2018-11-12] MEDS ORDERED: INSULIN GLARGINE 60 UNIT SQ PRN (08:08)
[2018-11-12] MEDS ORDERED: INSULIN ASPART 30 UNIT SQ PRN (08:08)
[2018-11-12] MEDS: NITROGLYCERIN OINT 1 INCH/GM PACKET TOPICAL SCH ×4 (08:26→21:08)
[2018-11-12] MEDS ORDERED: FERROUS SULFATE 325 MG TAB PO SCH ×2 (09:00→21:00)
[2018-11-12] MEDS ORDERED: LEVOTHYROXINE 88 MCG TAB PO SCH (09:00)
--- NOTE | 2018-11-12 10:25 | P.HPIM ---
History of Present Illness H&P Date: 11/12/18 Jose G Polk is a 77 yo M with PMH of systolic CHF, CAD, A fib, AICD in place, continuous milrinone infusion follows with Dr. Olmstead, hypothyroid, depression. He states that over the weekend he has become progressively lethargic and short of breath. He also complains of leg weakness and swelling. Pt states he has continued to take his medications regularly and follows a heart healthy diet high in vegetables. He denies any chest pain, headache, or vision change. Pt does endorse orthopnea but does not feel it is worsened. He denies palpitations but states his defibrillator did recently shock him. He last had an echo a few weeks ago which he states was overall stable and showed LVEF 41%. He denies sick contacts or recent illness. In the ED, vitals stable, Cr 1.9 at baseline, BNP 7000, trop 0.36. He was given 40 mg of lasix. Review of Systems All systems: negative Constitutional: Reports malaise, Reports weakness, Reports weight gain, Denies chills, Denies fever Eyes: denies blurred vision, denies pain Ears, nose, mouth and throat: Denies headache, Denies sore throat Cardiovascular: Reports decreased exercise tolerance, Reports dyspnea on exer tion, Reports edema, Reports leg edema, Reports orthopnea, Denies chest pain, Denies shortness of breath Respiratory: Reports cough, Reports home oxygen Gastrointestinal: Denies abdominal pain, Denies diarrhea, Denies nausea, Denies vomiting Musculoskeletal: Denies myalgias Integumentary: Denies pruritus, Denies rash Neurological: Denies numbness, Denies weakness Psychiatric: Denies anxiety, Denies depression Endocrine: Denies fatigue, Denies weight change Past Medical History Past Medical History: Atrial Fibrillation, Asthma, Coronary Artery Disease (CAD), Cancer, Heart Failure, Diabetes Mellitus, Eye Disorder, Hyperlipidemia, Hypertension, Osteoarthritis (OA), Prostate Disorder, Pulmonary Embolus (PE), Renal Disease, Thyroid Disorder Additional Past Medical History / Comment(s): cardiomyopathy,HAS PICC LINE RT ARM AND MEDI PUMP WITH MILRINONE STATED BAG WAS CHANGED TODAY AND BATTERIES ALSO, BUT DRESSING TO PICC LINE DID'NT GET CHANGED TODAY AND WAS DUE FOR CHANGE) .O2 2l/nc prn, SOB with exertion, CKD , anemia, L ocular stroke-vision affected, chronic back pain, spinal stenosis, BPH, umbilical hernia,skin cancer ear, See Dr Barros's H&P, Milrione infusion in place History of Any Multi-Drug Resistant Organisms: None Reported Past Surgical History: Back Surgery, Heart Catheterization, Joint Replacement, Orthopedic Surgery, Pacemaker, Tonsillectomy Additional Past Surgical History / Comment(s): BILATERAL TOTAL KNEE , LT SHOULDER REPLACEMENT, COLONOSCOPY,SKIN CANCER REMOVALS,BILATERAL CARPAL TUNNEL RELEASES, CARDIAC CATHS X2, 12/21/16 KAYLEY-BLOOD CLOT IN HEART. PIC line right arm, pacemaker ( [employer]) 01/2017, CARDIOVERSION Past Anesthesia/Blood Transfusion Reactions: No Reported Reaction Additional Past Anesthesia/Blood Transfusion Reaction / Comment(s): "I came out feeling like I was in another world'-with last cardiac procedure Type of Cardiac Device: Permanent Pacemaker Device Placement Date:: 01/2017 Past Psychological History: No Psychological Hx Reported Smoking Status: Never smoker Past Alcohol Use History: None Reported Past Drug Use History: None Reported - Past Family History Father Family Medical History: Congestive Heart Failure (CHF) Mother Family Medical History: Cancer Additional Family Medical History / Comment(s): Mother had esophageal cancer. Medications and Allergies Home Medications Medication Instructions Recorded Confirmed Type Ergocalciferol (Vitamin D2) 50,000 unit PO TUTH 10/23/15 11/12/18 History [Drisdol] Magnesium Oxide [Mag-Ox] 500 mg PO BID 10/23/15 11/12/18 History Allopurinol [Zyloprim] 100 mg PO TID 07/21/16 11/12/18 History Ferrous Sulfate [Iron (65 MG 325 mg PO BID 04/12/17 11/12/18 History Elemental)] Insulin Aspart [NovoLOG] 30 units SQ ACHS PRN 04/12/17 11/12/18 History Insulin Glargine [Lantus] 60 unit SQ HS PRN 04/12/17 11/12/18 History Metolazone [Zaroxolyn] 5 mg PO AGOSTO 04/12/17 11/12/18 History Levothyroxine Sodium [Synthroid] 88 mcg PO DAILY 05/19/17 11/12/18 History Milrinone Drip 1 applicate IV DIRECTED 05/19/17 11/12/18 History Warfarin [Coumadin] 5 mg PO HS 11/15/17 11/12/18 History Escitalopram [Lexapro] 2.5 mg PO DAILY 08/01/18 11/12/18 History Potassium Chloride ER [K-Dur 20] 40 meq PO BID 08/01/18 11/12/18 History Bumetanide [BUMEX] 2 mg PO BID tab 08/05/18 11/12/18 Rx Allergies Allergy/AdvReac Type Severity Reaction Status Date / Time No Known Allergies Allergy Verified 11/12/18 07:40 Physical Exam Vitals: Vital Signs Temp Pulse Resp BP Pulse Ox 11/12/18 07:22 78 18 118/71 96 11/12/18 05:29 98.0 F 61 20 130/78 94 L Intake and Output 11/11/18 11/12/18 11/12/18 22:59 06:59 14:59 Other: Weight 99.79 kg General: Well-developed, obese, no acute distress. Vitals reviewed HEENT: Normocephalic, mucous membranes moist, on 2 L nasal cannula Neck: Supple, no thyromegaly, no JVD CV: Irregularly irregular, systolic murmur, peripheral pulses 1+ Lungs: Normal inspiratory effort, crackles at bases, no rhonchi or wheezing Abdomen: Soft, nondistended, no organomegaly, nontender Lymph: No cervical or axillary lymphadenopathy Extremity: 1+ edema bilaterally, no cyanosis or clubbing Neuro: Alert and oriented 3, no focal deficits Skin: Warm and dry Results CBC & Chem 7: 11/12/18 06:05 11/12/18 06:05 Labs: Abnormal Lab Results - Last 24 Hours (Table) 11/12/18 11/12/18 11/12/18 Range/Units 06:05 06:05 06:05 RDW 15.7 H (11.5-15.5) % PT (9.0-12.0) sec INR (<1.2) APTT (22.0-30.0) sec Chloride 88 L (98-107) mmol/L Carbon Dioxide 37 H (22-30) mmol/L BUN 88 H (9-20) mg/dL Creatinine 1.93 H (0.66-1.25) mg/dL Glucose 115 H (74-99) mg/dL Total Bilirubin 1.5 H (0.2-1.3) mg/dL Troponin I 0.362 H* (0.000-0.034) ng/mL 11/12/18 Range/Units 06:05 RDW (11.5-15.5) % PT 21.0 H (9.0-12.0) sec INR 2.2 H (<1.2) APTT 30.3 H (22.0-30.0) sec Chloride (98-107) mmol/L Carbon Dioxide (22-30) mmol/L BUN (9-20) mg/dL Creatinine (0.66-1.25) mg/dL Glucose (74-99) mg/dL Total Bilirubin (0.2-1.3) mg/dL Troponin I (0.000-0.034) ng/mL Assessment and Plan (1) Demand ischemia Current Visit: Yes Status: Acute Code(s): I24.8 - OTHER FORMS OF ACUTE ISCHEMIC HEART DISEASE SNOMED Code(s): 476577625 (2) Hypothyroidism Current Visit: Yes Status: Acute Code(s): E03.9 - HYPOTHYROIDISM, UNSPECI FIED SNOMED Code(s): 40163162 (3) Type 2 diabetes mellitus, with long-term current use of insulin Current Visit: Yes Status: Acute Code(s): E11.9 - TYPE 2 DIABETES MELLITUS WITHOUT COMPLICATIONS; Z79.4 - USP (CURRENT) USE OF INSULIN SNOMED Code(s): 137613215 (4) Elevated troponin Current Visit: Yes Status: Acute Code(s): R74.8 - ABNORMAL LEVELS OF OTHER SERUM ENZYMES SNOMED Code(s): 298669328 (5) Weakness Current Visit: Yes Status: Acute Code(s): R53.1 - WEAKNESS SNOMED Code(s): 79992546 (6) 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 Current Visit: No Status: Acute Code(s): N17.9 - ACUTE KIDNEY FAILURE, UNSPECIFIED; N18.9 - CHRONIC KIDNEY DISEASE, UNSPECIFIED SNOMED Code(s): 152446911 (7) Acute on chronic systolic CHF (congestive heart failure) Current Visit: No Status: Acute Code(s): I50.23 - ACUTE ON CHRONIC SYSTOLIC (CONGESTIVE) HEART FAILURE SNOMED Code(s): 396149733 (8) Persistent atrial fibrillation Current Visit: Yes Status: Acute Code(s): I48.1 - PERSISTENT ATRIAL FIBRILLATION SNOMED Code(s): 626342981 (9) Coronary artery disease Current Visit: Yes Status: Acute Code(s): I25.10 - ATHSCL HEART DISEASE OF [place] CORONARY ARTERY W/O ANG PCTRS SNOMED Code(s): 94935276 (10) ICD (implantable cardioverter-defibrillator) in place Current Visit: Yes Status: Acute Code(s): Z95.810 - PRESENCE OF AUTOMATIC (IMPLANTABLE) CARDIAC DEFIBRILLATOR SNOMED Code(s): 883926542 Plan: 1. Acute exacerbation of systolic CHF. Increase bumex to 2 mg tid. Strict I/Os. Continue home metolazone 2. Elevated troponin. Suspect demand ischemia. Continue to trend. Normalize fluid balance 3. CAD, persistent a fib. AICD in place. Continue milrinone drip. Anticoagulated with coumadin. Cardiology consulted 4. Hypothyroidism. Continue synthroid 5. Depression. Continue lexapro 6. Gout. Cont allopurinol Time with Patient: Greater than 30
[2018-11-12 12:01] LABS: Glucose,Whole Blood 100 mg/dL (75-99)
[2018-11-12] MEDS: MAGNESIUM OXIDE 400 MG TAB PO SCH ×2 (12:41→21:08)
[2018-11-12] MEDS: POTASSIUM CHLORIDE ER 20 MEQ TAB.ER PO SCH ×2 (12:41→21:11)
[2018-11-12] MEDS: MILRINONE IV SCH (12:43)
[2018-11-12] MEDS: ESCITALOPRAM 5 MG TAB PO SCH (12:43)
[2018-11-12] MEDS: ALLOPURINOL 100 MG TAB PO SCH ×3 (12:43→21:08)
[2018-11-12] MEDS: BUMETANIDE 0.25 MG/ML 4 ML VIAL IVP SCH ×3 (12:43→21:09)
[2018-11-12] MEDS: SODIUM CHLORIDE 0.9% 1,000 ML IV SCH (12:43)
[2018-11-12] MEDS: FERROUS SULFATE 325 MG TAB PO SCH ×2 (12:44→21:08)
[2018-11-12] MEDS: LEVOTHYROXINE 88 MCG TAB PO SCH (15:47)
[2018-11-12 17:35] LABS: Glucose,Whole Blood 227 mg/dL (75-99)
[2018-11-12] MEDS: INSULIN ASPART (NovoLOG) 100 UNIT/ML VIAL SQ SCH ×2 (17:38→20:33)
--- NOTE | 2018-11-12 18:16 | P.CRDCN ---
History of Present Illness Consult date: 11/12/18 History of present illness: This is a 77-year-old gentleman with history of chronic congestive heart failure, coronary artery disease, atrial fibrillation and also AICD placement who is on chronic milrinone infusion who follows with the Dr. Olmstead, came to the hospital with increasing shortness of breath. Apparently had an echo Cardec gram done recently in his documentation specialist office which showed an ejection fraction of 41%, which is an improvement compared to the previous studies. His also complains of weakness in the legs and swelling of the legs. Patient has been taking his medications regularly. He is following his diet also. He is BNP on admission was 7000. His troponin was 0.36 and creatinine was 1.9. His troponin values seemed to be stable and the pattern is not consistent with acute myocardial infarction. He seemed to be feeling better. His dose of Bumex was increased. His INR on admission was 2.2. We'll continue with current medical therapy. If stable, patient could be discharged home within next 24-48 hours Review of Systems As per the chart Past Medical History Past Medical History: Atrial Fibrillation, Asthma, Coronary Artery Disease (CAD), Cancer, Heart Failure, Diabetes Mellitus, Eye Disorder, Hypertension, Osteoarthritis (OA), Prostate Disorder, Renal Disease, Thyroid Disorder Additional Past Medical History / Comment(s): Chronic CHF, on mironone infusion, KAYLEY showed blood clot in heart, cardiomyopathy, uses oxygen prn at home, IDDM type II, neuropathy bilateral feet, L eye ocular stroke-decreased vision, CKD, anemia, BPH, chronic back pain, spinal stenosis, umbilical hernia, hypothyroid. History of Any Multi-Drug Resistant Organisms: None Reported Past Surgical History: Back Surgery, Heart Catheterization, Joint Replacement, Orthopedic Surgery, Pacemaker, Tonsillectomy Additional Past Surgical History / Comment(s): L upper chest picc line per pt, other picc lines, medipump, past kirby catheter per medical record-pt and spouse do not recall this, KAYLEY, CVN, cardiac cath x2, back surgery, bilateral carpal tunnel releases, bilateral total knee arthroplasties, total L shoulder arthroplasty, skin cancer removal, colonoscopy. Past Anesthesia/Blood Transfusion Reactions: No Reported Reaction Additional Past Anesthesia/Blood Transfusion Reaction / Comment(s): "I came out feeling like I was in another world'-with last cardiac procedure Type of Cardiac Device: Permanent Pacemaker Device Placement Date:: 01/2017 Smoking Status: Never smoker - Past Family History Father Family Medical History: Congestive Heart Failure (CHF) Mother Family Medical History: Cancer Additional Family Medical History / Comment(s): Mother had esophageal cancer. Medications and Allergies Home Medications Medication Instructions Recorded Confirmed Type Ergocalciferol (Vitamin D2) 50,000 unit PO TUTH 10/23/15 11/12/18 History [Drisdol] Magnesium Oxide [Mag-Ox] 500 mg PO BID 10/23/15 11/12/18 History Allopurinol [Zyloprim] 100 mg PO TID 07/21/16 11/12/18 History Ferrous Sulfate [Iron (65 MG 325 mg PO BID 04/12/17 11/12/18 History Elemental)] Insulin Aspart [NovoLOG] 30 units SQ ACHS PRN 04/12/17 11/12/18 History Insulin Glargine [Lantus] 60 unit SQ HS PRN 04/12/17 11/12/18 History Metolazone [Zaroxolyn] 5 mg PO AGOSTO 04/12/17 11/12/18 History Levothyroxine Sodium [Synthroid] 88 mcg PO DAILY 05/19/17 11/12/18 History Milrinone Drip 1 applicate IV DIRECTED 05/19/17 11/12/18 History Warfarin [Coumadin] 5 mg PO HS 11/15/17 11/12/18 History Escitalopram [Lexapro] 2.5 mg PO DAILY 08/01/18 11/12/18 History Potassium Chloride ER [K-Dur 20] 40 meq PO BID 08/01/18 11/12/18 History Bumetanide [BUMEX] 2 mg PO BID tab 08/05/18 11/12/18 Rx Allergies Allergy/AdvReac Type Severity Reaction Status Date / Time No Known Allergies Allergy Verified 11/12/18 07:40 Physical Exam Vitals: Vital Signs Temp Pulse Pulse Resp BP BP Pulse Ox 11/12/18 16:00 65 16 122/62 96 11/12/18 12:00 97.3 F L 61 16 117/66 94 L 11/12/18 11:21 137 H 106/56 92 L 11/12/18 11:00 137 H 106/56 92 L 11/12/18 10:30 59 L 14 110/54 96 11/12/18 10:00 64 19 118/74 92 L 11/12/18 09:30 60 10 L 111/85 98 11/12/18 09:16 69 22 116/73 93 L 11/12/18 09:00 69 22 116/73 93 L 11/12/18 08:30 105 H 17 97/60 93 L 11/12/18 08:00 146 H 22 120/74 97 11/12/18 07:30 58 L 16 118/71 99 11/12/18 07:22 78 18 118/71 96 11/12/18 07:00 16 112/72 96 11/12/18 06:30 122/79 91 L 11/12/18 06:04 45 H 93 L 11/12/18 05:29 98.0 F 61 20 130/78 94 L Intake and Output 11/12/18 11/12/18 11/12/18 06:59 14:59 22:59 Output Total 180 Balance -180 Output: Urine 180 Other: Voiding Method Urinal Urinal # Voids 2 Weight 99.79 kg GENERAL EXAM: Patient is alert and oriented and doesn't appear to be in any acute distress HEENT: Normocephalic. Normal reaction of pupils, equal size, normal range of extraocular motion. No erythema or exudates in the throat. NECK: No masses, no nuchal rigidity. CHEST: No chest wall deformity. LUNGS: Diminished breath sounds at bases. HEART: S1 and S2 normal with no audible mumurs or gallops. Regular rhythm, femorals equal on both sides.. ABDOMEN: No hepatosplenomegaly, normal bowel sounds, no guarding or rigidity. SKIN: No rashes CENTRAL NERVOUS SYSTEM: No focal deficits. EXTREMITIES: Mild edema Results 11/12/18 06:05 11/12/18 06:05 Cardiac Enzymes 11/12/18 11/12/18 11/12/18 Range/Units 06:05 06:05 14:23 AST 45 (17-59) U/L Troponin I 0.362 H* 0.388 H* (0.000-0.034) ng/mL Coagulation 11/12/18 Range/Units 06:05 PT 21.0 H (9.0-12.0) sec APTT 30.3 H (22.0-30.0) sec CBC 11/12/18 Range/Units 06:05 WBC 8.2 (3.8-10.6) k/uL RBC 4.59 (4.30-5.90) m/uL Hgb 14.3 (13.0-17.5) gm/dL Hct 45.2 (39.0-53.0) % Plt Count 192 (150-450) k/uL Comprehensive Metabolic Panel 11/12/18 Range/Units 06:05 Sodium 137 (137-145) mmol/L Potassium 3.8 (3.5-5.1) mmol/L Chloride 88 L (98-107) mmol/L Carbon Dioxide 37 H (22-30) mmol/L BUN 88 H (9-20) mg/dL Creatinine 1.93 H (0.66-1.25) mg/dL Glucose 115 H (74-99) mg/dL Calcium 9.8 (8.4-10.2) mg/dL AST 45 (17-59) U/L ALT 21 (21-72) U/L Alkaline Phosphatase 68 (38-126) U/L Total Protein 7.2 (6.3-8.2) g/dL Albumin 4.0 (3.5-5.0) g/dL Current Medications Generic Name Dose Route Start Last Admin Trade Name Freq PRN Reason Stop Dose Admin Allopurinol 100 mg 11/12/18 09:00 11/12/18 15:47 Zyloprim PO 100 mg TID [facility] Administration Aspirin 325 mg 11/13/18 08:07 Aspirin PO DAILY [facility] Bumetanide 2 mg 11/12/18 09:00 11/12/18 15:48 Bumex IVP 2 mg TID [facility] Administration Ergocalciferol 50,000 unit 11/13/18 09:00 Vitamin D2 PO TUTH [facility] Escitalopram Oxalate 2.5 mg 11/12/18 09:00 11/12/18 12:43 Lexapro PO Not Given DAILY [facility] Ferrous Sulfate 325 mg 11/12/18 09:00 11/12/18 12:44 Feosol PO Not Given MoWeFr [facility] Ferrous Sulfate 325 mg 11/12/18 21:00 Feosol PO MoWeFr [facility] Sodium Chloride 1,000 mls @ 20 mls/hr 11/12/18 06:45 11/12/18 12:43 Saline 0.9% IV Not Given .Q24H [facility] Insulin Aspart 30 unit 11/12/18 17:30 11/12/18 17:38 Novolog SQ 20 unit ACHS [facility] Administration Insulin Detemir 60 unit 11/12/18 21:00 Levemir SQ HS [facility] Levothyroxine Sodium 88 mcg 11/12/18 18:00 11/12/18 15:47 Synthroid PO 88 mcg DAILY@1800 [facility] Administration Magnesium Oxide 400 mg 11/12/18 09:00 11/12/18 12:41 Mag-Ox PO 400 mg BID [facility] Administration Metolazone 5 mg 11/18/18 09:00 Zaroxolyn PO AGOSTO [facility] Miscellaneous Information 1 each 11/12/18 10:22 Coumadin Per Pharmacy MISCELLANE DIRECTED PRN Per Protocol Nitroglycerin 0.5 inch 11/12/18 09:00 11/12/18 15:49 Nitro-Bid Oint TOPICAL Not Given QID [facility] Non-Formulary Medication 1 applicate 11/12/18 08:15 11/12/18 12:43 Milrinone Drip IV Not Given DIRECTED [facility] Potassium Chloride 40 meq 11/12/18 09:00 11/12/18 12:41 K-Dur 20 PO 40 meq BID [facility] Administration Warfarin Sodium 5 mg 11/12/18 21:00 Coumadin PO HS [facility] Intake and Output 11/12/18 11/12/18 11/12/18 06:59 14:59 22:59 Output Total 180 Balance -180 Output: Urine 180 Other: Voiding Method Urinal Urinal # Voids 2 Weight 99.79 kg 11/12/18 06:05 11/12/18 06:05 EKG Interpretations (text) Pacer rhythm with underlying atrial tachycardia Assessment and Plan (1) Coronary artery disease Current Visit: Yes Status: Acute Code(s): I25.10 - ATHSCL HEART DISEASE OF [place] CORONARY ARTERY W/O ANG PCTRS SNOMED Code(s): 47752021 (2) Elevated troponin Current Visit: Yes Status: Acute Code(s): R74.8 - ABNORMAL LEVELS OF OTHER SERUM ENZYMES SNOMED Code(s): 426781082 (3) ICD (implantable cardioverter-defibrillator) in place Current Visit: Yes Status: Acute Code(s): Z95.810 - PRESENCE OF AUTOMATIC (IMPLANTABLE) CARDIAC DEFIBRILLATOR SNOMED Code(s): 247775996 (4) Acute on chronic systolic CHF (congestive heart failure) Current Visit: No Status: Acute Code(s): I50.23 - ACUTE ON CHRONIC SYSTOLIC (CONGESTIVE) HEART FAILURE SNOMED Code(s): 895987986 (5) Atrial tachycardia Current Visit: Yes Status: Acute Code(s): I47.1 - SUPRAVENTRICULAR TACHYCARDIA SNOMED Code(s): 074603146 Plan: Continue current medications. Increase activity. He patient responds well, may consider discharge within next 24-48 hours
[2018-11-12 20:25] LABS: Glucose,Whole Blood 129 mg/dL (75-99)
[2018-11-12] MEDS: INSULIN DETEMIR (LEVEMIR) 100 UNIT/ML SYR SQ SCH (20:33)
[2018-11-12] MEDS: WARFARIN 5 MG TAB PO SCH (21:07)
[2018-11-13 06:42] LABS: Glucose,Whole Blood 164 mg/dL (75-99)
[2018-11-13 06:49] LABS: Calcium 9.9 mg/dL (8.4-10.2)
[2018-11-13] MEDS: SODIUM CHLORIDE 0.9% 1,000 ML IV SCH (07:03)
[2018-11-13] MEDS: INSULIN ASPART (NovoLOG) 100 UNIT/ML VIAL SQ SCH ×4 (07:08→20:46)
[2018-11-13] MEDS ORDERED: ASPIRIN 325 MG TAB PO SCH (08:07)
[2018-11-13] MEDS: MILRINONE IV SCH (08:32)
[2018-11-13] MEDS: NITROGLYCERIN OINT 1 INCH/GM PACKET TOPICAL SCH (08:50)
[2018-11-13] MEDS: POTASSIUM CHLORIDE ER 20 MEQ TAB.ER PO SCH ×2 (08:50→21:00)
[2018-11-13] MEDS: ALLOPURINOL 100 MG TAB PO SCH ×3 (08:51→20:59)
[2018-11-13] MEDS: ESCITALOPRAM 5 MG TAB PO SCH ×2 (08:51→08:56)
[2018-11-13] MEDS: MAGNESIUM OXIDE 400 MG TAB PO SCH ×2 (08:51→20:59)
[2018-11-13] MEDS ORDERED: ERGOCALCIFEROL 50,000 UNIT CAP PO SCH (09:00)
[2018-11-13] MEDS: BUMETANIDE 0.25 MG/ML 10 ML VIAL IV SCH ×3 (11:21→21:47)
[2018-11-13 11:41] VITALS: BMI 30.9
[2018-11-13 12:40] LABS: Glucose,Whole Blood 166 mg/dL (75-99)
[2018-11-13] MEDS: METOPROLOL SUCCINATE (ER) 25 MG TAB.ER.24H PO SCH (12:55)
--- NOTE | 2018-11-13 17:06 | P.PN ---
Subjective Progress Note Date: 11/13/18 Jose G Polk is a 77 yo M with PMH of systolic CHF, CAD, A fib, AICD in place, continuous milrinone infusion follows with Dr. Olmstead, hypothyroid, depression. He states that over the weekend he has become progressively lethargic and short of breath. He also complains of leg weakness and swelling. Pt states he has continued to take his medications regularly and follows a heart healthy diet high in vegetables. He denies any chest pain, headache, or vision change. Pt does endorse orthopnea but does not feel it is worsened. He denies palpitations but states his defibrillator did recently shock him. He last had an echo a few weeks ago which he states was overall stable and showed LVEF 41%. He denies sick contacts or recent illness. In the ED, vitals stable, Cr 1.9 at baseline, BNP 7000, trop 0.36. He was given 40 mg of lasix. 11/13/2018 maintained on Primacor drip/pump. Bumex increased yesterday with significant clinical improvement. Breathing improved, lungs clear, decreased edema. Weight unchanged. Creatinine mildly increased to 2.16. Evaluated by cardiology with recommendations noted and appreciated. Reports he slept well on the couch in the room. Denies chest pain, palpitations or increasing shortness of breath. Oxygen has been weaned off .Maintaining O2 sats in the high 90s on room air. Objective - Vital Signs Vital signs: Vital Signs Temp 97.6 F 11/12/18 23:51 Pulse 60 11/13/18 12:00 Resp 16 11/13/18 16:00 BP 120/73 11/13/18 12:00 Pulse Ox 98 11/13/18 12:00 Intake & Output 11/12/18 11/13/18 11/13/18 18:59 06:59 18:59 Intake Total 240 720 Output Total 180 1200 800 Balance 60 -1200 -80 Weight 100.5 kg 100.5 kg Intake: Oral 240 720 Output: Urine 180 1200 800 Other: Voiding Method Urinal Urinal Urinal # Voids 2 - Exam General: Well-developed, obese, no acute distress. Vitals reviewed HEENT: Normocephalic, mucous membranes moist, on 2 L nasal cannula Neck: Supple, no thyromegaly, no JVD CV: Irregularly irregular, systolic murmur, peripheral pulses 1+ Lungs: Normal inspiratory effort, lungs clear, no crackles no rhonchi or wheezing Abdomen: Soft, nondistended, no organomegaly, nontender Lymph: No cervical or axillary lymphadenopathy Extremity: No edema, no cyanosis or clubbing Neuro: Alert and oriented 3, no focal deficits Skin: Warm and dry - Labs CBC & Chem 7: 11/12/18 06:05 11/13/18 05:19 Labs: Abnormal Lab Results - Last 24 Hours (Table) 11/12/18 11/12/18 11/12/18 Range/Units 17:33 20:10 20:24 PT (9.0-12.0) sec INR (<1.2) Chloride (98-107) mmol/L Carbon Dioxide (22-30) mmol/L BUN (9-20) mg/dL Creatinine (0.66-1.25) mg/dL Glucose (74-99) mg/dL POC Glucose (mg/dL) 227 H 129 H (75-99) mg/dL Troponin I 0.332 H* (0.000-0.034) ng/mL 11/13/18 11/13/18 11/13/18 Range/Units 05:19 05:19 06:40 PT 20.0 H (9.0-12.0) sec INR 2.0 H (<1.2) Chloride 85 L (98-107) mmol/L Carbon Dioxide 42 H* (22-30) mmol/L BUN 98 H (9-20) mg/dL Creatinine 2.16 H (0.66-1.25) mg/dL Glucose 145 H (74-99) mg/dL POC Glucose (mg/dL) 164 H (75-99) mg/dL Troponin I (0.000-0.034) ng/mL 11/13/18 Range/Units 12:38 PT (9.0-12.0) sec INR (<1.2) Chloride (98-107) mmol/L Carbon Dioxide (22-30) mmol/L BUN (9-20) mg/dL Creatinine (0.66-1.25) mg/dL Glucose (74-99) mg/dL POC Glucose (mg/dL) 166 H (75-99) mg/dL Troponin I (0.000-0.034) ng/mL Assessment and Plan Assessment: (1) Demand ischemia Current Visit: Yes Status: Acute Code(s): I24.8 - OTHER FORMS OF ACUTE ISCHEMIC HEART DISEASE SNOMED Code(s): 065762592 (2) Hypothyroidism Current Visit: Yes Status: Acute Code(s): E03.9 - HYPOTHYROIDISM, UNSPECIFIED SNOMED Code(s): 87457568 (3) Type 2 diabetes mellitus, with long-term current use of insulin Current Visit: Yes Status: Acute Code(s): E11.9 - TYPE 2 DIABETES MELLITUS WITHOUT COMPLICATIONS; Z79.4 - INTERMEDIATE (CURRENT) USE OF INSULIN SNOMED Code(s): 762225264 (4) Elevated troponin, suspect demand ischemia Current Visit: Yes Status: Acute Code(s): R74.8 - ABNORMAL LEVELS OF OTHER SERUM ENZYMES SNOMED Code(s): 438723819 (5) Weakness Current Visit: Yes Status: Acute Code(s): R53.1 - WEAKNESS SNOMED Code(s): 93786768 (6) 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 Current Visit: No Status: Acute Code(s): N17.9 - ACUTE KIDNEY FAILURE, UNSPECIFIED; N18.9 - CHRONIC KIDNEY DISEASE, UNSPECIFIED SNOMED Code(s): 589221805 (7) Acute on chronic systolic CHF (congestive heart failure) Current Visit: No Status: Acute Code(s): I50.23 - ACUTE ON CHRONIC SYSTOLIC (CONGESTIVE) HEART FAILURE SNOMED Code(s): 772726123 (8) Persistent atrial fibrillation Current Visit: Yes Status: Acute Code(s): I48.1 - PERSISTENT ATRIAL FIBRILLATION SNOMED Code(s): 211708220 (9) Coronary artery disease Current Visit: Yes Status: Acute Code(s): I25.10 - ATHSCL HEART DISEASE OF [place] CORONARY ARTERY W/O ANG PCTRS SNOMED Code(s): 27650293 (10) ICD (implantable cardioverter-defibrillator) in place Current Visit: Yes Status: Acute Code(s): Z95.810 - PRESENCE OF AUTOMATIC (IMPLANTABLE) CARDIAC DEFIBRILLATOR SNOMED Code(s): 174197230 Plan: Continue current medication regime ,monitoring and symptomatic treatment. Continue diuresing with IV Bumex at 2 mg 3 times a day, maintain Primacor drip. Strict I&O's. Significant clinical improvement. Continue monitoring overnight. Close monitoring of renal function with repeat labs ordered for a.m. Discharge planning in progress for tomorrow. Follow closely with cardiology. The impression and plan of care has been dictated as directed. : I performed a history and examination of this patient, discussed the same with the dictator. I agree with the dictator's note ,documented as a scribe. Any additional findings or plans will be noted.
[2018-11-13 17:16] LABS: Glucose,Whole Blood 162 mg/dL (75-99)
[2018-11-13] MEDS: LEVOTHYROXINE 88 MCG TAB PO SCH (17:20)
--- NOTE | 2018-11-13 18:29 | P.PN ---
Subjective Progress Note Date: 11/13/18 This is a 77-year-old gentleman with history of chronic systolic congestive heart failure was admitted with increasing edema and shortness of breath. Patient was given an IV Bumex. Patient is also on chronic milrinone drip. He response and well with good diuresis. His edema is down. Patient was able to sleep better. His lab values showed his Potassium is normal. His creatinine is up to 2.16 from 1.93. Blood pressure 120/80. Pulse rate is 62. Respirations are 16. Overall he seemed to be progressing well. Continue current medical therapy. Monitor BMP Objective - Vital Signs Vital signs: Vital Signs Temp 97.6 F 11/12/18 23:51 Pulse 62 11/13/18 16:00 Resp 16 11/13/18 16:00 BP 120/80 11/13/18 16:00 Pulse Ox 93 L 11/13/18 16:00 Intake & Output 11/12/18 11/13/18 11/13/18 18:59 06:59 18:59 Intake Total 240 1200 Output Total 180 1200 1400 Balance 60 -1200 -200 Weight 100.5 kg 100.5 kg Intake: Oral 240 1200 Output: Urine 180 1200 1400 Other: Voiding Method Urinal Urinal Urinal # Voids 2 - Exam GENERAL EXAM: Patient is alert and oriented and doesn't appear to be in any acute distress HEENT: Normocephalic. Normal reaction of pupils, equal size, normal range of extraocular motion. No erythema or exudates in the throat. NECK: No masses, no nuchal rigidity. CHEST: No chest wall deformity. LUNGS: Diminished breath sounds HEART: S1 and S2 normal . Irregular rhythm ABDOMEN: No hepatosplenomegaly, normal bowel sounds, no guarding or rigidity. SKIN: No rashes CENTRAL NERVOUS SYSTEM: No focal deficits. EXTREMITIES: Resolving edema - Labs CBC & Chem 7: 11/12/18 06:05 11/13/18 05:19 Labs: Abnormal Lab Results - Last 24 Hours (Table) 11/12/18 11/12/18 11/13/18 Range/Units 20:10 20:24 05:19 PT 20.0 H (9.0-12.0) sec INR 2.0 H (<1.2) Chloride (98-107) mmol/L Carbon Dioxide (22-30) mmol/L BUN (9-20) mg/dL Creatinine (0.66-1.25) mg/dL Glucose (74-99) mg/dL POC Glucose (mg/dL) 129 H (75-99) mg/dL Troponin I 0.332 H* (0.000-0.034) ng/mL 11/13/18 11/13/18 11/13/18 Range/Units 05:19 06:40 12:38 PT (9.0-12.0) sec INR (<1.2) Chloride 85 L (98-107) mmol/L Carbon Dioxide 42 H* (22-30) mmol/L BUN 98 H (9-20) mg/dL Creatinine 2.16 H (0.66-1.25) mg/dL Glucose 145 H (74-99) mg/dL POC Glucose (mg/dL) 164 H 166 H (75-99) mg/dL Troponin I (0.000-0.034) ng/mL 11/13/18 Range/Units 17:14 PT (9.0-12.0) sec INR (<1.2) Chloride (98-107) mmol/L Carbon Dioxide (22-30) mmol/L BUN (9-20) mg/dL Creatinine (0.66-1.25) mg/dL Glucose (74-99) mg/dL POC Glucose (mg/dL) 162 H (75-99) mg/dL Troponin I (0.000-0.034) ng/mL Assessment and Plan (1) Coronary artery disease Current Visit: Yes Status: Acute Code(s): I25.10 - ATHSCL HEART DISEASE OF [place] CORONARY ARTERY W/O ANG PCTRS SNOMED Code(s): 30563288 (2) Elevated troponin Current Visit: Yes Status: Acute Code(s): R74.8 - ABNORMAL LEVELS OF OTHER SERUM ENZYMES SNOMED Code(s): 142528403 (3) ICD (implantable cardioverter-defibrillator) in place Current Visit: Yes Status: Acute Code(s): Z95.810 - PRESENCE OF AUTOMATIC (IMPLANTABLE) CARDIAC DEFIBRILLATOR SNOMED Code(s): 636433505 (4) Acute on chronic systolic CHF (congestive heart failure) Current Visit: No Status: Acute Code(s): I50.23 - ACUTE ON CHRONIC SYSTOLIC (CONGESTIVE) HEART FAILURE SNOMED Code(s): 952338988 (5) Atrial tachycardia Current Visit: Yes Status: Acute Code(s): I47.1 - SUPRAVENTRICULAR TACHYCARDIA SNOMED Code(s): 671112032 Plan: Patient is feeling much better. Continue current management. Monitor BUN and creatinine. Possible discharge in 24 hours
[2018-11-13 20:24] LABS: Glucose,Whole Blood 170 mg/dL (75-99)
[2018-11-13] MEDS: WARFARIN 5 MG TAB PO SCH (21:00)
[2018-11-13] MEDS: INSULIN DETEMIR (LEVEMIR) 100 UNIT/ML SYR SQ SCH (21:46)
[2018-11-14 04:08] VITALS: TEMP 97.6
[2018-11-14 06:34] LABS: INR 2.2 (<1.2); Prothrombin Time 21.3 sec (9.0-12.0)
[2018-11-14 06:40] LABS: Calcium 9.4 mg/dL (8.4-10.2); Magnesium 2.2 mg/dL (1.6-2.3); Potassium 3.4 mmol/L (3.5-5.1)
[2018-11-14 07:57] LABS: Glucose,Whole Blood 122 mg/dL (75-99)
[2018-11-14] MEDS: METOPROLOL SUCCINATE (ER) 25 MG TAB.ER.24H PO SCH (08:36)
[2018-11-14] MEDS: POTASSIUM CHLORIDE ER 20 MEQ TAB.ER PO SCH (08:36)
[2018-11-14] MEDS: MAGNESIUM OXIDE 400 MG TAB PO SCH (08:36)
[2018-11-14] MEDS: ESCITALOPRAM 5 MG TAB PO SCH (08:37)
[2018-11-14] MEDS: BUMETANIDE 0.25 MG/ML 10 ML VIAL IV SCH (08:38)
[2018-11-14] MEDS: ALLOPURINOL 100 MG TAB PO SCH (08:40)
[2018-11-14 08:49] VITALS: BP 106/55; PULSE 68; RESP 16
[2018-11-14] MEDS: INSULIN ASPART (NovoLOG) 100 UNIT/ML VIAL SQ SCH ×2 (08:54→12:51)
[2018-11-14] MEDS ORDERED: BUMETANIDE 0.25 MG/ML 4 ML VIAL IVP SCH (09:00)
[2018-11-14 12:35] LABS: Glucose,Whole Blood 176 mg/dL (75-99)
--- NOTE | 2018-11-14 13:12 | CDI ---
Documentation Clarification Form Date: 11/14/2018 12:38:16 PM From: Sandy Manzo RN, CCDS Admit Date: 11/12/2018 8:04:00 AM Patient Name: Jose G Polk Visit Number: [id number] Discharge Date: ATTENTION: The Clinical Documentation Specialists (CDI) and [facility] Coding Staff appreciate your assistance in clarifying documentation. Please respond to the clarification below the line at the bottom and electronically sign. The CDI & [facility] Coding staff will review the response and follow-up if needed. Please note: Queries are made part of the Legal Health Record. If you have any questions, please contact the author of this message via ITS. Dr. Scott Bui The patient presented with worsening shortness of breath. History/Risk Factors: Atrial Fibrillation, Asthma Coronary Artery Disease Heart Failure, Diabetes Mellitus, Hypertension Clinical Indicators: 77-year-old male who present with shortness of breath and history of chronic fluid overload. He has generalized weakness and complaints of dyspnea. He has elevated troponin but denies any specific chest pain. Lab findings: Troponin 0.369, 0.388, 0.332; BNP 7250; Creatinine 1.9 Chest x-ray: Correlate for CHF exacerbation there is cardiomegaly with suspected new mild central vascular congestion however in addition there is new left basilar opacity worrisome for acute infiltrate and/or atelectasis. Vital Signs: 130/78 61 20 98.0 Other Clinical Indicators: Elevated troponin. Suspect demand ischemia Treatment: Telemetry monitoring Monitor Labs, Troponin, Toprol XL Strict I/Os, Bumex IV Consults: Cardiology (Dr. Cleaning) Troponin values seemed to be stable and the pattern is not consistent with acute myocardial infarction. In your professional opinion, can you please further clarify Demand Ischemia? Type 2 Myocardial infarction (specify cause if known) Acute ischemic heart disease Other, please specify Unable to determine (Last Revision: May 2017) Type 2 MA secondary to CHF exacerbation MTDD
--- NOTE | 2018-11-14 13:45 | CDI ---
Documentation Clarification Form Date: 11/14/2018 1:22:43 PM From: Sandy Manzo RN, CCDS Admit Date: 11/12/2018 8:04:00 AM Patient Name: Jose G Polk Visit Number: [id number] Discharge Date: 11/14/2018 1:17:00 PM ATTENTION: The Clinical Documentation Specialists (CDI) and [facility] Coding Staff appreciate your assistance in clarifying documentation. Please respond to the clarification below the line at the bottom and electronically sign. The CDI & [facility] Coding staff will review the response and follow-up if needed. Please note: Queries are made part of the Legal Health Record. If you have any questions, please contact the author of this message via ITS. Dr. Scott Bui Patient was admitted with shortness of breath. 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 is in your H/P and subsequent documentation and additional clarification is needed. History/Risk Factors: Chronic systolic congestive heart failure, Atrial Fibrillation, Coronary Artery Disease, Diabetes Mellitus, Hypertension, CKD Clinical Indicators: 77-year-old male present with increasing edema and shortness of breath. He was treated with IV Bumex and is on chronic Milrinone drip. On Admission: BUN 88, CR 1.93 GFR 33 11/13/18: BUN 98 CR 2.16 GFR 28 Current BUN 105, CR 2.08 GFR 30 Treatment: Monitor labs; Lytes, BUN, CR, Bumax IV In order to capture the severity of condition, please clarify if the condition signifies: CKD Stage 1 (GFR > 90) CKD Stage 2 (GFR 60-89) CKD Stage 3 (GFR 30-59) CKD Stage 4 (GFR 15-29) CKD Stage 5 (GFR <15) Other, please specify Unable to determine (Last Revision: May 2017) CKD stage 4 MTDD
--- NOTE | 2018-11-14 16:11 | P.DS ---
Providers Date of admission: 11/12/18 08:04 Expected date of discharge: 11/14/18 Attending physician: Scott Bui MD Consults: 11/12/18 08:06 Consult Physician Stat Consulting Provider: Hailey Olmstead Consult Reason/Comments: CHF, elevated troponin Do you want consulting provider notified?: Yes Primary care physician: [facility] Course: Final Diagnoses: (1) Demand ischemia Current Visit: Yes Status: Acute Code(s): I24.8 - OTHER FORMS OF ACUTE ISCHEMIC HEART DISEASE SNOMED Code(s): 744841939 (2) Hypothyroidism Current Visit: Yes Status: Acute Code(s): E03.9 - HYPOTHYROIDISM, UNSPECIFIED SNOMED Code(s): 52772112 (3) Type 2 diabetes mellitus, with long-term current use of insulin Current Visit: Yes Status: Acute Code(s): E11.9 - TYPE 2 DIABETES MELLITUS WITHOUT COMPLICATIONS; Z79.4 - VEGETABLE [employer]VE[employer] WORKER (CURRENT) USE OF INSULIN SNOMED Code(s): 045925274 (4) Elevated troponin, suspect demand ischemia Current Visit: Yes Status: Acute Code(s): R74.8 - ABNORMAL LEVELS OF OTHER SERUM ENZYMES SNOMED Code(s): 344065933 (5) Weakness Current Visit: Yes Status: Acute Code(s): R53.1 - WEAKNESS SNOMED Code(s): 29588851 (6) 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, stage III-IV Current Visit: No Status: Acute Code(s): N17.9 - ACUTE KIDNEY FAILURE, UNSPECIFIED; N18.9 - CHRONIC KIDNEY DISEASE, UNSPECIFIED SNOMED Code(s): 332520337 (7) Acute on chronic systolic CHF (congestive heart failure) Current Visit: No Status: Acute Code(s): I50.23 - ACUTE ON CHRONIC SYSTOLIC (CONGESTIVE) HEART FAILURE SNOMED Code(s): 345995583 (8) Persistent atrial fibrillation Current Visit: Yes Status: Acute Code(s): I48.1 - PERSISTENT ATRIAL FIBRILLATION SNOMED Code(s): 780865723 (9) Coronary artery disease Current Visit: Yes Status: Acute Code(s): I25.10 - ATHSCL HEART DISEASE OF [place] CORONARY ARTERY W/O ANG PCTRS SNOMED Code(s): 29888305 (10) ICD (implantable cardioverter-defibrillator) in place Current Visit: Yes Status: Acute Code(s): Z95.810 - PRESENCE OF AUTOMATIC (IMPLANTABLE) CARDIAC DEFIBRILLATOR SNOMED Code(s): 230454989 Hospital course:Jose G Polk is a 77 yo M with PMH of systolic CHF, CAD, A fib, AICD in place, continuous milrinone infusion follows with Dr. Olmstead, hypothyroid, depression. He states that over the weekend he has become progressively lethargic and short of breath. He also complains of leg weakness and swelling. Pt states he has continued to take his medications regularly and follows a heart healthy diet high in vegetables. He denies any chest pain, headache, or vision change. Pt does endorse orthopnea but does not feel it is worsened. He denies palpitations but states his defibrillator did recently shock him. He last had an echo a few weeks ago which he states was overall stable and showed LVEF 41%. He denies sick contacts or recent illness. In the ED, vitals stable, Cr 1.9 at baseline, BNP 7000, trop 0.36. He was given 40 mg of lasix. 11/13/2018 maintained on Primacor drip/pump. Bumex increased yesterday with significant clinical improvement. Breathing improved, lungs clear, decreased edema. Weight unchanged. Creatinine mildly increased to 2.16. Evaluated by cardiology with recommendations noted and appreciated. Reports he slept well on the couch in the room. Denies chest pain, palpitations or increasing shortness of breath. Oxygen has been weaned off .Maintaining O2 sats in the high 90s on room air. Diuresed well on increased Bumex IV dose, trace edema, lungs clear. Creatinine 2.08. Denies shortness of breath. Denies chest pain, palpitations. Denies lightheadedness, dizziness or focal deficits. Patient states he wears 2 L sometimes throughout the day on and during the night, O2 sat on room air after ambulation being checked. Significant clinical improvement. Cleared by cardiology for discharge. Patient is being discharged home in a stable condition with guarded prognosis. - Exam General: Alert and oriented 3, no acute distress CV: Irregularly irregular, systolic murmur, peripheral pulses 1+ Lungs: Normal inspiratory effort, lungs clear, no crackles no rhonchi or wheezing Abdomen: Soft, nondistended, no organomegaly, nontender Neuro: no focal deficits The impression and plan of care has been dictated as directed. : I performed a history and examination of this patient, discussed the same with the dictator. I agree with the dictator's note ,documented as a scribe. Any additional findings or plans will be noted. Patient Condition at Discharge: Stable Plan - Discharge Summary Discharge Rx Participant: No New Discharge Prescriptions: New Metoprolol Succinate (ER) [Toprol XL] 12.5 mg PO DAILY #30 tab.er.24h Ferrous Sulfate [Iron (65 MG Elemental)] 325 mg PO MoWeFr tab Warfarin Sodium [Coumadin] 5 mg PO HS 30 Days tablet Continue Magnesium Oxide [Mag-Ox] 500 mg PO BID Ergocalciferol (Vitamin D2) [Drisdol] 50,000 unit PO TUTH Allopurinol [Zyloprim] 100 mg PO TID Insulin Aspart [NovoLOG] 30 units SQ ACHS PRN PRN Reason: Blood Sugar - High Metolazone [Zaroxolyn] 5 mg PO AGOSTO Insulin Glargine [Lantus] 60 unit SQ HS PRN PRN Reason: Blood Sugar - High Levothyroxine Sodium [Synthroid] 88 mcg PO DAILY Milrinone Drip 1 applicate IV DIRECTED Potassium Chloride ER [K-Dur 20] 40 meq PO BID Escitalopram [Lexapro] 2.5 mg PO DAILY Bumetanide [BUMEX] 2 mg PO BID tab Discontinued Ferrous Sulfate [Iron (65 MG Elemental)] 325 mg PO BID Warfarin [Coumadin] 5 mg PO HS Discharge Medication List Ergocalciferol (Vitamin D2) [Drisdol] 50,000 unit PO TUTH 10/23/15 [History] Magnesium Oxide [Mag-Ox] 500 mg PO BID 10/23/15 [History] Allopurinol [Zyloprim] 100 mg PO TID 07/21/16 [History] Insulin Aspart [NovoLOG] 30 units SQ ACHS PRN 04/12/17 [History] Insulin Glargine [Lantus] 60 unit SQ HS PRN 04/12/17 [History] Metolazone [Zaroxolyn] 5 mg PO AGOSTO 04/12/17 [History] Levothyroxine Sodium [Synthroid] 88 mcg PO DAILY 03/30/18 [History] Milrinone Drip 1 applicate IV DIRECTED 05/19/17 [History] Escitalopram [Lexapro] 2.5 mg PO DAILY 08/01/18 [History] Potassium Chloride ER [K-Dur 20] 40 meq PO BID 08/01/18 [History] Bumetanide [BUMEX] 2 mg PO BID tab 08/05/18 [Rx] Ferrous Sulfate [Iron (65 MG Elemental)] 325 mg PO MoWeFr tab 11/14/18 [Rx] Metoprolol Succinate (ER) [Toprol XL] 12.5 mg PO DAILY #30 tab.er.24h 11/14/18 [Rx] Warfarin Sodium [Coumadin] 5 mg PO HS 30 Days tablet 11/14/18 [Rx] Follow up Appointment(s)/Referral(s): Hailey Olmstead MD [STAFF PHYSICIAN] - 11/30/18 10:30 am (Monday) Toshia Bui DO [Primary Care Provider] - 11/19/18 2:45 pm (Monday with Dr. Scott Bui) Ambulatory/Diagnostic Orders: Complete Blood Count w/diff [LAB.AMB] Time Frame: 3 Days, Location: None Selected Patient Instructions/Handouts: Heart Failure (DC) Discharge Disposition: HOME SELF-CARE
[2018-11-14] MEDS ORDERED: BUMETANIDE 0.25 MG/ML 10 ML VIAL IV SCH (21:00)
[2018-11-18] MEDS ORDERED: METOLAZONE 5 MG TAB PO SCH (09:00)
== END 2018-11-14 13:17 | disposition home or self-care (01) | DRG 280 ==
LOC: EC 05:26 → 3SCARD 08:04
PROVIDERS: ADMIT Family Medicine; ATTEND Family Medicine
DX: I13.0 Hypertensive heart and chronic kidney disease with heart failure and stage 1 through stage 4 chronic kidney disease, or unspecified chronic kidney disease (principal); I50.23 Acute on chronic systolic (congestive) heart failure; I21.A1 Myocardial infarction type 2; I47.1 Supraventricular tachycardia; I48.1 Persistent atrial fibrillation; N17.9 Acute kidney failure, unspecified; N18.4 Chronic kidney disease, stage 4 (severe); E11.22 Type 2 diabetes mellitus with diabetic chronic kidney disease; E11.42 Type 2 diabetes mellitus with diabetic polyneuropathy; I42.9 Cardiomyopathy, unspecified; I69.998 Other sequelae following unspecified cerebrovascular disease; H53.8 Other visual disturbances; E03.9 Hypothyroidism, unspecified; E78.5 Hyperlipidemia, unspecified; F32.9 Major depressive disorder, single episode, unspecified; I25.10 Atherosclerotic heart disease of native coronary artery without angina pectoris; J45.909 Unspecified asthma, uncomplicated; M10.9 Gout, unspecified; N40.0 Benign prostatic hyperplasia without lower urinary tract symptoms; G89.29 Other chronic pain; K42.9 Umbilical hernia without obstruction or gangrene; M19.90 Unspecified osteoarthritis, unspecified site; M48.00 Spinal stenosis, site unspecified; E66.9 Obesity, unspecified; Z68.30 Body mass index [BMI] 30.0-30.9, adult; Z79.01 Long term (current) use of anticoagulants; Z79.4 Long term (current) use of insulin; Z79.890 Hormone replacement therapy; Z79.899 Other long term (current) drug therapy; Z85.828 Personal history of other malignant neoplasm of skin; Z86.711 Personal history of pulmonary embolism; Z95.810 Presence of automatic (implantable) cardiac defibrillator; Z96.612 Presence of left artificial shoulder joint; Z96.653 Presence of artificial knee joint, bilateral; Z80.0 Family history of malignant neoplasm of digestive organs; Z82.49 Family history of ischemic heart disease and other diseases of the circulatory system
CPT/HCPCS: 36415; 71046; 80048; 80053; 83735; 83880; 84484; 85025; 85610; 85730; 93005; 96374; 99285

== ENCOUNTER 2018-12-11 08:36 | Inpatient (IN) | payer MEDICARE, BC ==
[2018-12-11 09:10] LABS: Glucose,Whole Blood 176 mg/dL (75-99)
--- NOTE | 2018-12-11 09:13 | ED ---
General Adult HPI - General Chief complaint: Syncope Stated complaint: Near syncope Time Seen by Provider: 12/11/18 08:38 Source: patient, RN notes reviewed, old records reviewed (Reviewed records from [facility].) Mode of arrival: EMS Limitations: no limitations - History of Present Illness Initial comments: Patient is a pleasant 78-year-old male presenting to the emergency Department as a transfer from [facility]. Patient does see cardiology, Dr. Olmstead here. Patient is on milrinone drip chronically. Patient has had recent changes in his medication secondary to fluid retention. Patient does have dyspnea, especially with exertion. Patient is on Coumadin. Patient denies ever having any chest discomfort. Patient did have several episodes of possible syncope lasting just a second or so. Patient also had several episodes of near-syncope him and usually during exertion. Patient states his body just gives out and he falls down. Patient denies any injury. Patient does have history of liver problems once previously, family and patient unsure why. - Related Data Home Medications Medication Instructions Recorded Confirmed Ergocalciferol (Vitamin D2) 50,000 unit PO TUTH 10/23/15 11/12/18 [Drisdol] Magnesium Oxide [Mag-Ox] 500 mg PO BID 10/23/15 11/12/18 Allopurinol [Zyloprim] 100 mg PO TID 07/21/16 11/12/18 Insulin Aspart [NovoLOG] 30 units SQ ACHS PRN 04/12/17 11/12/18 Insulin Glargine [Lantus] 60 unit SQ HS PRN 04/12/17 11/12/18 Metolazone [Zaroxolyn] 5 mg PO AGOSTO 04/12/17 11/12/18 Levothyroxine Sodium [Synthroid] 88 mcg PO DAILY 05/19/17 11/12/18 Milrinone Drip 1 applicate IV DIRECTED 05/19/17 11/12/18 Escitalopram [Lexapro] 2.5 mg PO DAILY 08/01/18 11/12/18 Potassium Chloride ER [K-Dur 20] 40 meq PO BID 08/01/18 11/12/18 Previous Rx's Medication Instructions Recorded Bumetanide [BUMEX] 2 mg PO BID tab 08/05/18 Ferrous Sulfate [Iron (65 MG 325 mg PO MoWeFr tab 11/14/18 Elemental)] Metoprolol Succinate (ER) [Toprol 12.5 mg PO DAILY #30 tab.er.24h 11/14/18 XL] Warfarin Sodium [Coumadin] 5 mg PO HS 30 Days tablet 11/14/18 Allergies Allergy/AdvReac Type Severity Reaction Status Date / Time No Known Allergies Allergy Verified 11/12/18 07:40 Review of Systems ROS Statement: Those systems with pertinent positive or pertinent negative responses have been documented in the HPI. ROS Other: All systems not noted in ROS Statement are negative. Constitutional: Denies: fever Eyes: Denies: eye pain ENT: Denies: ear pain Respiratory: Reports: dyspnea Cardiovascular: Denies: chest pain Endocrine: Reports: fatigue Gastrointestinal: Denies: abdominal pain Genitourinary: Denies: dysuria Musculoskeletal: Denies: back pain Skin: Denies: rash Neurological: Reports: confusion ( states patient does seem confused at times.). Denies: weakness Past Medical History Past Medical History: Atrial Fibrillation, Asthma, Coronary Artery Disease (CAD), Cancer, Heart Failure, Diabetes Mellitus, Eye Disorder, Hypertension, Osteoarthritis (OA), Prostate Disorder, Renal Disease, Thyroid Disorder Additional Past Medical History / Comment(s): Chronic CHF, on mironone infusion, KAYLEY showed blood clot in heart, cardiomyopathy, uses oxygen prn at home, IDDM type II, neuropathy bilateral feet, L eye ocular stroke-decreased vision, CKD, anemia, BPH, chronic back pain, spinal stenosis, umbilical hernia, hypothyroid. History of Any Multi-Drug Resistant Organisms: None Reported Past Surgical History: Back Surgery, Heart Catheterization, Joint Replacement, Orthopedic Surgery, Pacemaker, Tonsillectomy Additional Past Surgical History / Comment(s): L upper chest picc line per pt, other picc lines, medipump, past kirby catheter per medical record-pt and spouse do not recall this, KAYLEY, CVN, cardiac cath x2, back surgery, bilateral carpal tunnel releases, bilateral total knee arthroplasties, total L shoulder arthroplasty, skin cancer removal, colonoscopy. Past Anesthesia/Blood Transfusion Reactions: No Reported Reaction Additional Past Anesthesia/Blood Transfusion Reaction / Comment(s): "I came out feeling like I was in another world'-with last cardiac procedure Type of Cardiac Device: Permanent Pacemaker Device Placement Date:: 01/2017 Past Psychological History: No Psychological Hx Reported Smoking Status: Never smoker - Past Family History Father Family Medical History: Congestive Heart Failure (CHF) Mother Family Medical History: Cancer Additional Family Medical History / Comment(s): Mother had esophageal cancer. General Exam Limitations: no limitations General appearance: alert, in no apparent distress Head exam: Present: atraumatic, normocephalic Eye exam: Present: normal appearance, PERRL, EOMI. Absent: nystagmus ENT exam: Present: normal oropharynx, TM's normal bilaterally Neck exam: Present: normal inspection. Absent: tenderness Respiratory exam: Present: decreased breath sounds (Bilateral bases) Cardiovascular Exam: Present: irregular rhythm GI/Abdominal exam: Present: soft. Absent: distended, tenderness Extremities exam: Present: pedal edema (+1 bilateral). Absent: calf tenderness Neurological exam: Present: alert, oriented X3, CN II-XII intact. Absent: motor sensory deficit Psychiatric exam: Present: normal affect, normal mood Skin exam: Present: normal color Course Vital Signs 12/11/18 08:40 Temperature 98.3 F Pulse Rate 77 Respiratory 20 Rate Blood Pressure 118/86 O2 Sat by Pulse 95 Oximetry - Reevaluation(s) Reevaluation #1: 12/11/18 09:[address] Ernandez have been paged 12/11/18 09:20 This was discussed with Dr. Barros, who will consult. EKG Findings - EKG Comments: EKG Findings:: Paced rhythm with a rate of 81. QRS 168. QT 500. QTC 580. Left axis. Nonspecific intraventricular block. PVCs present. Nonspecific T waves. Medical Decision Making - Medical Decision Making Dr. ernandez called back and is coming to evaluate patient. - Lab Data Lab Results 12/11/18 Range/Units 09:09 POC Glucose (mg/dL) 176 H (75-99) mg/dL POC Glu Wares Sorter ID Lizett Ferrodith Disposition Clinical Impression: CHF (congestive heart failure), Syncope, Hyperammonemia Disposition: ADMITTED IP TO THIS HOSP Condition: Serious Is patient prescribed a controlled substance at d/c from ED?: No Referrals: Toshia Ernandez DO [Primary Care Provider] - 1-2 days Decision Time: 09:13
[2018-12-11] MEDS ORDERED: ASPIRIN 325 MG TAB PO STA (09:15)
--- NOTE | 2018-12-11 09:44 | XR ---
EXAMINATION TYPE: XR chest 2V DATE OF EXAM: 12/11/2018 COMPARISON: Prior chest x-ray 11/12/2018, 12/11/2018 HISTORY: Dyspnea and chest pain TECHNIQUE: Frontal and lateral views of the chest are obtained. FINDINGS: Right jugular central venous catheter is present as on prior exams. Distal tip is overlyin g the cavoatrial junction. Intracardiac defibrillator leads are stable. No evident pneumothorax or pl eural effusion. No airspace disease seen. Heart is enlarged. The osseous structures are intact. IMPRESSION: No acute cardiopulmonary process. Stable cardiomegaly.
[2018-12-11] MEDS: NITROGLYCERIN OINT 1 INCH/GM PACKET TOPICAL SCH ×3 (10:15→21:45)
[2018-12-11] MEDS: FUROSEMIDE 10 MG/ML 4 ML VIAL IV SCH ×3 (10:16→23:23)
[2018-12-11 13:37] LABS: Albumin 3.9 g/dL (3.5-5.0); Calcium 9.5 mg/dL (8.4-10.2); Potassium 3.2 mmol/L (3.5-5.1); Total Bilirubin 1.2 mg/dL (0.2-1.3); Total Protein 7.2 g/dL (6.3-8.2)
[2018-12-11 13:40] LABS: INR 2.2 (<1.2); Prothrombin Time 21.5 sec (9.0-12.0)
[2018-12-11] MEDS: LACTULOSE 20 GM/30 ML CUP PO SCH ×2 (14:14→21:45)
[2018-12-11 14:30] LABS: Glucose,Whole Blood 185 mg/dL (75-99)
--- NOTE | 2018-12-11 15:35 | P.CNNES ---
History of Present Illness Consult date: 12/11/18 Requesting physician: Denis Brady Reason for Consult: Altered mental status, hyperammonemia. Chief complaint: Altered mental status, hyperammonemia History of Present Illness: Patient is a 78-year-old male who came to the hospital because of generalized weakness, and legs giving out and falls. Patient states that he had several falls in the last 3 months. He does have CHF, and patient was recently admitted for uremia. Patient's CHF was controlled, he was diuresed, and pain medications were discontinued. He was doing fine, but still having generalized weakness and intermittent falls. Patient's mentioned that it appears somewhat has "turned the lights off", and he blacks out. However when I spoke to the patient, he completely denies any passing out, loss of consciousness. He states that his legs give out and he falls. He also has developed tremors with intention, like when he is eating, he starts spilling things. The tremors keeps on getting worse when he is using his hands. No tremors at rest. Patient initially was taken to [facility], then transferred here at [facility] today. Patient's records from outside hospital from this morning shows normal CBC, platelets are mildly low 155. UA is negative. Liver functions normal, but ammonia is very high 133. Lipase is also elevated to 88. TSH normal. Patient's BUN 92, creatinine 2.2. GFR 29. CT head without contrast showed chronic changes in the brain. Patient has history of laminectomy from L1 to L5, about 8 years ago. He does take opioids. He used to take opioids 2-3 times a day but now has cut back to only one tablet daily. He has CHF, chronic kidney disease. Patient has diabe darin for 30 years. Denies any alcohol or tobacco use. On review of records, patient had presented with fall on 01/23/2017, and was seen by another neurologist, and it was felt the fall was due to losing tone of the muscles from baclofen. Patient's EKG showed undetermined rhythm. Pacemaker present. Left axis deviation. Anterior inferior infarct, age indeterminate. Chest x-ray showed no acute cart up to process. Stable cardiomegaly. Patient had a normal carotid Doppler on 01/24/2017 with no significant stenosis. 2-D echo from 08/02/2018 showed atrial fibrillation. Left ventricle is sev erely dilated. EF is 20-25%. Left atrium is moderately dilated. Patient had an EEG on 01/24/2017, which revealed background slowing consistent with encephalopathy. Review of Systems As mentioned in detail. Patient has bilateral knee replacement. Some arthritis. He does get headache, some numbness of the scalp. Denies any problem with the vision, speech or swallow. He has gait imbalance, falls. Tremors. Respiratory difficulty at times. Past Medical History Past Medical History: Atrial Fibrillation, Asthma, Coronary Artery Disease (CAD), Cancer, Heart Failure, Diabetes Mellitus, Eye Disorder, Hypertension, Osteoarthritis (OA), Prostate Disorder, Renal Disease, Thyroid Disorder Additional Past Medical History / Comment(s): Chronic CHF, on mironone infusion, KAYLEY showed blood clot in heart, cardiomyopathy, uses oxygen prn at home, IDDM type II, neuropathy bilateral feet, L eye ocular stroke-decreased vision, CKD, anemia, BPH, chronic back pain, spinal stenosis, umbilical hernia, hypothyroid. History of Any Multi-Drug Resistant Organisms: None Reported Past Surgical History: Back Surgery, Heart Catheterization, Joint Replacement, Orthopedic Surgery, Pacemaker, Tonsillectomy Additional Past Surgical History / Comment(s): L upper chest picc line per pt, other picc lines, medipump, past kirby catheter per medical record-pt and spouse do not recall this, KAYLEY, CVN, cardiac cath x2, back surgery, bilateral ca rpal tunnel releases, bilateral total knee arthroplasties, total L shoulder arthroplasty, skin cancer removal, colonoscopy. Past Anesthesia/Blood Transfusion Reactions: No Reported Reaction Additional Past Anesthesia/Blood Transfusion Reaction / Comment(s): "I came out feeling like I was in another world'-with last cardiac procedure Type of Cardiac Device: Permanent Pacemaker Device Placement Date:: 01/2017 Past Psychological History: No Psychological Hx Reported Smoking Status: Never smoker - Past Family History Father Family Medical History: Congestive Heart Failure (CHF) Mother Family Medical History: Cancer Additional Family Medical History / Comment(s): Mother had esophageal cancer. Medications and Allergies Home Medications Medication Instructions Recorded Confirmed Type Ergocalciferol (Vitamin D2) 50,000 unit PO TUTH 10/23/15 12/11/18 History [Drisdol] Magnesium Oxide [Mag-Ox] 500 mg PO BID 10/23/15 12/11/18 History Allopurinol [Zyloprim] 100 mg PO TID 07/21/16 12/11/18 History Insulin Aspart [NovoLOG] 30 units SQ ACHS PRN 04/12/17 12/11/18 History Insulin Glargine [Lantus] 80 unit SQ HS PRN 04/12/17 12/11/18 History Metolazone [Zaroxolyn] 5 mg PO AGOSTO 04/12/17 12/11/18 History Levothyroxine Sodium [Synthroid] 88 mcg PO DAILY 05/19/17 12/11/18 History Milrinone Drip 1 dose IV CONTINUOUS 05/19/17 12/11/18 History Escitalopram [Lexapro] 2.5 mg PO DAILY 08/01/18 12/11/18 History Potassium Chloride ER [K-Dur 20] 40 meq PO BID 08/01/18 12/11/18 History Bumetanide [BUMEX] 2 mg PO BID tab 08/05/18 12/11/18 Rx Warfarin Sodium [Coumadin] 5 mg PO HS 30 Days tablet 11/14/18 12/11/18 Rx Ferrous Sulfate [Iron (65 MG 325 mg PO BID 12/11/18 12/11/18 History Elemental)] Allergies Allergy/AdvReac Type Severity Reaction Status Date / Time No Known Allergies Allergy Verified 12/11/18 10:21 Physical Examination - Vital Signs Vital Signs: Vital Signs Temp Pulse Resp BP Pulse Ox 12/11/18 12:30 65 100/64 98 12/11/18 12:00 66 102/64 98 12/11/18 11:50 58 L 16 116/61 98 12/11/18 11:30 58 L 116/61 98 12/11/18 11:00 60 108/66 97 12/11/18 10:30 59 L 102/61 99 12/11/18 10:00 131 H 120/99 97 12/11/18 09:30 60 106/93 95 12/11/18 09:00 60 118/86 97 12/11/18 08:47 96 12/11/18 08:40 98.3 F 77 20 118/86 95 Intake and Output 12/11/18 12/11/18 12/11/18 06:59 14:59 22:59 Other: Weight 98.43 kg On examination patient is an elderly male, in no distress. No obvious bruit. S1 and S2 audible. Pacemaker doesn't in the left upper chest. Patient is alert and awake, fairly well oriented. He knows that he is in [facility] in [facility] and that it is 12/11/2018 and his date of . Speech and language functions are normal. Attention and concentration fund of knowledge is adequate. On cranial examination pupils are round and reactive to light, visual juarez are full on confrontation, extraocular muscles are intact with no nystagmus. Face is symmetric and tongue protrudes to the midline. Palatal elevation and sensation normal. On muscle strength testing there is no pronator drift and the strength appears normal in the arms and legs. Left deltoid is slightly weak probably from arthritis. Reflexes are very hypoactive and plantar is flat on the right, up on left. Sensory touch is equal. No ataxia. Tone and bulk of muscles normal. No tremors at rest. Patient has moderate asterixis/myoclonic jerks of outstretched hands. Mild tremors for [id number] testing also. Results Patient's hemoglobin A1c 6.7 on 12/28/2016. His troponins are chronically mildly elevated. Ammonia 45 on 08/04/2018. Hepatitis panel negative on 07/22/2016. Patient's BUN is 105, creatinine 1.89. TSH normal on 08/01/2018., - Laboratory Findings CBC and BMP: 12/11/18 13:02 Abnormal Lab Findings: Abnormal Labs 12/11/18 12/11/18 12/11/18 09:09 13:02 13:02 PT INR Sodium 135 L Potassium 3.2 L Chloride 84 L Carbon Dioxide 39 H BUN 105 H* Creatinine 1.89 H Glucose 129 H POC Glucose (mg/dL) 176 H Troponin I 0.499 H* 12/11/18 12/11/18 13:02 14:10 PT 21.5 H INR 2.2 H Sodium Potassium Chloride Carbon Dioxide BUN Creatinine Glucose POC Glucose (mg/dL) 185 H Troponin I Assessment and Plan Assessment: * Altered mental status, likely due to metabolic encephalopathy due to hyperammonemia and uremia. * Postural and intention tremors, likely due to to go to acute metabolic encephalopathy. Patient has obvious asterixis likely due to uremia and hyperammonemia. * CHF * Diabetes * Elevated cardiac enzymes, chronic Plan: * Patient's altered mental status is likely due to metabolic encephalopathy from uremia and hyperammoniemia. * Patient has obvious myoclonic jerks of outstretched hands. Patient's falls are also likely due to myoclonic jerking of the legs, when the knees give out and he falls. * I would suggest GI consultation for evaluation of elevated ammonia, rule out hepatic dysfunction/cirrhosis. * Patient's tremors, falls, and mental functions all will improve with improvement of underlying metabolic dysfunctions. * No other neurological workup indicated at this time. * Thank you very much for allowing me to participate in care of the patient.
[2018-12-11] MEDS: [UNRECOGNIZED DRUG - OTHER] IV SCH (16:43)
[2018-12-11] MEDS: PANTOPRAZOLE 40 MG/10 ML VIAL IVP SCH (16:50)
[2018-12-11] MEDS: INSULIN ASPART (NovoLOG) 100 UNIT/ML VIAL SQ SCH ×2 (16:51→21:46)
[2018-12-11 17:01] LABS: Glucose,Whole Blood 212 mg/dL (75-99)
[2018-12-11] MEDS ORDERED: INSULIN ASPART (NovoLOG) 100 UNIT/ML VIAL SQ SCH (17:30)
[2018-12-11] MEDS ORDERED: WARFARIN 5 MG TAB PO ONE (18:00)
--- NOTE | 2018-12-11 21:38 | P.CONS ---
History of Present Illness - Reason for Consult Consult date: 12/11/18 Hyperammonemia Requesting physician: Scott Bui - Chief Complaint Generalized weakness - History of Present Illness 78-year-old male with a medical history significant for chronic kidney disease, congestive heart failure, diabetes mellitus, spinal stenosis, and atrial fibrillation who presents as a transfer after initially being seen in the emergency department with complaints of generalized weakness and falls. Of note history has been taken in conversation with the patient as well as interview of the electronic medical record. The patient reports multiple episodes of falling which have occurred over the past few months. He denies any loss of consciousness during the episodes but reports the sensation as if his legs are getting out. Prior to the patient's transfer he did have laboratory findings of elevated creatinine, ammonia of 133 and a computed tomography scan of the head which showed chronic changes of the brain. On questioning the patient denies any prior history of liver disease, viral hepatitis, cirrhosis, or prolonged periods of heavy alcohol use. He denies any prior episodes of jaundice, ascites or GI bleeding. No abdominal pain reported. He does report constipation at baseline which she reports taking laxatives for. Review of Systems REVIEW OF SYSTEMS: CONSTITUTIONAL: Denies any fevers, chills, weight change or fatigue. CARDIOVASCULAR: Denies any chest pain, high or low blood pressures, but does have a known history of congestive heart failure and atrial fibrillation RESPIRATORY: Denies any shortness of breath, hemoptysis or cough. GENITOURINARY: No dysuria or hematuria. MUSCULOSKELETAL: No weakness reported, but reports episodes of his body giving out. SKIN: Denies any new rashes or lesions, jaundice or pallor. PSYCHIATRIC: Denies any new depression or anxiety. NEUROLOGY: Denies headache, denies any new focal deficits, but he does report episodes of falling without associated syncope. EARS/NOSE/THROAT: No recent hearing change, congestion, nasal discharge or sore throat. EYES: No pain in eyes, discharge or change in vision. GASTROINTESTINAL: As per HPI. Past Medical History Past Medical History: Atrial Fibrillation, Asthma, Coronary Artery Disease (CAD), Cancer, Heart Failure, Diabetes Mellitus, Eye Disorder, Hypertension, Osteoarthritis (OA), Prostate Disorder, Renal Disease, Thyroid Disorder Additional Past Medical History / Comment(s): Chronic CHF, on mironone infusion, KAYLEY showed blood clot in heart, cardiomyopathy, uses oxygen prn at home, IDDM type II, neuropathy bilateral feet, L eye ocular stroke-decreased vision, CKD, anemia, BPH, chronic back pain, spinal stenosis, umbilical hernia, hypothyroid. History of Any Multi-Drug Resistant Organisms: None Reported Past Surgical History: Back Surgery, Heart Catheterization, Joint Replacement, Orthopedic Surgery, Pacemaker, Tonsillectomy Additional Past Surgical History / Comment(s): L upper chest picc line per pt, other picc lines, medipump, past kirby catheter per medical record-pt and spouse do not recall this, KAYLEY, CVN, cardiac cath x2, back surgery, bilateral carpal tunnel releases, bilateral total knee arthroplasties, total L shoulder arthroplasty, skin cancer removal, colonoscopy. Past Anesthesia/Blood Transfusion Reactions: No Reported Reaction Additional Past Anesthesia/Blood Transfusion Reaction / Comm: "I came out feeling like I was in another world'-with last cardiac procedure Type of Cardiac Device: Permanent Pacemaker Device Placement Date:: 01/2017 Past Psychological History: No Psychological Hx Reported Smoking Status: Never smoker - Past Family History Father Family Medical History: Congestive Heart Failure (CHF) Mother Family Medical History: Cancer Additional Family Medical History / Comment(s): Mother had esophageal cancer. Medications and Allergies Home Medications Medication Instructions Recorded Confirmed Type Ergocalciferol (Vitamin D2) 50,000 unit PO TUTH 10/23/15 12/11/18 History [Drisdol] Magnesium Oxide [Mag-Ox] 500 mg PO BID 10/23/15 12/11/18 History Allopurinol [Zyloprim] 100 mg PO TID 07/21/16 12/11/18 History Insulin Aspart [NovoLOG] 30 units SQ ACHS PRN 04/12/17 12/11/18 History Insulin Glargine [Lantus] 80 unit SQ HS PRN 04/12/17 12/11/18 History Metolazone [Zaroxolyn] 5 mg PO AGOSTO 04/12/17 12/11/18 History Levothyroxine Sodium [Synthroid] 88 mcg PO DAILY 05/19/17 12/11/18 History Milrinone Drip 1 dose IV CONTINUOUS 05/19/17 12/11/18 History Escitalopram [Lexapro] 2.5 mg PO DAILY 08/01/18 12/11/18 History Potassium Chloride ER [K-Dur 20] 40 meq PO BID 08/01/18 12/11/18 History Bumetanide [BUMEX] 2 mg PO BID tab 08/05/18 12/11/18 Rx Warfarin Sodium [Coumadin] 5 mg PO HS 30 Days tablet 11/14/18 12/11/18 Rx Ferrous Sulfate [Iron (65 MG 325 mg PO BID 12/11/18 12/11/18 History Elemental)] Allergies Allergy/AdvReac Type Severity Reaction Status Date / Time No Known Allergies Allergy Verified 12/11/18 10:21 Physical Exam Vitals: Vital Signs Temp Pulse Pulse Resp BP BP Pulse Ox 12/11/18 16:00 63 122/84 98 12/11/18 12:30 65 100/64 98 12/11/18 12:00 66 59 L 102/64 97/61 94 L 12/11/18 11:50 58 L 16 116/61 98 12/11/18 11:30 58 L 116/61 98 12/11/18 11:00 60 108/66 97 12/11/18 10:30 59 L 102/61 99 12/11/18 10:00 131 H 120/99 97 12/11/18 09:30 60 106/93 95 12/11/18 09:00 60 118/86 97 12/11/18 08:47 96 12/11/18 08:40 98.3 F 77 20 118/86 95 Intake and Output 12/11/18 12/11/18 12/11/18 06:59 14:59 22:59 Output Total 1700 Balance -1700 Output: Urine 1700 Other: Weight 98.43 kg On physical examination, patient appears comfortable in no apparent distress. HEAD: Normocephalic, atraumatic. EYES: No scleral icterus. No conjunctival injection. MOUTH: No lesions, tongue midline. NECK: Trachea midline, no gross abnormalities. CHEST: Decreased air entry bilaterally. HEART: Irregularly irregular, S1-S2 appreciated. ABDOMEN: Soft, obese. Bowel sounds are positive. No organomegaly. No guarding or rigidity. EXTREMITIES: No pedal edema. SKIN: No rashes, no jaundice. NEUROLOGIC: Alert and oriented. No focal deficits. Results CBC & Chem 7: 12/11/18 13:02 Labs: Abnormal Lab Results - Last 24 Hours (Table) 12/11/18 12/11/18 12/11/18 Range/Units 09:09 13:02 13:02 PT (9.0-12.0) sec INR (<1.2) Sodium 135 L (137-145) mmol/L Potassium 3.2 L (3.5-5.1) mmol/L Chloride 84 L (98-107) mmol/L Carbon Dioxide 39 H (22-30) mmol/L BUN 105 H* (9-20) mg/dL Creatinine 1.89 H (0.66-1.25) mg/dL Glucose 129 H (74-99) mg/dL POC Glucose (mg/dL) 176 H (75-99) mg/dL Troponin I 0.499 H* (0.000-0.034) ng/mL 12/11/18 12/11/18 12/11/18 Range/Units 13:02 14:10 16:41 PT 21.5 H (9.0-12.0) sec INR 2.2 H (<1.2) Sodium (137-145) mmol/L Potassium (3.5-5.1) mmol/L Chloride (98-107) mmol/L Carbon Dioxide (22-30) mmol/L BUN (9-20) mg/dL Creatinine (0.66-1.25) mg/dL Glucose (74-99) mg/dL POC Glucose (mg/dL) 185 H 212 H (75-99) mg/dL Troponin I (0.000-0.034) ng/mL Chest x-ray: report reviewed (No acute cardiopulmonary process, was stable cardiomegaly on chest x-ray) Assessment and Plan (1) Hyperammonemia Narrative/Plan: 78-year-old male with multiple medical comorbidities presenting as a transfer for evaluation of weakness and falls. The patient found to be hyperammonemic with a ammonia level of 133 prior to transfer. Ammonia level is likely multifactorial in the setting of chronic kidney disease, multiple medical comorbidities, medications, with no evidence of chronic liver disease/cirrhosis based on liver function tests. INR is elevated, however patient is on Coumadin therapy for atrial fibrillation. At this time recommendation would be for further evaluation with ultrasound of the abdomen and acute viral hepatitis panel, however will continue to address patient's chronic medical conditions and chronic kidney disease and treat symptomatically with lactulose Current Visit: Yes Status: Acute Code(s): E72.20 - DISORDER OF UREA CYCLE METABOLISM, UNSPECIFIED SNOMED Code(s): 2966550 Plan: Supportive care Okay for diet Continue to monitor CBC, CMP, ammonia level Continue to monitor clinically Appreciate recommendations from nephrology service Ultrasound abdomen and acute viral hepatitis panel ordered Continue lactulose twice daily with titration for 2-3 bowel movements daily Continue management of other chronic medical comorbidities Thank you for allowing us to participate in the care of the patient we will continue to follow
[2018-12-11 21:44] LABS: Glucose,Whole Blood 276 mg/dL (75-99)
[2018-12-11] MEDS: POTASSIUM CHLORIDE ER 20 MEQ TAB.ER PO SCH (21:46)
[2018-12-11] MEDS: MAGNESIUM OXIDE 400 MG TAB PO SCH (21:46)
[2018-12-12 00:42] LABS: Hemoglobin A1C 6.8 % (4.0-6.0)
[2018-12-12 02:04] LABS: Glucose,Whole Blood 247 mg/dL (75-99)
[2018-12-12 06:14] LABS: Glucose,Whole Blood 189 mg/dL (75-99)
[2018-12-12] MEDS: INSULIN ASPART (NovoLOG) 100 UNIT/ML VIAL SQ SCH ×4 (06:15→20:53)
[2018-12-12] MEDS: LEVOTHYROXINE 88 MCG TAB PO SCH (06:15)
[2018-12-12 07:46] LABS: INR 2.1 (<1.2); Prothrombin Time 20.4 sec (9.0-12.0)
[2018-12-12 07:47] LABS: HCT 50.4 % (39.0-53.0); HGB 16.6 gm/dL (13.0-17.5); MCH 32.5 pg (25.0-35.0); MCHC 32.8 g/dL (31.0-37.0); MCV 98.8 fL (80.0-100.0); Macrocytosis Slight; Mean Platelet Volume 6.7; Platelet Count 143 k/uL (150-450); WBC 7.4 k/uL (3.8-10.6)
[2018-12-12 08:08] LABS: Albumin 4.3 g/dL (3.5-5.0); Potassium 3.5 mmol/L (3.5-5.1); Total Bilirubin 1.3 mg/dL (0.2-1.3); Total Protein 7.7 g/dL (6.3-8.2)
--- NOTE | 2018-12-12 08:54 | P.HPIM ---
History of Present Illness H&P Date: 12/11/18 Chief Complaint: falls, weakness Jose G Polk is a 78-year-old male with past medical history of systolic CHF, CAD, A. fib, AICD in place, continuous milrinone infusion, history of L1 through L5 laminectomy presents to the ED complaining of his legs giving out and frequen t falls over the past few weeks. He was recently discharged for CHF exacerbation November 14 and states after going home he has been intermittently weak and has had episodes where his legs will give out from under him. He denies any loss of consciousness. Patient notes that about a week ago he was noted to be hyponatremic and hypochloremic from his Bumex so was tried on Diamox, but felt that made him more weak. He also complains of tremors in both his hands and feet which have worsened over the past few weeks. Patient notes that a few years ago he had similar issues with weakness and at that time was thought to be due to baclofen. He denies any chest pain or shortness of breath. In the ED his labs were notable for ammonia 133, hyponatremia and hypochloremia, chronically elevated troponin to 0.5. He denies any history of liver issues or heavy alcohol use. Review of Systems All systems: negative Constitutional: Reports weakness, Denies chills, Denies fever Eyes: denies blurred vision, denies pain Ears, nose, mouth and throat: Denies headache, Denies sore throat Cardiovascular: Denies chest pain, Denies shortness of breath Respiratory: Denies cough Gastrointestinal: Denies abdominal pain, Denies diarrhea, Denies nausea, Denies vomiting Musculoskeletal: Reports frequent falls, Reports leg numbness/tingling, Reports muscle weakness, Denies myalgias Integumentary: Denies pruritus, Denies rash Neurological: Reports gait dysfunction, Reports lack of coordination, Reports tremors, Denies numbness, Denies weakness Psychiatric: Denies anxiety, Denies depression Endocrine: Denies fatigue, Denies weight change Past Medical History Past Medical History: Atrial Fibrillation, Asthma, Coronary Artery Disease (CAD), Cancer, Heart Failure, Diabetes Mellitus, Eye Disorder, Hypertension, Osteoarthritis (OA), Prostate Disorder, Renal Disease, Thyroid Disorder Additional Past Medical History / Comment(s): Chronic CHF, on mironone infusion, KAYLEY showed blood clot in heart, cardiomyopathy, uses oxygen prn at home, IDDM type II, neuropathy bilateral feet, L eye ocular stroke-decreased vision, CKD, anemia, BPH, chronic back pain, spinal stenosis, umbilical hernia, hypothyroid. History of Any Multi-Drug Resistant Organisms: None Reported Past Surgical History: Back Surgery, Heart Catheterization, Joint Replacement, Orthopedic Surgery, Pacemaker, Tonsillectomy Additional Past Surgical History / Comment(s): L upper chest picc line per pt, other picc lines, medipump, past kirby catheter per medical record-pt and spouse do not recall this, KAYLEY, CVN, cardiac cath x2, back surgery, bilateral carpal tunnel releases, bilateral total knee arthroplasties, total L shoulder arthroplasty, skin cancer removal, colonoscopy. Past Anesthesia/Blood Transfusion Reactions: No Reported Reaction Additional Past Anesthesia/Blood Transfusion Reaction / Comment(s): "I came out feeling like I was in another world'-with last cardiac procedure Type of Cardiac Device: Permanent Pacemaker Device Placement Date:: 01/2017 Past Psychological History: No Psychological Hx Reported Smoking Status: Never smoker - Past Family History Father Family Medical History: Congestive Heart Failure (CHF) Mother Family Medical History: Cancer Additional Family Medical History / Comment(s): Mother had esophageal cancer. Medications and Allergies Home Medications Medication Instructions Recorded Confirmed Type Ergocalciferol (Vitamin D2) 50,000 unit PO TUTH 10/23/15 12/11/18 History [Drisdol] Magnesium Oxide [Mag-Ox] 500 mg PO BID 10/23/15 12/11/18 History Allopurinol [Zyloprim] 100 mg PO TID 07/21/16 12/11/18 History Insulin Aspart [NovoLOG] 30 units SQ ACHS PRN 04/12/17 12/11/18 History Insulin Glargine [Lantus] 80 unit SQ HS PRN 04/12/17 12/11/18 History Metolazone [Zaroxolyn] 5 mg PO AGOSTO 04/12/17 12/11/18 History Levothyroxine Sodium [Synthroid] 88 mcg PO DAILY 05/19/17 12/11/18 History Milrinone Drip 1 dose IV CONTINUOUS 05/19/17 12/11/18 History Escitalopram [Lexapro] 2.5 mg PO DAILY 08/01/18 12/11/18 History Potassium Chloride ER [K-Dur 20] 40 meq PO BID 08/01/18 12/11/18 History Bumetanide [BUMEX] 2 mg PO BID tab 08/05/18 12/11/18 Rx Warfarin Sodium [Coumadin] 5 mg PO HS 30 Days tablet 11/14/18 12/11/18 Rx Ferrous Sulfate [Iron (65 MG 325 mg PO BID 12/11/18 12/11/18 History Elemental)] Allergies Allergy/AdvReac Type Severity Reaction Status Date / Time No Known Allergies Allergy Verified 12/11/18 10:21 Physical Exam Vitals: Vital Signs Temp Pulse Pulse Resp BP BP Pulse Ox 12/12/18 04:12 16 12/12/18 04:00 98.2 F 59 L 16 134/81 93 L 12/11/18 23:31 98.1 F 88 16 118/78 12/11/18 21:45 61 18 12/11/18 20:19 97.6 F 61 18 121/69 99 12/11/18 16:00 63 122/84 98 12/11/18 12:30 65 100/64 98 12/11/18 12:00 66 59 L 102/64 97/61 94 L 12/11/18 11:50 58 L 16 116/61 98 12/11/18 11:30 58 L 116/61 98 12/11/18 11:00 60 108/66 97 12/11/18 10:30 59 L 102/61 99 12/11/18 10:00 131 H 120/99 97 12/11/18 09:30 60 106/93 95 12/11/18 09:00 60 118/86 97 12/11/18 08:47 96 12/11/18 08:40 98.3 F 77 20 118/86 95 Intake and Output 12/11/18 12/12/18 12/12/18 22:59 06:59 14:59 Output Total 1700 1300 Balance -1700 -1300 Output: Urine 1700 1300 Other: Voiding Method Indwelling Catheter Indwelling Catheter Weight 98.7 kg General: Obese well-developed no acute distress HEENT: PERRLA, mucous membranes moist Neck: Supple no JVD no thyromegaly Lymph: No cervical or axillary adenopathy CV: Irregularly irregular, no murmur, distal pulses 1+, edema 1+ Lungs: Good inspiratory effort, clear throughout Abdomen: Soft nontender nondistended no organomegaly Extremities: No cyanosis clubbing or edema Neuro: Cranial nerves II through XII intact, asterixis present, resting and intention tremor and laterally Skin: Warm and dry, no jaundice. PICC line in place with continuous milrinone infusion Results CBC & Chem 7: 12/12/18 07:19 12/12/18 07:19 Labs: Abnormal Lab Results - Last 24 Hours (Table) 12/11/18 12/11/18 12/11/18 Range/Units 09:09 13:02 13:02 Plt Count (150-450) k/uL PT (9.0-12.0) sec INR (<1.2) Sodium 135 L (137-145) mmol/L Potassium 3.2 L (3.5-5.1) mmol/L Chloride 84 L (98-107) mmol/L Carbon Dioxide 39 H (22-30) mmol/L BUN 105 H* (9-20) mg/dL Creatinine 1.89 H (0.66-1.25) mg/dL Glucose 129 H (74-99) mg/dL POC Glucose (mg/dL) 176 H (75-99) mg/dL Hemoglobin A1c (4.0-6.0) % Troponin I 0.499 H* (0.000-0.034) ng/mL 12/11/18 12/11/18 12/11/18 Range/Units 13:02 14:10 16:41 Plt Count (150-450) k/uL PT 21.5 H (9.0-12.0) sec INR 2.2 H (<1.2) Sodium (137-145) mmol/L Potassium (3.5-5.1) mmol/L Chloride (98-107) mmol/L Carbon Dioxide (22-30) mmol/L BUN (9-20) mg/dL Creatinine (0.66-1.25) mg/dL Glucose (74-99) mg/dL POC Glucose (mg/dL) 185 H 212 H (75-99) mg/dL Hemoglobin A1c (4.0-6.0) % Troponin I (0.000-0.034) ng/mL 12/11/18 12/11/18 12/11/18 Range/Units 19:08 19:08 21:42 Plt Count (150-450) k/uL PT (9.0-12.0) sec INR (<1.2) Sodium (137-145) mmol/L Potassium (3.5-5.1) mmol/L Chloride (98-107) mmol/L Carbon Dioxide (22-30) mmol/L BUN (9-20) mg/dL Creatinine (0.66-1.25) mg/dL Glucose (74-99) mg/dL POC Glucose (mg/dL) 276 H (75-99) mg/dL Hemoglobin A1c 6.8 H (4.0-6.0) % Troponin I 0.557 H* (0.000-0.034) ng/mL 12/12/18 12/12/18 12/12/18 Range/Units 02:03 06:10 07:19 Plt Count 143 L (150-450) k/uL PT (9.0-12.0) sec INR (<1.2) Sodium (137-145) mmol/L Potassium (3.5-5.1) mmol/L Chloride (98-107) mmol/L Carbon Dioxide (22-30) mmol/L BUN (9-20) mg/dL Creatinine (0.66-1.25) mg/dL Glucose (74-99) mg/dL POC Glucose (mg/dL) 247 H 189 H (75-99) mg/dL Hemoglobin A1c (4.0-6.0) % Troponin I (0.000-0.034) ng/mL 12/12/18 12/12/18 Range/Units 07:19 07:19 Plt Count (150-450) k/uL PT 20.4 H (9.0-12.0) sec INR 2.1 H (<1.2) Sodium (137-145) mmol/L Potassium (3.5-5.1) mmol/L Chloride 84 L (98-107) mmol/L Carbon Dioxide 42 H* (22-30) mmol/L BUN 105 H* (9-20) mg/dL Creatinine 2.24 H (0.66-1.25) mg/dL Glucose 191 H (74-99) mg/dL POC Glucose (mg/dL) (75-99) mg/dL Hemoglobin A1c (4.0-6.0) % Troponin I (0.000-0.034) ng/mL Thrombosis Risk Factor Assmnt - Choose All That Apply Each Factor Represents 1 point: Obesity (BMI >25) Each Risk Factor Represents 3 Points: Age 75 years or older Thrombosis Risk Factor Assessment Total Risk Factor Score: 4 Thrombosis Risk Factor Assessment Level: Moderate Risk Assessment and Plan (1) Hyperammonemia Current Visit: Yes Status: Acute Code(s): E72.20 - DISORDER OF UREA CYCLE METABOLISM, UNSPECIFIED SNOMED Code(s): 4620556 (2) 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 Current Visit: No Status: Acute Code(s): N17.9 - ACUTE KIDNEY FAILURE, UNSPECIFIED; N18.9 - CHRONIC KIDNEY DISEASE, UNSPECIFIED SNOMED Code(s): 158300053 (3) Acute on chronic systolic CHF (congestive heart failure) Current Visit: No Status: Acute Code(s): I50.23 - ACUTE ON CHRONIC SYSTOLIC (CONGESTIVE) HEART FAILURE SNOMED Code(s): 437271223 (4) Atrial fibrillation Current Visit: No Status: Acute Code(s): I48.91 - UNSPECIFIED ATRIAL FIBRILLATION SNOMED Code(s): 48477450 (5) Coronary artery disease Current Visit: No Status: Acute Code(s): I25.10 - ATHSCL HEART DISEASE OF [place] CORONARY ARTERY W/O ANG PCTRS SNOMED Code(s): 27112739 (6) Demand ischemia Current Visit: No Status: Acute Code(s): I24.8 - OTHER FORMS OF ACUTE ISCHEM IC HEART DISEASE SNOMED Code(s): 994336357 (7) Diabetes Current Visit: No Status: Acute Code(s): E11.9 - TYPE 2 DIABETES MELLITUS WITHOUT COMPLICATIONS SNOMED Code(s): 81551432 (8) HTN (hypertension) Current Visit: No Status: Acute Code(s): I10 - ESSENTIAL (PRIMARY) HYPERTENSION SNOMED Code(s): 40372195 (9) Hypothyroid Current Visit: No Status: Acute Code(s): E03.9 - HYPOTHYROIDISM, UNSPECIFIED SNOMED Code(s): 37787257 (10) Tremors of nervous system Current Visit: No Status: Acute Code(s): R25.1 - TREMOR, UNSPECIFIED SNOMED Code(s): 39880287 (11) Type 2 diabetes mellitus, with long-term current use of insulin Current Visit: No Status: Acute Code(s): E11.9 - TYPE 2 DIABETES MELLITUS WITHOUT COMPLICATIONS; Z79.4 - 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 Weakness, syncope, and frequent falls. Likely secondary to elevated ammonia. Start lactulose. GI and neurology consult 2. Acute exacerbation of systolic CHF. CAD. Cardiology consult. Lasix 40 mg IV every 8 hours. Replete electrolytes, continue milrinone infusion 3. Persistent atrial fibrillation. Coumadin per pharmacy 4. Type 2 diabetes. Accu-Cheks, sliding scale 5. GERD. Continue Protonix.
[2018-12-12] MEDS ORDERED: ASPIRIN 325 MG TAB PO SCH (09:00)
--- NOTE | 2018-12-12 09:12 | P.CRDCN ---
History of Present Illness Consult date: 12/12/18 Requesting physician: Scott Bui Consult reason: sycope Chief complaint: Shortness of breath, near syncope History of present illness: This is a pleasant 78-year-old gentleman who follows with Dr. Olmstead in the office. He has a history of hyperlipidemia, hypertension, diabetes, fam jalen history of coronary artery disease, he's undergone 2 heart caths in the past one in 2011 which revealed normal coronary arteries and again in 2016 which revealed a 20% mid LAD lesion. He also has known nonischemic cardiomyopathy, persistent atrial fibrillation, prior PE, hypothyroidism, he currently has a PICC line in place with continuous milrinone infusion initiated at [facility] heart failure clinic, prior AICD implantation, chronic kidney disease. Patient presented to [facility] with symptoms of progressively worsening shortness of breath and bilateral lower extremity edema, patient also has been having episodes of frequent falls and near syncope. His syncopal or near syn copal episodes seem to occur when the patient is trying to urinate suggesting a possible micturition syncope. He also states that his legs have been progressively more and more weak and he is unable to stand up at times. Laboratory data from [facility], white blood cell count 6.4, hemoglobin 15.1, platelet count 155 daily was negative so 134, potassium 3.6, chloride 81, CO2 39, BUN 102, creatinine 2.0, ammonia level was 133 lipase 288 troponin 0.6 BNP 1113, TSH 2.[address] of the brain was performed which showed chronic changes with no acute findings. Because of the abnormality in troponin and patient's cardiac history patient was transferred here to [facility] for further evaluation and treatment. At the time of my examination, patient was having an abdominal ultrasound performed, he did appear somewhat short of breath, denied any chest discomfort, gave a somewhat accurate history although seemed mildly confused as well. EKG shows a paced rhythm with underlying atrial flutter. Blood pressure here 134/80 with a heart rate of 60, 93 per and on room air. Chest x-ray report says no acute cardiopulmonary process. Laboratory data here was reviewed, INR 2.2, sodium 135, potassium 3.2, BUN 105, creatinine 1.8, troponins 0.49, 0.55. This morning's labs, sodium 138, potassium 3.5, BUN 105, creatinine 2.2. INR 2.1. Past Medical History Past Medical History: Atrial Fibrillation, Asthma, Coronary Artery Disease (CAD), Cancer, Heart Failure, Diabetes Mellitus, Eye Disorder, Hypertension, Osteoarthritis (OA), Prostate Disorder, Renal Disease, Thyroid Disorder Additional Past Medical History / Comment(s): Chronic CHF, on mironone infusion, KAYLEY showed blood clot in heart, cardiomyopathy, uses oxygen prn at home, IDDM type II, neuropathy bilateral feet, L eye ocular stroke-decreased vision, CKD, anemia, BPH, chronic back pain, spinal stenosis, umbilical hernia, hypothyroid. History of Any Multi-Drug Resistant Organisms: None Reported Past Surgical History: Back Surgery, Heart Catheterization, Joint Replacement, Orthopedic Surgery, Pacemaker, Tonsillectomy Additional Past Surgical History / Comment(s): L upper chest picc line per pt, other picc lines, medipump, past kirby catheter per medical record-pt and spouse do not recall this, KAYLEY, CVN, cardiac cath x2, back surgery, bilateral carpal tunnel releases, bilateral total knee arthroplasties, total L shoulder arthroplasty, skin cancer removal, colonoscopy. Past Anesthesia/Blood Transfusion Reactions: No Reported Reaction Additional Past Anesthesia/Blood Transfusion Reaction / Comment(s): "I came out feeling like I was in another world'-with last cardiac procedure Type of Cardiac Device: Permanent Pacemaker Device Placement Date:: 01/2017 Past Psychological History: No Psychological Hx Reported Smoking Status: Never smoker - Past Family History Father Family Medical History: Congestive Heart Failure (CHF) Mother Family Medical History: Cancer Additional Family Medical History / Comment(s): Mother had esophageal cancer. Medications and Allergies Home Medications Medication Instructions Recorded Confirmed Type Ergocalciferol (Vitamin D2) 50,000 unit PO TUTH 10/23/15 12/11/18 History [Drisdol] Magnesium Oxide [Mag-Ox] 500 mg PO BID 10/23/15 12/11/18 History Allopurinol [Zyloprim] 100 mg PO TID 07/21/16 12/11/18 History Insulin Aspart [NovoLOG] 30 units SQ ACHS PRN 04/12/17 12/11/18 History Insulin Glargine [Lantus] 80 unit SQ HS PRN 04/12/17 12/11/18 History Metolazone [Zaroxolyn] 5 mg PO AGOSTO 04/12/17 12/11/18 History Levothyroxine Sodium [Synthroid] 88 mcg PO DAILY 05/19/17 12/11/18 History Milrinone Drip 1 dose IV CONTINUOUS 05/19/17 12/11/18 History Escitalopram [Lexapro] 2.5 mg PO DAILY 08/01/18 12/11/18 History Potassium Chloride ER [K-Dur 20] 40 meq PO BID 08/01/18 12/11/18 History Bumetanide [BUMEX] 2 mg PO BID tab 08/05/18 12/11/18 Rx Warfarin Sodium [Coumadin] 5 mg PO HS 30 Days tablet 11/14/18 12/11/18 Rx Ferrous Sulfate [Iron (65 MG 325 mg PO BID 12/11/18 12/11/18 History Elemental)] Allergies Allergy/AdvReac Type Severity Reaction Status Date / Time No Known Allergies Allergy Verified 12/11/18 10:21 Physical Exam Vitals: Vital Signs Temp Pulse Pulse Resp BP BP Pulse Ox 12/12/18 04:12 16 12/12/18 04:00 98.2 F 59 L 16 134/81 93 L 12/11/18 23:31 98.1 F 88 16 118/78 12/11/18 21:45 61 18 12/11/18 20:19 97.6 F 61 18 121/69 99 12/11/18 16:00 63 122/84 98 12/11/18 12:30 65 100/64 98 12/11/18 12:00 66 59 L 102/64 97/61 94 L 12/11/18 11:50 58 L 16 116/61 98 12/11/18 11:30 58 L 116/61 98 12/11/18 11:00 60 108/66 97 12/11/18 10:30 59 L 102/61 99 12/11/18 10:00 131 H 120/99 97 12/11/18 09:30 60 106/93 95 12/11/18 09:00 60 118/86 97 12/11/18 08:47 96 Intake and Output 12/11/18 12/12/18 12/12/18 22:59 06:59 14:59 Output Total 1700 1300 Balance -1700 -1300 Output: Urine 1700 1300 Other: Voiding Method Indwelling Catheter Indwelling Catheter Weight 98.7 kg PHYSICAL EXAMINATION: GENERAL: 77-year-old gentleman in no acute distress at the time of my examination HEENT: Head is atraumatic, normocephalic. Pupils equal, round. Sclera anicteric. Conjunctiva are clear. Mucous membranes of the mouth are moist. Neck is supple. There is elevated jugular venous pressure. No carotid bruit is heard. HEART EXAMINATION: Heart S1 and S2 irregularly irregular a systolic ejection murmur is heard at the apex CHEST EXAMINATION: Lungs reveal diminished air entry to bilateral bases ABDOMEN: [ Soft, obese, nontender. Bowel sounds are heard. Positive hep atomegaly EXTREMITIES: 2+ peripheral pulses with 1+ evidence of peripheral edema and no calf tenderness noted. NEUROLOGIC patient is awake, alert and oriented 3 Results 12/12/18 07:19 12/12/18 07:19 Cardiac Enzymes 12/11/18 12/11/18 12/11/18 Range/Units 13:02 13:02 19:08 AST 45 (17-59) U/L Troponin I 0.499 H* 0.557 H* (0.000-0.034) ng/mL 12/12/18 Range/Units 07:19 AST 51 (17-59) U/L Troponin I (0.000-0.034) ng/mL Coagulation 12/11/18 12/12/18 Range/Units 13:02 07: PT 21.5 H 20.4 H (9.0-12.0) sec CBC 12/12/18 Range/Units 07:19 WBC 7.4 (3.8-10.6) k/uL RBC 5.10 (4.30-5.90) m/uL Hgb 16.6 (13.0-17.5) gm/dL Hct 50.4 (39.0-53.0) % Plt Count 143 L (150-450) k/uL Comprehensive Metabolic Panel 12/11/18 12/12/18 Range/Units 13:02 07:19 Sodium 135 L 138 (137-145) mmol/L Potassium 3.2 L 3.5 (3.5-5.1) mmol/L Chloride 84 L 84 L (98-107) mmol/L Carbon Dioxide 39 H 42 H* (22-30) mmol/L BUN 105 H* 105 H* (9-20) mg/dL Creatinine 1.89 H 2.24 H (0.66-1.25) mg/dL Glucose 129 H 191 H (74-99) mg/dL Calcium 9.5 10.0 (8.4-10.2) mg/dL AST 45 51 (17-59) U/L ALT 26 26 (21-72) U/L Alkaline Phosphatase 54 70 (38-126) U/L Total Protein 7.2 7.7 (6.3-8.2) g/dL Albumin 3.9 4.3 (3.5-5.0) g/dL Current Medications Generic Name Dose Route Start Last Admin Trade Name Freq PRN Reason Stop Dose Admin Aspirin 325 mg 12/12/18 09:00 Aspirin PO DAILY [facility] Escitalopram Oxalate 2.5 mg 12/12/18 09:00 Lexapro PO DAILY [facility] Furosemide 40 mg 12/11/18 09:15 12/11/18 23:23 Lasix IV 40 mg Q8HR [facility] Administration Insulin Aspart 0 unit 12/11/18 17:30 12/12/18 06:15 Novolog SQ 2 unit ACHS [facility] Administration Protocol Lactulose 30 gm 12/11/18 09:15 12/11/18 21:45 Cephulac PO 30 gm BID [facility] Administration Levothyroxine Sodium 88 mcg 12/12/18 06:30 12/12/18 06:15 Synthroid PO 88 mcg DAILY@0630 [facility] Administration Magnesium Oxide 400 mg 12/11/18 21:00 12/11/18 21:46 Mag-Ox PO 400 mg BID [facility] Administration Metolazone 5 mg 12/16/18 09:00 Zaroxolyn PO AGOSTO [facility] Miscellaneous Information 1 each 12/11/18 12:33 Coumadin Per Pharmacy MISCELLANE DIRECTED PRN Per Protocol Nitroglycerin 1 inch 12/11/18 13:00 12/11/18 21:45 Nitro-Bid Oint TOPICAL 1 inch QID [facility] Administration Non-Formulary Medication 1 dose 12/11/18 12:45 12/11/18 16:43 Milrinone Drip IV Not Given CONTINUOUS [facility] Pantoprazole Sodium 40 mg 12/11/18 14:30 12/11/18 16:50 Protonix IVP 40 mg DAILY [facility] Administration Potassium Chloride 40 meq 12/11/18 21:00 12/11/18 21:46 K-Dur 20 PO 40 meq BID [facility] Administration Sodium Chloride 10 ml 12/11/18 21:00 12/11/18 21:46 Saline Flush IV Not Given BID [facility] Intake and Output 12/11/18 12/12/18 12/12/18 22:59 06:59 14:59 Output Total 1700 1300 Balance -1700 -1300 Output: Urine 1700 1300 Other: Voiding Method Indwelling Catheter Indwelling Catheter Weight 98.7 kg 12/12/18 07:19 12/12/18 07:19 EKG Interpretations (text) EKG shows a paced rhythm with underlying atrial flutter Assessment and Plan Plan: Assessment and Plan Assessment and plan #1 systolic congestive heart failure acute on chronic, on chronic milrinone infusion #2 nonischemic cardiomyopathy with prior AICD implantation #3 hypertension #4 diabetes #5 hyperlipidemia #6 hypothyroidism #7 acute on chronic kidney disease #8 abnormal troponin, likely secondary to kidney disease #9 prior PE #10 chronic persistent atrial fibrillation/flutter, on Coumadin for anti coagulation, INR 2.1 #11 near syncopal episodes, appears to be micturition syncope, acute urinary re tention #12 abnormality in troponin, likely secondary to chronic kidney disease #13 frequent falls with associated weakness, acute metabolic encephalopathy and acute uremia #14 history of PE Plan The patient had an echo performed in July of this year which revealed an ejection fraction of 20-25% with moderate tricuspid regurg and moderate pulmonary hypertension, we will not repeat an echo on this admission. We will interrogate the AICD. Check orthostatics. Continue milrinone infusion. Overall prognosis guarded. DNP note has been reviewed, I agree with a documented findings and plan of care. Patient was seen and examined.
[2018-12-12] MEDS: PANTOPRAZOLE 40 MG/10 ML VIAL IVP SCH (09:26)
[2018-12-12] MEDS: POTASSIUM CHLORIDE ER 20 MEQ TAB.ER PO SCH ×2 (09:26→20:53)
[2018-12-12] MEDS: FUROSEMIDE 10 MG/ML 4 ML VIAL IV SCH (09:26)
[2018-12-12] MEDS: NITROGLYCERIN OINT 1 INCH/GM PACKET TOPICAL SCH ×2 (09:27→12:34)
[2018-12-12] MEDS: LACTULOSE 20 GM/30 ML CUP PO SCH ×2 (09:27→20:53)
[2018-12-12] MEDS: MAGNESIUM OXIDE 400 MG TAB PO SCH ×2 (09:27→20:53)
[2018-12-12] MEDS: ESCITALOPRAM 5 MG TAB PO SCH (09:27)
--- NOTE | 2018-12-12 09:37 | US ---
EXAMINATION TYPE: US abdomen complete DATE OF EXAM: 12/12/2018 COMPARISON: US & CT 2017 CLINICAL HISTORY: Hyperammonemia, rule out liver disease. Patient states no symptoms, exam done ricardo ble. EXAM MEASUREMENTS: Liver Length: 13.1 cm Gallbladder Wall: 0.2 cm CBD: 0.5 cm Spleen: 12.6 cm Right Kidney: 9.7 x 5.1 x 5.1 cm Left Kidney: 9.2 x 5.3 x 4.2 cm Pancreas: hyperechoic, slightly prominent duct seen measuring 0.3cm. This appears to be slightly ove restimated. Liver: wnl Gallbladder: wnl Evidence for sonographic Breen's sign: no CBD: visualized portions wnl, limited by overlying bowel gas Spleen: wnl Right Kidney: wnl Left Kidney: visualized portions wnl, inferior pole limited by overlying bowel gas Upper IVC: wnl Abd Aorta: proximal portion measures in upper limits of normal, limited by overlying midline bowel g as IMPRESSION: 1. No suspicious acute ultrasound abnormalities right upper quadrant.
[2018-12-12 09:53] LABS: Lymphocytes # (M) 1.41 k/uL (1.0-4.8); Monocytes # (M) 0.67 k/uL (0-1.0); Neutrophils # (M) 5.33 k/uL (1.3-7.7); Neutrophils % (M) 72 %; Nucleated Red Blood Cells 0 /100 WBC (0-0); Total Cells Counted 100
[2018-12-12 09:55] LABS: Anisocytosis (M) Present; Poikilocytosis (M) Present
[2018-12-12 12:14] LABS: Glucose,Whole Blood 255 mg/dL (75-99)
[2018-12-12 12:19] LABS: Hepatitis A Antibody IgM Non-Reactive (Non-Reactive); Hepatitis B Core IgM Non-Reactive (Non-Reactive); Hepatitis B Surface Antigen Non-Reactive (Non-Reactive); Hepatitis C IgG Antibody Non-Reactive (Non-Reactive)
--- NOTE | 2018-12-12 13:02 | P.NPCON ---
History of Present Illness - Reason for Consult acute renal failure - History of Present Illness Reason for consultation: Acute kidney injury on chronic kidney disease History of present illness: Patient is a 78-year-old male seen in renal consultation for acute kidney injury on chronic kidney disease. Patient has chronic kidney disease stage III with baseline creatinine in the range of 1.62. Creatinine was 1.8 thousand on admission and is 2.24 today. Patient presented to the hospital due to genera lized weakness. According to the patient's been feeling quite weak the last few days and was unable to even stand on his own. He sustained a fall at home and the had to call EMS to bring him to the hospital. Patient currently has a Banegas catheter. He is nonoliguric. Patient has chronic systolic CHF and is maintained on continuous milrinone. He is also receiving Lasix 40 mg IV 3 times daily. Additionally he is also on Zaroxolyn. Patient's ammonia level was noted to be high on admission. She is receiving lactulose. He had 2 bowel movements today. He is currently quite lethargic. provides most of the history. Patient's ultrasound revealed normal sized kidneys without any evidence of hydronephrosis. Denies family history of renal disease. Denies use of nonsteroidals. Vital signs are stable. General: The patient appeared well nourished and normally developed. HEENT: Head exam is unremarkable. Neck is without jugular venous distension. LUNGS: Lungs are clear to auscultation and percussion. Breath sounds decreased. HEART: Rate and Rhythm are regular. First and second heart sounds normal. No murmurs, rubs or gallops. ABDOMEN: Abdominal exam reveals normal bowel sounds. Non-tender and non- distended. No evidence of peritonitis. EXTREMITITES: No clubbing, cyanosis, or edema. Past Medical History Past Medical History: Atrial Fibrillation, Asthma, Coronary Artery Disease (CAD), Cancer, Heart Failure, Diabetes Mellitus, Eye Disorder, Hypertension, Osteoarthritis (OA), Prostate Disorder, Renal Disease, Thyroid Disorder Additional Past Medical History / Comment(s): Chronic CHF, on mironone infusion, KAYLEY showed blood clot in heart, cardiomyopathy, uses oxygen prn at home, IDDM type II, neuropathy bilateral feet, L eye ocular stroke-decreased vision, CKD, anemia, BPH, chronic back pain, spinal stenosis, umbilical hernia, hypothyroid. History of Any Multi-Drug Resistant Organisms: None Reported Past Surgical History: Back Surgery, Heart Catheterization, Joint Replacement, Orthopedic Surgery, Pacemaker, Tonsillectomy Additional Past Surgical History / Comment(s): L upper chest picc line per pt, other picc lines, medipump, past kirby catheter per medical record-pt and spouse do not recall this, KAYLEY, CVN, cardiac cath x2, back surgery, bilateral carpal tunnel releases, bilateral total knee arthroplasties, total L shoulder arthroplasty, skin cancer removal, colonoscopy. Past Anesthesia/Blood Transfusion Reactions: No Reported Reaction Additional Past Anesthesia/Blood Transfusion Reaction / Comment(s): "I came out feeling like I was in another world'-with last cardiac procedure Type of Cardiac Device: Permanent Pacemaker Device Placement Date:: 01/2017 Past Psychological History: No Psychological Hx Reported Smoking Status: Never smoker - Past Family History Father Family Medical History: Congestive Heart Failure (CHF) Mother Family Medical History: Cancer Additional Family Medical History / Comment(s): Mother had esophageal cancer. Medications and Allergies Home Medications Medication Instructions Recorded Confirmed Type Ergocalciferol (Vitamin D2) 50,000 unit PO TUTH 10/23/15 12/11/18 History [Drisdol] Magnesium Oxide [Mag-Ox] 500 mg PO BID 10/23/15 12/11/18 History Allopurinol [Zyloprim] 100 mg PO TID 07/21/16 12/11/18 History Insulin Aspart [NovoLOG] 30 units SQ ACHS PRN 04/12/17 12/11/18 History Insulin Glargine [Lantus] 80 unit SQ HS PRN 04/12/17 12/11/18 History Metolazone [Zaroxolyn] 5 mg PO AGOSTO 04/12/17 12/11/18 History Levothyroxine Sodium [Synthroid] 88 mcg PO DAILY 05/19/17 12/11/18 History Milrinone Drip 1 dose IV CONTINUOUS 05/19/17 12/11/18 History Escitalopram [Lexapro] 2.5 mg PO DAILY 08/01/18 12/11/18 History Potassium Chloride ER [K-Dur 20] 40 meq PO BID 08/01/18 12/11/18 History Bumetanide [BUMEX] 2 mg PO BID tab 08/05/18 12/11/18 Rx Warfarin Sodium [Coumadin] 5 mg PO HS 30 Days tablet 11/14/18 12/11/18 Rx Ferrous Sulfate [Iron (65 MG 325 mg PO BID 12/11/18 12/11/18 History Elemental)] Allergies Allergy/AdvReac Type Severity Reaction Status Date / Time No Known Allergies Allergy Verified 12/11/18 10:21 Physical Exam Vitals: Vital Signs Temp Pulse Resp BP Pulse Ox 12/12/18 11:45 60 16 117/64 92 L 12/12/18 08:45 97.8 F 60 18 107/70 92 L 12/12/18 04:12 16 12/12/18 04:00 98.2 F 59 L 16 134/81 93 L 12/11/18 23:31 98.1 F 88 16 118/78 12/11/18 21:45 61 18 12/11/18 20:19 97.6 F 61 18 121/69 99 12/11/18 16:00 63 122/84 98 Intake and Output 12/11/18 12/12/18 12/12/18 22:59 06:59 14:59 Output Total 1700 1300 Balance -1700 -1300 Output: Urine 1700 1300 Other: Voiding Method Indwelling Catheter Indwelling Catheter # Voids 1 # Bowel Movements 1 Weight 98.7 kg 98.7 kg Results - Lab Results Most recent lab results Calcium 10.0 mg/dL (8.4-10.2) 12/12/18 07:19 12/12/18 07:19 12/12/18 07:19 Assessment and Plan Plan: Assessment: 1. Acute kidney injury mostly prerenal secondary to diuresis. Creatinine up to 2.4 today. UA benign. No evidence of hydronephrosis noted on ultrasound. 2. Chronic kidney disease stage III with baseline creatinine in the range of 1.6-2 secondary to cardiorenal syndrome. 3. Chronic systolic CHF with ejection fraction of 20-25% with moderate tricuspid regurgitation and moderate pulmonary hypertension. 4. Hypokalemia secondary to diuresis. 5. Metabolic alkalosis secondary to diuresis. 6. Diabetes mellitus. Plan: Recommend holding diuretics at this time. Potassium being replaced. Avoid nephrotoxins. Repeat electrolytes in the morning. Will discuss with cardiology. Thank you for the consultation. I will continue to follow the patient with you during his hospital stay.
[2018-12-12] MEDS: [UNRECOGNIZED DRUG - OTHER] IV SCH (14:26)
--- NOTE | 2018-12-12 14:54 | P.PN ---
Subjective Progress Note Date: 12/12/18 Patient is laying comfortably in the sofa by the window. Patient's was sitting in the recliner. Patient is somnolent. Per nurse he does wake up and is fully oriented. He continues to have myoclonic jerks. Patient's ammonia level as of today is 71. Patient has normal hepatitis panel, normal other liver functions. Patient also had abdominal ultrasound, which showed no evidence of hepatic structural abnormality. Patient's blood tests again shows BUN 105, creatinine 2.24. Ammonia 71. Liver functions normal. CBC normal. Objective - Vital Signs Vital signs: Vital Signs Temp 97.8 F 12/12/18 08:45 Pulse 60 12/12/18 11:45 Resp 16 12/12/18 11:45 BP 117/64 12/12/18 11:45 Pulse Ox 92 L 12/12/18 11:45 Intake & Output 12/11/18 12/12/18 12/12/18 18:59 06:59 18:59 Intake Total 240 Output Total 1700 1300 Balance -1700 -1300 240 Weight 98.43 kg 98.7 kg 98.7 kg Intake: Oral 240 Output: Urine 1700 1300 Other: Voiding Method Indwelling Catheter Indwelling Catheter # Voids 1 # Bowel Movements 1 - Exam Patient is slightly somnolent. He was sleeping on the sofa. Did not wake him up. - Labs CBC & Chem 7: 12/12/18 07:19 12/12/18 07:19 Labs: Abnormal Lab Results - Last 24 Hours (Table) 12/11/18 12/11/18 12/11/18 Range/Units 16:41 19:08 19:08 Plt Count (150-450) k/uL PT (9.0-12.0) sec INR (<1.2) Chloride (98-107) mmol/L Carbon Dioxide (22-30) mmol/L BUN (9-20) mg/dL Creatinine (0.66-1.25) mg/dL Glucose (74-99) mg/dL POC Glucose (mg/dL) 212 H (75-99) mg/dL Hemoglobin A1c 6.8 H (4.0-6.0) % Ammonia (<30) umol/L Troponin I 0.557 H* (0.000-0.034) ng/mL 12/11/18 12/12/18 12/12/18 Range/Units 21:42 02:03 06:10 Plt Count (150-450) k/uL PT (9.0-12.0) sec INR (<1.2) Chloride (98-107) mmol/L Carbon Dioxide (22-30) mmol/L BUN (9-20) mg/dL Creatinine (0.66-1.25) mg/dL Glucose (74-99) mg/dL POC Glucose (mg/dL) 276 H 247 H 189 H (75-99) mg/dL Hemoglobin A1c (4.0-6.0) % Ammonia (<30) umol/L Troponin I (0.000-0.034) ng/mL 12/12/18 12/12/18 12/12/18 Range/Units 07:19 07:19 07:19 Plt Count 143 L (150-450) k/uL PT 20.4 H (9.0-12.0) sec INR 2.1 H (<1.2) Chloride 84 L (98-107) mmol/L Carbon Dioxide 42 H* (22-30) mmol/L BUN 105 H* (9-20) mg/dL Creatinine 2.24 H (0.66-1.25) mg/dL Glucose 191 H (74-99) mg/dL POC Glucose (mg/dL) (75-99) mg/dL Hemoglobin A1c (4.0-6.0) % Ammonia (<30) umol/L Troponin I (0.000-0.034) ng/mL 12/12/18 12/12/18 Range/Units 07:19 12:07 Plt Count (150-450) k/uL PT (9.0-12.0) sec INR (<1.2) Chloride (98-107) mmol/L Carbon Dioxide (22-30) mmol/L BUN (9-20) mg/dL Creatinine (0.66-1.25) mg/dL Glucose (74-99) mg/dL POC Glucose (mg/dL) 255 H (75-99) mg/dL Hemoglobin A1c (4.0-6.0) % Ammonia 71 H (<30) umol/L Troponin I (0.000-0.034) ng/mL Assessment and Plan Assessment: * Altered mental status, likely due to metabolic encephalopathy due to hyperammonemia and uremia. * Postural and intention tremors, likely due to to go to acute metabolic encephalopathy. Patient has obvious asterixis likely due to uremia and hyperammonemia. * CHF with low ejection fraction 20% * Diabetes * Elevated cardiac enzymes, chronic Plan: * Patient's altered mental status is likely due to toxic metabolic encephalopathy from uremia and hyperammoniemia. * Patient has obvious myoclonic jerks of outstretched hands. Patient's falls are also likely due to myoclonic jerking of the legs, when the knees give out and he falls. * I would suggest GI consultation for evaluation of elevated ammonia, rule out hepatic dysfunction/cirrhosis. * Patient's tremors, falls, and mental functions all will improve with imp rovement of underlying metabolic dysfunctions. * No other neurological workup indicated at this time.
[2018-12-12 15:13] LABS: Glucose,Whole Blood 241 mg/dL (75-99)
[2018-12-12 17:05] LABS: Glucose,Whole Blood 215 mg/dL (75-99)
[2018-12-12] MEDS ORDERED: WARFARIN 5 MG TAB PO ONE (18:00)
--- NOTE | 2018-12-12 19:40 | P.PN ---
Subjective Progress Note Date: 12/12/18 Principal diagnosis: Hyperammonemia Patient is seen in his room resting comfortably. No acute events. Patient is still somewhat somnolent. 2 bowel movements this morning. Objective - Vital Signs Vital signs: Vital Signs Temp 97.8 F 12/12/18 08:45 Pulse 60 12/12/18 11:45 Resp 16 12/12/18 11:45 BP 117/64 12/12/18 11:45 Pulse Ox 92 L 12/12/18 11:45 Intake & Output 12/11/18 12/12/18 12/12/18 18:59 06:59 18:59 Intake Total 240 Output Total 1700 1300 Balance -1700 -1300 240 Weight 98.43 kg 98.7 kg 98.7 kg Intake: Oral 240 Output: Urine 1700 1300 Other: Voiding Method Indwelling Catheter # Voids 1 # Bowel Movements 1 - Exam On physical examination, patient appears comfortable in no apparent distress. HEAD: Normocephalic, atraumatic. EYES: No scleral icterus. No conjunctival injection. MOUTH: No lesions, tongue midline. NECK: Trachea midline, no gross abnormalities. ABDOMEN: Soft, obese. EXTREMITIES: No pedal edema. SKIN: No rashes, no jaundice. NEUROLOGIC: Alert and oriented x3. No focal deficits. - Labs CBC & Chem 7: 12/12/18 07:19 12/12/18 07:19 Labs: Abnormal Lab Results - Last 24 Hours (Table) 12/11/18 12/11/18 12/11/18 Range/Units 13:02 13:02 13:02 Plt Count (150-450) k/uL PT 21.5 H (9.0-12.0) sec INR 2.2 H (<1.2) Sodium 135 L (137-145) mmol/L Potassium 3.2 L (3.5-5.1) mmol/L Chloride 84 L (98-107) mmol/L Carbon Dioxide 39 H (22-30) mmol/L BUN 105 H* (9-20) mg/dL Creatinine 1.89 H (0.66-1.25) mg/dL Glucose 129 H (74-99) mg/dL POC Glucose (mg/dL) (75-99) mg/dL Hemoglobin A1c (4.0-6.0) % Ammonia (<30) umol/L Troponin I 0.499 H* (0.000-0.034) ng/mL 12/11/18 12/11/18 12/11/18 Range/Units 14:10 16:41 19:08 Plt Count (150-450) k/uL PT (9.0-12.0) sec INR (<1.2) Sodium (137-145) mmol/L Potassium (3.5-5.1) mmol/L Chloride (98-107) mmol/L Carbon Dioxide (22-30) mmol/L BUN (9-20) mg/dL Creatinine (0.66-1.25) mg/dL Glucose (74-99) mg/dL POC Glucose (mg/dL) 185 H 212 H (75-99) mg/dL Hemoglobin A1c (4.0-6.0) % Ammonia (<30) umol/L Troponin I 0.557 H* (0.000-0.034) ng/mL 12/11/18 12/11/18 12/12/18 Range/Units 19:08 21:42 02:03 Plt Count (150-450) k/uL PT (9.0-12.0) sec INR (<1.2) Sodium (137-145) mmol/L Potassium (3.5-5.1) mmol/L Chloride (98-107) mmol/L Carbon Dioxide (22-30) mmol/L BUN (9-20) mg/dL Creatinine (0.66-1.25) mg/dL Glucose (74-99) mg/dL POC Glucose (mg/dL) 276 H 247 H (75-99) mg/dL Hemoglobin A1c 6.8 H (4.0-6.0) % Ammonia (<30) umol/L Troponin I (0.000-0.034) ng/mL 12/12/18 12/12/18 12/12/18 Range/Units 06:10 07:19 07:19 Plt Count 143 L (150-450) k/uL PT (9.0-12.0) sec INR (<1.2) Sodium (137-145) mmol/L Potassium (3.5-5.1) mmol/L Chloride 84 L (98-107) mmol/L Carbon Dioxide 42 H* (22-30) mmol/L BUN 105 H* (9-20) mg/dL Creatinine 2.24 H (0.66-1.25) mg/dL Glucose 191 H (74-99) mg/dL POC Glucose (mg/dL) 189 H (75-99) mg/dL Hemoglobin A1c (4.0-6.0) % Ammonia (<30) umol/L Troponin I (0.000-0.034) ng/mL 12/12/18 12/12/18 12/12/18 Range/Units 07:19 07:19 12:07 Plt Count (150-450) k/uL PT 20.4 H (9.0-12.0) sec INR 2.1 H (<1.2) Sodium (137-145) mmol/L Potassium (3.5-5.1) mmol/L Chloride (98-107) mmol/L Carbon Dioxide (22-30) mmol/L BUN (9-20) mg/dL Creatinine (0.66-1.25) mg/dL Glucose (74-99) mg/dL POC Glucose (mg/dL) 255 H (75-99) mg/dL Hemoglobin A1c (4.0-6.0) % Ammonia 71 H (<30) umol/L Troponin I (0.000-0.034) ng/mL Assessment and Plan (1) Hyperammonemia Narrative/Plan: 78-year-old male with multiple medical comorbidities presenting as a transfer for evaluation of weakness and falls. The patient found to be hyperammonemic with a ammonia level of 133 prior to transfer improved today at 71. Ammonia level is likely multifactorial in the setting of chronic kidney disease, multiple medical comorbidities, medications, with no evidence of chronic liver d isease/cirrhosis based on liver function tests, which have remained normal and normal ultrasound of the abdomen. INR is elevated, however patient is on Coumadin therapy for atrial fibrillation. At this time recommendation would be for further evaluation with ultrasound of the abdomen and acute viral hepatitis panel, however will continue to address patient's chronic medical conditions and chronic kidney disease and treat symptomatically with lactulose Current Visit: Yes Status: Acute Code(s): E72.20 - DISORDER OF UREA CYCLE METABOLISM, UNSPECIFIED SNOMED Code(s): 6440856 Plan: Supportive care Okay for diet Continue to monitor CBC, CMP, ammonia level Continue to monitor clinically Appreciate recommendations from nephrology service Ultrasound abdomen and acute viral hepatitis both unremarkable Continue lactulose twice daily with titration for 2-3 bowel movements daily, can increase to 3 times daily if patient's ammonia level does not improve or clin ically remains somnolent/encephalopathic, however 2 bowel movements this morning with 1 dose and nighttime dose Continue management of other chronic medical comorbidities Thank you for allowing us to participate in the care of the patient, the gastroenterology service will stand by, please call us back with any questions or concerns
[2018-12-12 20:35] LABS: Glucose,Whole Blood 185 mg/dL (75-99)
--- NOTE | 2018-12-12 23:52 | P.PN ---
Subjective Progress Note Date: 12/12/18 Principal diagnosis: weakness Jose G Polk is a 78-year-old male with past medical history of systolic CHF, CAD, A. fib, AICD in place, continuous milrinone infusion, history of L1 through L5 laminectomy presents to the ED complaining of his legs giving out and frequent falls over the past few weeks. He was recently discharged for CHF exacerbation November 14 and states after going home he has been intermittently weak and has had episodes where his legs will give out from under him. He denies any loss of consciousness. Patient notes that about a week ago he was noted to be hyponatremic and hypochloremic from his Bumex so was tried on Diamox, but felt that made him more weak. He also complains of tremors in both his hands and feet which have worsened over the past few weeks. Patient notes that a few years ago he had similar issues with weakness and at that time was thought to be due to baclofen. He denies any chest pain or shortness of breath. In the ED his labs were notable for ammonia 133, hyponatremia and hypochloremia, chronically elevated troponin to 0.5. He denies any history of liver issues or heavy alcohol use. 12/12. He continues to feel weak but in good spirits today. Since starting the lactulose his ammonia dropped to 70 but his creatinine is worsened to 2.2 today. Gross hematuria is noted in his [place]. He denies any new chest pain or shortness of breath. Discussed code status with pt in light of multiple medical comorbidities. Objective - Vital Signs Vital signs: Vital Signs Temp 98.2 F 12/12/18 20:50 Pulse 87 12/12/18 20:50 Resp 18 12/12/18 20:50 BP 127/67 12/12/18 20:50 Pulse Ox 95 12/12/18 15:15 Intake & Output 12/12/18 12/12/18 12/13/18 06:59 18:59 06:59 Intake Total 480 Output Total 1300 900 Balance -1300 -420 Weight 98.7 kg 98.7 kg Intake: Oral 480 Output: Urine 1300 900 Other: Voiding Method Indwelling Catheter Indwelling Catheter Indwelling Catheter # Voids 1 # Bowel Movements 1 - Exam CV: Irregularly irregular, no murmur, distal pulses 1+, edema 1+ Lungs: Good inspiratory effort, clear throughout Abdomen: Soft nontender nondistended no organomegaly Extremities: No cyanosis clubbing or edema Neuro: Cranial nerves II through XII intact, asterixis improved, resting and intention tremor and laterally Skin: Warm and dry, no jaundice. PICC line in place with continuous milrinone infusion - Labs CBC & Chem 7: 12/12/18 07:19 12/12/18 07:19 Labs: Abnormal Lab Results - Last 24 Hours (Table) 12/11/18 12/12/18 12/12/18 Range/Units 19:08 02:03 06:10 Plt Count (150-450) k/uL PT (9.0-12.0) sec INR (<1.2) Chloride (98-107) mmol/L Carbon Dioxide (22-30) mmol/L BUN (9-20) mg/dL Creatinine (0.66-1.25) mg/dL Glucose (74-99) mg/dL POC Glucose (mg/dL) 247 H 189 H (75-99) mg/dL Hemoglobin A1c 6.8 H (4.0-6.0) % Ammonia (<30) umol/L 12/12/18 12/12/18 12/12/18 Range/Units 07:19 07:19 07:19 Plt Count 143 L (150-450) k/uL PT 20.4 H (9.0-12.0) sec INR 2.1 H (<1.2) Chloride 84 L (98-107) mmol/L Carbon Dioxide 42 H* (22-30) mmol/L BUN 105 H* (9-20) mg/dL Creatinine 2.24 H (0.66-1.25) mg/dL Glucose 191 H (74-99) mg/dL POC Glucose (mg/dL) (75-99) mg/dL Hemoglobin A1c (4.0-6.0) % Ammonia (<30) umol/L 12/12/18 12/12/18 12/12/18 Range/Units 07: 12:07 15:11 Plt Count (150-450) k/uL PT (9.0-12.0) sec INR (<1.2) Chloride (98-107) mmol/L Carbon Dioxide (22-30) mmol/L BUN (9-20) mg/dL Creatinine (0.66-1.25) mg/dL Glucose (74-99) mg/dL POC Glucose (mg/dL) 255 H 241 H (75-99) mg/dL Hemoglobin A1c (4.0-6.0) % Ammonia 71 H (<30) umol/L 12/12/18 12/12/18 Range/Units 17:00 20:33 Plt Count (150-450) k/uL PT (9.0-12.0) sec INR (<1.2) Chloride (98-107) mmol/L Carbon Dioxide (22-30) mmol/L BUN (9-20) mg/dL Creatinine (0.66-1.25) mg/dL Glucose (74-99) mg/dL POC Glucose (mg/dL) 215 H 185 H (75-99) mg/dL Hemoglobin A1c (4.0-6.0) % Ammonia (<30) umol/L Assessment and Plan (1) Hyperammonemia Current Visit: Yes Status: Acute Code(s): E72.20 - DISORDER OF UREA CYCLE METABOLISM, UNSPECIFIED SNOMED Code(s): 4761076 (2) 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 Current Visit: No Status: Acute Code(s): N17.9 - ACUTE KIDNEY FAILURE, UNSPECIFIED; N18.9 - CHRONIC KIDNEY DISEASE, UNSPECIFIED SNOMED Code(s): 969264571 (3) Acute on chronic systolic CHF (congestive heart failure) Current Visit: No Status: Acute Code(s): I50.23 - ACUTE ON CHRONIC SYSTOLIC (CONGESTIVE) HEART FAILURE SNOMED Code(s): 516203137 (4) Atrial fibrillation Current Visit: No Status: Acute Code(s): I48.91 - UNSPECIFIED ATRIAL FIBRILLATION SNOMED Code(s): 78174309 (5) Coronary artery disease Current Visit: No Status: Acute Code(s): I25.10 - ATHSCL HEART DISEASE OF [place] CORONARY ARTERY W/O ANG PCTRS SNOMED Code(s): 79142687 (6) Demand ischemia Current Visit: No Status: Acute Code(s): I24.8 - OTHER FORMS OF ACUTE ISCHEMIC HEART DISEASE SNOMED Code(s): 486415490 (7) Diabetes Current Visit: No Status: Acute Code(s): E11.9 - TYPE 2 DIABETES MELLITUS WITHOUT COMPLICATIONS SNOMED Code(s): 28216821 (8) HTN (hypertension) Current Visit: No Status: Acute Code(s): I10 - ESSENTIAL (PRIMARY) H YPERTENSION SNOMED Code(s): 35145281 (9) Hypothyroid Current Visit: No Status: Acute Code(s): E03.9 - HYPOTHYROIDISM, UNSPECIFIED SNOMED Code(s): 88458776 (10) Tremors of nervous system Current Visit: No Status: Acute Code(s): R25.1 - TREMOR, UNSPECIFIED SNOMED Code(s): 67773512 (11) Type 2 diabetes mellitus, with long-term current use of insulin Current Visit: No Status: Acute Code(s): E11.9 - TYPE 2 DIABETES MELLITUS WITHOUT COMPLICATIONS; Z79.4 - [employer]PL[employer]END[employer]PER[employer]OR (CURRENT) USE OF INSULIN SNOMED Code(s): 631696371 (12) Weakness Current Visit: No Status: Acute Code(s): R53.1 - WEAKNESS SNOMED Code(s): 10214893 (13) Weakness of both lower limbs Current Visit: No Status: Acute Code(s): R29.898 - OTH SYMPTOMS AND SIGNS INVOLVING THE MUSCULOSKELETAL SYSTEM SNOMED Code(s): 4296550 Plan: 1. Weakness, syncope, and frequent falls. Continue lactulose. GI and neurology following 2. Acute exacerbation of systolic CHF. CAD. Cardiology consulted. Replete electrolytes, continue milrinone infusion 3. MALISSA. Nephrology consulted and holding diuretics. Continue to monitor 4. Persistent atrial fibrillation. Coumadin per pharmacy 5. Type 2 diabetes. Accu-Cheks, sliding scale 6. GERD. Continue Protonix.
[2018-12-13 06:17] LABS: Glucose,Whole Blood 178 mg/dL (75-99)
[2018-12-13] MEDS: INSULIN ASPART (NovoLOG) 100 UNIT/ML VIAL SQ SCH ×4 (06:18→20:58)
[2018-12-13] MEDS: LEVOTHYROXINE 88 MCG TAB PO SCH (06:18)
[2018-12-13 07:20] LABS: Prothrombin Time 19.9 sec (9.0-12.0)
[2018-12-13 07:25] LABS: Albumin 3.8 g/dL (3.5-5.0); Calcium 9.4 mg/dL (8.4-10.2); Magnesium 2.6 mg/dL (1.6-2.3); Potassium 3.7 mmol/L (3.5-5.1); Total Bilirubin 1.3 mg/dL (0.2-1.3); Total Protein 6.8 g/dL (6.3-8.2)
--- NOTE | 2018-12-13 10:13 | P.PN ---
Subjective Patient is seen in follow-up for acute kidney injury on chronic kidney disease. Patient has chronic kidney disease stage III with baseline creatinine in the range of 1.6-2. Renal function is better. Creatinine 1.82 today. Diuretics were held yesterday. No edema. Nonoliguric. No chest pain or shortness of breath. Oral intake is good. Vital signs are stable. General: The patient appeared well nourished and normally developed. HEENT: Head exam is unremarkable. Neck is without jugular venous distension. LUNGS: Lungs are clear to auscultation and percussion. Breath sounds decreased. HEART: Rate and Rhythm are regular. First and second heart sounds normal. No murmurs, rubs or gallops. ABDOMEN: Abdominal exam reveals normal bowel sounds. Non-tender and non- distended. No evidence of peritonitis. EXTREMITITES: No clubbing, cyanosis, or edema. Objective - Vital Signs Vital signs: Vital Signs Temp 98.3 F 12/13/18 04:00 Pulse 88 12/13/18 04:00 Resp 18 12/13/18 04:00 BP 122/76 12/13/18 04:00 Pulse Ox 98 12/13/18 00:25 Intake & Output 12/12/18 12/13/18 12/13/18 18:59 06:59 18:59 Intake Total 480 240 Output Total 900 600 Balance -420 -600 240 Weight 98.7 kg 99.3 kg Intake: Oral 480 240 Output: Urine 900 600 Other: Voiding Method Indwelling Catheter Indwelling Catheter # Voids 1 # Bowel Movements 1 - Labs CBC & Chem 7: 12/12/18 07:19 12/13/18 06:12 Labs: Abnormal Lab Results - Last 24 Hours (Table) 12/12/18 12/12/18 12/12/18 Range/Units 12:07 15:11 17:00 PT (9.0-12.0) sec INR (<1.2) Chloride (98-107) mmol/L Carbon Dioxide (22-30) mmol/L BUN (9-20) mg/dL Creatinine (0.66-1.25) mg/dL Glucose (74-99) mg/dL POC Glucose (mg/dL) 255 H 241 H 215 H (75-99) mg/dL Magnesium (1.6-2.3) mg/dL 12/12/18 12/13/18 12/13/18 Range/Units 20:33 06:12 06:12 PT 19.9 H (9.0-12.0) sec INR 2.0 H (<1.2) Chloride 88 L (98-107) mmol/L Carbon Dioxide 39 H (22-30) mmol/L BUN 98 H (9-20) mg/dL Creatinine 1.82 H (0.66-1.25) mg/dL Glucose 183 H (74-99) mg/dL POC Glucose (mg/dL) 185 H (75-99) mg/dL Magnesium 2.6 H (1.6-2.3) mg/dL 12/13/18 Range/Units 06:14 PT (9.0-12.0) sec INR (<1.2) Chloride (98-107) mmol/L Carbon Dioxide (22-30) mmol/L BUN (9-20) mg/dL Creatinine (0.66-1.25) mg/dL Glucose (74-99) mg/dL POC Glucose (mg/dL) 178 H (75-99) mg/dL Magnesium (1.6-2.3) mg/dL Assessment and Plan Plan: Assessment: 1. Acute kidney injury mostly prerenal secondary to diuresis. Better. Creatinine 1.82 today. UA benign. No evidence of hydronephrosis noted on ultrasound. 2. Chronic kidney disease stage III with baseline creatinine in the range of 1.6-2 secondary to cardiorenal syndrome. 3. Chronic systolic CHF with ejection fraction of 20-25% with moderate tricuspid regurgitation and moderate pulmonary hypertension maintained on milrinone drip. 4. Hypokalemia secondary to diuresis. 5. Metabolic alkalosis secondary to diuresis. Better. 6. Diabetes mellitus. Plan: Continue to hold diuretics. Decrease potassium supplementation to 40 mEq once daily. Discontinue magnesium oxide. Repeat electrolytes in the morning.
[2018-12-13] MEDS: ASPIRIN 81 MG PO SCH (10:14)
[2018-12-13] MEDS: ESCITALOPRAM 5 MG TAB PO SCH (10:14)
[2018-12-13] MEDS: PANTOPRAZOLE 40 MG/10 ML VIAL IVP SCH (10:15)
[2018-12-13] MEDS: LACTULOSE 20 GM/30 ML CUP PO SCH ×2 (10:16→20:58)
[2018-12-13 12:10] LABS: Glucose,Whole Blood 189 mg/dL (75-99)
--- NOTE | 2018-12-13 12:20 | P.PN ---
Subjective Progress Note Date: 12/13/18 This is a pleasant 78-year-old gentleman who follows with Dr. Olmstead in the office. He has a history of hyperlipidemia, hypertension, diabetes, family history of coronary artery disease, he's undergone 2 heart caths in the past one in 2011 which revealed normal coronary arteries and again in 2016 which revealed a 20% mid LAD lesion. He also has known nonischemic cardiomyopathy, persistent atrial fibrillation, prior PE, hypothyroidism, he currently has a PICC line in place with continuous milrinone infusion initiated at [facility] heart failure clinic, prior AICD implantation, chronic kidney disease. Patient presented to [facility] with symptoms of progressively worsening shor tness of breath and bilateral lower extremity edema, patient also has been having episodes of frequent falls and near syncope. His syncopal or near syncopal episodes seem to occur when the patient is trying to urinate suggesting a possible micturition syncope. He also states that his legs have been progressively more and more weak and he is unable to stand up at times. Laboratory data from [facility], white blood cell count 6.4, hemoglobin 15.1, platelet count 155 daily was negative so 134, potassium 3.6, chloride 81, CO2 39, BUN 102, creatinine 2.0, ammonia level was 133 lipase 288 troponin 0.6 BNP 1113, TSH 2.[address] of the brain was performed which showed chronic changes with no acute findings. Because of the abnormality in troponin and patient's cardiac history patient was transferred here to [facility] for further evaluation and treatment. At the time of my examination, patient was having an abdominal ultrasound performed, he did appear somewhat short of breath, denied any chest discomfort, gave a somewhat accurate history although seemed mildly confused as well. EKG shows a paced rhythm with underlying atrial flutter. Blood pressure here 134/80 with a heart rate of 60, 93 per and on room air. Chest x-ray report says no acute cardiopulmonary process. Laboratory data here was reviewed, INR 2.2, sodium 135, potassium 3.2, BUN 105, creatinine 1.8, troponins 0.49, 0.55. This morning's labs, sodium 138, potassium 3.5, BUN 105, creatinine 2.2. INR 2.1. 12/13/2018 Patient seen and examined this morning, blood pressure 116/68 with a heart rate in the 60s, 94% on room air. Pro time 19.9 with an INR of 2.0. Sodium 137, potassium 3.7, BUN 98 and creatinine 1.8. Magnesium 2.6. Ammonia level 105. Dr. Barros did have a lengthy discussion with the patient and his this morning, patient wishes to have no CPR and no intubation. Objective - Vital Signs Vital signs: Vital Signs Temp 98.5 F 12/13/18 08:00 Pulse 59 L 12/13/18 08:00 Resp 16 12/13/18 08:00 BP 117/68 12/13/18 08:00 Pulse Ox 94 L 12/13/18 08:00 Intake & Output 12/12/18 12/13/18 12/13/18 18:59 06:59 18:59 Intake Total 480 240 Output Total 900 600 Balance -420 -600 240 Weight 98.7 kg 99.3 kg Intake: Oral 480 240 Output: Urine 900 600 Other: Voiding Method Indwelling Catheter Indwelling Catheter Indwelling Catheter # Voids 1 # Bowel Movements 1 - Exam PHYSICAL EXAMINATION: GENERAL: 77-year-old gentleman in no acute distress at the time of my examination HEENT: Head is atraumatic, normocephalic. Pupils equal, round. Sclera anicteric. Conjunctiva are clear. Mucous membranes of the mouth are moist. Neck is supple. There is elevated jugular venous pressure. No carotid bruit is heard. HEART EXAMINATION: Heart S1 and S2 irregularly irregular a systolic ejection murmur is heard at the apex CHEST EXAMINATION: Lungs reveal diminished air entry to bilateral bases ABDOMEN: [ Soft, obese, nontender. Bowel sounds are heard. Positive hepatomegaly EXTREMITIES: 2+ peripheral pulses with 1+ evidence of peripheral edema and no calf tenderness noted. NEUROLOGIC patient is awake, alert and oriented 3 - Labs CBC & Chem 7: 12/12/18 07:19 12/13/18 06:12 Labs: Abnormal Lab Results - Last 24 Hours (Table) 12/12/18 12/12/18 12/12/18 Range/Units 12:07 15:11 17:00 PT (9.0-12.0) sec INR (<1.2) Chloride (98-107) mmol/L Carbon Dioxide (22-30) mmol/L BUN (9-20) mg/dL Creatinine (0.66-1.25) mg/dL Glucose (74-99) mg/dL POC Glucose (mg/dL) 255 H 241 H 215 H (75-99) mg/dL Magnesium (1.6-2.3) mg/dL Ammonia (<30) umol/L 12/12/18 12/13/18 12/13/18 Range/Units 20:33 06:12 06:12 PT 19.9 H (9.0-12.0) sec INR 2.0 H (<1.2) Chloride 88 L (98-107) mmol/L Carbon Dioxide 39 H (22-30) mmol/L BUN 98 H (9-20) mg/dL Creatinine 1.82 H (0.66-1.25) mg/dL Glucose 183 H (74-99) mg/dL POC Glucose (mg/dL) 185 H (75-99) mg/dL Magnesium 2.6 H (1.6-2.3) mg/dL Ammonia (<30) umol/L 12/13/18 12/13/18 Range/Units 06:14 09:37 PT (9.0-12.0) sec INR (<1.2) Chloride (98-107) mmol/L Carbon Dioxide (22-30) mmol/L BUN (9-20) mg/dL Creatinine (0.66-1.25) mg/dL Glucose (74-99) mg/dL POC Glucose (mg/dL) 178 H (75-99) mg/dL Magnesium (1.6-2.3) mg/dL Ammonia 105 H (<30) umol/L Assessment and Plan Plan: Assessment and Plan Assessment and plan #1 systolic congestive heart failure acute on chronic, on chronic milrinone infusion #2 nonischemic cardiomyopathy with prior AICD implantation #3 hypertension #4 diabetes #5 hyperlipidemia #6 hypothyroidism #7 acute on chronic kidney disease #8 abnormal troponin, likely secondary to kidney disease #9 prior PE #10 chronic persistent atrial fibrillation/flutter, on Coumadin for anticoagulation, INR 2.1 #11 near syncopal episodes, appears to be micturition syncope, acute urinary retention #12 abnormality in troponin, likely secondary to chronic kidney disease #13 frequent falls with associated weakness, acute metabolic encephalopathy and acute uremia #14 history of PE Plan From cardiology's perspective, we'll continue current medications, continue to hold diuretics at this time. Patient and his have expressed wishes to be a no CPR, no intubation DNP note has been reviewed, I agree with a documented findings and plan of care. Patient was seen and examined.
[2018-12-13] MEDS: [UNRECOGNIZED DRUG - OTHER] IV SCH (12:23)
[2018-12-13] MEDS: POTASSIUM CHLORIDE ER 20 MEQ TAB.ER PO SCH ×2 (12:26→22:28)
--- NOTE | 2018-12-13 12:56 | P.PN ---
Subjective Progress Note Date: 12/13/18 Patient is sitting in the chair, talking to his son. Patient's was also present. Patient is much more alert and awake, conversant. Patient's ammonia level as of today is 105. Patient has normal hepatitis panel, normal other liver functions. Patient also had abdominal ultrasound, which showed no evidence of hepatic structural abnormality. Patient's blood tests again shows BUN 98, creatinine 1.82. Ammonia 105. Liver functions normal. CBC normal. Troponin 0.557 on 12/11/2018. Objective - Vital Signs Vital signs: Vital Signs Temp 98.2 F 12/13/18 12:00 Pulse 60 12/13/18 12:00 Resp 20 12/13/18 12:00 BP 131/81 12/13/18 12:00 Pulse Ox 96 12/13/18 12:00 Intake & Output 12/12/18 12/13/18 12/13/18 18:59 06:59 18:59 Intake Total 480 240 Output Total 900 600 Balance -420 -600 240 Weight 98.7 kg 99.3 kg Intake: Oral 480 240 Output: Urine 900 600 Other: Voiding Method Indwelling Catheter Indwelling Catheter Indwelling Catheter # Voids 1 2 # Bowel Movements 1 2 - Exam Patient is alert and awake, in no distress. Muscle strength is normal. Cranial nerves are normal. - Labs CBC & Chem 7: 12/12/18 07:19 12/13/18 06:12 Labs: Abnormal Lab Results - Last 24 Hours (Table) 12/12/18 12/12/18 12/12/18 Range/Units 15:11 17:00 20:33 PT (9.0-12.0) sec INR (<1.2) Chloride (98-107) mmol/L Carbon Dioxide (22-30) mmol/L BUN (9-20) mg/dL Creatinine (0.66-1.25) mg/dL Glucose (74-99) mg/dL POC Glucose (mg/dL) 241 H 215 H 185 H (75-99) mg/dL Magnesium (1.6-2.3) mg/dL Ammonia (<30) umol/L 12/13/18 12/13/18 12/13/18 Range/Units 06:12 06:12 06:14 PT 19.9 H (9.0-12.0) sec INR 2.0 H (<1.2) Chloride 88 L (98-107) mmol/L Carbon Dioxide 39 H (22-30) mmol/L BUN 98 H (9-20) mg/dL Creatinine 1.82 H (0.66-1.25) mg/dL Glucose 183 H (74-99) mg/dL POC Glucose (mg/dL) 178 H (75-99) mg/dL Magnesium 2.6 H (1.6-2.3) mg/dL Ammonia (<30) umol/L 12/13/18 12/13/18 Range/Units 09:37 11:53 PT (9.0-12.0) sec INR (<1.2) Chloride (98-107) mmol/L Carbon Dioxide (22-30) mmol/L BUN (9-20) mg/dL Creatinine (0.66-1.25) mg/dL Glucose (74-99) mg/dL POC Glucose (mg/dL) 189 H (75-99) mg/dL Magnesium (1.6-2.3) mg/dL Ammonia 105 H (<30) umol/L Assessment and Plan Assessment: * Altered mental status, likely due to metabolic encephalopathy due to hyperammonemia and uremia. * Postural and intention tremors, likely due to acute metabolic encephalopathy. Patient has obvious asterixis likely due to uremia and hyperammonemia. * CHF with low ejection fraction 20% * Chronic renal insufficiency with elevated BUN. * Diabetes * Elevated cardiac enzymes, chronic Plan: * Patient's altered mental status is likely due to toxic metabolic encephalopathy from uremia and hyperammoniemia. * Patient has obvious myoclonic jerks of outstretched hands. Patient's falls are also likely due to myoclonic jerking of the legs, when the knees give out and he falls. * Treatment of above metabolic conditions as per internal medicine. * Patient's tremors, falls, and mental functions all will improve with improvement of underlying metabolic dysfunctions. * No other neurological workup indicated at this time. * Clear from neurology standpoint.
--- NOTE | 2018-12-13 16:04 | P.PN ---
Subjective Progress Note Date: 12/13/18 Jose G Polk is a 78-year-old male with past medical history of systolic CHF, CAD, A. fib, AICD in place, continuous milrinone infusion, history of L1 through L5 laminectomy presents to the ED complaining of his legs giving out and frequent falls over the past few weeks. He was recently discharged for CHF exacerbation November 14 and states after going home he has been intermittently weak and has had episodes where his legs will give out from under him. He denies any loss of consciousness. Patient notes that about a week ago he was noted to be hyponatremic and hypochloremic from his Bumex so was tried on Diamox, but felt that made him more weak. He also complains of tremors in both his hands and feet which have worsened over the past few weeks. Patient notes that a few years ago he had similar issues with weakness and at that time was thought to be due to baclofen. He denies any chest pain or shortness of breath. In the ED his labs were notable for ammonia 133, hyponatremia and hypochloremia, chronically elevated troponin to 0.5. He denies any history of liver issues or heavy alcohol use. 12/12. He continues to feel weak but in good spirits today. Since starting the lactulose his ammonia dropped to 70 but his creatinine is worsened to 2.2 today. Gross hematuria is noted in his dubois. He denies any new chest pain or shortness of breath. Discussed code status with pt in light of multiple medical comorbidities. 12/13/2018 ammonia 105, maintained on lactulose as per GI .Complaining of Gout Pain, Hope initiated. Diuretics remain on hold Creatinine continues to improve , down to 1.82. Denies chest pain, palpitations or shortness of breath. CODE STATUS being rediscussed with patient as per cardiology. Vital signs stable, maintaining O2 sats in the mid 90s on room air. INR 2. Objective - Vital Signs Vital signs: Vital Signs Temp 98.2 F 12/13/18 12:00 Pulse 60 12/13/18 12:00 Resp 20 12/13/18 12:00 BP 131/81 12/13/18 12:00 Pulse Ox 96 12/13/18 12:00 Intake & Output 12/12/18 12/13/18 12/13/18 18:59 06:59 18:59 Intake Total 480 600 Output Total 900 600 Balance -420 -600 600 Weight 98.7 kg 99.3 kg Intake: Oral 480 600 Output: Urine 900 600 Other: Voiding Method Indwelling Catheter Indwelling Catheter Indwelling Catheter # Voids 1 2 # Bowel Movements 1 2 - Exam CV: Irregularly irregular, systolic murmur, distal pulses 1+, edema 1+ Lungs: Good inspiratory effort, clear throughout Abdomen: Soft nontender nondistended no organomegaly Extremities: No cyanosis clubbing or edema Neuro: Cranial nerves II through XII intact, asterixis improved, resting and intention tremor and laterally Skin: Warm and dry, no jaundice. PICC line in place with continuous milrinone infusion - Labs CBC & Chem 7: 12/12/18 07:19 12/13/18 06:12 Labs: Abnormal Lab Results - Last 24 Hours (Table) 12/12/18 12/12/18 12/13/18 Range/Units 17:00 20:33 06:12 PT (9.0-12.0) sec INR (<1.2) Chloride 88 L (98-107) mmol/L Carbon Dioxide 39 H (22-30) mmol/L BUN 98 H (9-20) mg/dL Creatinine 1.82 H (0.66-1.25) mg/dL Glucose 183 H (74-99) mg/dL POC Glucose (mg/dL) 215 H 185 H (75-99) mg/dL Magnesium 2.6 H (1.6-2.3) mg/dL Ammonia (<30) umol/L 12/13/18 12/13/18 12/13/18 Range/Units 06:12 06:14 09:37 PT 19.9 H (9.0-12.0) sec INR 2.0 H (<1.2) Chloride (98-107) mmol/L Carbon Dioxide (22-30) mmol/L BUN (9-20) mg/dL Creatinine (0.66-1.25) mg/dL Glucose (74-99) mg/dL POC Glucose (mg/dL) 178 H (75-99) mg/dL Magnesium (1.6-2.3) mg/dL Ammonia 105 H (<30) umol/L 12/13/18 Range/Units 11:53 PT (9.0-12.0) sec INR (<1.2) Chloride (98-107) mmol/L Carbon Dioxide (22-30) mmol/L BUN (9-20) mg/dL Creatinine (0.66-1.25) mg/dL Glucose (74-99) mg/dL POC Glucose (mg/dL) 189 H (75-99) mg/dL Magnesium (1.6-2.3) mg/dL Ammonia (<30) umol/L Assessment and Plan Assessment: (1) Hyperammonemia Current Visit: Yes Status: Acute Code(s): E72.20 - DISORDER OF UREA CYCLE METABOLISM, UNSPECIFIED SNOMED Code(s): 4304593 (2) 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 Current Visit: No Status: Acute Code(s): N17.9 - ACUTE KIDNEY FAILURE, UNSPECIFIED; N18.9 - CHRONIC KIDNEY DISEASE, UNSPECIFIED SNOMED Code(s): 638530839 (3) Acute on chronic systolic CHF (congestive heart failure) Current Visit: No Status: Acute Code(s): I50.23 - ACUTE ON CHRONIC SYSTOLIC (CONGESTIVE) HEART FAILURE SNOMED Code(s): 654475550 (4) Atrial fibrillation,chronic persistent Current Visit: No Status: Acute Code(s): I48.91 - UNSPECIFIED ATRIAL FIBRILLATION SNOMED Code(s): 05322947 (5) Coronary artery disease Current Visit: No Status: Acute Code(s): I25.10 - ATHSCL HEART DISEASE OF [place] CORONARY ARTERY W/O ANG PCTRS SNOMED Code(s): 95368071 (6) Demand ischemia Current Visit: No Status: Acute Code(s): I24.8 - OTHER FORMS OF ACUTE ISCHEMIC HEART DISEASE SNOMED Code(s): 249414442 (7) Diabetes Current Visit: No Status: Acute Code(s): E11.9 - TYPE 2 DIABETES MELLITUS WITHOUT COMPLICATIONS SNOMED Code(s): 71056685 (8) HTN (hypertension) Current Visit: No Status: Acute Code(s): I10 - ESSENTIAL (PRIMARY) HYPERTENSION SNOMED Code(s): 09075368 (9) Hypothyroid Current Visit: No Status: Acute Code(s): E03.9 - HYPOTHYROIDISM, UNSPECIFIED SNOMED Code(s): 10962891 (10) Tremors of nervous system Current Visit: No Status: Acute Code(s): R25.1 - TREMOR, UNSPECIFIED SNOMED Code(s): 81125251 (11) Type 2 diabetes mellitus, with long-term current use of insulin Current Visit: No Status: Acute Code(s): E11.9 - TYPE 2 DIABETES MELLITUS WITHOUT COMPLICATIONS; Z79.4 - ENERGY ATTORNEY (CURRENT) USE OF INSULIN SNOMED Code(s): 886944551 (12) Weakness, status post false Current Visit: No Status: Acute Code(s): R53.1 - WEAKNESS SNOMED Code(s): 50302793 (13) Weakness of both lower limbs Current Visit: No Status: Acute Code(s): R29.898 - OTH SYMPTOMS AND SIGNS INVOLVING THE MUSCULOSKELETAL SYSTEM SNOMED Code(s): 4692976 (14) Acute renal failure (15) nonischemic cardiomyopathy with prior AICD implantation, EF 20% (16) acute metabolic encephalopathy secondary to hyperkalemia and uremia Plan: Continue on current medication regime , Protonix, monitoring and symptomatic treatment. Diuretics remain on hold .close monitoring of renal function with repeat labs ordered for a.m. Follow closely with GI, neurology, cardiology. Maintain milrinone infusion. Coumadin dosing as per pharmacy. Close monitoring of Accu-Cheks. Close monitoring of ammonia, continue on lactulose. As mentioned above, cardiology currently rediscussing CODE STATUS- further orders/recommendations pending. PT/OT. The impression and plan of care has been dictated as directed. : I performed a history and examination of this patient, discussed the same with the dictator. I agree with the dictator's note ,documented as a scribe. Any additional findings or plans will be noted.
[2018-12-13] MEDS: HYDROcodone/APAP 5-325MG 1 EACH TAB PO PRN ×2 (16:29→22:58)
[2018-12-13 17:09] LABS: Glucose,Whole Blood 252 mg/dL (75-99)
[2018-12-13] MEDS ORDERED: WARFARIN 3 MG TAB PO ONE (18:00)
[2018-12-13 20:35] LABS: Glucose,Whole Blood 213 mg/dL (75-99)
[2018-12-13] MEDS: MAGNESIUM OXIDE 400 MG TAB PO SCH (22:28)
[2018-12-14 06:14] LABS: Glucose,Whole Blood 195 mg/dL (75-99)
[2018-12-14] MEDS: LEVOTHYROXINE 88 MCG TAB PO SCH (06:26)
[2018-12-14] MEDS: INSULIN ASPART (NovoLOG) 100 UNIT/ML VIAL SQ SCH ×4 (06:26→22:15)
[2018-12-14 07:24] LABS: INR 2.3 (<1.2); Prothrombin Time 22.6 sec (9.0-12.0)
[2018-12-14 08:03] LABS: Calcium 10.1 mg/dL (8.4-10.2); Magnesium 2.5 mg/dL (1.6-2.3); Potassium 3.8 mmol/L (3.5-5.1)
--- NOTE | 2018-12-14 08:20 | P.PN ---
Subjective Patient is seen in follow-up for acute kidney injury on chronic kidney disease. Patient has chronic kidney disease stage III with baseline creatinine in the range of 1.6-2. Renal function is better. Creatinine 1.73 today. Diuretics were held as of December 12. No edema. Nonoliguric. No chest pain or shortness of breath. Oral intake is good. Vital signs are stable. General: The patient appeared well nourished and normally developed. HEENT: Head exam is unremarkable. Neck is without jugular venous distension. LUNGS: Lungs are clear to auscultation and percussion. Breath sounds decreased. HEART: Rate and Rhythm are regular. First and second heart sounds normal. No murmurs, rubs or gallops. ABDOMEN: Abdominal exam reveals normal bowel sounds. Non-tender and non- distended. No evidence of peritonitis. EXTREMITITES: No clubbing, cyanosis, or edema. Objective - Vital Signs Vital signs: Vital Signs Temp 97.7 F 12/14/18 04:21 Pulse 61 12/14/18 04:21 Resp 18 12/14/18 04:21 BP 146/80 12/14/18 04:21 Pulse Ox 97 12/14/18 04:21 Intake & Output 12/13/18 12/14/18 12/14/18 18:59 06:59 18:59 Intake Total 840 180 Output Total 400 925 Balance 440 -745 Intake: Oral 840 180 Output: Urine 400 925 Other: Voiding Method Indwelling Catheter Indwelling Catheter # Voids 2 # Bowel Movements 2 - Labs CBC & Chem 7: 12/12/18 07:19 12/14/18 06:53 Labs: Abnormal Lab Results - Last 24 Hours (Table) 12/13/18 12/13/18 12/13/18 Range/Units 09:37 11:53 17:08 PT (9.0-12.0) sec INR (<1.2) Chloride (98-107) mmol/L Carbon Dioxide (22-30) mmol/L BUN (9-20) mg/dL Creatinine (0.66-1.25) mg/dL Glucose (74-99) mg/dL POC Glucose (mg/dL) 189 H 252 H (75-99) mg/dL Magnesium (1.6-2.3) mg/dL Ammonia 105 H (<30) umol/L 12/13/18 12/14/18 12/14/18 Range/Units 20:34 06:13 06:53 PT 22.6 H (9.0-12.0) sec INR 2.3 H (<1.2) Chloride (98-107) mmol/L Carbon Dioxide (22-30) mmol/L BUN (9-20) mg/dL Creatinine (0.66-1.25) mg/dL Glucose (74-99) mg/dL POC Glucose (mg/dL) 213 H 195 H (75-99) mg/dL Magnesium (1.6-2.3) mg/dL Ammonia (<30) umol/L 12/14/18 12/14/18 Range/Units 06:53 06:53 PT (9.0-12.0) sec INR (<1.2) Chloride 91 L (98-107) mmol/L Carbon Dioxide 35 H (22-30) mmol/L BUN 94 H (9-20) mg/dL Creatinine 1.73 H (0.66-1.25) mg/dL Glucose 206 H (74-99) mg/dL POC Glucose (mg/dL) (75-99) mg/dL Magnesium 2.5 H (1.6-2.3) mg/dL Ammonia 57 H (<30) umol/L Assessment and Plan Plan: Assessment: 1. Acute kidney injury mostly prerenal secondary to diuresis. Better. Creatinine 1.73 today. UA benign. No evidence of hydronephrosis noted on ultrasound. 2. Chronic kidney disease stage III with baseline creatinine in the range of 1.6-2 secondary to cardiorenal syndrome. 3. Chronic systolic CHF with ejection fraction of 20-25% with moderate tricuspid regurgitation and moderate pulmonary hypertension maintained on milrinone drip. 4. Hypokalemia secondary to diuresis. Better. 5. Metabolic alkalosis secondary to diuresis. Better. 6. Diabetes mellitus. Plan: Continue to hold diuretics. Maintain potassium supplementation. Repeat electrolytes in the morning. Monitor volume status closely.
[2018-12-14] MEDS: PANTOPRAZOLE 40 MG TABLET PO SCH (09:07)
[2018-12-14] MEDS: ESCITALOPRAM 5 MG TAB PO SCH (09:08)
[2018-12-14] MEDS: POTASSIUM CHLORIDE ER 20 MEQ TAB.ER PO SCH (09:08)
[2018-12-14] MEDS: LACTULOSE 20 GM/30 ML CUP PO SCH ×2 (09:08→22:14)
[2018-12-14] MEDS: ASPIRIN 81 MG PO SCH (09:13)
[2018-12-14 11:47] LABS: Glucose,Whole Blood 225 mg/dL (75-99)
[2018-12-14] MEDS: [UNRECOGNIZED DRUG - OTHER] IV SCH (11:53)
[2018-12-14] MEDS: HYDROcodone/APAP 5-325MG 1 EACH TAB PO PRN (11:54)
--- NOTE | 2018-12-14 12:01 | P.PN ---
Subjective Progress Note Date: 12/14/18 Patient is sitting in the chair, fairly alert and oriented. Family members were not present. Patient's ammonia level as of today is 57. Patient has normal hepatitis panel, normal other liver functions. Patient also had abdominal ultrasound, which showed no evidence of hepatic structural abnormality. Patient's blood tests again shows BUN 94, creatinine 1.73. Ammonia 105. Liver functions normal. CBC normal. Troponin 0.557 on 12/11/2018. Objective - Vital Signs Vital signs: Vital Signs Temp 97.4 F L 12/14/18 11:43 Pulse 64 12/14/18 11:43 Resp 16 12/14/18 11:43 BP 127/81 12/14/18 11:43 Pulse Ox 95 12/14/18 11:43 Intake & Output 12/13/18 12/14/18 12/14/18 18:59 06:59 18:59 Intake Total 840 180 240 Output Total 400 925 Balance 440 -745 240 Intake: Oral 840 180 240 Output: Urine 400 925 Other: Voiding Method Indwelling Catheter Indwelling Catheter Indwelling Catheter # Voids 2 0 # Bowel Movements 2 - Exam Patient is alert and awake, in no distress. Muscle strength is normal. Cranial nerves are normal. Patient continues to have myoclonic jerks of the outstretched hands. He has asterixis. Patient also has myoclonic jerks noted when his legs are elevated off the bed. This is probably the cause of knees giving out and falls. - Labs CBC & Chem 7: 12/12/18 07:19 12/14/18 06:53 Labs: Abnormal Lab Results - Last 24 Hours (Table) 12/13/18 12/13/18 12/13/18 Range/Units 11:53 17:08 20:34 PT (9.0-12.0) sec INR (<1.2) Chloride (98-107) mmol/L Carbon Dioxide (22-30) mmol/L BUN (9-20) mg/dL Creatinine (0.66-1.25) mg/dL Glucose (74-99) mg/dL POC Glucose (mg/dL) 189 H 252 H 213 H (75-99) mg/dL Magnesium (1.6-2.3) mg/dL Ammonia (<30) umol/L 12/14/18 12/14/1819 Range/Units 06:13 06:53 06:53 PT 22.6 H (9.0-12.0) sec INR 2.3 H (<1.2) Chloride 91 L (98-107) mmol/L Carbon Dioxide 35 H (22-30) mmol/L BUN 94 H (9-20) mg/dL Creatinine 1.73 H (0.66-1.25) mg/dL Glucose 206 H (74-99) mg/dL POC Glucose (mg/dL) 195 H (75-99) mg/dL Magnesium 2.5 H (1.6-2.3) mg/dL Ammonia (<30) umol/L 12/14/18 12/14/18 Range/Units 06:53 11:39 PT (9.0-12.0) sec INR (<1.2) Chloride (98-107) mmol/L Carbon Dioxide (22-30) mmol/L BUN (9-20) mg/dL Creatinine (0.66-1.25) mg/dL Glucose (74-99) mg/dL POC Glucose (mg/dL) 225 H (75-99) mg/dL Magnesium (1.6-2.3) mg/dL Ammonia 57 H (<30) umol/L Assessment and Plan Assessment: * Altered mental status, likely due to metabolic encephalopathy due to hyperammonemia and uremia. * Myoclonic jerks/asterixis, likely due to acute metabolic encephalopathy. This is probably multifactorial related to hyperammonemia, uremia and perhaps CHF. * CHF with low ejection fraction 20% * Chronic renal insufficiency with elevated BUN. * Diabetes * Elevated cardiac enzymes, chronic Plan: * Patient's mental status has improved. * Patient has obvious myoclonic jerks of outstretched hands. Patient's falls are also likely due to myoclonic jerking of the legs, when the knees give out and he falls. * Treatment of above metabolic conditions as per internal medicine. * Patient's tremors, falls, and mental functions all will improve with improvement of underlying metabolic dysfunctions. * Consider low-dose Klonopin 0.25 mg twice a day if these myoclonic jerks continue. * No other neurological workup indicated at this time. * Clear from neurology standpoint.
--- NOTE | 2018-12-14 12:29 | P.PN ---
Subjective Progress Note Date: 12/14/18 Jose G Polk is a 78-year-old male with past medical history of systolic CHF, CAD, A. fib, AICD in place, continuous milrinone infusion, history of L1 through L5 laminectomy presents to the ED complaining of his legs giving out and frequent falls over the past few weeks. He was recently discharged for CHF exacerbation November 14 and states after going home he has been intermittently weak and has had episodes where his legs will give out from under him. He denies any loss of consciousness. Patient notes that about a week ago he was noted to be hyponatremic and hypochloremic from his Bumex so was tried on Diamox, but felt that made him more weak. He also complains of tremors in both his hands and feet which have worsened over the past few weeks. Patient notes that a few years ago he had similar issues with weakness and at that time was thought to be due to baclofen. He denies any chest pain or shortness of breath. In the ED his labs were notable for ammonia 133, hyponatremia and hypochloremia, chronically elevated troponin to 0.5. He denies any history of liver issues or heavy alcohol use. 12/12. He continues to feel weak but in good spirits today. Since starting the lactulose his ammonia dropped to 70 but his creatinine is worsened to 2.2 today. Gross hematuria is noted in his dubois. He denies any new chest pain or shortness of breath. Discussed code status with pt in light of multiple medical comorbidities. 12/13/2018 ammonia 105, maintained on lactulose as per GI .Complaining of Gout Pain, [place] initiated. Diuretics remain on hold Creatinine continues to improve , down to 1.82. Denies chest pain, palpitations or shortness of breath. CODE STATUS being rediscussed with patient as per cardiology. Vital signs stable, maintaining O2 sats in the mid 90s on room air. INR 2. 12/14/2018 continues on milrinone pump. Maintained on lactulose, ammonia down to 57. Normal hepatitis panel .Complains of constipation. 2 person assist with ambulation. INR 2.3. Hematuria improving. BUN 94, creatinine 1.73, diuretics continue to be held for another day as per nephrology. CODE STATUS changed to no code, no intubation, no CPR as discussed with Dr. Bui. Objective - Vital Signs Vital signs: Vital Signs Temp 97.4 F L 12/14/18 11:43 Pulse 64 12/14/18 11:43 Resp 16 12/14/18 11:43 BP 127/81 12/14/18 11:43 Pulse Ox 95 12/14/18 11:43 Intake & Output 12/13/18 12/14/18 12/14/18 18:59 06:59 18:59 Intake Total 840 180 240 Output Total 400 925 Balance 440 -745 240 Intake: Oral 840 180 240 Output: Urine 400 925 Other: Voiding Method Indwelling Catheter Indwelling Catheter Indwelling Catheter # Voids 2 0 # Bowel Movements 2 - Exam Gen.: Sitting up in chair, no acute distress CV: Irregularly irregular, systolic murmur, distal pulses 1+, edema 1+ Lungs: Good inspiratory effort, clear throughout Abdomen: Soft nontender nondistended no organomegaly Extremities: No cyanosis clubbing, trace edema Neuro: Cranial nerves II through XII intact, asterixis improving,chronic essential tremors Skin: Warm and dry, no jaundice. - Labs CBC & Chem 7: 12/12/18 07:19 12/14/18 06:53 Labs: Abnormal Lab Results - Last 24 Hours (Table) 12/13/18 12/13/18 12/13/18 Range/Units 11:53 17:08 20:34 PT (9.0-12.0) sec INR (<1.2) Chloride (98-107) mmol/L Carbon Dioxide (22-30) mmol/L BUN (9-20) mg/dL Creatinine (0.66-1.25) mg/dL Glucose (74-99) mg/dL POC Glucose (mg/dL) 189 H 252 H 213 H (75-99) mg/dL Magnesium (1.6-2.3) mg/dL Ammonia (<30) umol/L 12/14/18 12/14/18 12/14/18 Range/Units 06:13 06:53 06:53 PT 22.6 H (9.0-12.0) sec INR 2.3 H (<1.2) Chloride 91 L (98-107) mmol/L Carbon Dioxide 35 H (22-30) mmol/L BUN 94 H (9-20) mg/dL Creatinine 1.73 H (0.66-1.25) mg/dL Glucose 206 H (74-99) mg/dL POC Glucose (mg/dL) 195 H (75-99) mg/dL Magnesium 2.5 H (1.6-2.3) mg/dL Ammonia (<30) umol/L 12/14/18 12/14/18 Range/Units 06:53 11:39 PT (9.0-12.0) sec INR (<1.2) Chloride (98-107) mmol/L Carbon Dioxide (22-30) mmol/L BUN (9-20) mg/dL Creatinine (0.66-1.25) mg/dL Glucose (74-99) mg/dL POC Glucose (mg/dL) 225 H (75-99) mg/dL Magnesium (1.6-2.3) mg/dL Ammonia 57 H (<30) umol/L Assessment and Plan Assessment: (1) Hyperammonemia Current Visit: Yes Status: Acute Code(s): E72.20 - DISORDER OF UREA CYCLE METABOLISM, UNSPECIFIED SNOMED Code(s): 2136705 (2) 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 Current Visit: No Status: Acute Code(s): N17.9 - ACUTE KIDNEY FAILURE, UNSPECIFIED; N18.9 - CHRONIC KIDNEY DISEASE, UNSPECIFIED SNOMED Code(s): 452917176 (3) Acute on chronic systolic CHF (congestive heart failure) Current Visit: No Status: Acute Code(s): I50.23 - ACUTE ON CHRONIC SYSTOLIC (CONGESTIVE) HEART FAILURE SNOMED Code(s): 178898532 (4) Atrial fibrillation,chronic persistent Current Visit: No Status: Acute Code(s): I48.91 - UNSPECIFIED ATRIAL FIBRILLATION SNOMED Code(s): 13743761 (5) Coronary artery disease Current Visit: No Status: Acute Code(s): I25.10 - ATHSCL HEART DISEASE OF [place] CORONARY ARTERY W/O ANG PCTRS SNOMED Code(s): 72987828 (6) Demand ischemia Current Visit: No Status: Acute Code(s): I24.8 - OTHER FORMS OF ACUTE ISCHEMIC HEART DISEASE SNOMED Code(s): 711290975 (7) Diabetes Current Visit: No Status: Acute Code(s): E11.9 - TYPE 2 DIABETES MELLITUS WITHOUT COMPLICATIONS SNOMED Code(s): 43698258 (8) HTN (hypertension) Current Visit: No Status: Acute Code(s): I10 - ESSENTIAL (PRIMARY) HYPERTENSION SNOMED Code(s): 50950035 (9) Hypothyroid Current Visit: No Status: Acute Code(s): E03.9 - HYPOTHYROIDISM, UNSPECIFIED SNOMED Code(s): 33539524 (10) Tremors of nervous system Current Visit: No Status: Acute Code(s): R25.1 - TREMOR, UNSPECIFIED SNOMED Code(s): 91024659 (11) Type 2 diabetes mellitus, with long-term current use of insulin Current Visit: No Status: Acute Code(s): E11.9 - TYPE 2 DIABETES MELLITUS WITHOUT COMPLICATIONS; Z79.4 - GROVE SUPERINTENDENT (CURRENT) USE OF INSULIN SNOMED Code(s): 724988324 (12) Weakness, status post fall Current Visit: No Status: Acute Code(s): R53.1 - WEAKNESS SNOMED Code(s): 68472312 (13) Weakness of both lower limbs Current Visit: No Status: Acute Code(s): R29.898 - OTH SYMPTOMS AND SIGNS INVOLVING THE MUSCULOSKELETAL SYSTEM SNOMED Code(s): 5395331 (14) hematuria secondary to traumatic Dubois catheter insertion, improving (15) nonischemic cardiomyopathy with prior AICD implantation, EF 20% (16) acute metabolic encephalopathy secondary to hyperkalemia and uremia (17) No Code, No CPR, No Intubation. Plan: Continue on current medication regime , Protonix, monitoring and symptomatic treatment. CODE STATUS changed to no code, no CPR, no intubation as per both patient, significant other-discussed with . Diuretics remain on hold for another day as per nephrology. Close monitoring of renal function with repeat labs ordered for a.m. Maintain milrinone infusion. Coumadin dosing as per pharmacy. Close monitoring of ammonia, continue on lactulose. MiraLAX added to med regime secondary to complaints of constipation. Evaluated by OT, recommendations noted; PT consult in place, recommendations pending. The impression and plan of care has been dictated as directed. : I performed a history and examination of this patient, discussed the same with the dictator. I agree with the dictator's note ,documented as a scribe. Any additional findings or plans will be noted. The impression and plan of care has been dictated as directed. : I performed a history and examination of this patient, discussed the same with the dictator. I agree with the dictator's note ,documented as a scribe. Any additional findings or plans will be noted.
[2018-12-14] MEDS: POLYETHYLENE GLYCOL 3350 17 GM POWD.PACK PO SCH (13:41)
[2018-12-14 17:01] LABS: Glucose,Whole Blood 223 mg/dL (75-99)
[2018-12-14] MEDS ORDERED: WARFARIN 5 MG TAB PO ONE (18:00)
[2018-12-14 20:49] LABS: Glucose,Whole Blood 325 mg/dL (75-99)
[2018-12-15] MEDS: HYDROcodone/APAP 5-325MG 1 EACH TAB PO PRN ×2 (03:11→12:22)
[2018-12-15 03:31] LABS: Glucose,Whole Blood 185 mg/dL (75-99)
[2018-12-15 06:18] LABS: Glucose,Whole Blood 175 mg/dL (75-99)
[2018-12-15 06:41] LABS: INR 2.7 (<1.2); Prothrombin Time 26.4 sec (9.0-12.0)
[2018-12-15 06:48] LABS: Magnesium 2.1 mg/dL (1.6-2.3)
[2018-12-15] MEDS: LEVOTHYROXINE 88 MCG TAB PO SCH (06:53)
[2018-12-15] MEDS: INSULIN ASPART (NovoLOG) 100 UNIT/ML VIAL SQ SCH ×4 (06:53→21:26)
[2018-12-15] MEDS: PANTOPRAZOLE 40 MG TABLET PO SCH (08:58)
[2018-12-15] MEDS: LACTULOSE 20 GM/30 ML CUP PO SCH ×2 (08:58→21:27)
[2018-12-15] MEDS: POTASSIUM CHLORIDE ER 20 MEQ TAB.ER PO SCH (08:58)
[2018-12-15] MEDS: ASPIRIN 81 MG PO SCH (08:58)
[2018-12-15] MEDS: POLYETHYLENE GLYCOL 3350 17 GM POWD.PACK PO SCH (08:58)
[2018-12-15] MEDS: ESCITALOPRAM 5 MG TAB PO SCH (09:09)
--- NOTE | 2018-12-15 11:37 | PN ---
PROGRESS NOTE The patient is seen for followup for acute kidney injury. The renal function has been improving. Serum creatinine down to 1.47 from peak of 2.24. Patient has a Banegas catheter. He is voiding. The patient is asking if the Banegas catheter can be removed. PHYSICAL EXAMINATION: Blood pressure 122/75, heart rate 59 per minute, he is afebrile. Examination of the heart S1, S2. Examination of the lungs, bilateral breath sounds are heard. Abdomen is soft, non-tender. Examination of lower extremities shows no significant edema. [employer] exam grossly intact. LABS: Show sodium 136, potassium 4.0, chloride 92, CO2 of 37, BUN 82, creatinine 1.47. Ammonia 35. ASSESSMENT: 1. Acute kidney injury, prerenal, currently improved off IV fluids. 2. Chronic kidney disease stage 3. Baseline creatinine 1.6-2 mg/dL. 3. Chronic systolic congestive heart failure, acute on top of chronic, improved. 4. Cardiomyopathy, ejection fraction 20-25%. 5. Hypokalemia associated with diuresis. 6. Type 2 diabetes. PLAN: Encourage increased oral intake. We can likely resume diuretics by tomorrow. I will discuss with nursing staff regarding discontinuation of Banegas catheter if it was placed as inpatient. MMODL / IJN: [id number] /
[2018-12-15 12:17] LABS: Glucose,Whole Blood 231 mg/dL (75-99)
--- NOTE | 2018-12-15 12:17 | P.PN ---
Subjective 38-year-old with advanced CHF with an EF of 25% on milrinone drip at home came in because of syncope and hyperammonemia and encephalopathy secondary to hyperammonemia. Hyperammonemia improved and her ammonia his ammonia level is 35. Patient's syncope is related to sedentary secondary to hypovolemia which is to renal failure as well which is acute hyponatremia appears to be hypovolemic hyponatremia diuretic therapy is being held nephrology is following the patient patient still feels tired and weak up for ambulation patient is not short of br eath but easily got tired. Constitutional:as mentioned in HPI Cardio vascular: denied any chest pain, palpitations Gastrointestinal denied any nausea vomiting Pulmonary: Denied any shortness of breath cough Neurologic denied any new focal deficits All inpatient medications were reviewed and appropriate changes in these medications as dictated in the interval history and assessment and plan. Objective - Vital Signs Vital signs: Vital Signs Temp 98.1 F 12/15/18 12:04 Pulse 62 12/15/18 12:04 Resp 18 12/15/18 12:04 BP 124/75 12/15/18 12:04 Pulse Ox 99 12/15/18 12:04 Intake & Output 12/14/18 12/15/18 12/15/18 18:59 06:59 18:59 Intake Total 720 118 Output Total 500 800 Balance 220 -800 118 Weight 102.1 kg Intake: Oral 720 118 Output: Urine 500 800 Uretheral (Banegas) 350 Other: Voiding Method Indwelling Catheter Indwelling Catheter Indwelling Catheter # Voids 0 # Bowel Movements 1 - Exam PHYSICAL EXAMINATION: GENERAL: The patient is alert and oriented x3, not in any acute distress. Well developed, well nourished. HEENT: Pupils are round and equally reacting to light. EOMI. No scleral icterus. No conjunctival pallor. Normocephalic, atraumatic. No pharyngeal erythema. No thyromegaly. CARDIOVASCULAR: S1 and S2 present. No murmurs, rubs, or gallops. PULMONARY: Chest is clear to auscultation, no wheezing or crackles. ABDOMEN: Soft, nontender, nondistended, normoactive bowel sounds. No palpable organomegaly. MUSCULOSKELETAL: No joint swelling or deformity. EXTREMITIES: No cyanosis, clubbing, or pedal edema. NEUROLOGICAL: Gross neurological examination did not reveal any focal deficits. SKIN: No rashes. - Labs CBC & Chem 7: 12/12/18 07:19 12/15/18 06:15 Labs: Abnormal Lab Results - Last 24 Hours (Table) 12/14/18 12/14/18 12/15/18 Range/Units 16:54 20:39 03:23 PT (9.0-12.0) sec INR (<1.2) Sodium (137-145) mmol/L Chloride (98-107) mmol/L Carbon Dioxide (22-30) mmol/L BUN (9-20) mg/dL Creatinine (0.66-1.25) mg/dL Glucose (74-99) mg/dL POC Glucose (mg/dL) 223 H 325 H 185 H (75-99) mg/dL Ammonia (<30) umol/L 12/15/18 12/15/18 12/15/18 Range/Units 06:14 06:15 06:15 PT 26.4 H (9.0-12.0) sec INR 2.7 H (<1.2) Sodium (137-145) mmol/L Chloride (98-107) mmol/L Carbon Dioxide (22-30) mmol/L BUN (9-20) mg/dL Creatinine (0.66-1.25) mg/dL Glucose (74-99) mg/dL POC Glucose (mg/dL) 175 H (75-99) mg/dL Ammonia 35 H (<30) umol/L 12/15/18 Range/Units 06:15 PT (9.0-12.0) sec INR (<1.2) Sodium 136 L (137-145) mmol/L Chloride 92 L (98-107) mmol/L Carbon Dioxide 37 H (22-30) mmol/L BUN 82 H (9-20) mg/dL Creatinine 1.47 H (0.66-1.25) mg/dL Glucose 190 H (74-99) mg/dL POC Glucose (mg/dL) (75-99) mg/dL Ammonia (<30) umol/L Assessment and Plan Plan: -syncope secondary to hypovolemia secondary to diuretic therapy which is being held. 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 Ammonia is better continue with present treatment -Acute renal failure secondary to hyperchloremia holding of Bumex will have to monitor for heart failure exacerbation as well patient appears to have some chronic kidney disease stage II to 3 etiology of CK disease probably diabetes mellitus. --Coronary artery disease -Congestive heart failure chronic systolic dysfunction ischemic cardiomyopathy without any acute exacerbation patient is on milrinone which will be continued will monitor for any heart failure exacerbation since patient is not receiving any diuretic therapy -Type 2 diabetes mellitus -Hypertension --hypothyroidism --hematuria which resolved after Banegas catheter removal which was believed to be secondary to traumatic Banegas insertion -To metabolic encephalopathy from hyperammonemia which improved at this time -CODE STATUS: DO NOT RESUSCITATE
[2018-12-15] MEDS: [UNRECOGNIZED DRUG - OTHER] IV SCH (13:45)
[2018-12-15] MEDS ORDERED: WARFARIN 5 MG TAB PO ONE (18:00)
[2018-12-15 20:50] LABS: Glucose,Whole Blood 193 mg/dL (75-99)
[2018-12-16 06:56] LABS: INR 3.4 (<1.2); Prothrombin Time 32.4 sec (9.0-12.0)
[2018-12-16 06:57] LABS: Glucose,Whole Blood 203 mg/dL (75-99)
[2018-12-16] MEDS: LEVOTHYROXINE 88 MCG TAB PO SCH (07:00)
[2018-12-16] MEDS: INSULIN ASPART (NovoLOG) 100 UNIT/ML VIAL SQ SCH ×4 (07:02→20:53)
[2018-12-16 07:06] LABS: Calcium 9.9 mg/dL (8.4-10.2); Potassium 4.5 mmol/L (3.5-5.1)
[2018-12-16] MEDS: POTASSIUM CHLORIDE ER 20 MEQ TAB.ER PO SCH (08:47)
[2018-12-16] MEDS: ESCITALOPRAM 5 MG TAB PO SCH (08:47)
[2018-12-16] MEDS: ASPIRIN 81 MG PO SCH (08:47)
[2018-12-16] MEDS: PANTOPRAZOLE 40 MG TABLET PO SCH (08:47)
[2018-12-16] MEDS: POLYETHYLENE GLYCOL 3350 17 GM POWD.PACK PO SCH (08:48)
[2018-12-16] MEDS: LACTULOSE 20 GM/30 ML CUP PO SCH ×2 (08:48→20:18)
[2018-12-16] MEDS ORDERED: METOLAZONE 5 MG TAB PO SCH (09:00)
--- NOTE | 2018-12-16 11:47 | PN ---
PROGRESS NOTE Patient is seen for followup for acute kidney injury and chronic kidney disease. We tried to DC the Banegas catheter yesterday however the patient was not able to void and the catheter was reinserted. PHYSICAL EXAMINATION: Blood pressure is 106/62, heart rate 60 per minute, patient is afebrile. Examination of the heart S1, S2. Examination of the lungs, bilateral breath sounds are heard. Abdomen is soft, nontender, obese. Examination of lower extremities shows edema 1+ bilaterally. STRATEGIC PARTNERSHIP MANAGER exam is grossly intact. LABS: Sodium 135, potassium 4.5, chloride 93, CO2 is 34, BUN 68, creatinine 1.26. ASSESSMENT: 1. Acute kidney injury, prerenal, improved. 2. Chronic kidney disease secondary to nephrosclerosis, stage III, baseline creatinine 1.6-2 mg/dL. Currently, serum creatinine is quite low as patient does appear mildly volume overloaded. 3. Chronic congestive heart failure systolic. 4. Cardiomyopathy, ejection fraction 20-25%. 5. Hypokalemia associated with diuresis. 6. Type 2 diabetes. PLAN: Check chest x-ray. Resume low-dose Bumex depending on findings of the chest x-ray. Continue to encourage increased oral intake. MMODL / IJN: [id number] /
[2018-12-16 12:10] LABS: Glucose,Whole Blood 190 mg/dL (75-99)
--- NOTE | 2018-12-16 12:20 | XR ---
EXAMINATION TYPE: XR chest 1V DATE OF EXAM: 12/16/2018 HISTORY: chf. REFERENCE: Previous study dated 12/11/2018. FINDINGS: There is a left shoulder arthroplasty in place. There is a multilead pacing device on the l eft. There is a right internal jugular catheter in place. Its tip is in the superior vena cava. Heart size upper limits of normal. The lungs appear clear. Pleural space are clear. No definite pleur al fluid is seen. IMPRESSION: BORDERLINE CARDIOMEGALY.
--- NOTE | 2018-12-16 12:51 | P.PN ---
Subjective 38-year-old with advanced CHF with an EF of 25% on milrinone drip at home came in because of syncope and hyperammonemia and encephalopathy secondary to hyperammonemia. Hyperammonemia improved and her ammonia his ammonia level is 35. Patient's syncope is related to sedentary secondary to hypovolemia which is to renal failure as well which is acute hyponatremia appears to be hypovolemic hyponatremia diuretic therapy is being held nephrology is following the patient patient still feels tired and weak up for ambulation patient is not short of br eath but easily got tired. 12/16/2018 Patient's saturations have gone down because of which I am obtaining a chest x- ray which did not show any pulmonary edema. Continue to hold diuretic therapy. agents INR 3.4 and it appears like pharmacy titrating Coumadinwhich need to be held today Constitutional:as mentioned in HPI Cardio vascular: denied any chest pain, palpitations Gastrointestinal denied any nausea vomiting Pulmonary: Denied any shortness of breath cough Neurologic denied any new focal deficits All inpatient medications were reviewed and appropriate changes in these medications as dictated in the interval history and assessment and plan. Objective - Vital Signs Vital signs: Vital Signs Temp 98.2 F 12/16/18 08:00 Pulse 60 12/16/18 08:00 Resp 20 12/16/18 08:00 BP 106/62 12/16/18 08:00 Pulse Ox 99 12/16/18 08:00 Intake & Output 12/15/18 12/16/18 12/16/18 18:59 06:59 18:59 Intake Total 354 Output Total 200 500 Balance 154 -500 Weight 101.9 kg Intake: Oral 354 Output: Urine 200 500 Other: Voiding Method Indwelling Catheter Indwelling Catheter Indwelling Catheter # Voids 0 - Exam PHYSICAL EXAMINATION: GENERAL: The patient is alert and oriented x3, not in any acute distress. Well developed, well nourished. HEENT: Pupils are round and equally reacting to light. EOMI. No scleral icterus. No conjunctival pallor. Normocephalic, atraumatic. No pharyngeal erythema. No thyromegaly. CARDIOVASCULAR: S1 and S2 present. No murmurs, rubs, or gallops. PULMONARY: Chest is clear to auscultation, no wheezing or crackles. ABDOMEN: Soft, nontender, nondistended, normoactive bowel sounds. No palpable organomegaly. MUSCULOSKELETAL: No joint swelling or deformity. EXTREMITIES: No cyanosis, clubbing, or pedal edema. NEUROLOGICAL: Gross neurological examination did not reveal any focal deficits. SKIN: No rashes. - Labs CBC & Chem 7: 12/12/18 07:19 12/16/18 06:31 Labs: Abnormal Lab Results - Last 24 Hours (Table) 12/15/18 12/16/18 12/16/18 Range/Units 20:49 06:31 06:31 PT 32.4 H (9.0-12.0) sec INR 3.4 H (<1.2) Sodium (137-145) mmol/L Chloride (98-107) mmol/L Carbon Dioxide (22-30) mmol/L BUN (9-20) mg/dL Creatinine (0.66-1.25) mg/dL Glucose (74-99) mg/dL POC Glucose (mg/dL) 193 H (75-99) mg/dL Ammonia 75 H (<30) umol/L 12/16/18 12/16/18 12/16/18 Range/Units 06:31 06:55 12:08 PT (9.0-12.0) sec INR (<1.2) Sodium 135 L (137-145) mmol/L Chloride 93 L (98-107) mmol/L Carbon Dioxide 34 H (22-30) mmol/L BUN 68 H (9-20) mg/dL Creatinine 1.26 H (0.66-1.25) mg/dL Glucose 204 H (74-99) mg/dL POC Glucose (mg/dL) 203 H 190 H (75-99) mg/dL Ammonia (<30) umol/L Assessment and Plan Plan: -syncope secondary to hypovolemia secondary to diuretic therapy which is being held. 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 Ammonia is better continue with present treatment -Acute renal failure secondary to hyperchloremia holding of Bumex will have to monitor for heart failure exacerbation as well patient appears to have some chronic kidney disease stage II to 3 etiology of CK disease probably diabetes mellitus.from creatinine continue to improve and is 1.26 today --Coronary artery disease -Congestive heart failure chronic systolic dysfunction ischemic cardiomyopathy without any acute exacerbation patient is on milrinone which will be continued will monitor for any heart failure exacerbation since patient is not receiving any diuretic therapy -Type 2 diabetes mellitus -Hypertension --hypothyroidism --hematuria which resolved after Banegas catheter removal which was believed to be secondary to traumatic Banegas insertion -acute metabolic encephalopathy from hyperammonemia which improved at this time -CODE STATUS: DO NOT RESUSCITATE
[2018-12-16 16:34] LABS: Glucose,Whole Blood 231 mg/dL (75-99)
[2018-12-16] MEDS: [UNRECOGNIZED DRUG - OTHER] IV SCH (17:42)
[2018-12-16] MEDS ORDERED: WARFARIN 0.5 MG TAB PO ONE (18:00)
[2018-12-16] MEDS ORDERED: ONDANSETRON 4 MG/2 ML VIAL IVP STA (20:15)
[2018-12-16] MEDS: HYDROcodone/APAP 5-325MG 1 EACH TAB PO PRN (20:18)
[2018-12-16 20:43] LABS: Glucose,Whole Blood 236 mg/dL (75-99)
[2018-12-17] MEDS: LEVOTHYROXINE 88 MCG TAB PO SCH (05:54)
[2018-12-17] MEDS: HYDROcodone/APAP 5-325MG 1 EACH TAB PO PRN ×2 (05:54→21:13)
[2018-12-17 06:18] LABS: Glucose,Whole Blood 190 mg/dL (75-99)
[2018-12-17] MEDS: INSULIN ASPART (NovoLOG) 100 UNIT/ML VIAL SQ SCH ×4 (06:38→20:34)
[2018-12-17 06:46] LABS: INR 3.3 (<1.2); Prothrombin Time 31.9 sec (9.0-12.0)
[2018-12-17 08:39] LABS: Calcium 9.9 mg/dL (8.4-10.2); Potassium 5.4 mmol/L (3.5-5.1)
[2018-12-17] MEDS: PANTOPRAZOLE 40 MG TABLET PO SCH (08:53)
[2018-12-17] MEDS: POTASSIUM CHLORIDE ER 20 MEQ TAB.ER PO SCH (08:54)
[2018-12-17] MEDS: ASPIRIN 81 MG PO SCH (08:58)
[2018-12-17] MEDS: ESCITALOPRAM 5 MG TAB PO SCH (08:58)
[2018-12-17] MEDS: POLYETHYLENE GLYCOL 3350 17 GM POWD.PACK PO SCH (08:58)
[2018-12-17] MEDS: LACTULOSE 20 GM/30 ML CUP PO SCH ×2 (08:58→20:35)
--- NOTE | 2018-12-17 11:03 | P.PN ---
Subjective Patient is seen in follow-up for acute kidney injury on chronic kidney disease. Patient has chronic kidney disease stage III with baseline creatinine in the range of 1.6-2. Renal function is stable. Creatinine 1.33 today. Diuretics were held as of December 12. No edema. Nonoliguric. No chest pain or shortness of breath. Oral intake is good. Vital signs are stable. General: The patient appeared well nourished and normally developed. HEENT: Head exam is unremarkable. Neck is without jugular venous distension. LUNGS: Lungs are clear to auscultation and percussion. Breath sounds decreased. HEART: Rate and Rhythm are regular. First and second heart sounds normal. No murmurs, rubs or gallops. ABDOMEN: Abdominal exam reveals normal bowel sounds. Non-tender and non- distended. No evidence of peritonitis. EXTREMITITES: No clubbing, cyanosis, or edema. Objective - Vital Signs Vital signs: Vital Signs Temp 98.3 F 12/17/18 09:05 Pulse 60 12/17/18 09:05 Resp 18 12/17/18 09:05 BP 115/74 12/17/18 09:05 Pulse Ox 92 L 12/17/18 09:05 Intake & Output 12/16/18 12/17/18 12/17/18 18:59 06:59 18:59 Intake Total 236 10 Output Total 1150 875 Balance -914 -865 Weight 104.1 kg Intake: Oral 236 10 Output: Urine 1150 875 Other: Voiding Method Indwelling Catheter Indwelling Catheter Indwelling Catheter # Voids 0 - Labs CBC & Chem 7: 12/12/18 07:19 12/17/18 06:20 Labs: Abnormal Lab Results - Last 24 Hours (Table) 12/16/18 12/16/18 12/16/18 Range/Units 12:08 16:32 20:42 PT (9.0-12.0) sec INR (<1.2) Sodium (137-145) mmol/L Potassium (3.5-5.1) mmol/L Chloride (98-107) mmol/L BUN (9-20) mg/dL Creatinine (0.66-1.25) mg/dL Glucose (74-99) mg/dL POC Glucose (mg/dL) 190 H 231 H 236 H (75-99) mg/dL 12/17/18 12/17/18 12/17/18 Range/Units 06:17 06:20 06:21 PT 31.9 H (9.0-12.0) sec INR 3.3 H (<1.2) Sodium 132 L (137-145) mmol/L Potassium 5.4 H (3.5-5.1) mmol/L Chloride 93 L (98-107) mmol/L BUN 73 H (9-20) mg/dL Creatinine 1.33 H (0.66-1.25) mg/dL Glucose 193 H (74-99) mg/dL POC Glucose (mg/dL) 190 H (75-99) mg/dL Assessment and Plan Plan: Assessment: 1. Acute kidney injury mostly prerenal secondary to diuresis. Better. Creatin ine 1.33 today. UA benign. No evidence of hydronephrosis noted on ultrasound. 2. Chronic kidney disease stage III with baseline creatinine in the range of 1.6-2 secondary to cardiorenal syndrome. 3. Chronic systolic CHF with ejection fraction of 20-25% with moderate tricuspid regurgitation and moderate pulmonary hypertension maintained on milrinone drip. 4. Hypokalemia secondary to diuresis. Better. Today slightly hyperkalemic. 5. Metabolic alkalosis secondary to diuresis. Better. 6. Diabetes mellitus. 7. Urinary retention status post Banegas catheter placement. Plan: Resume Bumex 1 mg orally once daily. Discontinue potassium supplementation. Repeat electrolytes in the morning.
[2018-12-17 12:20] LABS: Glucose,Whole Blood 216 mg/dL (75-99)
[2018-12-17] MEDS: BUMETANIDE 1 MG TAB PO SCH (12:49)
--- NOTE | 2018-12-17 15:32 | P.PN ---
Subjective Progress Note Date: 12/17/18 Jose G Polk is a 78-year-old male with past medical history of systolic CHF, CAD, A. fib, AICD in place, continuous milrinone infusion, history of L1 through L5 laminectomy presents to the ED complaining of his legs giving out and frequent falls over the past few weeks. He was recently discharged for CHF exacerbation November 14 and states after going home he has been intermittently weak and has had episodes where his legs will give out from under him. He denies any loss of consciousness. Patient notes that about a week ago he was noted to be hyponatremic and hypochloremic from his Bumex so was tried on Diamox, but felt that made him more weak. He also complains of tremors in both his hands and feet which have worsened over the past few weeks. Patient notes that a few years ago he had similar issues with weakness and at that time was thought to be due to baclofen. He denies any chest pain or shortness of breath. In the ED his labs were notable for ammonia 133, hyponatremia and hypochloremia, chronically elevated troponin to 0.5. He denies any history of liver issues or heavy alcohol use. 12/12. He continues to feel weak but in good spirits today. Since starting the lactulose his ammonia dropped to 70 but his creatinine is worsened to 2.2 today. Gross hematuria is noted in his dubois. He denies any new chest pain or shortness of breath. Discussed code status with pt in light of multiple medical comorbidities. 12/13/2018 ammonia 105, maintained on lactulose as per GI .Complaining of Gout Pain, [place] initiated. Diuretics remain on hold Creatinine continues to improve , down to 1.82. Denies chest pain, palpitations or shortness of breath. CODE STATUS being rediscussed with patient as per cardiology. Vital signs stable, maintaining O2 sats in the mid 90s on room air. INR 2. 12/14/2018 continues on milrinone pump. Maintained on lactulose, ammonia down to 57. Normal hepatitis panel .Complains of constipation. 2 person assist with ambulation. INR 2.3. Hematuria improving. BUN 94, creatinine 1.73, diuretics continue to be held for another day as per nephrology. CODE STATUS changed to no code, no intubation, no CPR as discussed with Dr. Bui. 12/17/2018 Diuretics have been on hold, creatinine 1.33, INR 3.3. Potassium 5.4. No edema, Hematuria improved. Shakes improved. Resuming diuretics today as per nephrology. Denies chest pain, palpitations. Mild shortness of breath with exertion, none at rest. Objective - Vital Signs Vital signs: Vital Signs Temp 98.3 F 12/17/18 09:05 Pulse 60 12/17/18 09:05 Resp 18 12/17/18 09:05 BP 115/74 12/17/18 09:05 Pulse Ox 92 L 12/17/18 09:05 Intake & Output 12/16/18 12/17/18 12/17/18 18:59 06:59 18:59 Intake Total 236 10 360 Output Total 1150 875 Balance -914 -865 360 Weight 104.1 kg Intake: Oral 236 10 360 Output: Urine 1150 875 Other: Voiding Method Indwelling Catheter Indwelling Catheter Indwelling Catheter # Voids 0 - Exam Gen.: Sitting up in bed, no acute distress CV: Irregularly irregular, systolic murmur, distal pulses 1+ Lungs: Good inspiratory effort, clear throughout Abdomen: Soft nontender nondistended no organomegaly Extremities: No cyanosis clubbing, no edema Neuro: Cranial nerves II through XII intact, asterixis significantly improved Skin: Warm and dry, no jaundice. - Labs CBC & Chem 7: 12/12/18 07:19 12/17/18 06:20 Labs: Abnormal Lab Results - Last 24 Hours (Table) 12/16/18 12/16/18 12/16/18 Range/Units 12:08 16:32 20:42 PT (9.0-12.0) sec INR (<1.2) Sodium (137-145) mmol/L Potassium (3.5-5.1) mmol/L Chloride (98-107) mmol/L BUN (9-20) mg/dL Creatinine (0.66-1.25) mg/dL Glucose (74-99) mg/dL POC Glucose (mg/dL) 190 H 231 H 236 H (75-99) mg/dL 12/17/18 12/17/18 12/17/18 Range/Units 06:17 06:20 06:21 PT 31.9 H (9.0-12.0) sec INR 3.3 H (<1.2) Sodium 132 L (137-145) mmol/L Potassium 5.4 H (3.5-5.1) mmol/L Chloride 93 L (98-107) mmol/L BUN 73 H (9-20) mg/dL Creatinine 1.33 H (0.66-1.25) mg/dL Glucose 193 H (74-99) mg/dL POC Glucose (mg/dL) 190 H (75-99) mg/dL Assessment and Plan Assessment: (1) Hyperammonemia Current Visit: Yes Status: Acute Code(s): E72.20 - DISORDER OF UREA CYCLE METABOLISM, UNSPECIFIED SNOMED Code(s): 2319079 (2) 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 Current Visit: No Status: Acute Code(s): N17.9 - ACUTE KIDNEY FAILURE, UNSPECIFIED; N18.9 - CHRONIC KIDNEY DISEASE, UNSPECIFIED SNOMED Code(s): 048901755 (3) Acute on chronic systolic CHF (congestive heart failure) Current Visit: No Status: Acute Code(s): I50.23 - ACUTE ON CHRONIC SYSTOLIC (CONGESTIVE) HEART FAILURE SNOMED Code(s): 528389834 (4) Atrial fibrillation,chronic persistent Current Visit: No Status: Acute Code(s): I48.91 - UNSPECIFIED ATRIAL FIBRILLATION SNOMED Code(s): 13344506 (5) Coronary artery disease Current Visit: No Status: Acute Code(s): I25.10 - ATHSCL HEART DISEASE OF [place] CORONARY ARTERY W/O ANG PCTRS SNOMED Code(s): 99211549 (6) Demand ischemia Current Visit: No Status: Acute Code(s): I24.8 - OTHER FORMS OF ACUTE ISCHEMIC HEART DISEASE SNOMED Code(s): 191024156 (7) Diabetes Current Visit: No Status: Acute Code(s): E11.9 - TYPE 2 DIABETES MELLITUS WITHOUT COMPLICATIONS SNOMED Code(s): 97715988 (8) HTN (hypertension) Current Visit: No Status: Acute Code(s): I10 - ESSENTIAL (PRIMARY) HYPERTENSION SNOMED Code(s): 33717449 (9) Hypothyroid Current Visit: No Status: Acute Code(s): E03.9 - HYPOTHYROIDISM, UNSPECIFIED SNOMED Code(s): 99041057 (10) Tremors of nervous system Current Visit: No Status: Acute Code(s): R25.1 - TREMOR, UNSPECIFIED SNOMED Code(s): 56573655 (11) Type 2 diabetes mellitus, with long-term current use of insulin Current Visit: No Status: Acute Code(s): E11.9 - TYPE 2 DIABETES MELLITUS WITHOUT COMPLICATIONS; Z79.4 - SOCIAL INSURANCE ANALYST (CURRENT) USE OF INSULIN SNOMED Code (s): 492183098 (12) Weakness, status post fall Current Visit: No Status: Acute Code(s): R53.1 - WEAKNESS SNOMED Code(s): 98027094 (13) Weakness of both lower limbs Current Visit: No Status: Acute Code(s): R29.898 - OTH SYMPTOMS AND SIGNS INVOLVING THE MUSCULOSKELETAL SYSTEM SNOMED Code(s): 7628106 (14) hematuria secondary to traumatic Dubois catheter insertion, improving (15) nonischemic cardiomyopathy with prior AICD implantation, EF 20% (16) acute metabolic encephalopathy secondary to hyperkalemia and uremia, improving (17) No Code, No CPR, No Intubation. (18) hyperkalemia Plan: Continue on current medication regime , Protonix, monitoring and symptomatic treatment. Diuretics resumed as per nephrology. Potassium bertrand pplements discontinued, low potassium diet. Close monitoring of renal function, electrolytes with repeat labs ordered for a.m. Maintain milrinone infusion. Coumadin dosing as per pharmacy. Discharge planning to subacute rehab later this week, The impression and plan of care has been dictated as directed. Dr.: I performed a history and examination of this patient, discussed the same with the dictator. I agree with the dictator's note ,documented as a scribe. Any additional findings or plans will be noted. The impression and plan of care has been dictated as directed. Dr.: I performed a history and examination of this patient, discussed the same with the dictator. I agree with the dictator's note ,documented as a scribe. Any additional findings or plans will be noted.
[2018-12-17 17:47] LABS: Glucose,Whole Blood 211 mg/dL (75-99)
[2018-12-17] MEDS: [UNRECOGNIZED DRUG - OTHER] IV SCH (17:50)
[2018-12-17] MEDS ORDERED: WARFARIN 1 MG TAB PO ONE (18:00)
[2018-12-17 20:32] LABS: Glucose,Whole Blood 220 mg/dL (75-99)
[2018-12-18 06:17] LABS: Glucose,Whole Blood 271 mg/dL (75-99)
[2018-12-18] MEDS: INSULIN ASPART (NovoLOG) 100 UNIT/ML VIAL SQ SCH ×4 (06:20→21:08)
[2018-12-18] MEDS: LEVOTHYROXINE 88 MCG TAB PO SCH (06:20)
[2018-12-18 06:31] LABS: INR 2.8 (<1.2); Prothrombin Time 26.8 sec (9.0-12.0)
[2018-12-18 06:45] LABS: Calcium 9.5 mg/dL (8.4-10.2); Magnesium 1.9 mg/dL (1.6-2.3); Potassium 4.8 mmol/L (3.5-5.1)
[2018-12-18] MEDS: PANTOPRAZOLE 40 MG TABLET PO SCH (09:04)
[2018-12-18] MEDS: POLYETHYLENE GLYCOL 3350 17 GM POWD.PACK PO SCH (09:05)
[2018-12-18] MEDS: BUMETANIDE 1 MG TAB PO SCH ×2 (09:05→22:27)
[2018-12-18] MEDS: ASPIRIN 81 MG PO SCH (09:05)
[2018-12-18] MEDS: ESCITALOPRAM 5 MG TAB PO SCH (09:05)
[2018-12-18] MEDS: LACTULOSE 20 GM/30 ML CUP PO SCH ×2 (09:05→22:28)
[2018-12-18] MEDS: INSULIN DETEMIR (LEVEMIR) 100 UNIT/ML SYR SQ SCH (11:35)
--- NOTE | 2018-12-18 11:37 | P.PN ---
Subjective Patient is seen in follow-up for acute kidney injury on chronic kidney disease. Patient has chronic kidney disease stage III with baseline creatinine in the range of 1.6-2. GFR at baseline. Oral intake is good. A few to go home. Vital signs are stable. General: The patient appeared well nourished and normally developed. HEENT: Head exam is unremarkable. Neck is without jugular venous distension. LUNGS: Lungs are clear to auscultation and percussion. Breath sounds decreased. HEART: Rate and Rhythm are regular. First and second heart sounds normal. No murmurs, rubs or gallops. ABDOMEN: Abdominal exam reveals normal bowel sounds. Non-tender and non- distended. No evidence of peritonitis. EXTREMITITES: 1+ edema. Objective - Vital Signs Vital signs: Vital Signs Temp 97.6 F 12/18/18 08:45 Pulse 60 12/18/18 08:45 Resp 20 12/18/18 08:45 BP 175/75 12/18/18 08:45 Pulse Ox 98 12/18/18 08:45 Intake & Output 12/17/18 12/18/18 12/18/18 18:59 06:59 18:59 Intake Total 718 Output Total 1650 Balance 718 -1650 Weight 103.6 kg Intake: Oral 718 Output: Urine 1650 Other: Voiding Method Indwelling Catheter Indwelling Catheter Indwelling Catheter - Labs CBC & Chem 7: 12/12/18 07:19 12/18/18 06:00 Labs: Abnormal Lab Results - Last 24 Hours (Table) 12/17/18 12/17/18 12/17/18 Range/Units 12:15 15:49 17:42 PT (9.0-12.0) sec INR (<1.2) Sodium (137-145) mmol/L Chloride (98-107) mmol/L Carbon Dioxide (22-30) mmol/L BUN (9-20) mg/dL Creatinine (0.66-1.25) mg/dL Glucose (74-99) mg/dL POC Glucose (mg/dL) 216 H 211 H (75-99) mg/dL Ammonia 106 H (<30) umol/L 12/17/18 12/18/18 12/18/18 Range/Units 20:30 06:00 06:00 PT 26.8 H (9.0-12.0) sec INR 2.8 H (<1.2) Sodium 132 L (137-145) mmol/L Chloride 91 L (98-107) mmol/L Carbon Dioxide 31 H (22-30) mmol/L BUN 85 H (9-20) mg/dL Creatinine 1.67 H (0.66-1.25) mg/dL Glucose 265 H (74-99) mg/dL POC Glucose (mg/dL) 220 H (75-99) mg/dL Ammonia (<30) umol/L 12/18/18 12/18/18 Range/Units 06:10 06:15 PT (9.0-12.0) sec INR (<1.2) Sodium (137-145) mmol/L Chloride (98-107) mmol/L Carbon Dioxide (22-30) mmol/L BUN (9-20) mg/dL Creatinine (0.66-1.25) mg/dL Glucose (74-99) mg/dL POC Glucose (mg/dL) 271 H (75-99) mg/dL Ammonia 51 H (<30) umol/L Assessment and Plan Plan: Assessment: 1. Acute kidney injury mostly prerenal secondary to cardiorenal syndrome. Improved since admission. Creatinine 1.67 today. UA benign. No evidence of hydronephrosis noted on ultrasound. 2. Chronic kidney disease stage III with baseline creatinine in the range of 1.6-2 secondary to cardiorenal syndrome. 3. Chronic systolic CHF with ejection fraction of 20-25% with moderate tricuspid regurgitation and moderate pulmonary hypertension maintained on milrinone drip. 4. Mild hyperkalemia secondary to potassium supplementation. Better. 5. Metabolic alkalosis secondary to diuresis. Better. 6. Diabetes mellitus. 7. Urinary retention status post Banegas catheter placement. Plan: Increase Bumex to 1 mg twice daily. Avoid nephrotoxins. Repeat electrolytes in the morning.
[2018-12-18] MEDS: HYDROcodone/APAP 5-325MG 1 EACH TAB PO PRN (11:39)
[2018-12-18 12:08] LABS: Glucose,Whole Blood 175 mg/dL (75-99)
[2018-12-18] MEDS: [UNRECOGNIZED DRUG - OTHER] IV SCH (13:11)
--- NOTE | 2018-12-18 14:33 | P.PN ---
Subjective Progress Note Date: 12/18/18 Jose G Polk is a 78-year-old male with past medical history of systolic CHF, CAD, A. fib, AICD in place, continuous milrinone infusion, history of L1 through L5 laminectomy presents to the ED complaining of his legs giving out and frequent falls over the past few weeks. He was recently discharged for CHF exacerbation November 14 and states after going home he has been intermittently weak and has had episodes where his legs will give out from under him. He denies any loss of consciousness. Patient notes that about a week ago he was noted to be hyponatremic and hypochloremic from his Bumex so was tried on Diamox, but felt that made him more weak. He also complains of tremors in both his hands and feet which have worsened over the past few weeks. Patient notes that a few years ago he had similar issues with weakness and at that time was thought to be due to baclofen. He denies any chest pain or shortness of breath. In the ED his labs were notable for ammonia 133, hyponatremia and hypochloremia, chronically elevated troponin to 0.5. He denies any history of liver issues or heavy alcohol use. 12/12. He continues to feel weak but in good spirits today. Since starting the lactulose his ammonia dropped to 70 but his creatinine is worsened to 2.2 today. Gross hematuria is noted in his dubois. He denies any new chest pain or shortness of breath. Discussed code status with pt in light of multiple medical comorbidities. 12/13/2018 ammonia 105, maintained on lactulose as per GI .Complaining of Gout Pain, [place] initiated. Diuretics remain on hold Creatinine continues to improve , down to 1.82. Denies chest pain, palpitations or shortness of breath. CODE STATUS being rediscussed with patient as per cardiology. Vital signs stable, maintaining O2 sats in the mid 90s on room air. INR 2. 12/14/2018 continues on milrinone pump. Maintained on lactulose, ammonia down to 57. Normal hepatitis panel .Complains of constipation. 2 person assist with ambulation. INR 2.3. Hematuria improving. BUN 94, creatinine 1.73, diuretics continue to be held for another day as per nephrology. CODE STATUS changed to no code, no intubation, no CPR as discussed with Dr. Bui. 12/17/2018 Diuretics have been on hold, creatinine 1.33, INR 3.3. Potassium 5.4. No edema, Hematuria improved. Shakes improved. Resuming diuretics today as per nephrology. Denies chest pain, palpitations. Mild shortness of breath with exertion, none at rest. 12/18/2018 a reticulocyte's resumed yesterday. Diuresing well with 24-hour I&O reflecting a negative fluid balance. . Creatinine 1.67.Shakes improved, possibly related to milrinone drip. Objective - Vital Signs Vital signs: Vital Signs Temp 97.6 F 12/18/18 08:45 Pulse 60 12/18/18 08:45 Resp 20 12/18/18 08:45 BP 175/75 12/18/18 08:45 Pulse Ox 98 12/18/18 08:45 Intake & Output 12/17/18 12/18/18 12/18/18 18:59 06:59 18:59 Intake Total 718 Output Total 1650 Balance 718 -1650 Weight 103.6 kg Intake: Oral 718 Output: Urine 1650 Other: Voiding Method Indwelling Catheter Indwelling Catheter Indwelling Catheter - Exam Gen.: Sitting up in chair, no acute distress CV: Irregularly irregular, systolic murmur, distal pulses 1+ Lungs: Good inspiratory effort, clear throughout Abdomen: Soft nontender nondistended no organomegaly Extremities: No cyanosis clubbing, no edema Neuro: Cranial nerves II through XII intact, asterixis significantly improved Skin: Warm and dry, no jaundice. - Labs CBC & Chem 7: 12/12/18 07:19 12/18/18 06:00 Labs: Abnormal Lab Results - Last 24 Hours (Table) 12/17/18 12/17/18 12/17/18 Range/Units 12:15 15:49 17:42 PT (9.0-12.0) sec INR (<1.2) Sodium (137-145) mmol/L Chloride (98-107) mmol/L Carbon Dioxide (22-30) mmol/L BUN (9-20) mg/dL Creatinine (0.66-1.25) mg/dL Glucose (74-99) mg/dL POC Glucose (mg/dL) 216 H 211 H (75-99) mg/dL Ammonia 106 H (<30) umol/L 12/17/18 12/18/18 12/18/18 Range/Units 20:30 06:00 06:00 PT 26.8 H (9.0-12.0) sec INR 2.8 H (<1.2) Sodium 132 L (137-145) mmol/L Chloride 91 L (98-107) mmol/L Carbon Dioxide 31 H (22-30) mmol/L BUN 85 H (9-20) mg/dL Creatinine 1.67 H (0.66-1.25) mg/dL Glucose 265 H (74-99) mg/dL POC Glucose (mg/dL) 220 H (75-99) mg/dL Ammonia (<30) umol/L 12/18/18 12/18/18 Range/Units 06:10 06:15 PT (9.0-12.0) sec INR (<1.2) Sodium (137-145) mmol/L Chloride (98-107) mmol/L Carbon Dioxide (22-30) mmol/L BUN (9-20) mg/dL Creatinine (0.66-1.25) mg/dL Glucose (74-99) mg/dL POC Glucose (mg/dL) 271 H (75-99) mg/dL Ammonia 51 H (<30) umol/L Assessment and Plan Assessment: (1) Hyperammonemia Current Visit: Yes Status: Acute Code(s): E72.20 - DISORDER OF UREA CYCLE METABOLISM, UNSPECIFIED SNOMED Code(s): 6691099 (2) 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 Current Visit: No Status: Acute Code(s): N17.9 - ACUTE KIDNEY FAILURE, UNSPECIFIED; N18.9 - CHRONIC KIDNEY DISEASE, UNSPECIFIED SNOMED Code(s): 674646058 (3) Acute on chronic systolic CHF (congestive heart failure) Current Visit: No Status: Acute Code(s): I50.23 - ACUTE ON CHRONIC SYSTOLIC (CONGESTIVE) HEART FAILURE SNOMED Code(s): 471911174 (4) Atrial fibrillation,chronic persistent Current Visit: No Status: Acute Code(s): I48.91 - UNSPECIFIED ATRIAL FIBRILLATION SNOMED Code(s): 97021658 (5) Coronary artery disease Current Visit: No Status: Acute Code(s): I25.10 - ATHSCL HEART DISEASE OF [place] CORONARY ARTERY W/O ANG PCTRS SNOMED Code(s): 08008150 (6) Demand ischemia Current Visit: No Status: Acute Code(s): I24.8 - OTHER FORMS OF ACUTE ISCHEMIC HEART DISEASE SNOMED Code(s): 411760483 (7) Diabetes Current Visit: No Status: Acute Code(s): E11.9 - TYPE 2 DIABETES MELLITUS WITHOUT COMPLICATIONS SNOMED Code(s): 64020134 (8) HTN (hypertension) Current Visit: No Status: Acute Code(s): I10 - ESSENTIAL (PRIMARY) HYPERTENSION SNOMED Code(s): 67221181 (9) Hypothyroid Current Visit: No Status: Acute Code(s): E03.9 - HYPOTHYROIDISM, UNSPECIFIED SNOMED Code(s): 97956287 (10) Tremors of nervous system Current Visit: No Status: Acute Code(s): R25.1 - TREMOR, UNSPECIFIED SNOMED Code(s): 42235700 (11) Type 2 diabetes mellitus, with long-term current use of insulin Current Visit: No Status: Acute Code(s): E11.9 - TYPE 2 DIABETES MELLITUS WITHOUT COMPLICATIONS; Z79.4 - GROUP HOME (CURRENT) USE OF INSULIN SNOMED Code(s): 466019773 (12) Weakness, status post fall Current Visit: No Status: Acute Code(s): R53.1 - WEAKNESS SNOMED Code(s): 93918530 (13) Weakness of both lower limbs Current Visit: No Status: Acute Code(s): R29.898 - OTH SYMPTOMS AND SIGNS INVOLVING THE MUSCULOSKELETAL SYSTEM SNOMED Code(s): 3385151 (14) hematuria secondary to traumatic Dubois catheter insertion, improving (15) nonischemic cardiomyopathy with prior AICD implantation, EF 20% (16) acute metabolic encephalopathy secondary to hyperkalemia and uremia, improving (17) No Code, No CPR, No Intubation. (18) hyperkalemia Plan: Continue on current medication regime , Protonix, monitoring and sy mptomatic treatment. Maintain diuresing cautiously with close monitoring of renal function. Repeat labs ordered for a.m. Discharge planning in progress for tomorrow pending nephrology clearance. Maintain milrinone infusion. Coumadin dosing as per pharmacy. PT reevaluation ordered, discharge planning in progress for tomorrow. The impression and plan of care has been dictated as directed. .: I performed a history and examination of this patient, discussed the same with the dictator. I agree with the dictator's note ,documented as a scribe. Any additional findings or plans will be noted. The impression and plan of care has been dictated as directed. Dr.: I performed a history and examination of this patient, discussed the same with the dictator. I agree with the dictator's note ,documented as a scribe. Any additional findings or plans will be noted.
[2018-12-18 16:49] LABS: Glucose,Whole Blood 187 mg/dL (75-99)
[2018-12-18] MEDS ORDERED: WARFARIN 2 MG TAB PO ONE (18:00)
[2018-12-18 20:38] LABS: Glucose,Whole Blood 230 mg/dL (75-99)
[2018-12-18 21:42] VITALS: RESP 18
[2018-12-19 06:18] LABS: Glucose,Whole Blood 429 mg/dL (75-99)
[2018-12-19 06:52] LABS: Glucose,Whole Blood 228 mg/dL (75-99)
[2018-12-19 06:54] LABS: Magnesium 1.9 mg/dL (1.6-2.3)
[2018-12-19] MEDS: INSULIN ASPART (NovoLOG) 100 UNIT/ML VIAL SQ SCH ×2 (06:59→12:46)
[2018-12-19] MEDS: LEVOTHYROXINE 88 MCG TAB PO SCH (06:59)
[2018-12-19 07:00] LABS: INR 2.4 (<1.2); Prothrombin Time 23.2 sec (9.0-12.0)
[2018-12-19] MEDS: INSULIN DETEMIR (LEVEMIR) 100 UNIT/ML SYR SQ SCH (07:21)
[2018-12-19 07:25] LABS: Potassium 5.7 mmol/L (3.5-5.1)
[2018-12-19] MEDS: POLYETHYLENE GLYCOL 3350 17 GM POWD.PACK PO SCH (08:48)
[2018-12-19] MEDS: LACTULOSE 20 GM/30 ML CUP PO SCH (08:48)
[2018-12-19] MEDS: BUMETANIDE 1 MG TAB PO SCH (08:48)
[2018-12-19] MEDS: ESCITALOPRAM 5 MG TAB PO SCH (08:48)
[2018-12-19] MEDS: PANTOPRAZOLE 40 MG TABLET PO SCH (08:49)
[2018-12-19] MEDS: ASPIRIN 81 MG PO SCH (08:49)
[2018-12-19 10:12] VITALS: BP 115/72; PULSE 60; TEMP 98.7
--- NOTE | 2018-12-19 12:11 | P.PN ---
Subjective Patient is seen in follow-up for acute kidney injury on chronic kidney disease. Patient has chronic kidney disease stage III with baseline creatinine in the range of 1.6-2. GFR at baseline. Oral intake is good. No active complaints. Eager to go home. Vital signs are stable. General: The patient appeared well nourished and normally developed. HEENT: Head exam is unremarkable. Neck is without jugular venous distension. LUNGS: Lungs are clear to auscultation and percussion. Breath sounds decreased. HEART: Rate and Rhythm are regular. First and second heart sounds normal. No murmurs, rubs or gallops. ABDOMEN: Abdominal exam reveals normal bowel sounds. Non-tender and non- distended. No evidence of peritonitis. EXTREMITITES: 1+ edema. Objective - Vital Signs Vital signs: Vital Signs Temp 98.7 F 12/19/18 08:40 Pulse 60 12/19/18 08:40 Resp 18 12/19/18 08:40 BP 115/72 12/19/18 08:40 Pulse Ox 95 12/19/18 08:40 Intake & Output 12/18/18 12/19/18 12/19/18 18:59 06:59 18:59 Intake Total 340 120 500 Output Total 1900 1500 2000 Balance -1560 -1380 -1500 Weight 103.6 kg 104.5 kg Intake: Oral 340 120 500 Output: Urine 1900 1500 2000 Uretheral (Banegas) 1500 1300 Other: Voiding Method Indwelling Catheter Indwelling Catheter Indwelling Catheter - Labs CBC & Chem 7: 12/12/18 07:19 12/19/18 05:59 Labs: Abnormal Lab Results - Last 24 Hours (Table) 12/18/18 12/18/18 12/18/18 Range/Units 12:06 16:30 20:36 PT (9.0-12.0) sec INR (<1.2) Sodium (137-145) mmol/L Potassium (3.5-5.1) mmol/L Chloride (98-107) mmol/L BUN (9-20) mg/dL Creatinine (0.66-1.25) mg/dL Glucose (74-99) mg/dL POC Glucose (mg/dL) 175 H 187 H 230 H (75-99) mg/dL Ammonia (<30) umol/L 12/19/18 12/19/18 12/19/18 Range/Units 05:59 05:59 06:09 PT 23.2 H (9.0-12.0) sec INR 2.4 H (<1.2) Sodium 134 L (137-145) mmol/L Potassium 5.7 H (3.5-5.1) mmol/L Chloride 93 L (98-107) mmol/L BUN 92 H (9-20) mg/dL Creatinine 1.63 H (0.66-1.25) mg/dL Glucose 149 H (74-99) mg/dL POC Glucose (mg/dL) (75-99) mg/dL Ammonia 35 H (<30) umol/L 12/19/18 12/19/18 Range/Units 06:16 06:50 PT (9.0-12.0) sec INR (<1.2) Sodium (137-145) mmol/L Potassium (3.5-5.1) mmol/L Chloride (98-107) mmol/L BUN (9-20) mg/dL Creatinine (0.66-1.25) mg/dL Glucose (74-99) mg/dL POC Glucose (mg/dL) 429 H 228 H (75-99) mg/dL Ammonia (<30) umol/L Assessment and Plan Plan: Assessment: 1. Acute kidney injury mostly prerenal secondary to cardiorenal syndrome. Improved since admission. Creatinine 1.63 today. UA benign. No evidence of hydronephrosis noted on ultrasound. 2. Chronic kidney disease stage III with baseline creatinine in the range of 1.6-2 secondary to cardiorenal syndrome. 3. Chronic systolic CHF with ejection fraction of 20-25% with moderate tricuspid regurgitation and moderate pulmonary hypertension maintained on milrinone drip. 4. Mild hyperkalemia secondary to potassium supplementation. Better. Today's specimen was hemolyzed. 5. Metabolic alkalosis secondary to diuresis. Better. 6. Diabetes mellitus. 7. Urinary retention status post Banegas catheter placement. Plan: Maintain Bumex 1 mg twice daily. Add metolazone 2.5 mg every other day. Avoid nephrotoxins. Anticipate discharge soon. Repeat BMP and magnesium level in 2-3 days postdischarge. Strongly advised the patient to monitor his weight closely at home and to call if gains more than 2-3 pounds. Follow-up outpatient in the next 1 week. Add Flomax. Ok to DC Banegas catheter and monitor for retention.
[2018-12-19] MEDS ORDERED: TAMSULOSIN 0.4 MG CAP.ER.24H PO SCH (12:15)
[2018-12-19 12:29] LABS: Glucose,Whole Blood 141 mg/dL (75-99)
[2018-12-19 13:54] VITALS: BMI 32.1
[2018-12-19] MEDS ORDERED: WARFARIN 2 MG TAB PO ONE (18:00)
--- NOTE | 2018-12-25 13:43 | CDI ---
Documentation Clarification Form Date: 12/25/18 From: Marylu Hein Phone: If you have a question about this query, please contact Roselia Viera, Naval Science Teacher at [phone] between 8am and 5pm. Admit Date: 12/11/18 Discharge Date: 12/19/18 Patient Name: Jose G Polk Visit Number: [id number] ATTENTION: The Clinical Documentation Specialists (CDI) and [facility] Coding Staff appreciate your assistance in clarifying documentation. Please respond to the clarification below the line at the bottom and electronically sign. The CDI & [facility] Coding staff will review the response and follow-up if needed. Please note: Queries are made part of the Legal Health Record. If you have any questions, please contact the author of this message via ITS. Dear Dr. Kapil Barros, Atrial Flutter is documented in the your consult and 12/13 PN. History/Risk factors: Ac on Chr systolic CHF, HTN w CKD III, metabolic encephalopathy, persistent atrial fib, nonischemic cardiomyopathy, ac renal failure Clinical Indicators: Presents with SOB & syncope. EKG/telemetry: paced rhythm with underlying atrial flutter Treatment: Coumadin po In your professional opinion, in order to capture the severity of condition; can you please clarify the type of Atrial Flutter if known? Typical/Type I Atypical/Type II Other, please specify Unable to determine Diagnosis: Typical atrial flutter MTDD
--- NOTE | 2019-01-23 23:33 | P.DS ---
Providers Date of admission: 12/11/18 09:15 Expected date of discharge: 12/19/18 Attending physician: Scott Bui MD Consults: 12/11/18 09:17 Consult Physician Urgent Consulting Provider: Hailey Olmstead Consult Reason/Comments: Syncope, CHF Do you want consulting provider notified?: Yes 12/11/18 09:57 Consult Physician Urgent Consulting Provider: Leanna Welch Consult Reason/Comments: Hyperammonemia,ams Do you want consulting provider notified?: Yes 12/12/18 09:48 Consult Physician Routine Consulting Provider: Catalina Lagunas Consult Reason/Comments: kidney failure Do you want consulting provider notified?: Yes Primary care physician: Toshia Bui - Discharge Diagnosis(es) (1) Hyperammonemia Status: Acute (2) 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 Status: Acute (3) Acute on chronic systolic CHF (congestive heart failure) Status: Acute (4) Atrial fibrillation Status: Acute (5) Coronary artery disease Status: Acute (6) Demand ischemia Status: Acute (7) Diabetes Status: Acute (8) HTN (hypertension) Status: Acute (9) Hypothyroid Status: Acute (10) Tremors of nervous system Status: Acute (11) Type 2 diabetes mellitus, with long-term current use of insulin Status: Acute (12) Weakness Status: Acute (13) Weakness of both lower limbs Status: Acute Hospital Course: Jose G Polk is a 78-year-old male with past medical history of systolic CHF, CAD, A. fib, AICD in place, continuous milrinone infusion, history of L1 through L5 laminectomy presents to the ED complaining of his legs giving out and frequent falls over the past few weeks. He was recently discharged for CHF exacerbation November 14 and states after going home he has been intermittently weak and has had episodes where his legs will give out from under him. He denies any loss of consciousness. Patient notes that about a week ago he was noted to be hyponatremic and hypochloremic from his Bumex so was tried on Diamox, but felt that made him more weak. He also complains of tremors in both his hands and feet which have worsened over the past few weeks. Patient notes that a few years ago he had similar issues with weakness and at that time was thought to be due to baclofen. He denies any chest pain or shortness of breath. In the ED his labs were notable for ammonia 133, hyponatremia and hypochloremia, chronically elevated troponin to 0.5. He denies any history of liver issues or heavy alcohol use. 12/12. He continues to feel weak but in good spirits today. Since starting the lactulose his ammonia dropped to 70 but his creatinine is worsened to 2.2 today. Gross hematuria is noted in his dubois. He denies any new chest pain or shortness of breath. Discussed code status with pt in light of multiple medical comorbidities. 12/13/2018 ammonia 105, maintained on lactulose as per GI .Complaining of Gout Pain, Austin initiated. Diuretics remain on hold Creatinine continues to improve, down to 1.82. Denies chest pain, palpitations or shortness of breath. CODE STATUS being rediscussed with patient as per cardiology. Vital signs stable, maintaining O2 sats in the mid 90s on room air. INR 2. 12/14/2018 continues on milrinone pump. Maintained on lactulose, ammonia down to 57. Normal hepatitis panel .Complains of constipation. 2 person assist with ambulation. INR 2.3. Hematuria improving. BUN 94, creatinine 1.73, diuretics continue to be held for another day as per nephrology. CODE STATUS changed to no code, no intubation, no CPR as discussed with Dr. Bui. 12/17/2018 Diuretics have been on hold, creatinine 1.33, INR 3.3. Potassium 5.4. No edema, Hematuria improved. Shakes improved. Resuming diuretics today as per nephrology. Denies chest pain, palpitations. Mild shortness of breath with exertion, none at rest. 12/18/2018 a reticulocyte's resumed yesterday. Diuresing well with 24-hour I&O reflecting a negative fluid balance. . Creatinine 1.67.Shakes improved, possibly related to milrinone drip. 12/19. He is improved and stable for discharge. He will continue bumex and metolazone upon discharge and follow up with PCP and Nephrology. Patient Condition at Discharge: Serious Plan - Discharge Summary Discharge Rx Participant: Yes New Discharge Prescriptions: New Aspirin 81 mg PO DAILY chew Lactulose [Cephulac] 30 gm PO BID #900 ml Tamsulosin [Flomax] 0.4 mg PO DAILY #30 cap Metolazone [Zaroxolyn] 2.5 mg PO Q48H #1 tablet Continue Ergocalciferol (Vitamin D2) [Drisdol] 50,000 unit PO TUTH Insulin Aspart [NovoLOG] See Protocol SQ ACHS PRN PRN Reason: Blood Sugar - High Insulin Glargine [Lantus] See Protocol SQ HS PRN PRN Reason: Blood Sugar - High Levothyroxine Sodium [Synthroid] 88 mcg PO DAILY Ferrous Sulfate [Iron (65 MG Elemental)] 325 mg PO BID Discontinued Allopurinol [Zyloprim] 100 mg PO TID Metolazone [Zaroxolyn] 5 mg PO AGOSTO Potassium Chloride ER [K-Dur 20] 40 meq PO BID Bumetanide [BUMEX] 2 mg PO BID tab Warfarin Sodium [Coumadin] 5 mg PO HS 30 Days tablet No Action HYDROcodone/APAP 5-325MG [Austin 5-325] 1 tab PO Q6HR PRN PRN Reason: Pain Milrinone Drip 1mg/Ml 1 dose IV CONTINUOUS Potassium Chloride [K-Tab ER] 20 meq PO DAILY #30 tablet.er Bumetanide 4 mg PO BID Magnesium Oxide [Mag-Ox] 250 mg PO DAILY Warfarin [Coumadin] 5 mg PO DAILY@1600 Discharge Medication List Ergocalciferol (Vitamin D2) [Drisdol] 50,000 unit PO TUTH 10/23/15 [History] Insulin Aspart [NovoLOG] See Protocol SQ ACHS PRN 04/12/17 [History] Insulin Glargine [Lantus] See Protocol SQ HS PRN 04/12/17 [History] Levothyroxine Sodium [Synthroid] 88 mcg PO DAILY 05/19/17 [History] Ferrous Sulfate [Iron (65 MG Elemental)] 325 mg PO BID 12/11/18 [History] Aspirin 81 mg PO DAILY chew 12/19/18 [Rx] Lactulose [Cephulac] 30 gm PO BID #900 ml 12/19/18 [Rx] Metolazone [Zaroxolyn] 2.5 mg PO Q48H #1 tablet 12/19/18 [Rx] Tamsulosin [Flomax] 0.4 mg PO DAILY #30 cap 12/19/18 [Rx] HYDROcodone/APAP 5-325MG [Austin 5-325] 1 tab PO Q6HR PRN 12/24/18 [History] Milrinone Drip 1mg/Ml 1 dose IV CONTINUOUS 12/24/18 [History] Potassium Chloride [K-Tab ER] 20 meq PO DAILY #30 tablet.er 12/26/18 [Rx] Bumetanide 4 mg PO BID 01/01/19 [History] Magnesium Oxide [Mag-Ox] 250 mg PO DAILY 01/01/19 [History] Warfarin [Coumadin] 5 mg PO DAILY@1600 01/01/19 [History] Follow up Appointment(s)/Referral(s): [facility] [NON-STAFF] - Catalina Lagunas MD [STAFF PHYSICIAN] - 01/30/19 9:00 am (Monday) Hailey Olmstead MD [STAFF PHYSICIAN] - 01/01/19 9:15 am (Monday -moved up previously scheduled appointment) Toshia Bui DO [Primary Care Provider] - 12/25/18 2:45 pm (Monday -previously scheduled appointment) Ambulatory/Diagnostic Orders: Complete Blood Count w/diff [LAB.AMB] Time Frame: 2 Days, Location: None Selected Patient Instructions/Handouts: Chronic Kidney Disease Diet (DC), Dubois Catheter Placement and Care (DC) Activity/Diet/Wound Care/Special Instructions: Magnesium on hold. Austin dose in place of Zyloprim secondary to renal failure Diet: Low potassium Activity: Limited until follow up Discharge Disposition: HOME WITH HOME HEALTH SERVICES
== END 2018-12-19 16:51 | disposition home health service (06) | DRG 642 ==
LOC: EC 08:36 → 3SCARD 09:15
PROVIDERS: ADMIT Family Medicine; ATTEND Family Medicine
DX: E72.20 Disorder of urea cycle metabolism, unspecified (principal); I50.23 Acute on chronic systolic (congestive) heart failure; G93.41 Metabolic encephalopathy; I13.0 Hypertensive heart and chronic kidney disease with heart failure and stage 1 through stage 4 chronic kidney disease, or unspecified chronic kidney disease; I48.19 Other persistent atrial fibrillation; I42.8 Other cardiomyopathies; N17.9 Acute kidney failure, unspecified; E87.3 Alkalosis; E87.1 Hypo-osmolality and hyponatremia; I24.8 Other forms of acute ischemic heart disease; I48.3 Typical atrial flutter; T83.83XA Hemorrhage due to genitourinary prosthetic devices, implants and grafts, initial encounter; Z66 Do not resuscitate; E11.22 Type 2 diabetes mellitus with diabetic chronic kidney disease; E11.40 Type 2 diabetes mellitus with diabetic neuropathy, unspecified; G25.3 Myoclonus; I27.20 Pulmonary hypertension, unspecified; E87.5 Hyperkalemia; E86.1 Hypovolemia; E87.8 Other disorders of electrolyte and fluid balance, not elsewhere classified; I07.1 Rheumatic tricuspid insufficiency; N18.3 Chronic kidney disease, stage 3 (moderate); I69.398 Other sequelae of cerebral infarction; R31.0 Gross hematuria; H54.7 Unspecified visual loss; E78.5 Hyperlipidemia, unspecified; R40.2143 Coma scale, eyes open, spontaneous, at hospital admission; R40.2253 Coma scale, best verbal response, oriented, at hospital admission; R40.2363 Coma scale, best motor response, obeys commands, at hospital admission; K59.00 Constipation, unspecified; K42.9 Umbilical hernia without obstruction or gangrene; E03.9 Hypothyroidism, unspecified; M10.9 Gout, unspecified; E87.6 Hypokalemia; T50.2X5A Adverse effect of carbonic-anhydrase inhibitors, benzothiadiazides and other diuretics, initial encounter; N40.1 Benign prostatic hyperplasia with lower urinary tract symptoms; R33.8 Other retention of urine; G25.2 Other specified forms of tremor; R29.6 Repeated falls; M48.00 Spinal stenosis, site unspecified; G89.29 Other chronic pain; M54.9 Dorsalgia, unspecified; K21.9 Gastro-esophageal reflux disease without esophagitis; R27.8 Other lack of coordination; J45.909 Unspecified asthma, uncomplicated; M19.90 Unspecified osteoarthritis, unspecified site; R79.1 Abnormal coagulation profile; T45.515A Adverse effect of anticoagulants, initial encounter; I25.10 Atherosclerotic heart disease of native coronary artery without angina pectoris; Z79.4 Long term (current) use of insulin; Z79.01 Long term (current) use of anticoagulants; Z79.890 Hormone replacement therapy; Z79.899 Other long term (current) drug therapy; Z98.890 Other specified postprocedural states; Z95.810 Presence of automatic (implantable) cardiac defibrillator; Z96.653 Presence of artificial knee joint, bilateral; Z96.612 Presence of left artificial shoulder joint; Z85.828 Personal history of other malignant neoplasm of skin; Z86.711 Personal history of pulmonary embolism; Z91.81 History of falling; Z86.2 Personal history of diseases of the blood and blood-forming organs and certain disorders involving the immune mechanism; Z82.49 Family history of ischemic heart disease and other diseases of the circulatory system; Z80.0 Family history of malignant neoplasm of digestive organs; W19.XXXA Unspecified fall, initial encounter; Y92.009 Unspecified place in unspecified non-institutional (private) residence as the place of occurrence of the external cause; Y84.6 Urinary catheterization as the cause of abnormal reaction of the patient, or of later complication, without mention of misadventure at the time of the procedure; Y92.230 Patient room in hospital as the place of occurrence of the external cause
CPT/HCPCS: 36415; 71045; 71046; 76700; 80048; 80053; 80074; 82140; 83036; 83735; 84484; 85025; 85610; 93005; 94760; 96374; 96375; 96376; 99285

== ENCOUNTER 2018-12-24 18:58 | Inpatient (IN) | payer MEDICARE, BC ==
--- NOTE | 2018-12-24 21:18 | ED ---
General Adult HPI - General Chief complaint: Recheck/Abnormal Lab/Rx Stated complaint: Chest Pain, Urogenital Time Seen by Provider: 12/24/18 19:05 Source: patient, EMS Mode of arrival: EMS Limitations: no limitations - History of Present Illness Initial comments: The patient is a 78-year-old male with past medical history of nonischemic myopathy, congestive heart failure and A. fib who presents emergency Department as a transfer from [facility]. History is provided by EMS as well as the transferring physician and the patient's at bedside. The patient's was hospitalized at our facility last week. He was discharged on with a Banegas catheter as he was having urinary retention. He was having pain at his meatus and therefore went into [facility] for evaluation. They noted that the Banegas was under significant tension causing irritation of the tip. They did loosen the bag and put a Urojet to the site. The patient noted that he had used the restroom. They assisted him to a wheelchair. This is when the patient went unconscious for approximately 30 seconds. The noted that he jolted and awakened. He was confused as to what happened. He was denying any chest pain or shortness of breath. No head aches or visual changes. Denies chest palpitations. They did place him back on the cot and interrogated his [place] Osvaldo device. He was noted that the patient had an episode of V. fib. One shock was administered and was successful. They then completed blood work. Potassium was low at 2.9, sodium 131. Troponin was elevated at 0.7 which was similar to the patient's previous recorded value. Creatinine is also 1. the patient has a history of chronic kidney disease. They did call the transfer the patient to the emergency room for cardiology evaluation as he does see Dr. Olmstead and Dr. Bui. The patient arrives asymptomatic. reports defibrillator has gone off twice prior for him. He is on a milrinone drip for nonischemic cardiomyopathy. He states that the patient recently had medication changes. He was taken off his potassium and his Coumadin was decreased. He denies missing any doses of his medications. He denies any additional symptoms include fevers, chills, cough, abdominal pain. The patient does have lower extremity edema which the states has recently become more pronounced. There are no other alleviating, precipitating or modifying factors - Related Data Home Medications Medication Instructions Recorded Confirmed Ergocalciferol (Vitamin D2) 50,000 unit PO TUTH 10/23/15 12/24/18 [Drisdol] Insulin Aspart [NovoLOG] See Protocol SQ ACHS PRN 04/12/17 12/24/18 Insulin Glargine [Lantus] See Protocol SQ HS PRN 04/12/17 12/24/18 Levothyroxine Sodium [Synthroid] 88 mcg PO DAILY 05/19/17 12/24/18 Ferrous Sulfate [Iron (65 MG 325 mg PO BID 12/11/18 12/24/18 Elemental)] Bumetanide [BUMEX] 2 mg PO BID 12/24/18 12/24/18 HYDROcodone/APAP 5-325MG [Deale 1 tab PO Q6HR PRN 12/24/18 12/24/18 5-325] Milrinone Drip 1mg/Ml 1 dose IV CONTINUOUS 12/24/18 12/24/18 Previous Rx's Medication Instructions Recorded Aspirin 81 mg PO DAILY chew 12/19/18 Lactulose [Cephulac] 30 gm PO BID #900 ml 12/19/18 Metolazone [Zaroxolyn] 2.5 mg PO Q48H #1 tablet 12/19/18 Polyethylene Glycol 3350 [Miralax] 17 gm PO DAILY powd.pack 12/19/18 Tamsulosin [Flomax] 0.4 mg PO DAILY #30 cap 12/19/18 Mexiletine [Mexitil] 150 mg PO Q8HR #90 cap 12/26/18 Potassium Chloride [K-Tab ER] 20 meq PO DAILY #30 tablet.er 12/26/18 Warfarin [Coumadin] 4 mg PO AC-SUPPER #90 12/26/18 Warfarin [Coumadin] 5 mg PO ONCE@1800 #30 tab 12/26/18 Allergies Allergy/AdvReac Type Severity Reaction Status Date / Time No Known Allergies Allergy Verified 12/24/18 20:00 Review of Systems ROS Statement: Those systems with pertinent positive or pertinent negative responses have been documented in the HPI. ROS Other: All systems not noted in ROS Statement are negative. Past Medical History Past Medical History: Atrial Fibrillation, Asthma, Coronary Artery Disease (CAD), Cancer, Heart Failure, Diabetes Mellitus, Eye Disorder, Hypertension, Osteoarthritis (OA), Prostate Disorder, Renal Disease, Thyroid Disorder Additional Past Medical History / Comment(s): Chronic CHF, on mironone infusion, KAYLEY showed blood clot in heart, cardiomyopathy, uses oxygen prn at home, IDDM type II, neuropathy bilateral feet, L eye ocular stroke-decreased vision, CKD, anemia, BPH, chronic back pain, spinal stenosis, umbilical hernia, hypothyroid. History of Any Multi-Drug Resistant Organisms: None Reported Past Surgical History: Back Surgery, Heart Catheterization, Joint Replacement, Orthopedic Surgery, Pacemaker, Tonsillectomy Additional Past Surgical History / Comment(s): L upper chest picc line per pt, other picc lines, medipump, past kirby catheter per medical record-pt and spouse do not recall this, KAYLEY, CVN, cardiac cath x2, back surgery, bilateral carpal tunnel releases, bilateral total knee arthroplasties, total L shoulder arthroplasty, skin cancer removal, colonoscopy. Past Anesthesia/Blood Transfusion Reactions: No Reported Reaction Additional Past Anesthesia/Blood Transfusion Reaction / Comment(s): "I came out feeling like I was in another world'-with last cardiac procedure Type of Cardiac Device: Permanent Pacemaker Device Placement Date:: 01/2017 Past Psychological History: No Psychological Hx Reported Smoking Status: Never smoker Past Alcohol Use History: None Reported Past Drug Use History: None Reported - Past Family History Father Family Medical History: Congestive Heart Failure (CHF) Mother Family Medical History: Cancer Additional Family Medical History / Comment(s): Mother had esophageal cancer. General Exam Limitations: no limitations General appearance: alert, in no apparent distress Head exam: Present: atraumatic, normocephalic, normal inspection Eye exam: Present: normal appearance, PERRL, EOMI. Absent: scleral icterus, conjunctival injection, periorbital swelling ENT exam: Present: normal exam, mucous membranes moist Neck exam: Present: normal inspection. Absent: tenderness, meningismus, lymphadenopathy Respiratory exam: Present: normal lung sounds bilaterally. Absent: respiratory distress, wheezes, rales, rhonchi, stridor Cardiovascular Exam: Present: regular rate, normal rhythm, normal heart sounds. Absent: systolic murmur, diastolic murmur, rubs, gallop, clicks GI/Abdominal exam: Present: soft, normal bowel sounds. Absent: distended, tenderness, guarding, rebound, rigid Extremities exam: Present: normal inspection, full ROM, normal capillary refill. Absent: tenderness, pedal edema, joint swelling, calf tenderness Back exam: Present: normal inspection Neurological exam: Present: alert, oriented X3, CN II-XII intact Psychiatric exam: Present: normal affect, normal mood Skin exam: Present: warm, dry, intact, normal color. Absent: rash Course Vital Signs 12/24/18 19:01 Temperature 97.9 F Pulse Rate 62 Respiratory 18 Rate Blood Pressure 115/83 O2 Sat by Pulse 93 L Oximetry EKG Findings - EKG Comments: EKG Findings:: EKG demonstrates a ventricularly paced rhythm with intermittent flutter waves. Ventricular pacemaker captures appropriate. There are PVCs. Rate is around 66. MO interval 108. QRS 160. QTC 43. No acute ST segment elevations Medical Decision Making - Medical Decision Making Upon arrival is patient is placed into room 4. A thorough history and physical exam was performed. I did review the patient's transfer packet from [facility]. They did replace the patient's potassium and magnesium. Ammonia was elevated at 83. Troponin 7, mag 1.5, creatinine 1.8, glucose 137, INR 1.26. I do not see results for urinalysis. I do repeat laboratory studies and request a UA. As the is reporting that the patient is retaining fluid. I do order a BNP. CBC is unremarkable. INR is subtherapeutic at 1.2. I did dose his Coumadin for the night. Sodium 131, potassium 2.8, CO2 42, creatinine is stable at 1.7. Magnesium is low at 1.5. Troponin is 0.54 which the patient does always have an elevated troponin level. BNP 8720. Ammonia is 44. Urinalysis shows positive nitrates, greater than 182 red blood cells and white blood cells. I did replace the patient's magnesium and potassium. I gave him a dose of Rocephin for his urinary tract infection. The [facility] interrogation of the [place] Osvaldo ICD does demonstrate an episode of V. fib with successful defibrillation. I did recommend hospital admission for cardiology evaluation. Patient agreed to this. A call discuss case with Dr. Jacobs who accepted admission for the patient. Bridging orders are placed the patient is awaiting a bed on the floor - Lab Data Result diagrams: 12/25/18 04:03 12/26/18 04:10 Lab Results 12/24/18 12/24/18 12/24/18 Range/Units 21:28 21:28 21:28 WBC 9.7 (3.8-10.6) k/uL RBC 4.23 L (4.30-5.90) m/uL Hgb 13.9 (13.0-17.5) gm/dL Hct 40.0 (39.0-53.0) % MCV 94.6 (80.0-100.0) fL MCH 32.8 (25.0-35.0) pg MCHC 34.7 (31.0-37.0) g/dL RDW 15.0 (11.5-15.5) % Plt Count 172 (150-450) k/uL Neutrophils % 83 % Lymphocytes % 8 % Monocytes % 6 % Eosinophils % 0 % Basophils % 0 % Neutrophils # 8.0 H (1.3-7.7) k/uL Lymphocytes # 0.8 L (1.0-4.8) k/uL Monocytes # 0.6 (0-1.0) k/uL Eosinophils # 0.0 (0-0.7) k/uL Basophils # 0.0 (0-0.2) k/uL PT (9.0-12.0) sec INR (<1.2) Sodium 131 L (137-145) mmol/L Potassium 2.8 L (3.5-5.1) mmol/L Chloride 81 L (98-107) mmol/L Carbon Dioxide 42 H* (22-30) mmol/L Anion Gap 8 mmol/L BUN 84 H (9-20) mg/dL Creatinine 1.77 H (0.66-1.25) mg/dL Est GFR (CKD-EPI)AfAm 42 (>60 ml/min/1.73 sqM) Est GFR (CKD-EPI)NonAf 36 (>60 ml/min/1.73 sqM) Glucose 200 H (74-99) mg/dL Calcium 9.0 (8.4-10.2) mg/dL Magnesium (1.6-2.3) mg/dL Total Bilirubin 1.0 (0.2-1.3) mg/dL AST 44 (17-59) U/L ALT 41 (21-72) U/L Alkaline Phosphatase 91 (38-126) U/L Ammonia 44 H (<30) umol/L Troponin I (0.000-0.034) ng/mL NT-Pro-B Natriuret Pep pg/mL Total Protein 6.1 L (6.3-8.2) g/dL Albumin 3.2 L (3.5-5.0) g/dL 12/24/18 12/24/18 12/24/18 Range/Units 21:28 21:28 21:28 WBC (3.8-10.6) k/uL RBC (4.30-5.90) m/uL Hgb (13.0-17.5) gm/dL Hct (39.0-53.0) % MCV (80.0-100.0) fL MCH (25.0-35.0) pg MCHC (31.0-37.0) g/dL RDW (11.5-15.5) % Plt Count (150-450) k/uL Neutrophils % % Lymphocytes % % Monocytes % % Eosinophils % % Basophils % % Neutrophils # (1.3-7.7) k/uL Lymphocytes # (1.0-4.8) k/uL Monocytes # (0-1.0) k/uL Eosinophils # (0-0.7) k/uL Basophils # (0-0.2) k/uL PT 12.6 H (9.0-12.0) sec INR 1.2 H (<1.2) Sodium (137-145) mmol/L Potassium (3.5-5.1) mmol/L Chloride (98-107) mmol/L Carbon Dioxide (22-30) mmol/L Anion Gap mmol/L BUN (9-20) mg/dL Creatinine (0.66-1.25) mg/dL Est GFR (CKD-EPI)AfAm (>60 ml/min/1.73 sqM) Est GFR (CKD-EPI)NonAf (>60 ml/min/1.73 sqM) Glucose (74-99) mg/dL Calcium (8.4-10.2) mg/dL Magnesium 1.5 L (1.6-2.3) mg/dL Total Bilirubin (0.2-1.3) mg/dL AST (17-59) U/L ALT (21-72) U/L Alkaline Phosphatase (38-126) U/L Ammonia (<30) umol/L Troponin I 0.540 H* (0.000-0.034) ng/mL NT-Pro-B Natriuret Pep pg/mL Total Protein (6.3-8.2) g/dL Albumin (3.5-5.0) g/dL 12/24/18 Range/Units 21:28 WBC (3.8-10.6) k/uL RBC (4.30-5.90) m/uL Hgb (13.0-17.5) gm/dL Hct (39.0-53.0) % MCV (80.0-100.0) fL MCH (25.0-35.0) pg MCHC (31.0-37.0) g/dL RDW (11.5-15.5) % Plt Count (150-450) k/uL Neutrophils % % Lymphocytes % % Monocytes % % Eosinophils % % Basophils % % Neutrophils # (1.3-7.7) k/uL Lymphocytes # (1.0-4.8) k/uL Monocytes # (0-1.0) k/uL Eosinophils # (0-0.7) k/uL Basophils # (0-0.2) k/uL PT (9.0-12.0) sec INR (<1.2) Sodium (137-145) mmol/L Potassium (3.5-5.1) mmol/L Chloride (98-107) mmol/L Carbon Dioxide (22-30) mmol/L Anion Gap mmol/L BUN (9-20) mg/dL Creatinine (0.66-1.25) mg/dL Est GFR (CKD-EPI)AfAm (>60 ml/min/1.73 sqM) Est GFR (CKD-EPI)NonAf (>60 ml/min/1.73 sqM) Glucose (74-99) mg/dL Calcium (8.4-10.2) mg/dL Magnesium (1.6-2.3) mg/dL Total Bilirubin (0.2-1.3) mg/dL AST (17-59) U/L ALT (21-72) U/L Alkaline Phosphatase (38-126) U/L Ammonia (<30) umol/L Troponin I (0.000-0.034) ng/mL NT-Pro-B Natriuret Pep 8720 pg/mL Total Protein (6.3-8.2) g/dL Albumin (3.5-5.0) g/dL Disposition Clinical Impression: Systolic and diastolic CHF, acute on chronic, Ventricular fibrillation, ICD (implantable cardioverter-defibrillator) discharge Disposition: ADMITTED IP TO [facility] Condition: Serious Is patient prescribed a controlled substance at d/c from ED?: No Decision to Admit Reason: Admit from EC Decision Date: 12/24/18 Decision Time: 21:25
[2018-12-24] MEDS ORDERED: NALOXONE 0.4 MG/ML 1 ML VIAL IV PRN (21:25)
[2018-12-24] MEDS ORDERED: WARFARIN 2 MG TAB PO SCH (21:45)
[2018-12-24 21:51] LABS: Basophils % (A) 0 %; Eosinophils % (A) 0 %; HGB 13.9 gm/dL (13.0-17.5); Lymphocytes # (A) 0.8 k/uL (1.0-4.8); Lymphocytes % (A) 8 %; MCH 32.8 pg (25.0-35.0); MCHC 34.7 g/dL (31.0-37.0); MCV 94.6 fL (80.0-100.0); Mean Platelet Volume 6.5; Monocytes # (A) 0.6 k/uL (0-1.0); Monocytes % (A) 6 %; Neutrophils % (A) 83 %; Platelet Count 172 k/uL (150-450); RBC 4.23 m/uL (4.30-5.90); WBC 9.7 k/uL (3.8-10.6)
[2018-12-24 21:52] LABS: INR 1.2 (<1.2); Prothrombin Time 12.6 sec (9.0-12.0)
[2018-12-24 21:56] LABS: Albumin 3.2 g/dL (3.5-5.0); Potassium 2.8 mmol/L (3.5-5.1); Total Protein 6.1 g/dL (6.3-8.2)
[2018-12-24] MEDS ORDERED: POTASSIUM CHLORIDE ER 20 MEQ TAB.ER PO STA (22:13)
[2018-12-24] MEDS ORDERED: POTASSIUM CHLORIDE 20 MEQ in WATER FOR INJECTION 1 100ML.BAG IVPB STA (22:13)
[2018-12-24 22:39] LABS: Glucose,Whole Blood 209 mg/dL (75-99)
[2018-12-24 22:49] LABS: Appearance,Urine Turbid (Clear); Bacteria,Urine Many /hpf; Bilirubin,Urine Negative (Negative); Blood,Urine Moderate (Negative); Color,Urine Yellow; Glucose,Urine (UA) Negative (Negative); Hyaline Casts,Urine 111 /lpf (0-2); Ketones,Urine Negative (Negative); Leukocyte Esterase,Urine Large (Negative); Nitrite,Urine Positive (Negative); PH, Urine 6.5 (5.0-8.0); Protein,Urine 2+ (Negative); Squamous Epithelial Cell,Urine 3 /hpf (0-4); Urobilinogen,Urine <2.0 mg/dL (<2.0)
[2018-12-24 22:57] LABS: RBC,Urine >182 /hpf (0-5); Specific Gravity,Urine 1.011 (1.001-1.035)
[2018-12-24] MEDS ORDERED: cefTRIAXone IN SWFI 1,000 MG/10 ML SYRINGE IVP STA (23:25)
[2018-12-24] MEDS: INSULIN ASPART (NovoLOG) 100 UNIT/ML VIAL SQ SCH (23:37)
[2018-12-24] MEDS: MAGNESIUM SULFATE-D5W PMX 1 GM in DEXTROSE/WATER 1 100ML.BAG IVPB SCH (23:38)
[2018-12-25] MEDS: MAGNESIUM SULFATE-D5W PMX 1 GM in DEXTROSE/WATER 1 100ML.BAG IVPB SCH (00:59)
[2018-12-25] MEDS: [UNRECOGNIZED DRUG - OTHER] IV SCH ×2 (01:00→20:38)
[2018-12-25 04:48] LABS: Basophils # (A) 0.1 k/uL (0-0.2); Basophils % (A) 1 %; Eosinophils # (A) 0.1 k/uL (0-0.7); Eosinophils % (A) 1 %; HCT 42.5 % (39.0-53.0); HGB 13.9 gm/dL (13.0-17.5); Lymphocytes # (A) 1.2 k/uL (1.0-4.8); Lymphocytes % (A) 15 %; MCH 31.3 pg (25.0-35.0); MCHC 32.7 g/dL (31.0-37.0); Mean Platelet Volume 6.8; Monocytes # (A) 0.6 k/uL (0-1.0); Monocytes % (A) 8 %; Neutrophils # (A) 5.7 k/uL (1.3-7.7); Neutrophils % (A) 71 %; Platelet Count 235 k/uL (150-450); RBC 4.43 m/uL (4.30-5.90); RDW 14.8 % (11.5-15.5)
[2018-12-25 04:57] LABS: Calcium 9.2 mg/dL (8.4-10.2); Potassium 3.2 mmol/L (3.5-5.1)
[2018-12-25] MEDS: LEVOTHYROXINE 88 MCG TAB PO SCH (05:58)
[2018-12-25 07:02] LABS: Glucose,Whole Blood 134 mg/dL (75-99)
[2018-12-25] MEDS: INSULIN ASPART (NovoLOG) 100 UNIT/ML VIAL SQ SCH ×4 (07:12→20:29)
[2018-12-25] MEDS ORDERED: INSULIN ASPART (NovoLOG) 100 UNIT/ML VIAL SQ SCH (07:30)
[2018-12-25] MEDS ORDERED: Potassium Replacement Protocol 1 EACH MISC MISCELLANE PRN (08:52)
[2018-12-25] MEDS: ASPIRIN 81 MG PO SCH (09:33)
[2018-12-25] MEDS: MEXILETINE 150 MG CAP PO SCH ×2 (09:33→15:41)
[2018-12-25] MEDS: FERROUS SULFATE 325 MG TAB PO SCH ×2 (09:33→20:38)
[2018-12-25] MEDS: TAMSULOSIN 0.4 MG CAP.ER.24H PO SCH (09:33)
[2018-12-25] MEDS: HYDROcodone/APAP 5-325MG 1 EACH TAB PO PRN (09:33)
[2018-12-25] MEDS: LACTULOSE 20 GM/30 ML CUP PO SCH ×2 (09:33→20:37)
[2018-12-25] MEDS: POTASSIUM CHLORIDE ER 20 MEQ TAB.ER PO SCH ×2 (09:34→11:00)
[2018-12-25] MEDS: POLYETHYLENE GLYCOL 3350 17 GM POWD.PACK PO SCH (09:34)
[2018-12-25] MEDS: BUMETANIDE 1 MG TAB PO SCH ×2 (09:37→20:38)
[2018-12-25 10:00] LABS: INR 1.2 (<1.2); Prothrombin Time 12.2 sec (9.0-12.0)
[2018-12-25 11:57] LABS: Glucose,Whole Blood 189 mg/dL (75-99)
--- NOTE | 2018-12-25 12:30 | ECHOF ---
Referral Reason:CHF MEASUREMENTS -------- HEIGHT: 180.3 cm WEIGHT: 100.2 kg BP: 100/80 RVIDd: 3.2 cm (< 3.3) IVSd: 1.6 cm (0.6 - 1.1) LVIDd: 4.7 cm (3.9 - 5.3) LVPWd: 1.6 cm (0.6 - 1.1) IVSs: 2.1 cm LVIDs: 4.3 cm LVPWs: 2.0 cm LA Diam: 3.3 cm (2.7 - 3.8) LAESV Index (A-L): 29.41 ml/m Ao Diam: 3.9 cm (2.0 - 3.7) AV Cusp: 1.2 cm (1.5 - 2.6) MV EXCURSION: 16.074 mm (> 18.000) MV EF SLOPE: 30 mm/s (70 - 150) EPSS: 1.5 cm AV maxP.40 mmHg AV meanP.49 mmHg AR PHT: 2710 ms RAP: 15.00 mmHg RVSP: 53.76 mmHg FINDINGS -------- A-V paced rhythm. This was a technically difficult study with suboptimal views. The left ventricular size is normal. There is moderate concentric left ventricular hypertrophy. O verall left ventricular systolic function is severely impaired with, an EF between 20 - 25 %. The right ventricle is normal in size. LA is midly dilated 29-33ml/m2. The right atrium is normal in size. 5.0mg of Lumason was utilized for enhancement of images Interatrial and interventricular septum intact. There is mild aortic valve sclerosis. There is mild aortic regurgitation. There is moderate aorti c stenosis present. The mitral valve leaflets are mildly thickened. Mild mitral annular calcification present. Mild m itral regurgitation is present. Mild tricuspid regurgitation present. There is moderate pulmonary hypertension. The right ventric ular systolic pressure, as measured by Doppler, is 53.76mmHg. The pulmonic valve was not well visualized. The aortic root is dilated measuring 3.9cm. The inferior vena cava is dilated with poor inspiratory collapse which is consistent with estimated r ight atrial pressure of 15 mmHg. There is a small, generalized pericardial effusion present. CONCLUSIONS -------- 1. A-V paced rhythm. 2. This was a technically difficult study with suboptimal views. 3. The left ventricular size is normal. 4. There is moderate concentric left ventricular hypertrophy. 5. Overall left ventricular systolic function is severely impaired with, an EF between 20 - 25 %. 6. The right ventricle is normal in size. 7. LA is midly dilated 29-33ml/m2. 8. The right atrium is normal in size. 9. 5.0mg of Lumason was utilized for enhancement of images 10. Interatrial and interventricular septum intact. 11. There is mild aortic valve sclerosis. 12. There is mild aortic regurgitation. 13. There is moderate aortic stenosis present. 14. The mitral valve leaflets are mildly thickened. 15. Mild mitral annular calcification present. 16. Mild mitral regurgitation is present. 17. Mild tricuspid regurgitation present. 18. There is moderate pulmonary hypertension. 19. The right ventricular systolic pressure, as measured by Doppler, is 53.76mmHg. 20. The pulmonic valve was not well visualized. 21. The aortic root is dilated measuring 3.9cm. 22. The inferior vena cava is dilated with poor inspiratory collapse which is consistent with estimat ed right atrial pressure of 15 mmHg. 23. There is a small, generalized pericardial effusion present. POWDER HAND: Zelda Houser RDCS
--- NOTE | 2018-12-25 13:20 | CONS ---
CONSULTATION CHIEF COMPLAINT: Ventricular tachycardia. Jose G is a 78-year-old gentleman with history of cardiomyopathy with severe LV systolic dysfunction, coronary artery disease, persistent atrial fibrillation, and hypothyroidism who is currently on milrinone infusion and had been on it for the last two years and has an AICD. Initially presented to [facility] with significant pain at his urinary catheter. They evaluated it, repositioned it and during that time found that his defibrillator went off. Due to this, he had been transferred over to [facility]. The patient has chronic renal insufficiency and at the time of his presentation to [facility] had low potassium. His AICD had been evaluated. The patient had an episode of ventricular tachycardia that was treated with antitachycardia pacing. Since being admitted, patient is doing well and he has not had any further episodes of ventricular tachycardia or ventricular fibrillation. His troponins are slightly elevated at 0.5 and 0.5, probably related to the renal insufficiency. His BNP is elevated at 8720, which has been chronically elevated. I am starting the patient on mexiletine for the ventricular tachycardia he had. The patient states that he had taken amiodarone in the past and could not tolerate it. I am not quite sure what the problems were. PAST MEDICAL HISTORY: Significant for cardiomyopathy, hypothyroidism, chronic systolic heart failure status post AICD, and chronic persistent atrial fibrillation. CURRENT MEDICATIONS: Include milrinone drip, Coumadin, Flomax, Zaroxolyn, Synthroid, insulin, Hilham, Bumex, and aspirin. ALLERGIES: There are no known drug allergies. FAMILY HISTORY: Negative for premature coronary artery disease. SOCIAL HISTORY: Negative for current smoking, EtOH abuse, or drug abuse. REVIEW OF SYSTEMS: HEENT is unremarkable. CARDIAC: As described above. RESPIRATORY: As described above. GI: Negative. GENITOURINARY: Negative. ALLERGY/IMMUNOLOGY: Negative. SKIN: Negative. MUSCULOSKELETAL: Negative for arthritis. PSYCHOSOCIAL: Negative. ENDOCRINE: Negative. DERM: Negative. CONSTITUTIONAL: Negative. ONCOLOGICAL: Negative. ASSOCIATE MANAGER AFFILIATE MARKETING: Negative. EXAM: Patient is comfortable at rest. Heart rate is 60 beats per minute, blood pressure is 97/65, respiratory rate is 18, O2 sat is 96% on 2 liters. There is no jugular venous distention. Chest exam reveals good air entry bilaterally. Heart exam reveals first and second heart sounds, a systolic murmur is heard over in the left lower sternal border. Abdomen is soft. Exam of extremities reveals bilateral 1+ pitting edema. LABS: Show a hemoglobin of 13.9, platelet count is 235. Potassium is 3.2, BUN is 83, creatinine is 1.6. Trops are mildly elevated. BNP is elevated. ASSESSMENT: 1. Ventricular tachycardia status post antitachycardia pacing. 2. Chronic systolic heart failure. 3. Persistent atrial fibrillation. 4. Dilated cardiomyopathy with severe left ventricular dysfunction. PLAN: I am going to obtain a 2D echo on him to document his LV function. The patient had an echo done in July of this year that revealed an ejection fraction of 20% to 25%. I will continue the patient on the milrinone drip that he is on. Continue Coumadin to maintain an INR of 2 to 2.5. Start him on mexiletine. Continue the Zaroxolyn and Bumex that he is on. Not sure why the patient does not take beta blockers or CAROLINA inhibitors in the outpatient setting. I am going to review his records. SVITLANA / URMILA: [id number] /
[2018-12-25 16:37] LABS: Glucose,Whole Blood 223 mg/dL (75-99)
[2018-12-25] MEDS ORDERED: POTASSIUM CHLORIDE ER 20 MEQ TAB.ER PO SCH (18:00)
[2018-12-25] MEDS ORDERED: WARFARIN 5 MG TAB PO ONE (18:00)
[2018-12-25 20:10] LABS: Glucose,Whole Blood 245 mg/dL (75-99)
--- NOTE | 2018-12-25 23:11 | P.HPIM ---
History of Present Illness H&P Date: 12/25/18 Jose G Polk is a 78 yo M with history of nonischemic cardiomyopathy with AICD and permanent milrinone infusion, CKD4, who initially presented to an outside hospital due to urinary discomfort from his dubois. His dubois catheter was changed with resolution of his symptoms, but his AICD was interrogated and had shocked pt out of vfib multilple times. Due to this he was transferred here. He was recently admitted last week with renal failure and hyperammonemia and states his strength and tremors had been well controlled. He has not noticed any cardiac symptoms and urinary discomfort was his only complaint. In the ED he was hypokalemic, with chronically elevated trop to 0.5, BNP 8000, and NH3 44. Review of Systems All systems: negative Constitutional: Reports weakness, Denies chills, Denies fever Eyes: denies blurred vision, denies pain Ears, nose, mouth and throat: Denies headache, Denies sore throat Cardiovascular: Reports dyspnea on exertion, Denies chest pain, Denies palpitations, Denies shortness of breath Respiratory: Reports dyspnea, Denies cough Gastrointestinal: Denies abdominal pain, Denies diarrhea, Denies nausea, Denies vomiting Musculoskeletal: Denies myalgias Integumentary: Denies pruritus, Denies rash Neurological: Denies numbness, Denies weakness Psychiatric: Denies anxiety, Denies depression Endocrine: Denies fatigue, Denies weight change Past Medical History Past Medical History: Atrial Fibrillation, Asthma, Coronary Artery Disease (CAD), Cancer, Heart Failure, Diabetes Mellitus, Eye Disorder, Hypertension, Osteoarthritis (OA), Prostate Disorder, Renal Disease, Thyroid Disorder Additional Past Medical History / Comment(s): Chronic CHF, on mironone infusion, KAYLEY showed blood clot in heart, cardiomyopathy, uses oxygen prn at home, IDDM type II, neuropathy bilateral feet, L eye ocular stroke-decreased vision, CKD, anemia, BPH, chronic back pain, spinal stenosis, umbilical hernia, hypothyroid. History of Any Multi-Drug Resistant Organisms: None Reported Past Surgical History: Back Surgery, Heart Catheterization, Joint Replacement, Orthopedic Surgery, Pacemaker, Tonsillectomy Additional Past Surgical History / Comment(s): L upper chest picc line per pt, other picc lines, medipump, past kirby catheter per medical record-pt and spouse do not recall this, KAYLEY, CVN, cardiac cath x2, back surgery, bilateral carpal tunnel releases, bilateral total knee arthroplasties, total L shoulder arthroplasty, skin cancer removal, colonoscopy. Past Anesthesia/Blood Transfusion Reactions: No Reported Reaction Additional Past Anesthesia/Blood Transfusion Reaction / Comment(s): "I came out feeling like I was in another world'-with last cardiac procedure Type of Cardiac Device: Permanent Pacemaker Device Placement Date:: 01/2017 Past Psychological History: No Psychological Hx Reported Smoking Status: Never smoker Past Alcohol Use History: None Reported Past Drug Use History: None Reported - Past Family History Father Family Medical History: Congestive Heart Failure (CHF) Mother Family Medical History: Cancer Additional Family Medical History / Comment(s): Mother had esophageal cancer. Medications and Allergies Home Medications Medication Instructions Recorded Confirmed Type Ergocalciferol (Vitamin D2) 50,000 unit PO TUTH 10/23/15 12/24/18 History [Drisdol] Insulin Aspart [NovoLOG] See Protocol SQ ACHS PRN 04/12/17 12/24/18 History Insulin Glargine [Lantus] See Protocol SQ HS PRN 04/12/17 12/24/18 History Levothyroxine Sodium [Synthroid] 88 mcg PO DAILY 05/19/17 12/24/18 History Ferrous Sulfate [Iron (65 MG 325 mg PO BID 12/11/18 12/24/18 History Elemental)] Aspirin 81 mg PO DAILY chew 12/19/18 12/24/18 Rx Lactulose [Cephulac] 30 gm PO BID #900 ml 12/19/18 12/24/18 Rx Metolazone [Zaroxolyn] 2.5 mg PO Q48H #1 tablet 12/19/18 12/24/18 Rx Polyethylene Glycol 3350 [Miralax] 17 gm PO DAILY powd.pack 12/19/18 12/24/18 Rx Tamsulosin [Flomax] 0.4 mg PO DAILY #30 cap 12/19/18 12/24/18 Rx Bumetanide [BUMEX] 2 mg PO BID 12/24/18 12/24/18 History HYDROcodone/APAP 5-325MG [Ligonier 1 tab PO Q6HR PRN 12/24/18 12/24/18 History 5-325] Milrinone Drip 1mg/Ml 1 dose IV CONTINUOUS 12/24/18 12/24/18 History Warfarin [Coumadin] 2 mg PO AC-SUPPER 12/24/18 12/24/18 History Allergies Allergy/AdvReac Type Severity Reaction Status Date / Time No Known Allergies Allergy Verified 12/24/18 20:00 Physical Exam Vitals: Vital Signs Temp Pulse Pulse Resp BP Pulse Ox 12/25/18 20:00 97.9 F 63 15 117/73 95 12/25/18 16:00 98.0 F 60 15 130/83 92 L 12/25/18 08:00 97.3 F L 60 16 112/74 92 L 12/25/18 04:00 97.5 F L 60 18 97/65 96 12/24/18 23:49 97.5 F L 62 15 100/80 96 Intake and Output 12/25/18 12/25/18 12/26/18 14:59 22:59 06:59 Intake Total 300 Output Total 775 215 Balance -475 -215 Intake: IV 50 Potassium Chloride 20 meq 50 In Water For Injection 1 100ml.bag @ 50 mls/hr IVPB ONCE STA Rx#: [id number] Oral 250 Output: Urine 775 215 Other: Voiding Method Indwelling Catheter Indwelling Catheter General: well nourished, well developed, NAD. Obese. Vitals reviewed Eyes: PERRL, EOMI, conjunctiva normal HENT: normocephalic, mucus membranes moist Neck: supple, no JVD Lungs: normal respiratory effort, no wheezes or rales CV: irregular rate, no murmur. Peripheral pulses 1+. Edema 1+ Abdomen: soft, nondistended, no organomegaly Lymph: no cervical or axillary LAD Skin: warm and dry. Results CBC & Chem 7: 12/25/18 04:03 12/25/18 15:22 Labs: Abnormal Lab Results - Last 24 Hours (Table) 12/25/18 12/25/18 12/25/18 Range/Units 04:03 04:03 07:00 PT (9.0-12.0) sec INR (<1.2) Sodium 131 L (137-145) mmol/L Potassium 3.2 L (3.5-5.1) mmol/L Chloride 82 L (98-107) mmol/L Carbon Dioxide 41 H* (22-30) mmol/L BUN 83 H (9-20) mg/dL Creatinine 1.64 H (0.66-1.25) mg/dL Glucose 178 H (74-99) mg/dL POC Glucose (mg/dL) 134 H (75-99) mg/dL Troponin I 0.503 H* (0.000-0.034) ng/mL 12/25/18 12/25/18 12/25/18 Range/Units 09:28 09:36 11:56 PT 12.2 H (9.0-12.0) sec INR 1.2 H (<1.2) Sodium (137-145) mmol/L Potassium (3.5-5.1) mmol/L Chloride (98-107) mmol/L Carbon Dioxide (22-30) mmol/L BUN (9-20) mg/dL Creatinine (0.66-1.25) mg/dL Glucose (74-99) mg/dL POC Glucose (mg/dL) 189 H (75-99) mg/dL Troponin I 0.498 H* (0.000-0.034) ng/mL 12/25/18 12/25/18 Range/Units 16:34 20:09 PT (9.0-12.0) sec INR (<1.2) Sodium (137-145) mmol/L Potassium (3.5-5.1) mmol/L Chloride (98-107) mmol/L Carbon Dioxide (22-30) mmol/L BUN (9-20) mg/dL Creatinine (0.66-1.25) mg/dL Glucose (74-99) mg/dL POC Glucose (mg/dL) 223 H 245 H (75-99) mg/dL Troponin I (0.000-0.034) ng/mL Microbiology - Last 24 Hours (Table) 12/24/18 22:00 Urine Culture - Preliminary Urine,Voided Thrombosis Risk Factor Assmnt - Choose All That Apply Any of the Below Risk Factors Present?: Yes Each Factor Represents 1 point: Heart failure (<1month), Medical pt on bed rest Each Risk Factor Represents 3 Points: Age 75 years or older Thrombosis Risk Factor Assessment Total Risk Factor Score: 5 Thrombosis Risk Factor Assessment Level: High Risk Assessment and Plan (1) ICD (implantable cardioverter-defibrillator) discharge Current Visit: Yes Status: Acute Code(s): Z45.02 - ENCNTR FOR ADJUST AND MGMT OF AUTOMATIC IMPLNTBL CARD DEFIB SNOMED Code(s): 443360781 (2) Systolic and diastolic CHF, acute on chronic Current Visit: Yes Status: Acute Code(s): I50.43 - ACUTE ON CHRONIC COMBINED SYSTOLIC AND DIASTOLIC HRT FAIL SNOMED Code(s): 318816158259451 (3) Ventricular fibrillation Current Visit: Yes Status: Acute Code(s): I49.01 - VENTRICULAR FIBRILLATION SNOMED Code(s): 95843407 (4) Acute on chronic systolic CHF (congestive heart failure) Current Visit: No Status: Acute Code(s): I50.23 - ACUTE ON CHRONIC SYSTOLIC (CONGESTIVE) HEART FAILURE SNOMED Code(s): 648057061 (5) Coronary artery disease Current Visit: No Status: Acute Code(s): I25.10 - ATHSCL HEART DISEASE OF [place] CORONARY ARTERY W/O ANG PCTRS SNOMED Code(s): 47466293 (6) Demand ischemia Current Visit: No Status: Acute Code(s): I24.8 - OTHER FORMS OF ACUTE ISCHEMIC HEART DISEASE SNOMED Code(s): 807379822 Plan: 1. Ventricular tachycardia. Cardiology consult 2. Acute on chronic systolic CHF. Continue home medications 3. Cardiomyopathy. Continue milrinone infusion 4. Permanent atrial fibrillation. Continue coumadin 5. CKD 4. Continue 1 mg bumex bid. Nephrology consult 6. Electrolyte derangements. Replete prn
--- NOTE | 2018-12-25 23:40 | CONS ---
CONSULTATION REASON FOR CONSULT: Renal failure. HISTORY OF PRESENT ILLNESS: Patient is a 78-year-old male with a history of chronic kidney disease NKF stage 3, with baseline creatinine about 1.6-1.7 mg/dL. More recently serum creatinine had been as low as 1.3 on 12/17/2018. Currently patient has an indwelling Banegas catheter. He initially presented to [facility] with pain around his penis. The Banegas catheter was changed at [facility] and patient did develop an episode of syncope. He was found to be in ventricular tachycardia. The patient's defibrillator was evaluated and therefore he was transferred over to [facility]. He denies any chest pains or shortness of breath currently. Renal function seems to be at baseline. The patient is maintained on oral diuretics. PAST MEDICAL HISTORY: Significant for CKD, atrial fibrillation, asthma, coronary artery disease, type 2 diabetes, hypertension, osteoarthritis, BPH, CHF, cardiomyopathy, neuropathy, chronic anemia with an anemia of chronic disease, BPH, spinal stenosis. PAST SURGICAL HISTORY: Back surgery, cardiac catheterization, pacemaker placement, tonsillectomy, KAYLEY, cardiac catheterization, carpal tunnel releases, bilateral knee arthroplasty, removal of skin cancer, colonoscopy. SOCIAL HISTORY: Negative for smoking, drug abuse or alcohol. MEDICATIONS AT HOME: Prior to admission included: Vitamin D, magnesium, Zyloprim, insulin, Zaroxolyn, Synthroid, Lexapro, potassium, Bumex, Coumadin, and iron. ALLERGIES: None. EXAMINATION: Patient is comfortable, awake. He is not in any acute distress. Blood pressure this morning was 112/74. Patient is afebrile. Heart rate 60 per minute. Examination of the heart S1, S2. Examination of the lungs, bilateral breath sounds are heard. Decreased breath sounds at bases. Abdomen is soft, nontender. Examination of lower extremities shows no significant edema. DEALER SALES MANAGER exam grossly intact. LABS: Show sodium 131, potassium 3.2, chloride 82, CO2 is 41, BUN 83, creatinine 1.6. Troponin 0.5. UA shows more than 182 WBCs. ASSESSMENT: 1. Chronic kidney disease, NKF stage 3, secondary to diabetic nephropathy. Renal function close to baseline. 2. History of congestive heart failure and cardiomyopathy, ejection fraction 20-25%. Continue with current dose of diuretics. 3. Metabolic alkalosis secondary to diuresis. 4. Cardiac dysrhythmia with ventricular tachycardia, started on mexiletine by Cardiology. 5. Persistent atrial fibrillation. PLAN: Continue current dose of diuretics. Okay to add low-dose CAROLINA inhibitors from Nephrology standpoint. Renal function is fairly stable. Replace potassium. MMODL / IJN: [id number] /
[2018-12-26] MEDS: MEXILETINE 150 MG CAP PO SCH ×3 (00:38→17:12)
[2018-12-26] MEDS: HYDROcodone/APAP 5-325MG 1 EACH TAB PO PRN (01:30)
[2018-12-26 04:54] VITALS: TEMP 97.9
[2018-12-26 05:04] LABS: INR 1.1 (<1.2); Prothrombin Time 11.8 sec (9.0-12.0)
[2018-12-26 05:07] LABS: Calcium 9.3 mg/dL (8.4-10.2); Potassium 3.4 mmol/L (3.5-5.1)
[2018-12-26] MEDS: LEVOTHYROXINE 88 MCG TAB PO SCH (06:17)
[2018-12-26 06:51] LABS: Glucose,Whole Blood 209 mg/dL (75-99)
[2018-12-26] MEDS: INSULIN ASPART (NovoLOG) 100 UNIT/ML VIAL SQ SCH ×3 (06:55→17:12)
[2018-12-26] MEDS ORDERED: METOLAZONE 5 MG TAB PO SCH (09:00)
[2018-12-26] MEDS: POTASSIUM CHLORIDE ER 20 MEQ TAB.ER PO SCH ×2 (10:19→12:46)
[2018-12-26] MEDS: BUMETANIDE 1 MG TAB PO SCH (10:19)
[2018-12-26] MEDS: ASPIRIN 81 MG PO SCH (10:19)
[2018-12-26] MEDS: LACTULOSE 20 GM/30 ML CUP PO SCH (10:20)
[2018-12-26] MEDS: FERROUS SULFATE 325 MG TAB PO SCH (10:20)
[2018-12-26] MEDS: POLYETHYLENE GLYCOL 3350 17 GM POWD.PACK PO SCH (10:21)
[2018-12-26] MEDS: TAMSULOSIN 0.4 MG CAP.ER.24H PO SCH (10:21)
[2018-12-26] MEDS ORDERED: INSULIN DETEMIR (LEVEMIR) 100 UNIT/ML SYR SQ SCH (11:00)
[2018-12-26 12:00] LABS: Glucose,Whole Blood 223 mg/dL (75-99)
--- NOTE | 2018-12-26 13:20 | PN ---
PROGRESS NOTE Jose G is a 78-year-old gentleman who was admitted to the hospital with ventricular tachycardia, has been doing well since yesterday. Did not have any further episodes of V tach. He denies chest pain or difficulty in breathing and insists on going home. He has cardiomyopathy with class 4 congestive heart failure and is currently on a Primacor drip that he manages from home and from [facility]. At the time of my evaluation this morning, he is comfortable at rest. The patient is on Coumadin for atrial fibrillation. INR is subtherapeutic and he has a way to check his INRs at home and adjust Coumadin doses. On exam, he is comfortable at rest. Heart rate is 64 beats per minute. Blood pressure is 108/87. Respiratory rate is 18. Afebrile. Chest exam reveals diminished air entry at the bases. Heart exam reveals first and second heart sounds. A systolic murmur at the left lower sternal border. Abdomen is soft. Examination of extremities reveals bilateral 1+ pitting edema. LABS: Labs show potassium is 3.4, BUN is 88, creatinine is 1.7. ASSESSMENT: 1. Ventricular tachycardia. 2. Chronic systolic heart failure. 3. Persistent atrial fibrillation. PLAN: Please supplement the potassium. Continue Coumadin. Monitor INRs in the outpatient setting. Continue the mexiletine. MMODL / IJN: [id number] /
--- NOTE | 2018-12-26 16:02 | P.PN ---
Subjective Progress Note Date: 12/26/18 Jose G Polk is a 78 yo M with history of nonischemic cardiomyopathy with AICD and permanent milrinone infusion, CKD4, who initially presented to an outside hospital due to urinary discomfort from his dubois. His dubois catheter was changed with resolution of his symptoms, but his AICD was interrogated and had shocked pt out of vfib multilple times. Due to this he was transferred here. He was recently admitted last week with renal failure and hyperammonemia and states his strength and tremors had been well controlled. He has not noticed any cardiac symptoms and urinary discomfort was his only complaint. In the ED he was hypokalemic, with chronically elevated trop to 0.5, BNP 8000, and NH3 44. 12/26/2018 evaluated by cardiology, maintained on Mexiletine, no further runs of V. tach reported. Continues on permanent milrinone infusion .Telemetry atrial flutter heart rate in the 60s. Anticoagulated on Coumadin, INR 1.1. Denies any chest pain, palpitations or shortness of breath, sitting up in chair, comfortable. Maintained on BUMEX as per nephrology. Creatinine currently 1.71. Potassium 3.4, currently receiving supplementation. Sodium 132. Blood Sugars in the low 200s. Afebrile, urine culture pending. Denies chest pain, palpitations or increased shortness of breath. Objective - Vital Signs Vital signs: Vital Signs Temp 97.9 F 12/26/18 04:00 Pulse 64 12/26/18 04:00 Resp 18 12/26/18 04:00 BP 108/87 12/26/18 04:00 Pulse Ox 95 12/26/18 04:00 Intake & Output 12/25/18 12/26/18 12/26/18 18:59 06:59 18:59 Intake Total 300 150 150 Output Total 990 900 600 Balance -690 -750 -450 Weight 100.6 kg Intake: IV 50 Potassium Chloride 20 meq 50 In Water For Injection 1 100ml.bag @ 50 mls/hr IVPB ONCE STA Rx#: [id number] Oral 250 150 150 Output: Urine 990 900 600 Other: Voiding Method Indwelling Catheter Indwelling Catheter - Exam General: Sitting up in chair, well nourished, well developed, NAD. Eyes: PERRL, EOMI, conjunctiva normal. HENT: normocephalic, mucus membranes moist Neck: supple, no JVD Lungs: normal respiratory effort, no wheezes or rales CV: irregular rate, no murmur. Peripheral pulses 1+. Edema 1+ Abdomen: soft, nondistended, no organomegaly Lymph: no cervical or axillary LAD Skin: warm and dry. - Labs CBC & Chem 7: 12/25/18 04:03 12/26/18 04:10 Labs: Abnormal Lab Results - Last 24 Hours (Table) 12/25/18 12/25/18 12/26/18 Range/Units 16:34 20:09 04:10 Sodium 132 L (137-145) mmol/L Potassium 3.4 L (3.5-5.1) mmol/L Chloride 83 L (98-107) mmol/L Carbon Dioxide 38 H (22-30) mmol/L BUN 88 H (9-20) mg/dL Creatinine 1.71 H (0.66-1.25) mg/dL Glucose 152 H (74-99) mg/dL POC Glucose (mg/dL) 223 H 245 H (75-99) mg/dL Ammonia (<30) umol/L 12/26/18 12/26/18 12/26/18 Range/Units 04:10 06:50 11:59 Sodium (137-145) mmol/L Potassium (3.5-5.1) mmol/L Chloride (98-107) mmol/L Carbon Dioxide (22-30) mmol/L BUN (9-20) mg/dL Creatinine (0.66-1.25) mg/dL Glucose (74-99) mg/dL POC Glucose (mg/dL) 209 H 223 H (75-99) mg/dL Ammonia 46 H (<30) umol/L Microbiology - Last 24 Hours (Table) 12/24/18 22:00 Urine Culture - Preliminary Urine,Voided Assessment and Plan Assessment: (1) ICD (implantable cardioverter-defibrillator) discharge Current Visit: Yes Status: Acute Code(s): Z45.02 - ENCNTR FOR ADJUST AND MGMT OF AUTOMATIC IMPLNTBL CARD DEFIB SNOMED Code(s): 266096461 (2) Systolic and diastolic CHF, acute on chronic Current Visit: Yes Status: Acute Code(s): I50.43 - ACUTE ON CHRONIC COMBINED SYSTOLIC AND DIASTOLIC HRT FAIL SNOMED Code(s): 336576925707601 (3) Ventricular fibrillation Current Visit: Yes Status: Acute Code(s): I49.01 - VENTRICULAR FIBRILLATION SNOMED Code(s): 03896097 (4) Acute on chronic systolic CHF (congestive heart failure) Current Visit: No Status: Acute Code(s): I50.23 - ACUTE ON CHRONIC SYSTOLIC (CONGESTIVE) HEART FAILURE SNOMED Code(s): 410581335 (5) Coronary artery disease Current Visit: No Status: Acute Code(s): I25.10 - ATHSCL HEART DISEASE OF NA TIVE CORONARY ARTERY W/O ANG PCTRS SNOMED Code(s): 77843052 (6) Demand ischemia Current Visit: No Status: Acute Code(s): I24.8 - OTHER FORMS OF ACUTE ISCHEMIC HEART DISEASE SNOMED Code(s): 148910669 (7) paroxysmal a-flutter, typical (8) chronic persistent atrial fibrillation (9) chronic kidney disease, stage IV Plan: Continue on current medication regime ,monitoring and symptomatic treatment. Diuretics as per nephrology. Potassium replacement as ordered. Close monitoring of renal function and electrolytes with repeat labs ordered for a.m. Anticoagulated on Coumadin with Daily PT/INR. DC Dubois catheter, post void residuals .Final Urine culture pending. The impression and plan of care has been dictated as directed. : I performed a history and examination of this patient, discussed the same with the dictator. I agree with the dictator's note ,documented as a scribe. Any additional findings or plans will be noted.
[2018-12-26 17:04] LABS: Glucose,Whole Blood 150 mg/dL (75-99)
[2018-12-26] MEDS ORDERED: WARFARIN 5 MG TAB PO ONE (18:00)
[2018-12-26 18:18] VITALS: BP 105/73; PULSE 60; RESP 15
--- NOTE | 2018-12-26 18:53 | PN ---
PROGRESS NOTE Patient was seen this morning. He is comfortable, not in any acute distress. This morning blood pressure was 108/87, heart rate 64 per minute. Patient is afebrile. EXAMINATION OF THE HEART: S1 and S2. EXAMINATION OF LUNGS: Decreased breath sounds at bases. ABDOMEN: Soft, non-tender. Examination of lower extremities shows edema trace bilaterally. BROKER IN CHARGE exam is grossly intact. Labs show sodium 132, potassium 3.4, BUN 88, creatinine 1.7. ASSESSMENT: 1. Chronic kidney disease, NKF stage III, secondary to diabetic nephropathy. Renal function fairly stable. 2. Cardiac dysrhythmia, ventricular tachycardia, status post exploration of pacemaker. 3. History of congestive heart failure, systolic heart failure and cardiomyopathy; ejection fraction 20% to 25%. Maintained on diuretics. 4. Metabolic alkalosis secondary to diuretics. 5. Persistent atrial fibrillation. PLAN: Replace potassium. Continue current dose of Bumex and Zaroxolyn. Repeat labs in a.m. MMODL / IJN: [id number] /
--- NOTE | 2019-01-02 12:36 | CDI ---
Documentation Clarification Form Date: 01/02/2019 12:21:00 PM From: Liza Spencer Phone: If you have a question about this query, please contact Roselia Viera Hog Operator at [phone] between 8am and 5pm. Admit Date: 12/24/2018 9:38:00 PM Patient Name: Jose G Polk Visit Number: [id number] Discharge Date: 12/26/2018 6:38:00 PM ATTENTION: The Clinical Documentation Specialists (CDI) and [facility] Coding Staff appreciate your assistance in clarifying documentation. Please respond to the clarification below the line at the bottom and electronically sign. The CDI & [facility] Coding staff will review the response and follow-up if needed. Please note: Queries are made part of the Legal Health Record. If you have any questions, please contact the author of this message via ITS. Dr. Scott Bui Patient found to have UTI. Patient presented with indwelling Dubois catheter. Please clarify if UTI was due to dubois catheter. History/Risk Factors: Patient had dubois replaced at [facility] due to pain prior to admit to [facility]. . Urine culture: Staph aureus Treatment: Rochephin In your professional opinion, can you please clarify the etiology of the UTI, if known? Dubois catheter UTI not related to catheter/urostomy Other condition, please specify Unable to determine: Dubois catheter UTI MTDD
== END 2018-12-26 18:38 | disposition home or self-care (01) | DRG 308 ==
LOC: EC 18:58 → 2SICU 21:38
PROVIDERS: ADMIT Family Medicine; ATTEND Family Medicine
DX: I47.2 Ventricular tachycardia (principal); I50.43 Acute on chronic combined systolic (congestive) and diastolic (congestive) heart failure; T83.511A Infection and inflammatory reaction due to indwelling urethral catheter, initial encounter; I42.0 Dilated cardiomyopathy; N18.4 Chronic kidney disease, stage 4 (severe); N39.0 Urinary tract infection, site not specified; E87.3 Alkalosis; I13.0 Hypertensive heart and chronic kidney disease with heart failure and stage 1 through stage 4 chronic kidney disease, or unspecified chronic kidney disease; I24.8 Other forms of acute ischemic heart disease; I48.3 Typical atrial flutter; I49.01 Ventricular fibrillation; I48.21 Permanent atrial fibrillation; D63.8 Anemia in other chronic diseases classified elsewhere; E03.9 Hypothyroidism, unspecified; E11.22 Type 2 diabetes mellitus with diabetic chronic kidney disease; E11.40 Type 2 diabetes mellitus with diabetic neuropathy, unspecified; T50.2X5A Adverse effect of carbonic-anhydrase inhibitors, benzothiadiazides and other diuretics, initial encounter; E87.6 Hypokalemia; H54.7 Unspecified visual loss; I25.10 Atherosclerotic heart disease of native coronary artery without angina pectoris; J45.909 Unspecified asthma, uncomplicated; K42.9 Umbilical hernia without obstruction or gangrene; Z79.01 Long term (current) use of anticoagulants; Z79.4 Long term (current) use of insulin; Z79.82 Long term (current) use of aspirin; Z79.890 Hormone replacement therapy; Z79.899 Other long term (current) drug therapy; Z80.0 Family history of malignant neoplasm of digestive organs; Z82.49 Family history of ischemic heart disease and other diseases of the circulatory system; Z96.653 Presence of artificial knee joint, bilateral; Z86.73 Personal history of transient ischemic attack (TIA), and cerebral infarction without residual deficits; Z45.02 Encounter for adjustment and management of automatic implantable cardiac defibrillator; Z96.612 Presence of left artificial shoulder joint; G89.29 Other chronic pain; M48.00 Spinal stenosis, site unspecified; R33.9 Retention of urine, unspecified; N40.1 Benign prostatic hyperplasia with lower urinary tract symptoms
CPT/HCPCS: 36415; 80048; 80053; 81001; 82140; 83735; 83880; 84132; 84443; 84484; 85025; 85610; 87077; 87086; 87186; 93005; 93306; 99285

== ENCOUNTER 2019-01-01 13:31 | Inpatient (IN) | payer MEDICARE, BC ==
[2019-01-01] MEDS ORDERED: NALOXONE 0.4 MG/ML 1 ML VIAL IV PRN (15:14)
--- NOTE | 2019-01-01 15:15 | ED ---
General Adult HPI - General Chief complaint: Shortness of Breath Stated complaint: SOB Time Seen by Provider: 01/01/19 15:07 Source: EMS Mode of arrival: EMS Limitations: no limitations - History of Present Illness Initial comments: The patient is a 78-year-old male with past history of A. fib, coronary artery disease and cardiomyopathy on a milrinone drip who presents to the emergency department with lower extremity swelling. The patient was recently hospitalized at this facility as his defibrillator went off on him. He does see Dr. Olmstead in office. They adjusted his medications during last hospitalization. They increased his metolazone and Bumex. Reports that with the increase in diuretics he continues to have worsening lower extremity edema. He also developed weakness, upper extremity tremor and constipation. He is on lactulose for hyperammonemia. He went into [facility] with these complaints. They found his ammonia to be 85. They called and discussed this with Dr. Olmstead who recommended transfer to our facility in order to adjust his medications. He did provide him with 40 mg of Lasix prior to transfer. The patient arrives to the requesting his lactulose. States he's been constipated and has had lack of bowel movements. He does seem somewhat confused and is tremorous. He denies any headaches or visual changes. No falls. He was discharged home after his hospitalization. There are no other alleviating, precipitating or modifying factors - Related Data Home Medications Medication Instructions Recorded Confirmed Ergocalciferol (Vitamin D2) 50,000 unit PO TUTH 10/23/15 01/01/19 [Drisdol] Insulin Aspart [NovoLOG] See Protocol SQ ACHS PRN 04/12/17 01/01/19 Insulin Glargine [Lantus] See Protocol SQ HS PRN 04/12/17 01/01/19 Levothyroxine Sodium [Synthroid] 88 mcg PO DAILY 05/19/17 01/01/19 Ferrous Sulfate [Iron (65 MG 325 mg PO BID 12/11/18 01/01/19 Elemental)] HYDROcodone/APAP 5-325MG [[place] 1 tab PO Q6HR PRN 12/24/18 01/01/19 5-325] Milrinone Drip 1mg/Ml 1 dose IV CONTINUOUS 12/24/18 01/01/19 Bumetanide 4 mg PO BID 01/01/19 01/01/19 Magnesium Oxide [Mag-Ox] 250 mg PO DAILY 01/01/19 01/01/19 Warfarin [Coumadin] 5 mg PO DAILY@1600 01/01/19 01/01/19 Previous Rx's Medication Instructions Recorded Aspirin 81 mg PO DAILY chew 12/19/18 Lactulose [Cephulac] 30 gm PO BID #900 ml 12/19/18 Metolazone [Zaroxolyn] 2.5 mg PO Q48H #1 tablet 12/19/18 Tamsulosin [Flomax] 0.4 mg PO DAILY #30 cap 12/19/18 Potassium Chloride [K-Tab ER] 20 meq PO DAILY #30 tablet.er 12/26/18 Allergies Allergy/AdvReac Type Severity Reaction Status Date / Time No Known Allergies Allergy Verified 01/01/19 13:32 Review of Systems ROS Statement: Those systems with pertinent positive or pertinent negative responses have been documented in the HPI. ROS Other: All systems not noted in ROS Statement are negative. Past Medical History Past Medical History: Atrial Fibrillation, Asthma, Coronary Artery Disease (CAD), Cancer, Heart Failure, Diabetes Mellitus, Eye Disorder, Hypertension, Osteoarthritis (OA), Prostate Disorder, Renal Disease, Thyroid Disorder Additional Past Medical History / Comment(s): Chronic CHF, on mironone infusion, KAYLEY showed blood clot in heart, cardiomyopathy, uses oxygen prn at home, IDDM type II, neuropathy bilateral feet, L eye ocular stroke-decreased vision, CKD, anemia, BPH, chronic back pain, spinal stenosis, umbilical hernia, hypothyroid. History of Any Multi-Drug Resistant Organisms: None Reported Past Surgical History: Back Surgery, Heart Catheterization, Joint Replacement, Orthopedic Surgery, Pacemaker, Tonsillectomy Additional Past Surgical History / Comment(s): L upper chest picc line per pt, other picc lines, medipump, past kirby catheter per medical record-pt and spouse do not recall this, KAYLEY, CVN, cardiac cath x2, back surgery, bilateral carpal tunnel releases, bilateral total knee arthroplasties, total L shoulder arthroplasty, skin cancer removal, colonoscopy. Past Anesthesia/Blood Transfusion Reactions: No Reported Reaction Additional Past Anesthesia/Blood Transfusion Reaction / Comment(s): "I came out feeling like I was in another world'-with last cardiac procedure Type of Cardiac Device: Permanent Pacemaker Device Placement Date:: 01/2017 Past Psychological History: No Psychological Hx Reported Smoking Status: Never smoker Past Alcohol Use History: None Reported Past Drug Use History: None Reported - Past Family History Father Family Medical History: Congestive Heart Failure (CHF) Mother Family Medical History: Cancer Additional Family Medical History / Comment(s): Mother had esophageal cancer. General Exam Limitations: no limitations General appearance: alert, obese, other (shaky) Head exam: Present: atraumatic, normocephalic Eye exam: Present: normal appearance, PERRL ENT exam: Present: normal exam, mucous membranes dry Neck exam: Present: normal inspection. Absent: tenderness, meningismus Respiratory exam: Present: wheezes, rales. Absent: respiratory distress Cardiovascular Exam: Present: regular rate, normal rhythm GI/Abdominal exam: Present: soft. Absent: distended, tenderness, guarding, rebound, rigid Extremities exam: Present: pedal edema Neurological exam: Present: alert, oriented X3 Psychiatric exam: Present: anxious Skin exam: Present: warm, dry, intact Course Vital Signs 01/01/19 01/01/19 01/01/19 13:32 14:34 14:36 Temperature 98.2 F Pulse Rate 68 60 Pulse Rate [ Pulse Oximetery ] Respiratory 16 20 20 Rate Blood Pressure 142/72 105/68 Blood Pressure [Right Arm] O2 Sat by Pulse 98 98 Oximetry 01/01/19 01/01/19 01/01/19 15:33 15:44 16:45 Temperature 97.5 F L 97.8 F Pulse Rate 60 59 L Pulse Rate [ 60 Pulse Oximetery ] Respiratory 16 18 16 Rate Blood Pressure 98/72 112/75 Blood Pressure 118/41 [Right Arm] O2 Sat by Pulse 98 99 95 Oximetry EKG Findings - EKG Comments: EKG Findings:: EKG demonstrates significant baseline artifact. It is paced rhythm. Rate is a ventricular rate of 141 which is inaccurate. Rate looks closer to 60. No acute ST segment elevations. Pacemaker is pacing appropriately Medical Decision Making - Medical Decision Making Upon arrival the patient is placed into room 4. He is hooked to continuous pulse ox and cardiac monitoring. The patient remains on his milrinone drip. He is requesting his lactulose. I did provide him with 30 mg here and I reviewed his laboratory studies from the outside facility. I did call and discuss the case with Dr. Jacobs who accepted admission. He requested that I place case management on consult. I will repeat patient's laboratory studies at our facility. CBC was unremarkable. CMP shows a CO2 44, creatinine 1.7. This is the patient's baseline. Ammonia is 95. troponin is elevated at 0.553 which is also the patient's baseline. Review of the patient's chest x-ray done at [facility] reveals no acute findings. Bridging orders were placed. I will consult cardiology. Patient was transferred to the floor in stable condition - Lab Data Result diagrams: 01/02/19 05:56 01/02/19 05:56 Disposition Clinical Impression: Respiratory insufficiency, Tremor, Hyperammonemia, Systolic and diastolic CHF, acute on chronic Disposition: ADMITTED IP TO THIS [facility] Condition: Serious Is patient prescribed a controlled substance at d/c from ED?: No Decision to Admit Reason: Admit from EC Decision Date: 01/01/19 Decision Time: 15:14
[2019-01-01] MEDS ORDERED: LACTULOSE 20 GM/30 ML CUP PO STA (15:19)
[2019-01-01 15:41] LABS: Basophils # (A) 0.2 k/uL (0-0.2); Basophils % (A) 3 %; Eosinophils # (A) 0.1 k/uL (0-0.7); Eosinophils % (A) 1 %; HCT 44.2 % (39.0-53.0); Lymphocytes # (A) 1.2 k/uL (1.0-4.8); Lymphocytes % (A) 17 %; MCH 30.3 pg (25.0-35.0); MCHC 31.6 g/dL (31.0-37.0); MCV 95.9 fL (80.0-100.0); Mean Platelet Volume 6.9; Monocytes # (A) 0.5 k/uL (0-1.0); Monocytes % (A) 7 %; Neutrophils # (A) 4.8 k/uL (1.3-7.7); Neutrophils % (A) 68 %; Platelet Count 184 k/uL (150-450); RBC 4.61 m/uL (4.30-5.90); RDW 14.8 % (11.5-15.5)
[2019-01-01 15:46] LABS: Albumin 3.8 g/dL (3.5-5.0); Calcium 9.9 mg/dL (8.4-10.2); Potassium 3.8 mmol/L (3.5-5.1); Total Bilirubin 0.7 mg/dL (0.2-1.3); Total Protein 7.1 g/dL (6.3-8.2)
[2019-01-01] MEDS ORDERED: WARFARIN 5 MG TAB PO SCH (16:00)
[2019-01-01 17:33] LABS: Glucose,Whole Blood 76 mg/dL (75-99)
[2019-01-01] MEDS: MILRINONE 1 MG/ML IV SCH (17:43)
[2019-01-01] MEDS: HYDROcodone/APAP 5-325MG 1 EACH TAB PO PRN (18:09)
[2019-01-01 20:03] LABS: Glucose,Whole Blood 221 mg/dL (75-99)
[2019-01-01] MEDS: LACTULOSE 20 GM/30 ML CUP PO SCH (20:17)
[2019-01-01] MEDS: BUMETANIDE 1 MG TAB PO SCH (20:17)
[2019-01-01] MEDS: INSULIN ASPART (NovoLOG) 100 UNIT/ML VIAL SQ SCH (20:34)
[2019-01-02] MEDS: HYDROcodone/APAP 5-325MG 1 EACH TAB PO PRN ×4 (00:19→22:26)
[2019-01-02 04:48] LABS: Glucose,Whole Blood 221 mg/dL (75-99)
[2019-01-02 06:01] LABS: Glucose,Whole Blood 200 mg/dL (75-99)
[2019-01-02 06:23] LABS: Basophils # (A) 0.1 k/uL (0-0.2); Basophils % (A) 2 %; Eosinophils # (A) 0.1 k/uL (0-0.7); Eosinophils % (A) 1 %; HCT 42.4 % (39.0-53.0); Lymphocytes # (A) 1.2 k/uL (1.0-4.8); Lymphocytes % (A) 16 %; MCH 31.6 pg (25.0-35.0); MCV 95.9 fL (80.0-100.0); Mean Platelet Volume 6.8; Monocytes # (A) 0.7 k/uL (0-1.0); Monocytes % (A) 10 %; Neutrophils # (A) 4.9 k/uL (1.3-7.7); Neutrophils % (A) 67 %; Platelet Count 187 k/uL (150-450); RBC 4.42 m/uL (4.30-5.90); WBC 7.3 k/uL (3.8-10.6)
[2019-01-02] MEDS: INSULIN ASPART (NovoLOG) 100 UNIT/ML VIAL SQ SCH ×4 (06:26→20:33)
[2019-01-02] MEDS: LEVOTHYROXINE 88 MCG TAB PO SCH (06:27)
[2019-01-02 06:38] LABS: Calcium 9.4 mg/dL (8.4-10.2); Potassium 3.3 mmol/L (3.5-5.1)
[2019-01-02] MEDS ORDERED: INSULIN ASPART (NovoLOG) 100 UNIT/ML VIAL SQ SCH (07:30)
[2019-01-02] MEDS: LACTULOSE 20 GM/30 ML CUP PO SCH ×2 (08:39→17:41)
[2019-01-02] MEDS: TAMSULOSIN 0.4 MG CAP.ER.24H PO SCH (08:39)
[2019-01-02] MEDS: METOLAZONE 2.5 MG TAB PO SCH (08:39)
[2019-01-02] MEDS: BUMETANIDE 1 MG TAB PO SCH (08:39)
[2019-01-02] MEDS: ASPIRIN 81 MG PO SCH (08:39)
[2019-01-02] MEDS ORDERED: POTASSIUM CHLORIDE ER 20 MEQ TAB.ER PO SCH (09:00)
[2019-01-02 09:46] LABS: Prothrombin Time 19.5 sec (9.0-12.0)
[2019-01-02] MEDS ORDERED: POTASSIUM CHLORIDE ER 20 MEQ TAB.ER PO STA (10:47)
--- NOTE | 2019-01-02 11:39 | P.CRDCN ---
History of Present Illness Consult date: 01/02/19 Requesting physician: Scott Bui Consult reason: congestive heart failure Chief complaint: Shortness of breath History of present illness: This is a 78-year-old gentleman who follows with Dr. Olmstead in the office. He has a known history of cardiomyopathy with severe LV dysfunction, coronary artery disease, he has undergone 2 heart caths in the past, one in 2011 which revealed normal coronary arteries and again in 2016 which revealed a 20% mid LAD lesion. History also of hyperlipidemia, hypertension, diabetes, family history of premature coronary artery disease, nonischemic cardiomyopathy, persistent atrial fibrillation, prior pulmonary embolism, hypothyroidism, he currently has a PICC line in place with continuous milrinone infusion initiated at [facility] heart failure clinic 2 years ago, prior AICD implantation and chronic kidney disease. He had a recent hospitalization in November, presents to the hospital on this occasion with shortness of breath and significant peripheral edema. Blood pressure 117/56, heart rate in the 60s, 96% on room air. White blood cell count 7.3, hemoglobin 14, platelet count 187. ET 19.5 with an INR of 2.0. Sodium 133, potassium 3.3, BUN 102, creatinine 1.9, 109 and 1.7 on admission. Troponin 0.553. The patient and his both verbalized that he does not want to go to rehab, he actually wants to go home, they are asking about going home and with palliative care and ultimately hospice down the road. There is a transition care provided by [facility] similar to palliative care, our casework specialist is going to get in touch with them regarding this. Past Medical History Past Medical History: Atrial Fibrillation, Asthma, Coronary Artery Disease (CAD), Cancer, Heart Failure, Diabetes Mellitus, Eye Disorder, Hypertension, Osteoarthritis (OA), Prostate Disorder, Renal Disease, Thyroid Disorder Additional Past Medical History / Comment(s): Chronic CHF, on mironone infusion, KAYLEY showed blood clot in heart, cardiomyopathy, uses oxygen prn at home, IDDM type II, neuropathy bilateral feet, L eye ocular stroke-decreased vision, CKD, anemia, BPH, chronic back pain, spinal stenosis, umbilical hernia, hypothyroid. History of Any Multi-Drug Resistant Organisms: None Reported Past Surgical History: Back Surgery, Heart Catheterization, Joint Replacement, Orthopedic Surgery, Pacemaker, Tonsillectomy Additional Past Surgical History / Comment(s): L upper chest picc line per pt, other picc lines, medipump, past kirby catheter per medical record-pt and spouse do not recall this, KAYLEY, CVN, cardiac cath x2, back surgery, bilateral carpal tunnel releases, bilateral total knee arthroplasties, total L shoulder arthroplasty, skin cancer removal, colonoscopy. Past Anesthesia/Blood Transfusion Reactions: No Reported Reaction Additional Past Anesthesia/Blood Transfusion Reaction / Comment(s): "I came out feeling like I was in another world'-with last cardiac procedure Type of Cardiac Device: Permanent Pacemaker Device Placement Date:: 01/2017 Past Psychological History: No Psychological Hx Reported Smoking Status: Never smoker Past Alcohol Use History: None Reported Past Drug Use History: None Reported - Past Family History Father Family Medical History: Congestive Heart Failure (CHF) Mother Family Medical History: Cancer Additional Family Medical History / Comment(s): Mother had esophageal cancer. Medications and Allergies Home Medications Medication Instructions Recorded Confirmed Type Ergocalciferol (Vitamin D2) 50,000 unit PO TUTH 10/23/15 01/01/19 History [Drisdol] Insulin Aspart [NovoLOG] See Protocol SQ ACHS PRN 04/12/17 01/01/19 History Insulin Glargine [Lantus] See Protocol SQ HS PRN 04/12/17 01/01/19 History Levothyroxine Sodium [Synthroid] 88 mcg PO DAILY 05/19/17 01/01/19 History Ferrous Sulfate [Iron (65 MG 325 mg PO BID 12/11/18 01/01/19 History Elemental)] Aspirin 81 mg PO DAILY chew 12/19/18 01/01/19 Rx Lactulose [Cephulac] 30 gm PO BID #900 ml 12/19/18 01/01/19 Rx Metolazone [Zaroxolyn] 2.5 mg PO Q48H #1 tablet 12/19/18 01/01/19 Rx Tamsulosin [Flomax] 0.4 mg PO DAILY #30 cap 12/19/18 01/01/19 Rx HYDROcodone/APAP 5-325MG [[place] 1 tab PO Q6HR PRN 12/24/18 01/01/19 History 5-325] Milrinone Drip 1mg/Ml 1 dose IV CONTINUOUS 12/24/18 01/01/19 History Potassium Chloride [K-Tab ER] 20 meq PO DAILY #30 tablet.er 12/26/18 01/01/19 Rx Bumetanide 4 mg PO BID 01/01/19 01/01/19 History Magnesium Oxide [Mag-Ox] 250 mg PO DAILY 01/01/19 01/01/19 History Warfarin [Coumadin] 5 mg PO DAILY@1600 01/01/19 01/01/19 History Allergies Allergy/AdvReac Type Severity Reaction Status Date / Time No Known Allergies Allergy Verified 01/01/19 13:32 Physical Exam Vitals: Vital Signs Temp Pulse Pulse Resp BP BP Pulse Ox 01/02/19 08:35 97.5 F L 62 18 117/55 96 01/02/19 04:00 97.4 F L 99 18 115/71 100 01/02/19 00:00 98.4 F 65 18 126/63 95 01/01/19 19:50 97.5 F L 79 20 102/70 97 01/01/19 18:40 60 16 01/01/19 16:45 97.8 F 59 L 16 112/75 95 01/01/19 15:44 97.5 F L 60 18 118/41 99 01/01/19 15:33 60 16 98/72 98 01/01/19 14:36 20 01/01/19 14:34 60 20 105/68 98 01/01/19 13:32 98.2 F 68 16 142/72 98 Intake and Output 01/01/19 01/02/19 01/02/19 22:59 06:59 14:59 Intake Total 300 Output Total 881 Balance 300 -881 Intake: Oral 300 Output: Urine 880 Stool 1 Other: Voiding Method Indwelling Catheter Indwelling Catheter Indwelling Catheter Weight 103 kg PHYSICAL EXAMINATION: GENERAL: 77-year-old gentleman in no acute distress at the time of my examination HEENT: Head is atraumatic, normocephalic. Pupils equal, round. Sclera anicteric. Conjunctiva are clear. Mucous membranes of the mouth are moist. Neck is supple. There is elevated jugular venous pressure. No carotid bruit is heard. HEART EXAMINATION: Heart S1 and S2 irregularly irregular a systolic ejection murmur is heard at the apex CHEST EXAMINATION: Lungs reveal diminished air entry to bilateral bases ABDOMEN: [ Soft, obese, nontender. Bowel sounds are heard. Positive hepatomegal y EXTREMITIES: 2+ peripheral pulses with 2-3+ evidence of peripheral edema and no calf tenderness noted. NEUROLOGIC patient is awake, alert and oriented 3 Results 01/02/19 05:56 01/02/19 05:56 Cardiac Enzymes 01/01/19 01/01/19 Range/Units 15:20 15:20 AST 48 (17-59) U/L Troponin I 0.553 H* (0.000-0.034) ng/mL Coagulation 01/02/19 Range/Units 09:24 PT 19.5 H (9.0-12.0) sec CBC 01/01/19 01/02/19 Range/Units 15:20 05:56 WBC 7.0 7.3 (3.8-10.6) k/uL RBC 4.61 4.42 (4.30-5.90) m/uL Hgb 14.0 14.0 (13.0-17.5) gm/dL Hct 44.2 42.4 (39.0-53.0) % Plt Count 184 187 (150-450) k/uL Comprehensive Metabolic Panel 01/01/19 01/02/19 Range/Units 15:20 05:56 Sodium 136 L 133 L (137-145) mmol/L Potassium 3.8 3.3 L (3.5-5.1) mmol/L Chloride 85 L 82 L (98-107) mmol/L Carbon Dioxide 44 H* 41 H* (22-30) mmol/L BUN 109 H* 102 H* (9-20) mg/dL Creatinine 1.79 H 1.99 H (0.66-1.25) mg/dL Glucose 91 191 H (74-99) mg/dL Calcium 9.9 9.4 (8.4-10.2) mg/dL AST 48 (17-59) U/L ALT 28 (21-72) U/L Alkaline Phosphatase 74 (38-126) U/L Total Protein 7.1 (6.3-8.2) g/dL Albumin 3.8 (3.5-5.0) g/dL Current Medications Generic Name Dose Route Start Last Admin Trade Name Freq PRN Reason Stop Dose Admin Hydrocodone Bitart/Acetaminophen 1 each 01/01/19 15:18 01/02/19 06:27 [place] 5-325 PO 1 each Q6HR PRN Administration Moderate Pain Aspirin 81 mg 01/02/19 09:00 01/02/19 08:39 Aspirin PO 81 mg DAILY [facility] Administration Bumetanide 4 mg 01/01/19 21:00 01/02/19 08:39 Bumex PO 4 mg BID [facility] Administration Insulin Aspart 0 unit 01/01/19 21:00 01/02/19 06:26 Novolog SQ 2 unit ACHS [facility] Administration Protocol Lactulose 40 gm 01/02/19 18:00 Cephulac PO 0600,1800 [facility] Levothyroxine Sodium 88 mcg 01/02/19 06:30 01/02/19 06:27 Synthroid PO 88 mcg DAILY@0630 [facility] Administration Metolazone 2.5 mg 01/02/19 09:00 01/02/19 08:39 Zaroxolyn PO 2.5 mg Q48H [facility] Administration Naloxone HCl 0.2 mg 01/01/19 15:14 Narcan IV Q2M PRN Opioid Reversal Non-Formulary Medication 1 dose 01/01/19 15:30 01/01/19 17:43 Milrinone Drip 1mg/Ml IV Not Given CONTINUOUS [facility] Potassium Chloride 40 meq 01/03/19 09:00 K-Dur 20 PO DAILY [facility] Tamsulosin HCl 0.4 mg 01/02/19 09:00 01/02/19 08:39 Flomax PO 0.4 mg DAILY [facility] Administration Intake and Output 01/01/19 01/02/19 01/02/19 22:59 06:59 14:59 Intake Total 300 Output Total 881 Balance 300 -881 Intake: Oral 300 Output: Urine 880 Stool 1 Other: Voiding Method Indwelling Catheter Indwelling Catheter Indwelling Catheter Weight 103 kg 01/02/19 05:56 01/02/19 05:56 EKG Interpretations (text) EKG shows atrial fibrillation with a controlled ventricular response, occasional PVC Assessment and Plan Plan: Assessment and plan #1 systolic congestive heart failure acute on chronic, on chronic milrinone infusion #2 nonischemic cardiomyopathy with prior AICD implantation #3 hypertension #4 diabetes #5 hyperlipidemia #6 hypothyroidism #7 acute on chronic kidney disease #8 abnormal troponin, likely secondary to kidney disease #9 prior PE #10 chronic persistent atrial fibrillation/flutter, on Coumadin for anticoagulation, INR 2.1 #11 near syncopal episodes, appears to be micturition syncope, acute urinary retention #12 abnormality in troponin, likely secondary to chronic kidney disease #13 frequent falls with associated weakness, acute metabolic encephalopathy and acute uremia #14 history of PE Plan We'll discontinue the oral diuretics and start the patient on IV Bumex. Social work and case management are also looking into palliative/hospice care for the patient. We will continue to follow. DNP note has been reviewed, I agree with a documented findings and plan of care. Patient was seen and examined.
[2019-01-02 11:51] LABS: Glucose,Whole Blood 163 mg/dL (75-99)
[2019-01-02] MEDS: BUMETANIDE 10 MG in DEXTROSE 5% IN WATER 60 ML IV SCH ×2 (12:37)
[2019-01-02] MEDS: MILRINONE 1 MG/ML IV SCH (15:07)
[2019-01-02 16:51] LABS: Glucose,Whole Blood 196 mg/dL (75-99)
[2019-01-02] MEDS: MAGNESIUM OXIDE 400 MG TAB PO SCH (17:41)
[2019-01-02] MEDS: WARFARIN 5 MG TAB PO SCH (17:42)
[2019-01-02 20:28] LABS: Glucose,Whole Blood 253 mg/dL (75-99)
[2019-01-02] MEDS: FERROUS SULFATE 325 MG TAB PO SCH (20:33)
[2019-01-02] MEDS: INSULIN DETEMIR (LEVEMIR) 100 UNIT/ML SYR SQ SCH (20:33)
--- NOTE | 2019-01-02 23:25 | P.HPIM ---
History of Present Illness H&P Date: 01/02/19 Chief Complaint: shortness of breath Jose G Polk is a 78 yo M with PMH of cardiomyopathy with AICD in place, severe systolic CHF on continuous milrinone infusion, CKD3 who presented to the ED complaining of shortness of breath and weakness. He was recently admitted approx 2 weeks ago for the same. He states that after going home he did well for about 4 days but then felt his breathing had worsened to the point he needed to come in. In the ED vitals were stable, WBC 7, Hgb 14, potassium 3.3, Cr 1.9 with baseline 1.5. Troponin chronically elevated 0.5. After his last admission he was not able to go to a rehab due to his milrinone infusion. Pt states that he would like to go home on discharge, possibly with hospice instead of to rehab. Review of Systems All systems: negative Constitutional: Reports as per HPI, Reports malaise, Reports weakness, Denies chills, Denies fever Eyes: denies blurred vision, denies pain Ears, nose, mouth and throat: Denies headache, Denies sore throat Cardiovascular: Reports dyspnea on exertion, Reports edema, Reports orthopnea, Denies chest pain, Denies shortness of breath Respiratory: Denies cough Gastrointestinal: Denies abdominal pain, Denies diarrhea, Denies nausea, Denies vomiting Musculoskeletal: Denies myalgias Integumentary: Denies pruritus, Denies rash Neurological: Denies numbness, Denies weakness Psychiatric: Denies anxiety, Denies depression Endocrine: Denies fatigue, Denies weight change Past Medical History Past Medical History: Atrial Fibrillation, Asthma, Coronary Artery Disease (CAD), Cancer, Heart Failure, Diabetes Mellitus, Eye Disorder, Hypertension, Osteoarthritis (OA), Prostate Disorder, Renal Disease, Thyroid Disorder Additional Past Medical History / Comment(s): Chronic CHF, on mironone infusion, KAYLEY showed blood clot in heart, cardiomyopathy, uses oxygen prn at home, IDDM type II, neuropathy bilateral feet, L eye ocular stroke-decreased vision, CKD, anemia, BPH, chronic back pain, spinal stenosis, umbilical hernia, hypothyroid. History of Any Multi-Drug Resistant Organisms: None Reported Past Surgical History: Back Surgery, Heart Catheterization, Joint Replacement, Orthopedic Surgery, Pacemaker, Tonsillectomy Additional Past Surgical History / Comment(s): L upper chest picc line per pt, other picc lines, medipump, past kirby catheter per medical record-pt and spouse do not recall this, KAYLEY, CVN, cardiac cath x2, back surgery, bilateral carpal tunnel releases, bilateral total knee arthroplasties, total L shoulder arthroplasty, skin cancer removal, colonoscopy. Past Anesthesia/Blood Transfusion Reactions: No Reported Reaction Additional Past Anesthesia/Blood Transfusion Reaction / Comment(s): "I came out feeling like I was in another world'-with last cardiac procedure Type of Cardiac Device: Permanent Pacemaker Device Placement Date:: 01/2017 Past Psychological History: No Psychological Hx Reported Smoking Status: Never smoker Past Alcohol Use History: None Reported Past Drug Use History: None Reported - Past Family History Father Family Medical History: Congestive Heart Failure (CHF) Mother Family Medical History: Cancer Additional Family Medical History / Comment(s): Mother had esophageal cancer. Medications and Allergies Home Medications Medication Instructions Recorded Confirmed Type Ergocalciferol (Vitamin D2) 50,000 unit PO TUTH 10/23/15 01/01/19 History [Drisdol] Insulin Aspart [NovoLOG] See Protocol SQ ACHS PRN 04/12/17 01/01/19 History Insulin Glargine [Lantus] See Protocol SQ HS PRN 04/12/17 01/01/19 History Levothyroxine Sodium [Synthroid] 88 mcg PO DAILY 05/19/17 01/01/19 History Ferrous Sulfate [Iron (65 MG 325 mg PO BID 12/11/18 01/01/19 History Elemental)] Aspirin 81 mg PO DAILY chew 12/19/18 01/01/19 Rx Lactulose [Cephulac] 30 gm PO BID #900 ml 12/19/18 01/01/19 Rx Metolazone [Zaroxolyn] 2.5 mg PO Q48H #1 tablet 12/19/18 01/01/19 Rx Tamsulosin [Flomax] 0.4 mg PO DAILY #30 cap 12/19/18 01/01/19 Rx HYDROcodone/APAP 5-325MG [[place] 1 tab PO Q6HR PRN 12/24/18 01/01/19 History 5-325] Milrinone Drip 1mg/Ml 1 dose IV CONTINUOUS 12/24/18 01/01/19 History Potassium Chloride [K-Tab ER] 20 meq PO DAILY #30 tablet.er 12/26/18 01/01/19 Rx Bumetanide 4 mg PO BID 01/01/19 01/01/19 History Magnesium Oxide [Mag-Ox] 250 mg PO DAILY 01/01/19 01/01/19 History Warfarin [Coumadin] 5 mg PO DAILY@1600 01/01/19 01/01/19 History Allergies Allergy/AdvReac Type Severity Reaction Status Date / Time No Known Allergies Allergy Verified 01/01/19 13:32 Physical Exam Vitals: Vital Signs Temp Pulse Resp BP Pulse Ox 01/02/19 20:00 97.7 F 64 18 118/68 91 L 01/02/19 16:15 98.3 F 60 16 105/66 95 01/02/19 12:35 64 18 111/69 93 L 01/02/19 08:35 97.5 F L 62 18 117/55 96 01/02/19 04:00 97.4 F L 99 18 115/71 100 01/02/19 00:00 98.4 F 65 18 126/63 95 Intake and Output 01/02/19 01/02/19 01/03/19 14:59 22:59 06:59 Intake Total 40 Output Total 751 Balance -711 Intake: Intake, IV Titration 40 Amount Bumetanide 10 mg In 40 Dextrose 5% in Water 60 ml @ 0.5 MG/HR 5 mls/hr IV .Q20H [facility] Rx#: [id number] Output: Urine 750 Stool 1 Other: Voiding Method Indwelling Catheter Indwelling Catheter # Voids 1 General: well nourished, well developed, NAD. Vitals reviewed Eyes: PERRL, EOMI, conjunctiva normal HENT: normocephalic, mucus membranes moist Neck: supple, no JVD Lungs: normal respiratory effort, no wheezes or rales CV: Regular rate and rhythm, systolic murmur. Pulses 1+. PICC in place. 1+ edema BLE Abdomen: soft, nondistended, no organomegaly Lymph: no cervical or axillary LAD Skin: warm and dry. Neuro: A&Ox3, normal mood and affect. No asterexis Results CBC & Chem 7: 01/02/19 05:56 01/02/19 05:56 Labs: Abnormal Lab Results - Last 24 Hours (Table) 01/02/19 01/02/19 01/02/19 Range/Units 04:46 05:56 06:00 PT (9.0-12.0) sec INR (<1.2) Sodium 133 L (137-145) mmol/L Potassium 3.3 L (3.5-5.1) mmol/L Chloride 82 L (98-107) mmol/L Carbon Dioxide 41 H* (22-30) mmol/L BUN 102 H* (9-20) mg/dL Creatinine 1.99 H (0.66-1.25) mg/dL Glucose 191 H (74-99) mg/dL POC Glucose (mg/dL) 221 H 200 H (75-99) mg/dL Ammonia (<30) umol/L 01/02/19 01/02/19 01/02/19 Range/Units 09:24 09:24 11:49 PT 19.5 H (9.0-12.0) sec INR 2.0 H (<1.2) Sodium (137-145) mmol/L Potassium (3.5-5.1) mmol/L Chloride (98-107) mmol/L Carbon Dioxide (22-30) mmol/L BUN (9-20) mg/dL Creatinine (0.66-1.25) mg/dL Glucose (74-99) mg/dL POC Glucose (mg/dL) 163 H (75-99) mg/dL Ammonia 113 H (<30) umol/L 01/02/19 01/02/19 Range/Units 16:42 20:26 PT (9.0-12.0) sec INR (<1.2) Sodium (137-145) mmol/L Potassium (3.5-5.1) mmol/L Chloride (98-107) mmol/L Carbon Dioxide (22-30) mmol/L BUN (9-20) mg/dL Creatinine (0.66-1.25) mg/dL Glucose (74-99) mg/dL POC Glucose (mg/dL) 196 H 253 H (75-99) mg/dL Ammonia (<30) umol/L Thrombosis Risk Factor Assmnt - Choose All That Apply Any of the Below Risk Factors Present?: Yes Each Factor Represents 1 point: Heart failure (<1month) Other Risk Factors: Yes Each Risk Factor Represents 3 Points: Age 75 years or older Other congenital or acquired thrombophilia - If yes, enter type in comment: No Thrombosis Risk Factor Assessment Total Risk Factor Score: 4 Thrombosis Risk Factor Assessment Level: Moderate Risk Assessment and Plan (1) Hyperammonemia Current Visit: Yes Status: Acute Code(s): E72.20 - DISORDER OF UREA CYCLE METABOLISM, UNSPECIFIED SNOMED Code(s): 7163790 (2) Systolic and diastolic CHF, acute on chronic Current Visit: Yes Status: Acute Code(s): I50.43 - ACUTE ON CHRONIC COMBINED SYSTOLIC AND DIASTOLIC HRT FAIL SNOMED Code(s): 077109861014044 (3) Tremors of nervous system Current Visit: Yes Status: Acute Code(s): R25.1 - TREMOR, UNSPECIFIED SNOMED Code(s): 56140065 (4) 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 Current Visit: No Status: Acute Code(s): N17.9 - ACUTE KIDNEY FAILURE, UNSPECIFIED; N18.9 - CHRONIC KIDNEY DISEASE, UNSPECIFIED SNOMED Code(s): 691757693 (5) Acute on chronic systolic CHF (congestive heart failure) Current Visit: No Status: Acute Code(s): I50.23 - ACUTE ON CHRONIC SYSTOLIC (CONGESTIVE) HEART FAILURE SNOMED Code(s): 359711408 (6) Anasarca Current Visit: No Status: Acute Code(s): R60.1 - GENERALIZED EDEMA SNOMED Code(s): 815578362 (7) Demand ischemia Current Visit: No Status: Acute Code(s): I24.8 - OTHER FORMS OF ACUTE ISCHEMIC HEART DISEASE SNOMED Code(s): 860087561 (8) ICD (implantable cardioverter-defibrillator) in place Current Visit: No Status: Acute Code(s): Z95.810 - PRESENCE OF AUTOMATIC (IMPLANTABLE) CARDIAC DEFIBRILLATOR SNOMED Code(s): 554798257 Plan: 1. CHF exacerbation. Cardiomyopathy. Cardiology consulted. Continue milrinone. Bumex gtt per cardiology and metolazone qod. Pt will meet with casework specialist regarding transitions program as an alternative to subacute rehab 2. Acute renal failure. CKD3. Bumex drip initiated, monitor electrolytes 3. Hyperammonemia. Congestive hepatitis. Continue lactulose bid. Monitor ammonia 4. T2DM. Accucheck, sliding scale 5. Hypokalemia. Replete potassium DVT prophylaxis: warfarin
[2019-01-03] MEDS: HYDROcodone/APAP 5-325MG 1 EACH TAB PO PRN ×3 (05:18→17:16)
[2019-01-03 06:15] LABS: Glucose,Whole Blood 166 mg/dL (75-99)
[2019-01-03 06:19] LABS: INR 1.6 (<1.2); Prothrombin Time 16.1 sec (9.0-12.0)
[2019-01-03] MEDS: LACTULOSE 20 GM/30 ML CUP PO SCH ×2 (06:19→17:16)
[2019-01-03] MEDS: LEVOTHYROXINE 88 MCG TAB PO SCH (06:19)
[2019-01-03] MEDS: INSULIN ASPART (NovoLOG) 100 UNIT/ML VIAL SQ SCH ×4 (06:58→20:49)
[2019-01-03 07:00] LABS: Calcium 9.3 mg/dL (8.4-10.2); Potassium 3.1 mmol/L (3.5-5.1)
[2019-01-03] MEDS: POTASSIUM CHLORIDE ER 20 MEQ TAB.ER PO SCH (08:21)
[2019-01-03] MEDS: TAMSULOSIN 0.4 MG CAP.ER.24H PO SCH (08:23)
[2019-01-03] MEDS: MAGNESIUM OXIDE 400 MG TAB PO SCH (08:23)
[2019-01-03] MEDS: ASPIRIN 81 MG PO SCH (08:25)
[2019-01-03] MEDS: FERROUS SULFATE 325 MG TAB PO SCH ×2 (08:26→20:43)
[2019-01-03] MEDS ORDERED: ERGOCALCIFEROL 50,000 UNIT CAP PO SCH (09:00)
[2019-01-03] MEDS: SODIUM CHLORIDE 0.9% 500 ML 500 ML IV SCH (11:16)
[2019-01-03] MEDS: BUMETANIDE 10 MG in DEXTROSE 5% IN WATER 60 ML IV SCH ×2 (11:16)
[2019-01-03 11:40] LABS: Glucose,Whole Blood 260 mg/dL (75-99)
--- NOTE | 2019-01-03 15:36 | P.PN ---
Subjective Progress Note Date: 01/03/19 This is a 78-year-old gentleman who follows with Dr. Olmstead in the office. He has a known history of cardiomyopathy with severe LV dysfunction, coronary artery disease, he has undergone 2 heart caths in the past, one in 2011 which revealed normal coronary arteries and again in 2016 which revealed a 20% mid LAD lesion. 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 He had a recent hospitalization in November, presents to the hospital on this occasion with shortness of breath and significant peripheral edema. Blood pressure 117/56, heart rate in the 60s, 96% on room air. White blood cell count 7.3, hemoglobin 14, platelet count 187. ET 19.5 with an INR of 2.0. Sodium 133, potassium 3.3, BUN 102, creatinine 1.9, 109 and 1.7 on admission. Troponin 0.553. The patient and his both verbalized that he does not want to go to rehab, he actually wants to go home, they are asking about going home and with palliative care and ultimately hospice down the road. There is a transition care provided by [facility] similar to palliative care, our nurse outreach case manager is going to get in touch with them regarding this. 01/03/2019 Patient was seen and examined this morning, is intermittently confused. Sitting up in the chair, at bedside. I pressure 110/60 with a heart rate in the 60s, 96% on room air. Times a day 16.1 with an INR of 1.6, sodium 131, potassium 3.1, BUN 111, creatinine 1.8 today. Ammonia 47. Objective - Vital Signs Vital signs: Vital Signs Temp 98.1 F 01/03/19 11:40 Pulse 67 01/03/19 11:40 Resp 18 01/03/19 11:40 BP 110/68 01/03/19 11:40 Pulse Ox 96 01/03/19 11:40 Intake & Output 01/02/19 01/03/19 01/03/19 18:59 06:59 18:59 Intake Total 40 480 Output Total 751 2049 402 Balance - 78 Weight 102.2 kg Intake: Intake, IV Titration 40 Amount Bumetanide 10 mg In 40 Dextrose 5% in Water 60 ml @ 0.5 MG/HR 5 mls/hr IV .Q20H [facility] Rx#: [id number] Oral 480 Output: Urine 750 0 400 Stool 1 2 Other: Voiding Method Indwelling Catheter Indwelling Catheter Indwelling Catheter # Voids 1 # Bowel Movements 3 - Exam PHYSICAL EXAMINATION: GENERAL: 77-year-old gentleman in no acute distress at the time of my examination HEENT: Head is atraumatic, normocephalic. Pupils equal, round. Sclera anicteric. Conjunctiva are clear. Mucous membranes of the mouth are moist. Neck is supple. There is elevated jugular venous pressure. No carotid bruit is heard. HEART EXAMINATION: Heart S1 and S2 irregularly irregular a systolic ejection murmur is heard at the apex CHEST EXAMINATION: Lungs reveal diminished air entry to bilateral bases ABDOMEN: [ Soft, obese, nontender. Bowel sounds are heard. Positive hepatomegaly EXTREMITIES: 2+ peripheral pulses with 2-3+ evidence of peripheral edema and no calf tenderness noted. NEUROLOGIC patient is awake, alert and oriented 3 - Labs CBC & Chem 7: 01/02/19 05:56 01/03/19 05:45 Labs: Abnormal Lab Results - Last 24 Hours (Table) 01/02/19 01/02/19 01/03/19 Range/Units 16:42 20:26 05:45 PT 16.1 H (9.0-12.0) sec INR 1.6 H (<1.2) Sodium (137-145) mmol/L Potassium (3.5-5.1) mmol/L Chloride (98-107) mmol/L Carbon Dioxide (22-30) mmol/L BUN (9-20) mg/dL Creatinine (0.66-1.25) mg/dL Glucose (74-99) mg/dL POC Glucose (mg/dL) 196 H 253 H (75-99) mg/dL Ammonia (<30) umol/L 01/03/19 01/03/19 01/03/19 Range/Units 05:45 05:45 06:14 PT (9.0-12.0) sec INR (<1.2) Sodium 131 L (137-145) mmol/L Potassium 3.1 L (3.5-5.1) mmol/L Chloride 80 L (98-107) mmol/L Carbon Dioxide 42 H* (22-30) mmol/L BUN 111 H* (9-20) mg/dL Creatinine 1.80 H (0.66-1.25) mg/dL Glucose 166 H (74-99) mg/dL POC Glucose (mg/dL) 166 H (75-99) mg/dL Ammonia 47 H (<30) umol/L 01/03/19 Range/Units 11:36 PT (9.0-12.0) sec INR (<1.2) Sodium (137-145) mmol/L Potassium (3.5-5.1) mmol/L Chloride (98-107) mmol/L Carbon Dioxide (22-30) mmol/L BUN (9-20) mg/dL Creatinine (0.66-1.25) mg/dL Glucose (74-99) mg/dL POC Glucose (mg/dL) 260 H (75-99) mg/dL Ammonia (<30) umol/L Assessment and Plan Plan: Assessment and plan #1 systolic congestive heart failure acute on chronic, on chronic milrinone infusion #2 nonischemic cardiomyopathy with prior AICD implantation #3 hypertension #4 diabetes #5 hyperlipidemia #6 hypothyroidism #7 acute on chronic kidney disease #8 abnormal troponin, likely secondary to kidney disease #9 prior PE #10 chronic persistent atrial fibrillation/flutter, on Coumadin for anticoagulation, INR 2.1 #11 near syncopal episodes, appears to be micturition syncope, acute urinary retention #12 abnormality in troponin, likely secondary to chronic kidney disease #13 frequent falls with associated weakness, acute metabolic encephalopathy and acute uremia #14 history of PE Plan We will continue the patient on the IV Bumex, continue to monitor the intake and output along with daily weights and daily lytes BUN and creatinine. Patient is DO NOT RESUSCITATE, we will have the AICD portion of his device turned off today. He will be going home with palliative care and transitioning ultimately to hospice. 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 DNP note has been reviewed, I agree with a documented findings and plan of care. Patient was seen and examined.
[2019-01-03] MEDS: MILRINONE 1 MG/ML IV SCH (16:35)
[2019-01-03 16:54] LABS: Glucose,Whole Blood 247 mg/dL (75-99)
[2019-01-03] MEDS: WARFARIN 5 MG TAB PO SCH (17:16)
[2019-01-03 20:37] LABS: Glucose,Whole Blood 169 mg/dL (75-99)
[2019-01-03] MEDS: INSULIN DETEMIR (LEVEMIR) 100 UNIT/ML SYR SQ SCH (20:49)
--- NOTE | 2019-01-03 21:46 | P.PN ---
Subjective Progress Note Date: 01/03/19 Jose G Polk is a 78 yo M with PMH of cardiomyopathy with AICD in place, severe systolic CHF on continuous milrinone infusion, CKD3 who presented to the ED complaining of shortness of breath and weakness. He was recently admitted approx 2 weeks ago for the same. He states that after going home he did well for about 4 days but then felt his breathing had worsened to the point he needed to come in. In the ED vitals were stable, WBC 7, Hgb 14, potassium 3.3, Cr 1.9 with baseline 1.5. Troponin chronically elevated 0.5. After his last admission he was not able to go to a rehab due to his milrinone infusion. Pt states that he would like to go home on discharge, possibly with hospice instead of to rehab. 01/03. His ammonia is improved today and pt reports more strength. He remains on bumex drip, complains of dyspnea with any exertion and still having leg swelling. Case management working on disposition Objective - Vital Signs Vital signs: Vital Signs Temp 97.8 F 01/03/19 16:00 Pulse 67 01/03/19 16:00 Resp 18 01/03/19 16:00 BP 127/71 01/03/19 16:00 Pulse Ox 98 01/03/19 16:00 Intake & Output 01/03/19 01/03/19 01/04/19 06:59 18:59 06:59 Intake Total 480 Output Total 2049 403 Balance -2049 77 Weight 102.2 kg Intake: Oral 480 Output: Urine 2049 400 Stool 3 Other: Voiding Method Indwelling Catheter Indwelling Catheter # Bowel Movements 3 - Exam Gen: obese, well developed, NAD HEENT: mucus membranes moist Chest: PICC line in place with milrinone infusion. Clear throughout CV: Regular rate and rhythm, systolic murmur Ext: 2+ edema jordan Neuro: no asterexis - Labs CBC & Chem 7: 01/02/19 05:56 01/03/19 05:45 Labs: Abnormal Lab Results - Last 24 Hours (Table) 01/03/19 01/03/19 01/03/19 Range/Units 05:45 05:45 05:45 PT 16.1 H (9.0-12.0) sec INR 1.6 H (<1.2) Sodium 131 L (137-145) mmol/L Potassium 3.1 L (3.5-5.1) mmol/L Chloride 80 L (98-107) mmol/L Carbon Dioxide 42 H* (22-30) mmol/L BUN 111 H* (9-20) mg/dL Creatinine 1.80 H (0.66-1.25) mg/dL Glucose 166 H (74-99) mg/dL POC Glucose (mg/dL) (75-99) mg/dL Ammonia 47 H (<30) umol/L 01/03/19 01/03/19 01/03/19 Range/Units 06:14 11:36 16:52 PT (9.0-12.0) sec INR (<1.2) Sodium (137-145) mmol/L Potassium (3.5-5.1) mmol/L Chloride (98-107) mmol/L Carbon Dioxide (22-30) mmol/L BUN (9-20) mg/dL Creatinine (0.66-1.25) mg/dL Glucose (74-99) mg/dL POC Glucose (mg/dL) 166 H 260 H 247 H (75-99) mg/dL Ammonia (<30) umol/L 01/03/19 Range/Units 20:35 PT (9.0-12.0) sec INR (<1.2) Sodium (137-145) mmol/L Potassium (3.5-5.1) mmol/L Chloride (98-107) mmol/L Carbon Dioxide (22-30) mmol/L BUN (9-20) mg/dL Creatinine (0.66-1.25) mg/dL Glucose (74-99) mg/dL POC Glucose (mg/dL) 169 H (75-99) mg/dL Ammonia (<30) umol/L Assessment and Plan (1) Hyperammonemia Current Visit: Yes Status: Acute Code(s): E72.20 - DISORDER OF UREA CYCLE METABOLISM, UNSPECIFIED SNOMED Code(s): 8283572 (2) Systolic and diastolic CHF, acute on chronic Current Visit: Yes Status: Acute Code(s): I50.43 - ACUTE ON CHRONIC COMBINED SYSTOLIC AND DIASTOLIC HRT FAIL SNOMED Code(s): 180752480939045 (3) Tremors of nervous system Current Visit: Yes Status: Acute Code(s): R25.1 - TREMOR, UNSPECIFIED SNOMED Code(s): 14773176 (4) 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 Current Visit: No Status: Acute Code(s): N17.9 - ACUTE KIDNEY FAILURE, UNSPECIFIED; N18.9 - CHRONIC KIDNEY DISEASE, UNSPECIFIED SNOMED Code(s): 731980962 (5) Acute on chronic systolic CHF (congestive heart failure) Current Visit: No Status: Acute Code(s): I50.23 - ACUTE ON CHRONIC SYSTOLIC (CONGESTIVE) HEART FAILURE SNOMED Code(s): 179670052 (6) Anasarca Current Visit: No Status: Acute Code(s): R60.1 - GENERALIZED EDEMA SNOMED Code(s): 168371391 (7) Demand ischemia Current Visit: No Status: Acute Code(s): I24.8 - OTHER FORMS OF ACUTE ISCHEMIC HEART DISEASE SNOMED Code(s): 183719836 (8) ICD (implantable cardioverter-defibrillator) in place Current Visit: No Status: Acute Code(s): Z95.810 - PRESENCE OF AUTOMATIC (IMPLANTABLE) CARDIAC DEFIBRILLATOR SNOMED Code(s): 495818787 Plan: 1. CHF exacerbation. Cardiomyopathy. Cardiology consulted. Continue milrinone. Bumex gtt per cardiology and metolazone qod. case management working on dispo 2. Acute renal failure. CKD3. Bumex drip initiated, monitor electrolytes 3. Hyperammonemia. Congestive hepatitis. Continue lactulose bid. Monitor ammonia 4. T2DM. Accucheck, sliding scale 5. Hypokalemia. Replete potassium DVT prophylaxis: warfarin
[2019-01-04] MEDS: HYDROcodone/APAP 5-325MG 1 EACH TAB PO PRN ×4 (04:40→20:42)
[2019-01-04] MEDS: BUMETANIDE 10 MG in DEXTROSE 5% IN WATER 60 ML IV SCH ×2 (04:41)
[2019-01-04 06:11] LABS: HCT 41.2 % (39.0-53.0); HGB 13.3 gm/dL (13.0-17.5); MCH 30.6 pg (25.0-35.0); MCHC 32.2 g/dL (31.0-37.0); MCV 94.9 fL (80.0-100.0); Mean Platelet Volume 7.1; Platelet Count 171 k/uL (150-450); RBC 4.34 m/uL (4.30-5.90); RDW 14.9 % (11.5-15.5); WBC 8.5 k/uL (3.8-10.6)
[2019-01-04 06:25] LABS: Glucose,Whole Blood 215 mg/dL (75-99)
[2019-01-04] MEDS: LEVOTHYROXINE 88 MCG TAB PO SCH (06:27)
[2019-01-04] MEDS: LACTULOSE 20 GM/30 ML CUP PO SCH ×2 (06:27→17:32)
[2019-01-04] MEDS: INSULIN ASPART (NovoLOG) 100 UNIT/ML VIAL SQ SCH ×4 (06:30→20:41)
[2019-01-04 06:34] LABS: Calcium 9.7 mg/dL (8.4-10.2); Potassium 2.9 mmol/L (3.5-5.1)
[2019-01-04] MEDS ORDERED: Potassium Replacement Protocol 1 EACH MISC MISCELLANE PRN (09:35)
[2019-01-04] MEDS: POTASSIUM CHLORIDE ER 20 MEQ TAB.ER PO SCH ×3 (10:03→20:41)
[2019-01-04] MEDS: METOLAZONE 2.5 MG TAB PO SCH (10:03)
[2019-01-04] MEDS: TAMSULOSIN 0.4 MG CAP.ER.24H PO SCH (10:03)
[2019-01-04] MEDS: MAGNESIUM OXIDE 400 MG TAB PO SCH (10:03)
[2019-01-04] MEDS: FERROUS SULFATE 325 MG TAB PO SCH ×2 (10:03→20:35)
[2019-01-04] MEDS: ASPIRIN 81 MG PO SCH (10:03)
--- NOTE | 2019-01-04 12:15 | P.PN ---
Subjective Progress Note Date: 01/04/19 This is a 78-year-old gentleman who follows with Dr. Olmstead in the office. He has a known history of cardiomyopathy with severe LV dysfunction, coronary artery disease, he has undergone 2 heart caths in the past, one in 2011 which revealed normal coronary arteries and again in 2016 which revealed a 20% mid LAD lesion. 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 He had a recent hospitalization in November, presents to the hospital on this occasion with shortness of breath and significant peripheral edema. Blood pressure 117/56, heart rate in the 60s, 96% on room air. White blood cell count 7.3, hemoglobin 14, platelet count 187. ET 19.5 with an INR of 2.0. Sodium 133, potassium 3.3, BUN 102, creatinine 1.9, 109 and 1.7 on admission. Troponin 0.553. The patient and his both verbalized that he does not want to go to rehab, he actually wants to go home, they are asking about going home and with palliative care and ultimately hospice down the road. There is a transition care provided by [facility] similar to palliative care, our director case is going to get in touch with them regarding this. 01/03/2019 Patient was seen and examined this morning, is intermittently confused. Sitting up in the chair, at bedside. I pressure 110/60 with a heart rate in the 60s, 96% on room air. Times a day 16.1 with an INR of 1.6, sodium 131, potassium 3.1, BUN 111, creatinine 1.8 today. Ammonia 47. 01/04/2019 Patient seen and examined this morning, is at bedside. He is sleeping comfortably in bed, diuresed well through the night last night, 3000 mL. White blood cell count 8.5, hemoglobin 13.3, platelet count 171. Sodium 133, potassium 2.9, BUN 105 and creatinine 1.9. ammonia 52. Objective - Vital Signs Vital signs: Vital Signs Temp 97.7 F 11/15/19 08:00 Pulse 58 L 01/04/19 11:37 Resp 16 01/04/19 11:37 BP 128/74 01/04/19 08:00 Pulse Ox 99 01/04/19 08:00 Intake & Output 01/03/19 01/04/19 01/04/19 18:59 06:59 18:59 Intake Total 580 240 Output Total 403 2900 2 Balance 177 -2900 238 Weight 105.3 kg Intake: Intake, IV Titration 100 Amount Bumetanide 10 mg In 100 Dextrose 5% in Water 60 ml @ 0.5 MG/HR 5 mls/hr IV .Q20H [facility] Rx#: [id number] Oral 480 240 Output: Urine 400 2900 Stool 3 2 Other: Voiding Method Indwelling Catheter Indwelling Catheter Indwelling Catheter # Bowel Movements 3 - Exam PHYSICAL EXAMINATION: GENERAL: 77-year-old gentleman in no acute distress at the time of my examination HEENT: Head is atraumatic, normocephalic. Pupils equal, round. Sclera anicteric. Conjunctiva are clear. Mucous membranes of the mouth are moist. Nec k is supple. There is elevated jugular venous pressure. No carotid bruit is heard. HEART EXAMINATION: Heart S1 and S2 irregularly irregular a systolic ejection murmur is heard at the apex CHEST EXAMINATION: Lungs reveal diminished air entry to bilateral bases ABDOMEN: [ Soft, obese, nontender. Bowel sounds are heard. Positive hepatomegaly EXTREMITIES: 2+ peripheral pulses with 2-3+ evidence of peripheral edema and no calf tenderness noted. NEUROLOGIC patient is awake, alert and oriented 3 - Labs CBC & Chem 7: 01/04/19 05:46 01/04/19 05:46 Labs: Abnormal Lab Results - Last 24 Hours (Table) 01/03/19 01/03/19 01/04/19 Range/Units 16:52 20:35 05:46 Sodium 133 L (137-145) mmol/L Potassium 2.9 L (3.5-5.1) mmol/L Chloride 80 L (98-107) mmol/L Carbon Dioxide 42 H* (22-30) mmol/L BUN 105 H* (9-20) mg/dL Creatinine 1.92 H (0.66-1.25) mg/dL Glucose 173 H (74-99) mg/dL POC Glucose (mg/dL) 247 H 169 H (75-99) mg/dL Ammonia (<30) umol/L 01/04/19 01/04/19 Range/Units 05:46 06:24 Sodium (137-145) mmol/L Potassium (3.5-5.1) mmol/L Chloride (98-107) mmol/L Carbon Dioxide (22-30) mmol/L BUN (9-20) mg/dL Creatinine (0.66-1.25) mg/dL Glucose (74-99) mg/dL POC Glucose (mg/dL) 215 H (75-99) mg/dL Ammonia 52 H (<30) umol/L Assessment and Plan Plan: Assessment and plan #1 systolic congestive heart failure acute on chronic, on chronic milrinone infusion #2 nonischemic cardiomyopathy with prior AICD implantation #3 hypertension #4 diabetes #5 hyperlipidemia #6 hypothyroidism #7 acute on chronic kidney disease #8 abnormal troponin, likely secondary to kidney disease #9 prior PE #10 chronic persistent atrial fibrillation/flutter, on Coumadin for anticoagulation, INR 2.1 #11 near syncopal episodes, appears to be micturition syncope, acute urinary retention #12 abnormality in troponin, likely secondary to chronic kidney disease #13 frequent falls with associated weakness, acute metabolic encephalopathy and acute uremia #14 history of PE Plan We will continue the patient on the IV Bumex, continue to monitor the intake and output along with daily weights and daily lytes BUN and creatinine. Patient is DO NOT RESUSCITATE, we will have the AICD portion of his device turned off today. He will be going home with palliative care and transitioning ultimately to hospice. analytics manager at things with the and the patient today. DNP note has been reviewed, I agree with a documented findings and plan of care. Patient was seen and examined.
[2019-01-04 12:17] LABS: Glucose,Whole Blood 239 mg/dL (75-99)
[2019-01-04] MEDS: WARFARIN 5 MG TAB PO SCH (16:26)
[2019-01-04 16:32] LABS: Glucose,Whole Blood 230 mg/dL (75-99)
[2019-01-04] MEDS: MILRINONE 1 MG/ML IV SCH (17:38)
[2019-01-04] MEDS: SODIUM CHLORIDE 0.9% 500 ML 500 ML IV SCH (17:38)
[2019-01-04 18:00] VITALS: RESP 18
[2019-01-04 20:25] LABS: Glucose,Whole Blood 175 mg/dL (75-99)
[2019-01-04] MEDS: INSULIN DETEMIR (LEVEMIR) 100 UNIT/ML SYR SQ SCH (20:41)
--- NOTE | 2019-01-04 22:30 | P.PN ---
Subjective Progress Note Date: 01/04/19 Jose G Polk is a 78 yo M with PMH of cardiomyopathy with AICD in place, severe systolic CHF on continuous milrinone infusion, CKD3 who presented to the ED complaining of shortness of breath and weakness. He was recently admitted approx 2 weeks ago for the same. He states that after going home he did well for about 4 days but then felt his breathing had worsened to the point he needed to come in. In the ED vitals were stable, WBC 7, Hgb 14, potassium 3.3, Cr 1.9 with baseline 1.5. Troponin chronically elevated 0.5. After his last admission he was not able to go to a rehab due to his milrinone infusion. Pt states that he would like to go home on discharge, possibly with hospice instead of to rehab. 01/03. His ammonia is improved today and pt reports more strength. He remains on bumex drip, complains of dyspnea with any exertion and still having leg swelling. Case management working on disposition 01/04. Pt resting and comfortable, has diuresed 3 L in last 24 hours. He does feel some improvement in his strength and breathing. Potassium 2.8 today, ammonia up to 50. Case management working to set pt up with home hospice as he will not be able to discharge to rehab due to milrinone infusion. Objective - Vital Signs Vital signs: Vital Signs Temp 97.8 F 01/04/19 20:00 Pulse 63 01/04/19 20:00 Resp 18 01/04/19 20:00 BP 126/79 01/04/19 20:00 Pulse Ox 98 01/04/19 20:00 Intake & Output 01/04/19 01/04/19 01/05/19 06:59 18:59 06:59 Intake Total 462 Output Total 2900 903 Balance -2900 -441 Weight 105.3 kg Intake: Oral 462 Output: Urine 2900 900 Stool 3 Other: Voiding Method Indwelling Catheter Indwelling Catheter Indwelling Catheter - Exam Gen: obese, well developed, NAD HEENT: mucus membranes moist Chest: PICC line in place with milrinone infusion. Clear throughout CV: Regular rate and rhythm, systolic murmur Ext: 2+ edema jordan Neuro: no asterexis - Labs CBC & Chem 7: 01/04/19 05:46 01/04/19 05:46 Labs: Abnormal Lab Results - Last 24 Hours (Table) 01/04/19 01/04/19 01/04/19 Range/Units 05:46 05:46 06:24 Sodium 133 L (137-145) mmol/L Potassium 2.9 L (3.5-5.1) mmol/L Chloride 80 L (98-107) mmol/L Carbon Dioxide 42 H* (22-30) mmol/L BUN 105 H* (9-20) mg/dL Creatinine 1.92 H (0.66-1.25) mg/dL Glucose 173 H (74-99) mg/dL POC Glucose (mg/dL) 215 H (75-99) mg/dL Ammonia 52 H (<30) umol/L 01/04/19 01/04/19 01/04/19 Range/Units 12:15 16:31 20:24 Sodium (137-145) mmol/L Potassium (3.5-5.1) mmol/L Chloride (98-107) mmol/L Carbon Dioxide (22-30) mmol/L BUN (9-20) mg/dL Creatinine (0.66-1.25) mg/dL Glucose (74-99) mg/dL POC Glucose (mg/dL) 239 H 230 H 175 H (75-99) mg/dL Ammonia (<30) umol/L Assessment and Plan (1) Hyperammonemia Current Visit: Yes Status: Acute Code(s): E72.20 - DISORDER OF UREA CYCLE METABOLISM, UNSPECIFIED SNOMED Code(s): 8019751 (2) Systolic and diastolic CHF, acute on chronic Current Visit: Yes Status: Acute Code(s): I50.43 - ACUTE ON CHRONIC COMBINED SYSTOLIC AND DIASTOLIC HRT FAIL SNOMED Code(s): 298507792014200 (3) Tremors of nervous system Current Visit: Yes Status: Acute Code(s): R25.1 - TREMOR, UNSPECIFIED SNOMED Code(s): 09299385 (4) 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 Current Visit: No Status: Acute Code(s): N17.9 - ACUTE KIDNEY FAILURE, UNSPECIFIED; N18.9 - CHRONIC KIDNEY DISEASE, UNSPECIFIED SNOMED Code(s): 645807121 (5) Acute on chronic systolic CHF (congestive heart failure) Current Visit: No Status: Acute Code(s): I50.23 - ACUTE ON CHRONIC SYSTOLIC (CONGESTIVE) HEART FAILURE SNOMED Code(s): 403083749 (6) Anasarca Current Visit: No Status: Acute Code(s): R60.1 - GENERALIZED EDEMA SNOMED Code(s): 303388750 (7) Demand ischemia Current Visit: No Status: Acute Code(s): I24.8 - OTHER FORMS OF ACUTE ISCHEMIC HEART DISEASE SNOMED Code(s): 718006821 (8) ICD (implantable cardioverter-defibrillator) in place Current Visit: No Status: Acute Code(s): Z95.810 - PRESENCE OF AUTOMATIC (IMPLANTABLE) CARDIAC DEFIBRILLATOR SNOMED Code(s): 975317539 Plan: 1. CHF exacerbation. Cardiomyopathy. Cardiology consulted. Continue milrinone. Bumex gtt per cardiology and metolazone qod. case management working on dispo 2. Acute renal failure. CKD3. Bumex gtt, monitor electrolytes 3. Hyperammonemia. Congestive hepatitis. Continue lactulose bid. Monitor ammonia 4. T2DM. Accucheck, sliding scale 5. Hypokalemia. Replete potassium DVT prophylaxis: warfarin
[2019-01-05] MEDS: BUMETANIDE 10 MG in DEXTROSE 5% IN WATER 60 ML IV SCH ×2 (00:45)
[2019-01-05] MEDS: HYDROcodone/APAP 5-325MG 1 EACH TAB PO PRN ×5 (00:56→17:08)
[2019-01-05 06:07] LABS: Glucose,Whole Blood 212 mg/dL (75-99)
[2019-01-05 06:47] LABS: INR 2.1 (<1.2); Prothrombin Time 20.2 sec (9.0-12.0)
[2019-01-05] MEDS: LACTULOSE 20 GM/30 ML CUP PO SCH (06:48)
[2019-01-05] MEDS: INSULIN ASPART (NovoLOG) 100 UNIT/ML VIAL SQ SCH ×2 (06:48→12:27)
[2019-01-05] MEDS: LEVOTHYROXINE 88 MCG TAB PO SCH (06:49)
[2019-01-05 07:54] LABS: Calcium 10.1 mg/dL (8.4-10.2)
[2019-01-05 08:08] LABS: Potassium 3.8 mmol/L (3.5-5.1)
[2019-01-05] MEDS: TAMSULOSIN 0.4 MG CAP.ER.24H PO SCH (08:51)
[2019-01-05] MEDS: MAGNESIUM OXIDE 400 MG TAB PO SCH (08:51)
[2019-01-05] MEDS: FERROUS SULFATE 325 MG TAB PO SCH (08:51)
[2019-01-05] MEDS: ASPIRIN 81 MG PO SCH (08:51)
[2019-01-05 12:04] LABS: Glucose,Whole Blood 267 mg/dL (75-99)
[2019-01-05 14:39] VITALS: BP 124/60; PULSE 61; TEMP 98
--- NOTE | 2019-01-05 15:15 | P.PN ---
Subjective Progress Note Date: 01/05/19 Principal diagnosis: Severe systolic CHF Cardiomyopathy with AICD 78 yo M with PMH of cardiomyopathy with AICD in place, severe systolic CHF on continuous milrinone infusion, CKD3 who presented to the ED complaining of shortness of breath and weakness. He was recently admitted approx 2 weeks ago for the same. He states that after going home he did well for about 4 days but then felt his breathing had worsened to the point he needed to come in. In the ED vitals were stable, WBC 7, Hgb 14, potassium 3.3, Cr 1.9 with baseline 1.5. Troponin chronically elevated 0.5. After his last admission he was not able to go to a rehab due to his milrinone infusion. Pt states that he would like to go home on discharge, possibly with hospice instead of to rehab. 01/05/2019 Patient is seen and evaluated in room with family members at bedside; requesting to be discharged home; denies any specific complaints Review of vital signs; temperature of 98, pulse 61, lacerations 16 and blood pressure 124/60 with SpO2 of 96% on 2 L Laboratory review shows an INR of 2.1, sodium 131, BUN 109 with creatinine of 1.55; blood glucoses remain between 212- 267 Patient remains on milrinone infusion along with Zaroxolyn 2.5 mg every 48 hours; case management on board for discharge planning to home with palliative with possible transition to hospice care Objective - Vital Signs Vital signs: Vital Signs Temp 98 F 01/05/19 12:00 Pulse 61 01/05/19 12:00 Resp 18 01/05/19 12:00 BP 124/60 01/05/19 12:00 Pulse Ox 96 01/05/19 12:00 Intake & Output 01/04/19 01/05/19 01/05/19 18:59 06:59 18:59 Intake Total 462 100 240 Output Total 1703 2326 702 Balance -1241 -2226 -462 Weight 104.3 kg Intake: Intake, IV Titration 100 Amount Bumetanide 10 mg In 100 Dextrose 5% in Water 60 ml @ 0.5 MG/HR 5 mls/hr IV .Q20H [facility] Rx#: [id number] Oral 462 240 Output: Urine 1700 2325 700 Stool 3 1 2 Other: Voiding Method Indwelling Catheter Indwelling Catheter Indwelling Catheter # Bowel Movements 0 - Exam PHYSICAL EXAMINATION: GENERAL: The patient is alert and oriented x3, not in any acute distress. Well developed, well nourished. HEENT: Pupils are round and equally reacting to light. EOMI. No scleral icterus. No conjunctival pallor. Normocephalic, atraumatic. No pharyngeal erythema. No thyromegaly. CARDIOVASCULAR: S1 and S2 present. No murmurs, rubs, or gallops. PULMONARY: Chest is clear to auscultation, no wheezing or crackles. ABDOMEN: Soft, nontender, nondistended, normoactive bowel sounds. No palpable organomegaly. MUSCULOSKELETAL: No joint swelling or deformity. EXTREMITIES: No cyanosis, clubbing, or pedal edema. NEUROLOGICAL: Gross neurological examination did not reveal any focal deficits. SKIN: No rashes. - Labs CBC & Chem 7: 01/04/19 05:46 01/05/19 05:56 Labs: Abnormal Lab Results - Last 24 Hours (Table) 01/04/19 01/04/19 01/05/19 Range/Units 16:31 20:24 05:53 PT 20.2 H (9.0-12.0) sec INR 2.1 H (<1.2) Sodium (137-145) mmol/L Chloride (98-107) mmol/L Carbon Dioxide (22-30) mmol/L BUN (9-20) mg/dL Creatinine (0.66-1.25) mg/dL Glucose (74-99) mg/dL POC Glucose (mg/dL) 230 H 175 H (75-99) mg/dL 01/05/19 01/05/19 01/05/19 Range/Units 05:56 06:06 11:45 PT (9.0-12.0) sec INR (<1.2) Sodium 131 L (137-145) mmol/L Chloride 82 L (98-107) mmol/L Carbon Dioxide 39 H (22-30) mmol/L BUN 109 H* (9-20) mg/dL Creatinine 1.55 H (0.66-1.25) mg/dL Glucose 215 H (74-99) mg/dL POC Glucose (mg/dL) 212 H 267 H (75-99) mg/dL Assessment and Plan Assessment: 1. Acute on chronic systolic/diastolic CHF/ severe cardiomyopathy/ status post ICD; patient remains on IV milrinone infusion along with Zaroxolyn; case management on board for possible discharge home on IV milrinone and palliative care 2. 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; slightly improved from BUN/creatinine of 105/1.9 to down to 109/1.55 3. Generalized anasarca; continue with milrinone/Zaroxolyn 4. Hyperammonemia; ammonia levels are trending down 6. Hypokalemia; resolved 7. DVT prophylaxis; systemic anticoagulation with Coumadin CODE STATUS; DO NOT RESUSCITATE Time with Patient: Greater than 30
--- NOTE | 2019-01-05 15:43 | P.DS ---
Providers Date of admission: 01/01/19 15:15 Expected date of discharge: 01/05/19 Attending physician: Scott Bui MD Consults: 01/01/19 15:16 Consult Physician Urgent Consulting Provider: [facility] Consult Reason/Comments: acute resp failure, aechf Do you want consulting provider notified?: Yes Primary care physician: [facility] Course: 78 yo M with PMH of cardiomyopathy with AICD in place, severe systolic CHF on continuous milrinone infusion, CKD3 who presented to the ED complaining of shortness of breath and weakness. He was recently admitted approx 2 weeks ago for the same. He states that after going home he did well for about 4 days but then felt his breathing had worsened to the point he needed to come in. In the ED vitals were stable, WBC 7, Hgb 14, potassium 3.3, Cr 1.9 with baseline 1.5. Troponin chronically elevated 0.5. After his last admission he was not able to go to a rehab due to his milrinone infusion. Pt states that he would like to go home on discharge, possibly with hospice instead of to rehab. 01/05/2019 Patient is seen and evaluated in room with family members at bedside; requesting to be discharged home; denies any specific complaints Review of vital signs; temperature of 98, pulse 61, lacerations 16 and blood pressure 124/60 with SpO2 of 96% on 2 L Laboratory review shows an INR of 2.1, sodium 131, BUN 109 with creatinine of 1.55; blood glucoses remain between 212- 267 Patient remains on milrinone infusion along with Zaroxolyn 2.5 mg every 48 hours; case management on board for discharge planning to home with palliative with possible transition to hospice care Patient Condition at Discharge: Serious Plan - Discharge Summary New Discharge Prescriptions: Continue Ergocalciferol (Vitamin D2) [Drisdol] 50,000 unit PO TUTH Insulin Aspart [NovoLOG] See Protocol SQ ACHS PRN PRN Reason: Blood Sugar - High Insulin Glargine [Lantus] See Protocol SQ HS PRN PRN Reason: Blood Sugar - High Levothyroxine Sodium [Synthroid] 88 mcg PO DAILY Ferrous Sulfate [Iron (65 MG Elemental)] 325 mg PO BID Aspirin 81 mg PO DAILY chew Lactulose [Cephulac] 30 gm PO BID #900 ml Tamsulosin [Flomax] 0.4 mg PO DAILY #30 cap Metolazone [Zaroxolyn] 2.5 mg PO Q48H #1 tablet HYDROcodone/APAP 5-325MG [[place] 5-325] 1 tab PO Q6HR PRN PRN Reason: Pain Milrinone Drip 1mg/Ml 1 dose IV CONTINUOUS Potassium Chloride [K-Tab ER] 20 meq PO DAILY #30 tablet.er Bumetanide 4 mg PO BID Magnesium Oxide [Mag-Ox] 250 mg PO DAILY Warfarin [Coumadin] 5 mg PO DAILY@1600 Discharge Medication List Ergocalciferol (Vitamin D2) [Drisdol] 50,000 unit PO TUTH 10/23/15 [History] Insulin Aspart [NovoLOG] See Protocol SQ ACHS PRN 04/12/17 [History] Insulin Glargine [Lantus] See Protocol SQ HS PRN 04/12/17 [History] Levothyroxine Sodium [Synthroid] 88 mcg PO DAILY 05/19/17 [History] Ferrous Sulfate [Iron (65 MG Elemental)] 325 mg PO BID 12/11/18 [History] Aspirin 81 mg PO DAILY chew 12/19/18 [Rx] Lactulose [Cephulac] 30 gm PO BID #900 ml 12/19/18 [Rx] Metolazone [Zaroxolyn] 2.5 mg PO Q48H #1 tablet 12/19/18 [Rx] Tamsulosin [Flomax] 0.4 mg PO DAILY #30 cap 12/19/18 [Rx] HYDROcodone/APAP 5-325MG [[place] 5-325] 1 tab PO Q6HR PRN 12/24/18 [History] Milrinone Drip 1mg/Ml 1 dose IV CONTINUOUS 12/24/18 [History] Potassium Chloride [K-Tab ER] 20 meq PO DAILY #30 tablet.er 12/26/18 [Rx] Bumetanide 4 mg PO BID 01/01/19 [History] Magnesium Oxide [Mag-Ox] 250 mg PO DAILY 01/01/19 [History] Warfarin [Coumadin] 5 mg PO DAILY@1600 01/01/19 [History] Follow up Appointment(s)/Referral(s): Toshia Bui, [Primary Care Provider] - 1-2 days [facility], [NON-STAFF] - Activity/Diet/Wound Care/Special Instructions: home with [facility] care and palliative care Discharge Disposition: HOME WITH HOME HEALTH SERVICES
== END 2019-01-05 17:15 | disposition home health service (06) | DRG 291 ==
LOC: EC 13:31 → 3SCARD 15:15
PROVIDERS: ADMIT Family Medicine; ATTEND Family Medicine
DX: I13.0 Hypertensive heart and chronic kidney disease with heart failure and stage 1 through stage 4 chronic kidney disease, or unspecified chronic kidney disease (principal); G93.41 Metabolic encephalopathy; I50.43 Acute on chronic combined systolic (congestive) and diastolic (congestive) heart failure; J96.00 Acute respiratory failure, unspecified whether with hypoxia or hypercapnia; I24.8 Other forms of acute ischemic heart disease; I48.19 Other persistent atrial fibrillation; I48.92 Unspecified atrial flutter; N17.9 Acute kidney failure, unspecified; E72.4 Disorders of ornithine metabolism; E03.9 Hypothyroidism, unspecified; E11.22 Type 2 diabetes mellitus with diabetic chronic kidney disease; E78.5 Hyperlipidemia, unspecified; E87.6 Hypokalemia; H54.7 Unspecified visual loss; I25.10 Atherosclerotic heart disease of native coronary artery without angina pectoris; I42.8 Other cardiomyopathies; J45.909 Unspecified asthma, uncomplicated; K59.00 Constipation, unspecified; K75.9 Inflammatory liver disease, unspecified; N18.3 Chronic kidney disease, stage 3 (moderate); N40.1 Benign prostatic hyperplasia with lower urinary tract symptoms; R33.8 Other retention of urine; R29.6 Repeated falls; Z66 Do not resuscitate; Z79.01 Long term (current) use of anticoagulants; Z79.4 Long term (current) use of insulin; Z79.82 Long term (current) use of aspirin; Z79.890 Hormone replacement therapy; Z79.899 Other long term (current) drug therapy; Z80.0 Family history of malignant neoplasm of digestive organs; Z82.49 Family history of ischemic heart disease and other diseases of the circulatory system; Z86.711 Personal history of pulmonary embolism; Z86.73 Personal history of transient ischemic attack (TIA), and cerebral infarction without residual deficits; Z95.810 Presence of automatic (implantable) cardiac defibrillator; G89.29 Other chronic pain; M48.00 Spinal stenosis, site unspecified; R25.1 Tremor, unspecified; Z51.5 Encounter for palliative care
CPT/HCPCS: 36415; 80048; 80053; 82140; 83880; 84484; 85025; 85027; 85610; 93005; 99285